=== PATIENT | male | born 1960 | race American Indian/Alaskan Native ===

== ENCOUNTER 2017-06-12 20:29 | Observation (INO) | payer OTHER ==
[~2017-06-12] VITALS: Ht 177.8 cm; Wt 103.9 kg
[~2017-06-12 20:29] MED LIST: ADVIL200 MG PO
--- NOTE | 2017-06-13 02:34 | NUR ---
ARRIVES TO ROOM 130, TRANSFERS OFF GURNORTH EASTON AND INTO BED PER SELF WITH STAND BY ASSIST. HR 115, RR 26, PT C/O BACK PAIN WHICH HE STATES IS CHRONIC. IVF INFUSING AND LEVAQUIN INFUSING ON ARRIVAL. DR BROWN IN TO SEE PT.
--- NOTE | 2017-06-13 04:22 | NUR ---
PT ARRIVED TO CCU ROOM 130 VIA STRETCHER. REPORT RECEIVED FROM REGULATORY AFFAIRS SPECIALIST, TIM. PT IS ALERT/ORIENTED. REPORTS CHRONIC BACK PAIN THAT IS CURRENTLY 8/10, SCHEDULED NAPROXEN GIVEN. LUNGS DIM, RA, TACHYPNIC. HR REGULAR, TACHY. BOWEL TONES ACTIVE, DENIES NAUSEA. PT HAS COUGH THAT IS DRY, ROBITUSSIN ADMINISTERED PER ORDER. SKIN APPEARS GROSSLY INTACT, NO EDEMA NOTED, PT REPORTS CHRONIC TINGLING IN FINGERTIPS. PT UP TO BATHROOM WITH SBA, VOIDED 600ML AND HAD BM WHICH PT REPORTS WAS SOFT. PT RETURNED TO BED, AT BEDSIDE. IVF INFUSING WNL. PT DENIES FURTHER REQUESTS AT THIS TIME, WILL CONTINUE TO MONITOR.
--- NOTE | 2017-06-13 04:31 | NUR ---
PT DESATURATING WHILE SLEEPING TO 86-88%, PLACED ON 1L VIA NC. NOW SPOS=2: 90-92%.
--- NOTE | 2017-06-13 05:40 | NUR ---
PT APPEARS TO BE SLEEPING, NO APPARENT DISTRESS. RR: 21, RESPIRATIONS EVEN AND UNLABORED, SPO2:92% ON 1L. HR:95. WILL ALLOW FOR REST AND CONTINUE TO MONITOR.
--- NOTE | 2017-06-13 08:56 | NUR ---
ASSESSMENT COMPLETE. PATIENT SAT UP IN BED FOR BREAKFAST. PATIENT VOIDED 1200MLS OF CLEAR YELLOW URINE. LUNGS DIMINISHED. PATIENT COUGHING WHEN ASKING TO TAKE A DEEP BREATH. REPORTS NASAL CONGESTION. BLOOD SUGAR WAS 223. COVRERED WITH 2 UNITS OF INSULIN. PATIENT ANXIOUS ABOUT TAKING BLOOD SUGARS AND GIVING INSULIN. STATING, "EVERYONE IN MY FAMILY IS DIABETIC DOES THIS MEAN THAT I AM TOO". EDUCATION GIVEN ABOUT ELEVATED BLOOD SUGAR WHILE SICK. IN ROOM VERY ENCOURAGING TO PATIENT.
--- NOTE | 2017-06-13 10:42 | NUR ---
PATIENT ASSISTED TO THE BED FROM THE BR. PATIENT TOLERATING AMBULATING IND WELL. NO DIZZINESS AT THIS TIME. VOIDED CLEAR URINE AND HAD BM. UPDATED PATIENT WITH NEWS OF TRANSFERING TO THE MEDICAL FLOOR.
--- NOTE | 2017-06-13 11:34 | NUR ---
ROOM DARKENED SO PATIENT CAN REST. MONITOR D/C'D PLAN TO MOVE TO ROOM 124 UPON TRANSFER.
--- NOTE | 2017-06-13 12:16 | NUR ---
PATIENT ASSISTED INTO GOWN. PATIENT STATING HE WAS GETTING SORE SLEEPING IN BED. IND AMBULATED TO CHAIR. VITALS TAKEN. BLOOD SUGAR 199. ORDERED LUNCH. EDUCATED ABOUT TAKING BLOOD SUGAR AT HOME. PATIENT STATING HE WOULD TRY TO TAKE BLOOD SUGAR AND GIVE INSULIN FOR DINNER, GAVE DEMONSTRATION FOR LUNCH. STATING SHE FAMILIAR WITH PROCESS BECAUSE SHE HAD TO DO IT.
--- NOTE | 2017-06-13 12:55 | NUR ---
PATIENT SITTING UP IN CHAIR EATING LUNCH. TOLERATING WELL. 2 UNITS OF INSULIN GIVEN. PLAN TO TRANSFER TO THE FLOOR WHEN DOING EATING.
--- NOTE | 2017-06-13 13:56 | NUR ---
PATIENT UPDATED THAT WE WILL BE STAYING IN ROOM FOR NOW. UPDATED WITH NEW PLAN. PATIENT AMBULATING IN ROOM IND. SCHEDULED MEDICATION GIVEN. PATIENT C/O CHRONIC BACK AND ANKLE PAIN. REFUSING TYLENOL AT THIS TIME.
--- NOTE | 2017-06-13 14:28 | NUR ---
patient voided 900mls of urine. tolerating resting in bed. vitals taken. in room. no other c/o at this time. cont to sat 94 on ra. current hr 93.
--- NOTE | 2017-06-13 16:27 | NUR ---
PATIENT ASSISTING SELF TO BR. VOIDING 900MLS IN URINAL. AT BEDSIDE. VISITORS GOING IN AND OUT. VITALS TAKEN. DINNER ORDER TAKEN. PATIENT CONTINUE TO DO WELL. NO OTHER NEEDS AT THIS TIME.
--- NOTE | 2017-06-13 17:10 | NUR ---
FALLON SITTING UP IN CHAIR. PATIENT GIVEN SCHEDULED COUGH MEDICATIONS. PATIENT ASKED IF HE WANTED TO TAKE OWN BLOOD SUGAR. PATIENT AGREED. PATIENT WAS EDUCATED ON HOW TO CLEAN FINGER, USED THE LANCETT, AND HOW TO PLACE BLOOD ON BLOOD SUGAR STRIP. PATIENT WAS ABLE TO DEMONSTRATE WELL. ASKED PATIENT IF HE WOULD LIKE TO GIVE HIS OWN INSULIN. PATIENT REFUSED AT THIS TIME AND STATING NO NOW. IN ROOM STATING SHE COULD ADMINISTER INSULIN AT HOME IF NEEDED.
--- NOTE | 2017-06-13 17:12 | NUR ---
PATIENT ADMITTED THROUGH THE ED LAST NIGHT. HAS HAD COUGH AND CONGESTION FOR 10DAYS. PATIENT TODAY HAS BEEN AFEBRILE. VITALS WNL. MAKE SL. TOLERAITNG DIET WELL. PATIENT IS A NEW DIABETIC. HAVING DONE EDUCATION AND DEMONSTRATIONS OF BLOOD SUGAR CHECKING AND DIABETIC EDUCATION. PATIENT IS VOIDING WELL. STEADY ON HIS FEET. IN ROOM. CONT TO BE ON RA TODAY. PLAN TO TRANSFER TO MS FLOOR AT SHIFT CHANGE.
--- NOTE | 2017-06-13 17:53 | NUR ---
PATIENT TOLERATED 100 PERCENT OF DINNER. TOLERATED WELL. NO C/O AT THIS TIME. EDUCATION ON INSULIN INJECTION. PATIENT TOLERATED INFORMATION WELL.
--- NOTE | 2017-06-13 21:10 | NUR ---
PT IS ALERT, ORIENTED, IN GOOD SPIRITS, ABLE TO DEMONSTRATE CORRECT BLOOD SUGAR CHECK, AND ADMINISTRATION OF OWN INSULIN WITH MINIMAL INSTRUCTION. AT BEDSIDE AND VERY SUPPORTIVE. PT STATES HE IS COMFORTABLE, DENIES FURTHER NEEDS, WATCHING MOVIE, CALL LIGHT IN EASY REACH. INDEP IN HS CARES. IS SPENDING THE NIGHT IN ROOM, BED IS MADE UP FOR HER.
--- NOTE | 2017-06-13 21:50 | NUR ---
RECIEVED REPORT FROM DO. PATIENT RESTING IN BED. NO REPORTS OF PAIN AT THIS TIME. LUNGS ARE CLEAR->DIM, HR REGULAR, ACTIVE BS. TRACE EDEMA BILAT ANKLES L>R. FLUSHED IV SITE. PATIENT STATES HE HAD A BM ABOUT 10 MINUTES AGO. PATIENT DENIES NEEDS. CALL LIGHT IN REACH.
--- NOTE | 2017-06-13 22:50 | NUR ---
VITALS AND I&OS DONE AND CHARTED. PT NEEDS NOTHING ELSE AT THIS TIME.
--- NOTE | 2017-06-13 23:38 | NUR ---
PATIENT UP TO BATHROOM INDEPENDENTLY. VOIDED. BACK TO BED. REFILLED WATER PITCHER. PATIENT DENIES NEEDS. CALL LIGHT IN REACH. AT BEDSIDE.
--- NOTE | 2017-06-14 01:45 | NUR ---
PATIENT SLEEPING. AT BEDSIDE. CALL LIGHT IN REACH.
--- NOTE | 2017-06-14 03:23 | NUR ---
PATIENT UP TO BATHROOM INDEPENDENTLY. VOIDED, BACK TO BED. EMPTIED URINAL. LUNGS ARE CLEAR-->DIMINISHED. OCCASIONAL DRY COUGH. HR REGULAR. ACTIVE BS. PALPABLE PEDAL PULSES, TRACE BLE EDEMA (ANKLES). PATIENT DENIES PAIN. ADMINISTERED SUDDAFED. PATIENT DENIES NEEDS. CALL LIGHT IN REACH.
--- NOTE | 2017-06-14 04:00 | NUR ---
CHECKED PATIENT'S O2 WHILE SLEEPING-96% ON RA. CALL LIGHT IN REACH.
--- NOTE | 2017-06-14 07:50 | NUR ---
PATIENT IN BED ASLEEP. WHITEBOARD UPDATED
--- NOTE | 2017-06-14 07:55 | NUR ---
took pateints breakfast order and got his a caregivers tray
--- NOTE | 2017-06-14 07:58 | NUR ---
PT ABLE TO GIVE SELF INSULIN
--- NOTE | 2017-06-14 09:54 | NUR ---
PT UP AMBULATING IN HALLWAY INDEPENDENTLY.
[2017-06-14] MEDS ORDERED: PSEUDOEPHEDRIN120 MG PO (11:50)
[2017-06-14] MEDS ORDERED: LEVOFLOXACIN500 MG PO (11:50)
[2017-06-14] MEDS ORDERED: GUAIFENESIN-CODE5 ML PO (11:53)
[2017-06-14] MEDS ORDERED: FLUTICASONE PRO16 GM NAS (11:54)
[2017-06-14] MEDS ORDERED: GLIPIZIDE XL10 MG PO (11:55)
[2017-06-14] MEDS ORDERED: METFORMIN HCL500 MG PO (11:55)
[2017-06-14] MEDS ORDERED: BLOOD GLUCOSE1 EAC1 MISC (11:56)
[2017-06-14] MEDS ORDERED: BLOOD LANCETS1 EACH MISC (11:57)
[2017-06-14] MEDS ORDERED: BLOOD GLUCOSE1 EACH MISC (11:58)
--- NOTE | 2017-06-14 11:59 | NUR ---
DR BROWN IN TO SEE PT. GIVEN VERBAL ORDER TO REMOVE IV. TIP INTACT. PT EATING LUNCH VISITING WITH
[2017-06-14] MEDS ORDERED: NAPROXEN500 MG PO (12:07)
--- NOTE | 2017-06-14 12:43 | NUR ---
PT GIVEN FLU SHOT PRIOR TO DISCHARGE. GIVNE DISCHARGE INSTRUCTIONS TO PT AND . BOTH VERBALIZE UNDERSTANDING. BOTH STATE NO FUTHRER QUESTIONS.
== END 2017-06-14 12:58 | disposition home or self-care (01) ==
LOC: ED 20:29 → CCU 20:30 → ED 06-13 02:08 → CCU 06-13 02:08 → MS 06-13 18:50 → CCU 06-13 18:50 → MS 06-13 18:50 → CCU 06-14 12:58 → MS 06-14 12:58 → CCU 06-14 12:58
PROVIDERS: ADMIT Internal Medicine
DX: A41.9 Sepsis, unspecified organism (principal); J01.10 Acute frontal sinusitis, unspecified; B96.89 Other specified bacterial agents as the cause of diseases classified elsewhere; M19.90 Unspecified osteoarthritis, unspecified site; E11.65 Type 2 diabetes mellitus with hyperglycemia; Z87.891 Personal history of nicotine dependence; Z88.0 Allergy status to penicillin; Z79.1 Long term (current) use of non-steroidal anti-inflammatories (NSAID); Z23 Encounter for immunization
CPT/HCPCS: 36415; 71046; 80053; 81001; 83036; 83605; 83880; 84484; 85025; 87040; 87502; 90674; 96361; 96365; 96366; 96374; 96375; 99285; G0008; G0378; J1956; J7030; J7120

== ENCOUNTER 2017-08-06 14:49 | Emergency (ER) | payer OTHER ==
[~2017-08-06] VITALS: Ht 177.8 cm; Wt 103.4 kg
[~2017-08-06 14:49] MED LIST changes: +BLOOD GLUCOSE1 EAC1 MISC; +BLOOD GLUCOSE1 EACH MISC; +BLOOD LANCETS1 EACH MISC; +FLUTICASONE PRO16 GM NAS; +GLIPIZIDE XL10 MG PO; +GUAIFENESIN-CODE5 ML PO; +LEVOFLOXACIN500 MG PO; +METFORMIN HCL500 MG PO; +NAPROXEN500 MG PO; +PSEUDOEPHEDRIN120 MG PO
[2017-08-06] MEDS ORDERED: VITAMIN D50000 UNI1 PO (15:06)
[2017-08-06] MEDS ORDERED: NORCO 7.5-3251 EACH PO (17:07)
== END 2017-08-06 17:13 | disposition home or self-care (01) ==
LOC: ED 14:49
DX: S92.322A Displaced fracture of second metatarsal bone, left foot, initial encounter for closed fracture (principal); S92.332A Displaced fracture of third metatarsal bone, left foot, initial encounter for closed fracture; E11.649 Type 2 diabetes mellitus with hypoglycemia without coma; Z87.891 Personal history of nicotine dependence; Z88.0 Allergy status to penicillin; Z79.899 Other long term (current) drug therapy; Z79.84 Long term (current) use of oral hypoglycemic drugs; X58.XXXA Exposure to other specified factors, initial encounter
CPT/HCPCS: 36415; 73630; 80053; 85025; 99283

== ENCOUNTER 2017-11-17 17:29 | Emergency (ER) | payer OTHER ==
[~2017-11-17] VITALS: Ht 177.8 cm; Wt 103.4 kg
[~2017-11-17 17:29] MED LIST changes: +NORCO 7.5-3251 EACH PO; +VITAMIN D50000 UNI1 PO
[2017-11-17] MEDS ORDERED: BUPRENORPHINE HC8 MG SL (17:45)
== END 2017-11-17 18:17 | disposition left against medical advice (07) ==
LOC: ED 17:29
DX: Z53.21 Procedure and treatment not carried out due to patient leaving prior to being seen by health care provider (principal)

== ENCOUNTER 2021-01-04 11:36 | Emergency (ER) | payer OTHER, MEDICARE ==
[~2021-01-04] VITALS: Ht 177.8 cm; Wt 97.5 kg
[~2021-01-04 11:36] MED LIST changes: +BUPRENORPHINE HC8 MG SL
--- OUTSIDE RECORDS SUMMARY | 2021-01-04 11:44 | XMS ---
PreManage Notification: SANCHEZ COBOS Security Public Relations Analyst Events No recent Security Events currently on file CRITERIA MET - Group Notification [facility] [facility] PHONE: [phone] Doris has no Care Guidelines for this patient. E.DRobert VISIT COUNT (12 MO.) 1 [facility] 1 [facility] TOTAL 2 NOTE: Visits indicate total known visits. ED/UCC VISIT TRACKING (12 MO.) 01/04/2021 11:37 [facility] Robles TYPE: Emergency COMPLAINT: - FALL, R HAND SWELLING [facility] DIAGNOSES: - feeling unwell, poss sepsis - COVID-19 - Cough - Hypoxemia INPATIENT VISIT TRACKING (12 MO.) [facility] DIAGNOSES: - COVID-19 - Type 2 diabetes mellitus with hyperglycemia - Non-pressure chronic ulcer of left heel and midfoot with unspecified severity - Acute respiratory failure, unspecified whether with hypoxia or hypercapnia - Type 2 diabetes mellitus with foot ulcer - Pneumonia due to coronavirus disease 2019 - Hypoxemia - Nasal congestion - Hypo-osmolality and hyponatremia - Non-pressure chronic ulcer of left heel and midfoot limited to breakdown of skin - Other psychoactive substance abuse, uncomplicated - Unspecified bacterial pneumonia - Alcohol abuse, uncomplicated [email or web address]
[2021-01-04] MEDS ORDERED: HYDROCODON-ACE1 EA11 PO (13:30)
== END 2021-01-04 15:00 | disposition home or self-care (01) ==
LOC: ED 11:36
DX: S62.320A Displaced fracture of shaft of second metacarpal bone, right hand, initial encounter for closed fracture (principal); S62.314A Displaced fracture of base of fourth metacarpal bone, right hand, initial encounter for closed fracture; S62.316A Displaced fracture of base of fifth metacarpal bone, right hand, initial encounter for closed fracture; Z87.891 Personal history of nicotine dependence; Z88.0 Allergy status to penicillin; W01.10XA Fall on same level from slipping, tripping and stumbling with subsequent striking against unspecified object, initial encounter; E11.9 Type 2 diabetes mellitus without complications
CPT/HCPCS: 29125; 73110; 73130; 99283-25

== ENCOUNTER 2021-02-28 10:54 | Inpatient (IN) | payer MEDICARE, OTHER ==
[~2021-02-28] VITALS: Ht 177.8 cm; Wt 87.2 kg
[~2021-02-28 10:54] MED LIST changes: +HYDROCODON-ACE1 EA11 PO
--- OUTSIDE RECORDS SUMMARY | 2021-02-28 10:56 | XMS ---
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 Care History Medical/Surgical 01/08/2021 [facility] - PATIENT IS [facility] ELIGIBLE, \T\middot;\T\nbsp; PLEASE REFER PATIENT TO [facility] FOR NON EMERGENT MEDICAL NEEDS. \T\middot;\T\nbsp; [facility] CAN SEE PATIENTS SAME DAY FOR APTS IF PATIENT CALLS FIRST THING IN THE MORNING. E.D. VISIT COUNT (12 MO.) 1 [facility] [address] [facility] TOTAL 3 NOTE: Visits indicate total known visits. ED/UCC VISIT TRACKING (12 MO.) 02/28/2021 10:[address] [facility] [place] TYPE: Emergency COMPLAINT: - L FOOT WOUND PAIN 01/04/2021 11:37 [facility] [place] TYPE: Emergency COMPLAINT: - FALL, R HAND SWELLING DIAGNOSES: - Fall on same level from slipping, tripping and stumbling with subsequent striking against unspecified object, initial encounter - Type 2 diabetes mellitus without complications - Displaced fracture of base of fourth metacarpal bone, right hand, initial encounter for closed fracture - Pain in right hand - Allergy status to penicillin - Displaced fracture of shaft of second metacarpal bone, right hand, initial encounter for closed fracture - Displaced fracture of base of fifth metacarpal bone, right hand, initial encounter for closed fracture - Personal history of nicotine dependence [facility] DIAGNOSES: - feeling unwell, poss sepsis - COVID-19 - Cough - Hypoxemia INPATIENT VISIT TRACKING (12 MO.) [facility]18[facility]2020 [facility] DIAGNOSES: - COVID-19 - Type 2 diabetes mellitus with hyperglycemia - Non-pressure chronic ulcer of left heel and midfoot with unspecified severity - Acute respiratory failure, unspecified whether with hypoxia or hypercapnia - Type 2 diabetes mellitus with foot ulcer - Pneumonia due to coronavirus disease 2018 - Hypoxemia - Nasal congestion - Hypo-osmolality and hyponatremia - Non-pressure chronic ulcer of left heel and midfoot limited to breakdown of skin - Other psychoactive substance abuse, uncomplicated - Unspecified bacterial pneumonia - Alcohol abuse, uncomplicated [email or web address]
--- NOTE | 2021-02-28 14:43 | NUR ---
REPORT RECEIVED FROM TISHA JACKSON. AWAITING PTS ARRIVAL TO MED/SURG.
--- NOTE | 2021-02-28 15:20 | NUR ---
Pt arrived to floor form ER ~1520 accompanied by staff via streacher. VS on admission: T 99.4 oral, pulse 115 via monitor, RR 24, BP 116/69 via monitor, O2 97 on RA. Heart with regular rate and rhythm. no murmurs noted. lungs CTA throughout. denies pain on assessment. cap refill WNL. arrived with IV in left AC and IV in Left Forearm. IVs intact, no s/s of phlebittis or infiltration. Pt alert and oreitned x 3. pt recieved iv abx x 3 and IV fluids per md orders. skin pink warm and dry. wound to bottom of left foot, with eschar intact. wound measured 3cm circumfrential. cellulitis present to LLE, outlined on assessment. Dr. Fine to consult on wound. MD removed eshcar to bottom left foot. pt tolerated well. Dr. Fine lacerated left lateral foot aspirated fluid, sent to lab for analysis. Dr. fine dressed wound , packing, 4x4, abd pad, kurlex and coban applied. Dr. Gomez dressed wound to bottom of left foot, iodosform, 4x4, kurlex, and coban. no other skin issues at this time. swelling to LLE with ephasis to foot and ankle. Left foot warm to touch, no pain. pt with pinpot areas to left abel with scant SS drainage. multi mission helicopter aircrewman are strong and equal. eyes PERRL. Pt in semi-fowlers position in bed with blankets on, bed rails up and call light in reach.
--- NOTE | 2021-02-28 15:30 | NUR ---
REPORT GIVEN TO BARRY AND TISHA FUENTES WHO WILL BE ADMITTING PT. PT ARRIVED FROM ER. SEE ASSESSMENT AND INTAKE BY TISHA REDDY.
--- NOTE | 2021-02-28 17:30 | NUR ---
THIS RN TO ROOM TO CHECK ON PT. DR. VAUGHN AT BEDSIDE WORKING WITH PT. PT EATING SNACKS. PT DENIES PAIN AND NAUSEA WITH FOOD/WOUND CARE. TISHA EASTMAN, REMAINS AT BEDSIDE. PT DENIES REQUESTS OR COMPLAINTS AT THIS TIME. CALL LIGHT WITHIN REACH.
--- NOTE | 2021-02-28 18:45 | NUR ---
DR. MCKEON CONSULTED REGARDING BLOOD LACTIC LEVEL. NO NEW ORDERS AT THIS TIME. STATES NO NEED FOR REPEAT LACTIC LEVELS.
--- NOTE | 2021-02-28 18:46 | NUR ---
Vitals, I&Os are complete. Patient is eating some snacks. Patient was encouraged to use call light if he ever needs help. Call light is in reach.
--- NOTE | 2021-02-28 19:10 | NUR ---
SHIFT REPORT RECEIVED FROM SAROJ GILES. PT RESTING IN BED. IV FLUIDS AND MEDS INFUSING PER ORDERS. NO OTHER NEEDS AT THIS TIME. CALL LIGHT IN REACH.
--- NOTE | 2021-02-28 19:59 | NUR ---
PT ADMITTED THIS SHIFT FOR LEFT LOWER LEG CELLUTITS AND HYPONATREMIA. PT REMAINS ON BED REST WITH BATHROOM PRIVLIDGES, REPORTS HE USES A FWW AT HOME. PT TOLERATING 60G CARB DIET WITH GOOD INTAKE THIS SHIFT. BLOOD SUGAR CHECKS WITH MEALS WITH SLINDING SCALE INSULIN. TELEMETRY MONITORING IN PLACE WITH SINUS TACHYCARDIA NOTED THIS SHIFT, HEART RATE 100-120'S. DR. VAUGHN CONSULTED, SAMPLE TAKEN FROM LLE, WOUND CLEANED AND DRESSING APPLIED TO LLE BY DR. VAUGHN. REDNESS OUTLINED BY THIS RN. IV ABX GIVEN. CIWA OF 0 THIS SHIFT. PT DENIES PAIN AND NAUSEA THIS SHIFT. PT VOIDIGN QUANTITY SUFFICIENT. PT USES CALL LIGHT AND MAKES NEEDS KNOWN.
--- NOTE | 2021-02-28 20:13 | NUR ---
ASSESSMENT, VBS AND I&O COMPLETED. PT REPORTS NUMBESS IN BOTH FEET. LLE EDEMA 2+, DRESSINGS CDI. GCS 15, A&O X4. LUNGS CLEAR, HEART TONES REGULAR, ST @ 108 ON TELE. ABD SOFT, NONTENDER, BOWEL TONES ACTIVE. CMS INTACT IN UPPER EXTREMITIES. IVs WNL, CDI, FLUSHED WELL. PT HAS ELEVATED TEMP, PRN TYLENOL PROVIDED. MD MCKEON AWARE OF TEMP, NO ADDITIONAL ORDERS. IV FLUIDS INFUSING PER ORDER. NO OTHER NEEDS. CALL LIGHT IN REACH.
--- NOTE | 2021-02-28 22:10 | NUR ---
IN TO ASSIST PT TO THE BSC, 1PA PIVOT, PT BACK TO BED, TEMP RECHECK FOR RN, ICE WATER FILLED NO FURTHER NEEDS AT THIS TIME
--- NOTE | 2021-02-28 23:31 | NUR ---
PT RESTING IN BED, WATCHING TV. HR ST @ 105. IV MED AND FLUIDS INFUSING PER ORDER. CALL LIGHT IN REACH.
--- NOTE | 2021-03-01 01:44 | NUR ---
PT HAS SPILLED HIS URINAL AND IS INCONTINENT OF BM. PT MOVED TO [facility], PERSONAL CARES PROVIDED. IV WNL, NEW BAG IV FLUIDS PROVIDED. PT DENIES PAIN. ICE WATER AND SNACK PROVIDED. VS AND I&O COMPLETED. HR ST @ 100. NO OTHER NEEDS AT THIS TIME. CALL LIGHT IN REACH.
--- NOTE | 2021-03-01 03:02 | NUR ---
ASSESSMENT COMPLETED. GCS 15, A&O X4. NUMBNESS IN BOTH FEET. 2+ EDEMA IN LLE, PULSE FAINT. IVs WNL. NO OTHER NEEDS AT THIS TIME. CALL LIGHT IN REACH.
--- NOTE | 2021-03-01 04:11 | NUR ---
PT RESTING IN BED. TELE HR ST @ 101. CALL LIGHT IN REACH.
--- NOTE | 2021-03-01 05:49 | NUR ---
VS AND I&O COMPLETED. SCHEDULED MEDS PROVIDED. IVs WNL. SNACKS, ICE WATER AND SODA PROVIDED BY AARON BREWSTER.
--- NOTE | 2021-03-01 07:15 | NUR ---
REPORT RECEIVED FROM TISHA WALLS. PT RESTING IN BED ON BACK WITH HEAD OF BED ELEVATED TO 22 DEGREES, WITH EYES CLOSED. RESPIRATIONS EVEN AND UNLABORED. TELEMETRY MONITORING SHOWS NORMAL SINUS RHYTHEM WIHT HEART RATE 90-100'S. PT ALLOWED TO REST AT THIS TIME. BED RAILS UP. CALL LIGHT WITHIN REACH.
--- NOTE | 2021-03-01 08:15 | NUR ---
ROUNDED WITH DR VAUGHN FOR DRESSING CHANGE. DRESSING WAS REMOVED. LARGE AMOUNTS OF SEROSANG DRAINAGE PRESENT ON DRESSING. PACKING REMOVED FROM WOUND. SLIGHT FOUL ODOR PRESENT WITH DRESSING CHANGE. PUNCTURE WOUND FLUSHED WITH 40MLS OF NORMAL SALINE. 5 INCHES OF 1/2 INCH PACKING PLACED IN WOUND. COVERED WITH GAUZE ABD AND WRAAPED WITH KERLEX AND COBAN. WOUND AND SWELLING SEEMS TO BE IMPROVING FROM YESTERDAYS ASSESSMENT. PT DENIES PAIN AT THIS TIME. REPOSITIONED IN BED NAD COFFEE PROVIDED. BLOOD SUGAR CHECKED BY DIRECTOR PROSPECT AND DOCUMENTED.
--- NOTE | 2021-03-01 08:17 | NUR ---
MED REC COMPLETE
--- NOTE | 2021-03-01 08:34 | NUR ---
MORNING ASSESSMENT AND MEDICATION DUE. PT DENIES PAIN AND NAUSEA. PT ASKED SPECIFICALLY ABOUT HIS FOOT AND CONTINUES TO DENY PAIN. IV'S ASSESSED, WNL, IV ABX STARTED. PT DENIES NAUSEA AND REPORTS FEELING "REALLY HUNGRY." PT ORIENTED TO ALL. PT DENIES NUMBNESS AND TINGLING IN HIS HANDS AND FEET BUT IS UNABLE TO IDENTIFY TOES WHEN TOUCHED STATING "WELL I CAN'T FEEL THAT AT ALL." PT ABLE TO IDENTIFY WHEN SHINS ARE TOUCHED. PLANTAR AND DORSI FLEXION STRONG. PT IS ABLE TO LIFT LEGS OFF THE BED. 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 PT DENIES NUMBNESS AND TINGLING IN HANDS. TELEMETRY MONTIROING REMAINS IN PLACE, HEART RATE 100-120'S, OCCATIONAL PVC'S NOTED. CAPILLARY REFILL IS LESS THAN 2 SECONDS IN ALL EXREMITIES. SOFT HAT BINDER RN NOTES THAT PT HAS HAD 2 LIQUID STOOLS. NONE NOTED AT THIS TIME, WILL CONTINUE TO MONITOR. PT STATES DR. VAUGHN CAME IN THIS MORNING AND "CHANGED IT REALLY FAST"REFERING TO THE DRESSING OVER LEFT FOOT. DRESSING C/D/I AT THIS TIME, GUAZE, ABD, IODOSORB AND COBAN IN PLACE. DRESSING LEFT INTACT AT THIS TIME, UNABLE TO ASSESS WOUND BED. REDNESS TO LEFT LOWER LEG REMAINS WITHIN MARKED AREA. LEFT LOWER EXTREMITY ELEVATED ON PILLOW. PT ASSISTED WITH REPOSITIONING TO SEMIFOWLER POSITION FOR BREAKFAST. PT DENIES ADDITIONAL REQUESTS OR COMPLAINTS. CALL LIGHT WITHIN REACH. BED RAILS UP.
--- NOTE | 2021-03-01 09:18 | NUR ---
ROUNDED WITH DR VAUGHN FOR DRESSING CHANGE TO LEFT LATERAL ANKLE ABCESS. DRESSING WAS REMOVED. LARGE AMOUNTS OF SEROSANG DRAINAGE PRESENT ON DRESSING. PACKING REMOVED WITH SLIGHT FOUL ODOR PRESENT. PUNCTURE WOUND FLUSHED WITH 40MLS OF NORMAL SALINE. 5 INCHES OF 1/2 INCH PACKING PLACED IN WOUND. COVERED WITH GAUZE ABD AND WRAAPED WITH KERLEX AND COBAN. WOUND AND SWELLING SEEMS TO BE IMPROVING FROM YESTERDAYS ASSESSMENT. PT DENIES PAIN AT THIS TIME. REPOSITIONED IN BED NAD COFFEE PROVIDED. BLOOD SUGAR CHECKED BY EMERGENCY MANAGEMENT PROGRAM SPECIALIST AND DOCUMENTED.
--- NOTE | 2021-03-01 10:32 | NUR ---
THIS RN TO ROOM TO CHECK ON PT. PT RESTING IN BED WITH EYES CLOSED, AWAKENS TO MOVEMENT IN THE ROOM. IV ABX COMPLETE. LEFT AC IV SALINE LOCKED, IV FLUIDS CONTINUE IN LEFT FORARM IV. BOTH IV SITES WNL WITH NO S/S OF PHELBITIS NOTED. PT CONTINUES TO DENY PAIN AND NAUSEA. DIET 7-UP PROVIDED PER PT REQUEST. PT DENIES ADDITIONAL REQUETST OR COMPLAINTS. LUNCH ORDER PLACED. CALL LIGHT WITHIN REACH. BED RAILS UP.
--- NOTE | 2021-03-01 11:49 | NUR ---
THIS RN TO ROOM TO CHECK ON PT. PT REPORTS HUNGER AND REQUESTS A SNACK. CBG = 111, NO INSULIN NEEDED. SUGAR FREE JELLO AND PUDDING PROVIDED. PT REQUESTS TO GET UP TO CHAIR. CONSULTED AND STATES OK FOR PT TO SIT IN CHAIR. PT NOTED TO HAVE BED SOILED WITH URINE, NIXON CARE PERFORMED, DEPENDS CHANGED, GOWN CHANGED. 1 PERSON PIVOT ASSIST UP TO CHAIR, NO WEIGHT PLACED ONTO LLE. PT DENIES PAIN AND NAUSEA EVEN WITH MOVEMENT STATING "IT FEELS SO GOOD TO BE IN THE CHAIR." LINENS CHANGED. PT AWAITING LUNCH. NO ADDITIONAL REQUESTS OR COMPLAINTS. CALL LIGHT ARACELIS ZHU.
--- NOTE | 2021-03-01 13:50 | NUR ---
AFTERNOON ASSESSMENT AND MEDICATION DUE. PT UP TO CHAIR, RESTING WITH EYES CLOSED, RESPIRATIONS EVEN AND UNLABORED. PT AWAKENS TO VOICE. PT DENIES PAIN AND NAUSEA BUT STATES "I'M JUST HAVING TOUBLE STAYING AWAKE." BLOOD PRESSURE NOTED TO BE LOW ACCORDING TO CAMPAIGN DIRECTOR ASSESSMENT. RETAKEN BY THIS RN, 82/58 (MAP OF 64) BY MONITOR, 82/52 MANNUALLY. PT DENIES DIZZINESS OR LIGHTHEADEDNESS REPORTS ONLY FEELINGS OF DROWSINESS. PT ORIENTED TO ALL. NUMBNESS CONTINUES IN BLE. PT DENIES NUMBNESS OR TINGLING IN HANDS. LUNG SOUNDS CLEAR. PT MILDY TACHYCARDIC. ABDOMEN REMAINS MILDLY DISTENDED (PT REPORTS NORMAL). LLE REMAINS UNCHANGED. +2 EDEMA WITH CAPILLARY REFILL LESS THAN 3 SECONDS. STRONG PULSES NOTED. LLE WEAKER THAN RIGHT REGARDING PLANTAR AND DORSI FLEXION. DRESSING REMAINS C/D/I, NO DRAINGE NOTED. LLE VERY WARM TO TOUCH COMPARED TO RIGHT. PT REMAINS UP TO CHAIR AT THIS TIME. CALL LIGHT WITHIN REACH. JELLO PROVIDED FOR SNACK.
--- NOTE | 2021-03-01 14:35 | NUR ---
MD NOTIFIED OF PTS BLOOD PRESSURE, AND OTHER VITAL SIGNS. MD REQUESTS THAT PT HAVE A SNACK CONTAINING SALT, PT REQUESTS CHIPS. CHIPS ORDERED. NO ADDITIONAL NEW ORDERS. CALL LIGHT WITHIN REACH.
--- NOTE | 2021-03-01 15:13 | NUR ---
PT ADMITTED FOR LEFT FOOT CELLUITIS RELTATED TO A DIABETIC FOOT ULCER. PT UP TO CHAIR WITH 1 PERSON PIVOT ASSIST. PT TOLERATED TIME UP TO CHAIR WELL, ACTIVITY ORDERS CHANGED TO AD REBECCA. PT TOELRATING 60G CARB DIET WITH EXCELLENT APPITITE, SUGAR FREE SNACKS PROVIDED. PTS BLOOD PRESSURE TRENDIND DOWN THIS SHIFT, AWARE, MONITORING INTAKE, FLUIDS ENCORUAGED, IV FLUIDS CONTINUE. DR. VAUGHN TO BEDSIDE THIS SHIFT FOR DRESSING CHANGE. DRESSING REMAINS C/D/I THIS SHIFT WITH NO ADDITIONAL INTERVENTIONS NEEDED. NUMBNESS TO BLE UNCHANGED. PT AFEBRIAL SO FAR THIS SHIFT. CIWA SCORE OF 0. ADDITIONAL INCONTINANT URINE EPISODE NOTED. BLOOD SUGARS TAKEN WITH MEALS AND SLIDING SCALE INSULINE GIVEN NEEDED. PT REMAINS ON TELEMETRY MONITORING WITH SINUS TACHYCARDIA. PT DENIES PAIN AND NAUSEA THIS SHIFT. PT VOIDING QUANTITY SUFFICIENT. PT USES CALL LIGHT AND MAKES NEEDS KNOWN.
--- NOTE | 2021-03-01 15:45 | NUR ---
Spoke with Bharat. He states he sees Dr. Mathias for his wounds. He lives in a 1 story home with his 2 brothers. There are 2 steps in and his brothers assist him into the home as he is unable to step up. He has a walker, cane, and crutches. He states he does not use cane or walker, he uses his crutches. He states he is unbalanced as the crutche s are two different sizes. I left a note for Dr. Mathias asking for RX crutches and a note to be entered into the chart. Pt denies other needs and wants to go home with his family. He uses [facility] and I asked if he would like me to fax the notes and he would. He is unsure which provider he sees. Plans on dc to home with his brothers.
--- NOTE | 2021-03-01 15:58 | NUR ---
PTS DAUGHTER ARRIVED TO VISIT WITH PT AND DELIVER SNACKS. DAUGHTER BROUGHT FRUIT FOR SNACK. EUDCAITON DONE WITH PT AND DAUGHTER REGRADING SUGAR CONTENT OF FRUIT. PT REPORTS HE WOULD STILL LIKE TO EAT ONE CONTAINER OF HIS FRUIT NOW. BLOOD SUGAR CHECKED AT THIS TIME RELATED TO PT EATING FRUIT BOWEL NOW. IDD=[id number], NO INSULIN NEEDED AT THIS TIME. PT VISITING WITH DAUGHTER. NO ADDITIONAL REQUESTS OR COMPLAINTS. CALL LIGHT WITHIN REACH. BED RAILS UP.
--- NOTE | 2021-03-01 16:47 | NUR ---
THIS RN TO ROOM TO REASSESS BLOOD PRESSURE. BLOOD PRESSURE IMPROVING. PT CONTINUES TO DENY DIZZINESS OR LIGHTHEADEDNESS. PT CONTINUES TO REPORT HUNGER AFTER EATING FRUIT BOWLE. CBG REASSESS BY GAS PUMP ATTENDANT SHE WAS UNAWARE CBG HAD ALREADY BEEN COMPLETED. INSULINE CONTINUES TO BE HELD BLOOD SUGAR IS ONLY 141 AFTER A LARGE BOWEL OF FRUIT. BLOOD SUGAR WILL BE REASSESSED BEFORE BED BY CAMPAIGN MARKETING MANAGER. PT DENIES PAIN BUT FOR "A LITTLE IN MY NECK." PT REPOSITIONED AND STATES NECK PAIN HAS RESOLVED. PT WATCHING TV AND WAITING FOR DINNER. NO ADDITIONAL REQUESTS OR COMPLAINTS. CALL LIGHT WITHIN REACH. BED RAILS UP.
--- NOTE | 2021-03-01 16:58 | NUR ---
I DIDN'T KNOW THAT THE NURSE ALREADY DID HIS BLOOD SUGAR CHECK ALREADY. SO I DID HIS BLOOD SUGAR CHECK AND IT WAS 141 NURSE NOTIFIED.
--- NOTE | 2021-03-01 17:52 | NUR ---
THIS RN TO ROOM TO CHECK ON PT. PT RESTING WITH EYES CLOSED. PT AWAKENS TO LIGHT TOUCH. PT DENIES PAIN AND NAUSEA. PT REPORTS THAT HE HAS NOT ORDERED DINNER. DINNER ORDER PLACED FOR PT. PT BOOSTED AND REPOSITIONED TO SEMIFOWLER POSITION WITH HEAD OF BED ELEVATED TO 50 DEGREES. FEET ELEVATED. LEFT LOWER EXTREMITY REMAINS ELEVATED ON PILLOW. DRESSING C/D/I WITH CAPILLARY REFILL LESS THAN 3 SECONDS. PT DENIES ADDITIONAL REQUESTS OR COMPLAINTS. CALL LIGHT WITHIN REACH. BED RAILS UP.
--- NOTE | 2021-03-01 19:30 | NUR ---
Shift report received from TISHA Gerard, pt sitting up in chair w/ call light in reach. Pt denies any needs at this time.
--- NOTE | 2021-03-01 20:00 | NUR ---
PT RESTING IN BED SAFELY W/ CALL LIGHT IN REACH. DRESSING CHANGE COMPLETED PER DR. VAUGHN'S ORDERS. PT TOLERATED WELL.
--- NOTE | 2021-03-01 20:45 | NUR ---
PT ASSISTED BACK TO BED FROM BSC, VITALS DONE, ICE WATER FILLED, NO FURTHER NEEDS AT THIS TIME
--- NOTE | 2021-03-01 22:00 | NUR ---
PT RESTING IN BED SAFELY W/ CALL LIGHT IN REACH, EVENING ASSESMENT COMPLETE AND SCHEDULED ABX HUNG AND INFUSING PER PROVIDER ORDER. PT W/ LOW GRADE FEVER, PROVIDER NOTIFIED, TYLENOL GIVEN PER PROVIDER ORDER. PT DENIES ANY OTHER NEEDS AT THIS TIME.
--- NOTE | 2021-03-01 22:54 | NUR ---
IN TO PROVIDE WARM BLANKET, NO FURTHER NEEDS
--- NOTE | 2021-03-01 23:45 | NUR ---
IN TO ASSIST PT WITH EPISODE OF BM INCONT, PT UP TO THE BSC, VOID AND MORE BM, CLEANED UP, BACK TO BED, TEMP RECHECKED, NORMAL, SODA PROVIDED, NO FURTHER NEEDS AT THIS TIME
--- NOTE | 2021-03-02 00:21 | NUR ---
PT CALLED IV PUMP ALARMING, ABX INFSION COMPLETE, IV FLUIDS CONTINUING TO INFUSE PER PROVIDER ORDER. PT RESTING SAFELY IN BED W/ CALL LIGHT IN REACH. FEVER HAS IMPORVED AFTER PRN DOSE OF ORAL TYLENOL, 98.8. PT DENIES ANY OTHER NEEDS AT THIS TIME
--- NOTE | 2021-03-02 02:11 | NUR ---
Pt resting safely in bed w/ call light in reach and eyes closed, RR even and unlabored.
--- NOTE | 2021-03-02 04:30 | NUR ---
Pt called for assistancfe, stating he had an accident. Pt incontinent of urine and stool. Pt's gown, bedding, and depends changed. Pt then assisted to BSC and had a large loose BM. NEY Mcdowell in room assisting this RN. Pt now back in bed resting safely w/ call light in reach, IV fluids infusing per provider order.
--- NOTE | 2021-03-02 06:40 | NUR ---
Pt resting safely in bed w/ call light in reach and eyes closed, RR even and unlabored.
--- NOTE | 2021-03-02 07:25 | NUR ---
REPORT RECEIVED FROM TISHA ORTEGA. PT RESTING IN BED WITH EYES CLOSED. HEAD OF BED ELEVATED TO 25 DEGREES. RESPIRATIONS EVEN AND UNALBORED. PT ALLOWED TO REST. BED RAILS UP. CALL LIGHT WITHIN REACH. LEFT LOWER EXTREMITY ELEVATED ON PILLOW.
--- NOTE | 2021-03-02 08:30 | NUR ---
MORNING ASSESSMENT AND MEDICATION DUE. DR. VAUGHN AT BEDSIDE TO CHANGE DRESSING TO LEFT LOWER EXTREMITY. LLE CONTINUES TO BE HOT TO TOUCH COMPARED TO RIGHT LEG. 1.8X1.2 DIABETIC SKIN ULCER NOTED ON BOTTOM OF FOOT. WELL 1.5CM INCISION ON LATERAL LEFT ANKLE WHERE MD EXTRACTED FLUID. SERIOUS ANGUINOUS FLUID CONTINES LEAKING FROM THIS SOURCE. WASHING AND PACKING OF WOUND PERFORMED BY DR. VAUGHN. ABD, GAUZE AND COBAN ALSO APPLIED BY DR. VAUGHN. VERBAL ORDERS GIVEN TO LEAVE DRESSING IN PLACE THIS SHIFT. DRESSING ORDERS TO BE PLACED BY MD. FAINT PEDIAL PULSES NOTED TO LEFT FOOT, STRONG PEDIAL PULSES TO RIGHT FOOT. STRONG DORSI FLEXION AND PLANTAR FLEXTION NOTED, MILDLY WEAKER TO LEFT SIDE. PT ABLE TO LIFT BOTH LEGS OFF THE BED. REDNESS WITHIN OUTLINED AREA. BOTH IV'S ASSESSED, WNL, NO S/S OF PHLEBITIS NOTED, IV ABX STARTED. PT UP TO CHAIR WITH FWW AND 1 PERSON PIVOT ASSIST, NO WEIGHT PLACED ON LLE. PT ABLE TO SIT SELF UP IN BED, AND STAND WITHOUT ASSISTANCE, UNSTEADY AT TIMES ON FEET. EDUCATION DONE REGARDING WALKER USE. MILD TACHYCARDIA CONTINUES WITH HEART RATE 90-120'S. LLE ELEVATED ON TWO PILLOWS WHILE UP TO BED. PT REPORTS ADDITIONAL EPISODES OF DIARRHEA LAST NIGHT, NONE YET THIS SHIFT. PT USING BEDSIDE URINAL BUT INCONTINANT AT TIMES RELATED TO URGENCY. DEPENDS IN PLACE. PT REPORTS "HEARING PEOPLE TALKING" IN THE ROOM THAT ARE NOT PRESENET. CIWA SCORE PERFORMED, NO OTHER CIWA INDICATORS PRESENT. CIWA SCORE OF 4, FOR AUDITORY HALLUCINATIONS, AT THIS TIME. PT REPRORTS FEELING "REALLY TIRED, I CAN'T STAY AWAKE." PT RESTING IN CHAIR, EATING BREAKFAST. CALL LIGHT WITHIN REACH.
--- NOTE | 2021-03-02 09:02 | NUR ---
PT IN CHAIR FOR BREAKFAST. BLINDS OPENED, ROOM TIDIED. PT ACCEPTED LINEN CHANGE. VITALS AND I&O'S CHARTED. CALL LIGHT WITHIN REACH. NO FURTHER NEEDS AT THIS TIME. ICE WATER AND COFFEE REFRESHED.
--- NOTE | 2021-03-02 10:05 | NUR ---
THIS RN TO ROOM TO CHECK ON PT. PT REMAINS UP TO CHAIR, PT REPORTS FEELING "SO HUNGRY" PT EATING CHILI, SNACK BROUGHT FROM HOME. SUGAR FREE JELLO ALSO PROVIDED X2 PER PT REQUEST. PT DENIES PAIN AND NAUSEA. PUMP ALARMING, ABX INFUSION AND FLUSH COMPELTED. IV ASSESSED, WNL, NO S/S OF PHLEBITIS NOTED. VANCOMYACIN STARTED THROUGH LEFT FORARM IV. LEFT AC IV FLUSHED AND SALINE LOCKED PER PROTOCOL. ALCOHOL CAP APPLIED. PT DENIES ADDITIONAL REQUESTS OR COMPLAINTS. CALL LIGHT WITHIN REACH. BED RAILS UP.
--- NOTE | 2021-03-02 12:30 | NUR ---
THIS RN TO ROOM TO CHECK ON PT. PT UP TO CHAIR, FINISHING LUNCH. LARGE APPITITE CONTINUES. PT DENIES PAIN AND NAUSEA. INSULIN GIVEN. IV ASSESSED, WNL. VANCOMYACIN INFUSION CONTINUES. PT ASSISTED WITH TRANSFERING BACK TO BED. 1 PERSON ASSIST, PIVOT TURN BACK TO BED. PT RESTING IN BED WITH HEAD OF BED ELEVATED TO 15 DEGREES. LLE ELEVATED ON PILLOW AND BILATERAL FEET ELEVATED WITH BED CONTROLS. NO ADDITIONAL REQUESTS OR COMPLAINTS. CALL LIGHT WITHIN REACH. BED RAILS UP.
--- NOTE | 2021-03-02 12:59 | NUR ---
THIS RN TO ROOM WITH DR. MCKEON FOR ROUNDS. PT RESTING WITH EYES CLOSED, AWAKENS TO VOICE AND MOVEMENT IN ROOM. PT DENIES PAIN AND NAUSEA. PT ASSISTED WITH CARES DURING EXAM. PT DENIES ADDITIONAL AUDITORY HALLUCINATIONS. PT REPOSITIONS SELF TO LEFT SIDE. PTS BOWEL MOVEMENTS, NEED FOR PHYSICAL THERAPY, AND PLANS FOR MRI (PT REPORTS PLATES IN LEFT LEG AND LEFT WRIST) REVIEWED WITH DR. MCKEON. PHYSICAL THERAPY ORDER TO BE PLACED. NO ADDITIONAL REQUESTS OR CONCERNS. BED RAILS UP. CALL LIGHT WITHIN REACH.
--- NOTE | 2021-03-02 13:41 | NUR ---
AFTERNOON ASSESSMENT DUE. PT RESTING IN BED, TALKING ON PHONE WITH FRIENDS. PT DENIES PAIN AND NAUSEA. IV'S ASSESSED, WNL. NO S/S OF PHLEBITIS NOTED. PT REPORTS "A LITTLE NUMB IN MY FINGER TIPS" THIS AFTERNOON. PT IS ABLE TO IDENTIFY FINGER THAT IS TOUCHED. NEUROPATHY TO BLE UNCHANGED. PT CONTINUES TO BE UNABLE TO IDENTIFY TOE OR FOOT WHEN TOUCHED. PT CAN IDETNTFY WHEN TOUCHED UP TO MID CALF. LLE CONTINUES TO BE HOT TO TOUCH AND REDDENED, REDENESS REMAINS WITHIN OUTLINED AREA. DRESSING TO LLE C/D/I, NO DRAINAGE NOTED. PLANTAR AND DORSI FLEXION STRONG ALTHOUGH WEAKER ON LLE. LLE ELEVATED IN BED ADN ON TWO PILLOWS. PULSES UNCHANGED. STRONG CLINICAL EVALUATOR STRENGTH NOTED. PT REPORTS ANOTHER EPISODE OF DIARRHEA AFTER LUNCH, MD AWARE. DEPENDS IN PLACE. PT CONTINEUS TO REPORT FEELING "REALLY HUGRY." MEAT AND CHEESE BOX PROVIDED ALONG WITH LOW SUGAR ICE CREAM. PT DENIES ADDITIONAL REQUESTS OR COMPLAINTS. CALL LIGHT WIHTIN REACH. BED RAILS UP.
--- NOTE | 2021-03-02 14:27 | NUR ---
PATIENT IN BED WATCHING TV. VITALS AND I&O'S CHARTED. FRESH WATER GIVEN. CALL LIGHT IN REACH. NO FURTHER NEEDS AT THIS TIME.
--- NOTE | 2021-03-02 15:23 | NUR ---
THIS RN TO ROOM TO CHECK ON PT. PT RESTING ON RIGHT SIDE WITH EYES CLOSED, RESPIRATIONS EVEN AND UNALBORED. HEAD OV BED ELEVATED TO 30 DEGREES. PT ALLOWED TO REST. CALL LIGHT WITHIN REACH. BED RAILS UP.
--- NOTE | 2021-03-02 16:29 | NUR ---
THIS RN TO ROOM TO CHECK ON PT. PT WATCHING TV. 7-UP PROVIDED PER PT REQUEST. PT DENIES PAIN AND NAUSEA. BLOOD SUGAR CHECKED. WARM BLANKETS PROVIDED. PT DENIES ADDITIONAL REQUESTS OR COMPLAINTS. CALL LIGHT WITHIN REACH. BED RAILS UP.
--- NOTE | 2021-03-02 18:25 | NUR ---
THIS RN TO ROOM TO CHECK ON PT. PT PLAYING ON TABLET AND VISITING WITH FAMILY MEMBER. PT DENIES PAIN AND NAUSEA. PT DENIES REQEUSTS OR COMPLAINTS. URINAL EMPITED. DEPENDS DRY. CALL LIGHT WITHIN REACH. BED RAILS UP.
--- NOTE | 2021-03-02 18:45 | NUR ---
PT HERE FOR LEFT FOOT CELLULITIS AND SEPSIS. PT UP TO CHAIR WITH 1 PERSON ASSIST AND FWW THIS SHIFT, PT MAKES PIVOT TURNS. PT TOERLATING 60G CARB DIET WITH LARGE APPITITE, FREQUENT SNACKS PROVIDED. BLOOD SUGAR CHECKS AND SLINDING SCALE INSULIN GIVEN. PT ON TELEMETRY MONITORING, SINUS TACHYCARDIA THIS SHIFT WITH OCCATIONAL PVC'S. PT AFEBRIAL THSI SHIFT. PT INCONTINANT OF BOWEL AND BLADDER AT TIMES ALTHOUGH PT DOES TRY TO USE URINAL, URINARY FREQUENCY CONTINUES. PT VOIDING QUANTITY SUFFICIENT. AWARE OF LIQUID BOWEL MOVEMENTS. PHYSICAL THERAPY ORDERED THIS SHIFT. DRESSING CHANGE THIS MORNING BY DR. VAUGHN. NEW DRESSING CHANGE ORDERS PLACED. CIWA SCORE OF 0 ADN 4 THIS SHIFT, NO MEDICAITON NEEDED. PT DNIES PAIN AND NASUEA THIS SHIFT. PT USES CALL LIGHT APPROPRIATLY.
--- NOTE | 2021-03-02 19:31 | NUR ---
Shift report received from TISHA Gerard, pt sitting up in chair safely w/ call light in reach and left foot elevated on pillows, pt denies any needs at this time.
--- NOTE | 2021-03-02 20:45 | NUR ---
IN TO ASSIST PT UP TO THE BSC, PT INCONT OF URINE AT THIS TIME, PT UNABLE LOCATE URINAL WHICH WAS THE CAUSE, SMALL BM WITH BSC, PT BACK TO BED, VITALS DONE, ICE WATER AND SODA, WARM BLANKET PROVIDED, NO FURTHER NEEDS ATTHIS TIME
--- NOTE | 2021-03-02 21:30 | NUR ---
PT RESTING IN BED SAFELY W/ CALL LIGHT IN REACH. EVENING ASSESMENT COMPLETE, SCHEDULED IV ABX HUNG AND INFUSING, DRESSING CHANGE OF LEFT FOOT/ANKLE COMPLETED PER PROVIDERS ORDERS. PT GIVEN PRN TYLENOL BEFORE DRESSING CHANGE PER REQUEST. PT DENIES ANY OTHER NEEDS AT THIS TIME.
--- NOTE | 2021-03-02 21:49 | NUR ---
CALL FROM [facility] TISHA RICKETTS. TELE DC'D PER MD MCKEON. PRIMARY RN CINTHIA MADE AWARE.
--- NOTE | 2021-03-02 22:15 | NUR ---
PT CALLED FOR ASSISTANCE TO THE BSC, PT 1PA, PT HAD LARGE LOOSE BM, NOW BACK IN BED RESTING SAFELY W/ CALL LIGHT IN REACH, NO FURTHER NEEDS AT THIS TIME.
--- NOTE | 2021-03-02 22:25 | NUR ---
IN TO PROVIDE PT WITH HIS FRUIT PLATE, NO FURTHER NEEDS AT THIS TIME
--- NOTE | 2021-03-02 23:23 | NUR ---
PT REQUESTING RM TEMP TURNED LOWER, URINAL EMPTIED
--- NOTE | 2021-03-03 00:34 | NUR ---
Pt resting safely in bed w/ call light in reach and eyes closed, RR even and unlabored.
--- NOTE | 2021-03-03 02:15 | NUR ---
Pt resting in bed safely w/ call light in reach, warm blankets given upon request, pt denies any further needs at this time.
--- NOTE | 2021-03-03 02:50 | NUR ---
PT CALLING, HAD EPISODE OF INCONT BM/URINE, CLEAND UP, WARM BLANKET PROVIDED, JELLO PROVIDED, NO FURTHER NEEDS AT THIS TIME
--- NOTE | 2021-03-03 04:58 | NUR ---
Pt resting in bed safely w/ call light in reach and eyes closed, RR even and unlabored.
--- NOTE | 2021-03-03 06:29 | NUR ---
Pt resting safely in bed w/ call light in reach and eyes closed, RR even and unlabored
--- NOTE | 2021-03-03 07:25 | NUR ---
REPORT RECEIVED FROM TISHA VICENTE. PT RESTING IN BED ON BACK WITH EYES CLOSED. HEAD OF BED ELEVATED TO 20 DEGREES. LLE ELEVATED ON 2 PILLOWS. RESPIRATIONS EVEN AND UNLABORED. PT ALLOWED TO REST. CALL LIGHT WITHIN REACH. BED RAILS UP.
--- NOTE | 2021-03-03 08:00 | NUR ---
PT IS SBA UP TO CHAIR FOR BREAKFAST. PT HAS LEFT LEG ELEVATED WITH A PILLOW IN THE CHAIR. WHITE BOARD UPDATED, CALL LIGHT IN REACH. FRESH ICE WATER GIVEN, FRESH 7UP GIVEN. WARM BLANKETS GIVEN. PT PLANS FOR A SHOWER LATER. NO FURTHER NEEDS AT THIS TIME.
--- NOTE | 2021-03-03 09:20 | NUR ---
MORNING ASSESSMENT AND MEDICATION DUE. PT UP TO CHAIR, RESTING WITH EYES CLOSED. PT REPORTS BREAKFAST "WAS REALLY GOOD." PT DENIES PAIN AND NAUSEA. IV'S ASSESSED, BOTH LEAKING. BOTH IV'S DC'D PER PROTOCOL, GAUZE AND COBAN APPLIED. NEW IV'S X2 STARTED IN RIGHT AND LEFT FORARMS, LEFT FORARM IV STARTED BY TISAH PATEL. BRISK BLOOD RETURN NOTED WITH BOTH IV STARTS. IV ABX STARTED. NEUROPATHY CONTINUES PER BASELINE. LLE REMAINS WEAK IN GENERAL WITH MORE PROMINATE NEUROPATHY. LLE HOT TO TOUCH, SWELLING AND REDNESS REMAINS WITH IN MARKED OUTLINE. PT CONTINUES TO REPORT MILD TINLING IN TIPS OF FINGERS. LLE ELEVATED ON TWO PILLOWS. PT UP WITH STAND BY ASSIST TO BEDSIDE COMODE. VOIDS AND HAS LARGE LOOSE BOWEL MOVEMENT. NIXON CARE DONE. SBA PIVOT BACK TO CHAIR. DEPENDS NOTED TO BE SOILED WITH URINE NOTING ONGOING INCONTINANCE. DRESSING TO LLE REMAINS C/D/I, DRESSING CHANGE PLANNED FOR LATER THIS MORNING. PT DENIES NEED FOR PAIN MEDICATION. NO ADDITIONAL REQUESTS OR COMPLAINTS. CALL LIGHT ARACELIS REACH. BED RAILS UP.
--- NOTE | 2021-03-03 10:05 | NUR ---
THIS RN TO ROOM TO CHECK ON PT. PT REMAINS UP TO CHAIR. PT REQUESTS A SNACK. SUGAR FREE JELLOW AND SORBET PROVIDED. IV'S ASSESSED, WNL. NO S/S OF PHLEBITIS NOTED. PT DENIES ADDIITONAL REQUESTS OR COMPLAINTS. CALL LIGHT WITHIN REACH.
--- NOTE | 2021-03-03 11:13 | NUR ---
DRESSING CHANGE DUE. THIS RN TO ROOM. PT REMAINS UP TO CHAIR. PT DENIES PAIN AND NAUSEA BUT REQUESTS TYELNOL PRIOR TO DRESSING CHANGE. SEE MAR FOR MEDICAITON GIVEN. 1PA WITH FWW UP TO RESTROOM. DEPENDS SOILED WITH URINE. PT AMBULATES TO RESTROOM USING FWW WITH MINIMAL WEIGHT BEARING, TOE TOUCH ONLY TO LLE. PT HAS LOOSE BOWEL MOVEMENT, INCONTINANT OF STOOL PRIOR TO MAKING IT TO RESTROOM. NIXON CARE DONE. DEPENDS CHANGED. BARRIER CREAM APPLIED. 1 PERSON ASSIST BACK TO CHAIR. DRESSING CHANGE DONE PER MD ORDER. OLD DRESSING REMOVED. INCISION TO LATERAL LEFT ANKLE 1.5CM IN LENGHT FLUSHED WITH 20ML NS AND FLUID EXPRESSED. 55ML SERIOUS ANGUINOUS FLUID WITH OCCATIONAL WHITE/YELLOW BITS EXPRESSED FROM ANKLE, INDICATING 35ML FLUID REMOVED OUTSIDE OF 20ML FLUSH, BY WEIGHT. 2.5CM DEEP PACKING APPLIED THROUGH OPENING WITH GAUZE LEFT OUT AND ARROUND WOUND TO WICK FLUID FROM SITE. SITE COVERED WITH ABD PAD, KERLIX AND COBAN. PT TOELERATED PROCEEDURE WELL. NO ADDITIONAL REQUESTS OR COMPLAINTS. CALL LIGHT WITHIN REACH.
--- NOTE | 2021-03-03 11:54 | NUR ---
IV PUMPS ALARMING, ALL ABX COMPELTE. BILATERAL IV'S FLUSHED AND SALINE LOCKED PER PROTOCOL, ALCOHOL CAPS APPLIED. BRISK BLOOD RETURN NOTED FROM BOTH SITES. LUNCH ARRIVED. PT EATING LUNCH. INSULIN GIVEN. PT DENIES ADDIITONAL REQUESTS OR COMPLAINTS. CALL LIGHT WIHTIN REACH. PT DEIES ANY PAIN AFTER DRESSING CHANGE, REPORTS 0/10.
--- NOTE | 2021-03-03 13:00 | NUR ---
DR. MCKEON UPDATED ON PT STATUS, VITAL SIGNS, AND WOUND CARE. NO NEW ORDERS AT THIS TIME.
--- NOTE | 2021-03-03 14:30 | NUR ---
BLUEPRINT ENGINEER REPORTS PT IS SWEATY, ANXIOUS AN SAYS HE IS "SO HOT I CAN'T COOL DOWN." THIS RN TO ROOM. PT DIAPHORECTIC AND ANXIOUS. HEART RATE REMAINS IN THE LOW 100-110'S. CIWA SCORE OF 8. BLOOD SUGAR TAKEN = 111. PT EATING SNACKS FROM HOME INCLUDING [place] SAL[employer] AND RASPBERRIES. PT ALLOWED TO EAT SNACKS TO ASSIST WITH BLOOD SUGAR. ATAVAN GIVEN. PTS FAMILY TO BEDSIDE AND REASSURES PT. PT CONTINUALLY STATES "SOMETHING IS WRONG AT HOME, SOMETHING IS WRONG AT HOME." PT CALMS WITH REASSURANCE. 1 PERSON ASSIST BACK TO BED SO PT CAN REST. VITAL SIGNS OTHERWISE STABLE, PT AFBRIAL. LLE ELEVATED ON TWO PILLOWS, DRESSING REMAINS C/D/I. LLE REMAINS HOT TO TOUCH WITH EDEMA AND REDNESS INSIDE OF MARKED LINES. MILD ABDOMINAL DISTENTION CONTINUES WITH 3 EPOISODES OF SOFT LOOSE DIARRHEA SO FAR THIS SHIFT, MD AWARE. DEPEDNS DRY AT THIS TIME. DRESSING TO LLE REMAINS C/D/I. UPDATED ON PTS STATUS AND NEW EVENTS. PT RESTING IN BED EATING FRUIT FROM HOME. NO ADDITIONAL REQUESTS OR COMPLAINTS. THIS RN REMAINS AT BEDSIDE FOR OBSERVATION AND REASSESSMENT IN 30 MINTUES. BED RAILS UP. CALL LIGHT WITHIN REACH.
--- NOTE | 2021-03-03 14:30 | NUR ---
IN ROOM TO TAKE PATIENT SOME FRESH WATER AND A DIET SODA. PATIENT SAID HE WAS VERY HOT AND FEELS MISTY ANXIOUS. PATIENT SEEMS JITTERY, RN NOTIFIED. CALL LIGHT IN REACH. NO FURTHER NEEDS AT THIS TIME.
--- NOTE | 2021-03-03 15:05 | NUR ---
PT REPORTS HE IS "FEELING BETTER." CIWA SCORE REASSESED NOW 5 . PT REPORTS FEELING CALMER AND NOW DENEIS ANXIETY. MILD RESTLESS NOTED. PT COTINUES SNACKING ON STANCKS FROM HOME. PT WATCHING TV AND RESTING IN BED. NO ADDITIONAL REQUESTS OR COMPLAINTS. CALL LIGHT WITHIN REACH. BED RAILS UP. UPDATED, NO ADDITONAL NEW ORDERS AT THIS TIME.
--- NOTE | 2021-03-03 16:30 | NUR ---
PT UP TO SHOWER AND INDEPENDENT WITH SHOWER. PT NOW BACK IN CHAIR WITH FWW AND 1P SBA. CALL LIGHT WITHIN REACH. NO FURTHER NEEDS AT THIS TIME.
--- NOTE | 2021-03-03 17:15 | NUR ---
THIS RN TO ROOM TO CHECK ON PT. PT FINISHED WITH SHOWER AND UP TO CHAIR. PT STATES "THAT HOT SHOWER FELT REALLY GOOD." PT DENEIS ANXIETY, HEADACHE, NAUSEA, VISUAL OR AUDITORY TREMOROS. MILD TREMORS CAN STILL BE SEEN. CIWA SCORE OF 2. BLOOD SUGAR WITHIN RANGE, NO INSULIN NEEDED. DINNER ORDER PLACED, PROTEIN ENCORUAGED. NO ADDITIONAL REQUESTS OR COMPLAINTS. CALL LIGHT WITHIN REACH. PT PLAYING ON TABLET. CALM AND COLLECTED.
--- NOTE | 2021-03-03 18:11 | NUR ---
PT HERE FOR LEFT FOOT CELLULITIS, HYPONATREMIA, AND SEPSIS. PT UP WITH 1 PERSON ASSIST AND FRONT WHEEL WALKER TO CHAIR, RESTROOM, AND FOR SHOWER THIS SHIFT. PT TOELRATING 60G CARB DIET WITH EXCELLENT APPTITE. BLOOD SUGARS REMAIN WITHIN RANGE DESPITE FREQUENT SNACKS. TELEMETRY MONITORING DC'D. PT REMAINS ON ROOM AIR WITH CLEAR LUNG SOUNDS. BLOOD PRESSURE REMAINS SLIGHTLY LOW, MD AWARE. PT AFBRIAL SO FAR THIS SHIFT. EPISODE OF ANXIETY, DIAPHORESIS, AND TREMORS STARTING THIS AFTERNOON, CIWA OF 8. CIWA IMPROVED WITH ORAL LORAZAPAM. DRESSING TO LLE CHANGED THIS MORNING BY THIS RN AND THIS EVENING BY DR. VAUGHN. 35ML SERIOUS ANGUINOUS FLUID REMOVED FROM SITE. DRESSING REMAINS IN PLACE, C/D/I THIS EVENING. LLE REMAINS HOT TO TOUCH. PT VOIDING QUANTITY SUFFICIENT. PT USES CALL LIGTH AND MAKES NEEDS KNOWN.
--- NOTE | 2021-03-03 18:15 | NUR ---
THIS RN TO ROOM TO CHECK ON PT. PT UP TO RESTROOM WITH 1 PERSON ASSIST AND FRONT WHEEL WALKER. PT VOIDS CLEAR YELLOW URINE AND HAS LOOSE BOWEL MOVEMENT. NIXON CARE DONE. DEPENDS CHANGED. 1 PERSON ASSIST, FWW, BACK TO BED. CIWA SCORE OF 2 FOR MILD TREMORS. PT DENIES ANXIETY, NAUSEA, HEADACHE. NO DIAPHORESIS NOTED. PT REPORTS FEELING "TIRED AFTER ALL THAT." VITAL SIGNS STABLE. PT RESTING IN BED WITH HEAD OF BED ELEVATED 20 DEGREES WATCHING TV. NO ADDITIONAL REQUESTS OR COMPLAINTS. CALL LIGHT WITHIN REACH. BED RAILS UP.
--- NOTE | 2021-03-03 19:30 | NUR ---
Shift report received from TISHA Gerard, pt resting safely in bed w/ call light in reach and eyes closed, RR even and unlabored.
--- NOTE | 2021-03-03 20:15 | NUR ---
PT RESTING IN BED SAFELY W/ CALL LIGHT IN REACH. EVENING ASSESMENT COMPLETE AND SCHEDULED MEDS GIVEN PER PROVIDER ORDER. PT DENIES ANY FURTHER NEEDS AT THIS TIME.
--- NOTE | 2021-03-03 21:27 | NUR ---
PATIENT IN BED WATCHING TV. VITALS AND I&O'S CHARTED. FRESH ICE CHIPS GIVEN. CALL LIGHT IN REACH. NO FURTHER NEEDS AT THIS TIME.
--- NOTE | 2021-03-03 22:01 | NUR ---
CALL LIGHT ANSWERED. SBA TO RESTROOM FOR BM. INSTRUCTED TO USE CALL LIGHT WHEN FINISHED. VERBALIZES UNDERSTANDING.
--- NOTE | 2021-03-03 22:15 | NUR ---
PT CALLED TO STATE HE IS DONE GOING TO THE BR. SBA W/ FWW BACK TO BED PT RESTING SAFELY W/ CALL LIGHT IN REACH, WARM BLANKET GIVEN PER REQUEST, NO OTHER NEEDS AT THIS TIME
--- NOTE | 2021-03-03 23:46 | NUR ---
PHONE CALL FROM pt'S GIRLFRIEND RENALDO. TRANSFERRED TO ROOM PER pt REQUEST.
--- NOTE | 2021-03-04 00:20 | NUR ---
PT RESTING SAFELY W/ CALL LIGHT IN REACH AND EYES CLOSED, RR EVEN AND UNLABORED.
--- NOTE | 2021-03-04 00:45 | NUR ---
CALL LIGHT ANSWERED, PT GIVEN SALTINES UPON REQUEST, RESTING IN BED SAFELY W/ CALL LIGHT IN REACH NO OTHER NEEDS AT THIS TIME.
--- NOTE | 2021-03-04 02:00 | NUR ---
PT RESTING SAFELY W/ CALL LIGHT IN REACH AND EYES CLOSED, RR EVEN AND UNLABORED.
--- NOTE | 2021-03-04 04:00 | NUR ---
PT RESTING SAFELY W/ CALL LIGHT IN REACH AND EYES CLOSED, RR EVEN AND UNLABORED.
--- NOTE | 2021-03-04 06:08 | NUR ---
PT RESTING IN BED SAFELY W/ CALL LIGHT IN REACH, VSS ON RA EXCEPT FOR A LOW GRADE FEVER, PT GIVEN PRN TYLENOL PER PROVIDERS ORDERS. PT GIVEN CUP OF FRUIT AND FRESH ICE WATER UPON REQUEST
--- NOTE | 2021-03-04 07:34 | NUR ---
PT AT MRI AT TIME OF SHIFT EXCHANGE. ROOM TIDIED UP AND FRESH H20 TO BEDSIDE.
--- NOTE | 2021-03-04 08:21 | NUR ---
PT BACK TO HIS ROOM FROM MRI. TO THE CHAIR FOR MORNING MEAL
--- NOTE | 2021-03-04 08:49 | NUR ---
PT IN CHAIR. ROOM TIDIED, WHITE BOARD UPDATED. PT DECLINED TO HAVE ICE WATER REFRESHED. CALL LIGHT WITHIN REACH. NO FURTHER NEEDS AT THIS TIME.
--- NOTE | 2021-03-04 09:58 | NUR ---
ASSISTED RN STUDENT MONIK WITH PLACING NEW IV IN RIGHT FOREARM. PT TOLERATED WELL.
--- NOTE | 2021-03-04 10:16 | NUR ---
PT SNOOZING IN CHAIR. VS AND I&O'S DONE. CALL LIGHT WITHIN REACH, NO FURTHER NEEDS AT THIS TIME.
--- NOTE | 2021-03-04 11:09 | NUR ---
PT ASSISTED BACK TO BED. PT CRYING AND UPSET. STATES THAT THE DR JUST TOLD HIM THEY MIGHT HAVE TO TAKE HIS FOOT. GIVEN FRUIT AND URINAL. DAUGHTER ON HIS WAY
--- NOTE | 2021-03-04 12:01 | NUR ---
DRESSING TO LEFT FOOT CHANGED PER ORDERS, WELL TOLERATED. PT IS TEARFUL R/T NEWS OF NEEDED AMPUTATION, COMFORT PROVIDED. PT UP TO THE TOILET HAS LOOSE STOOL THEN TO CHAIR FOR NOON MEAL. DENIES NEEDS. CALL LIGHT IN LAP.
--- NOTE | 2021-03-04 13:17 | NUR ---
PT UP TO SHOWER. SBA WITH FWW. PT NOW BACK IN CHAIR. LINEN CHANGED. CALL LIGHT IN REACH. NO FURTHER NEEDS AT THIS TIME
--- NOTE | 2021-03-04 14:21 | NUR ---
PT DAUGHTER OR FRIEND IS IN WITH HIM, HE VISITS ACTIVELY. APPEARS IN BETTER SPIRITS. FRESH H20 TO CHAIRSIDE DENIES FURTHER NEED
--- NOTE | 2021-03-04 15:00 | NUR ---
Spoke with pt. He is watching a movie on his tablet. States he is very concerned about losing his foot and thinks they will amputate. He is tearful and denies wanting anyone to visit. I asked if he has someone who I can call for Spiritual Guidance and he states he doesn't want anyone to visit. He would like to do a sing, but cannot remember the words. I asked if there is anyone I can call to come and complete a sing and he states, "no". He does ask I call his oldest daughter, Dalia. [phone]. He would like her to return to visit with him. Called Dalia from the room and she states she has just gone down town to get him to toiletries and will return shortly.
--- NOTE | 2021-03-04 16:15 | NUR ---
pt resting in bed visiting with guest
--- NOTE | 2021-03-04 16:55 | NUR ---
REPORT RECEIVED FROM TISHA HEARD. PT DAUGHTER IN ROOM.
--- NOTE | 2021-03-04 17:22 | NUR ---
CHANGED BED LINENS. PT SITTING IN CHAIR EATING DINNER. THIS CORONER/MEDICAL EXAMINER WILL RETURN SHORTLY TO DOCUMENT I&O'S. CALL LIGHT WITHIN REACH, NO FURTHER NEEDS AT THIS MOMENT.
--- NOTE | 2021-03-04 19:30 | NUR ---
REPORT RECEIVED FROM KIRSTEN PATEL RN. PT IN ROOM, WATCHING FOOTBALL, SITTING IN HIS RECLINER. NO NEEDS.
--- NOTE | 2021-03-04 19:45 | NUR ---
XRAY HERE TO XRAY PT LEFT FOOT. ASSISTED PT TO BED, FROM RECLINER CHAIR. PT AWARE OF REASON FOR XRAY, DID EXPLAIN TO PT THAT DR HERRERA HAD REQUESTED IT.
--- NOTE | 2021-03-04 20:00 | NUR ---
WARM BLANKET PROVIDED, DIET RB INTO HIS INSULATED CUP AT BEDSIDE, PER PT REQUEST. CALL LIGHT WITHIN REACH.
--- NOTE | 2021-03-04 21:15 | NUR ---
ASSISTED PT BACK FROM BATHROOM, MOANS AND GROANS, BUT DENIES PAIN IN FOOT. STATES HEADACHE IS MUCH BETTER. DID REQUEST FOOD. JAYA CRACKERS, AND SF PUDDING GIVEN. TEMP 98.9 AT THIS TIME.
--- NOTE | 2021-03-05 00:08 | NUR ---
CHECK PT. LAYING ON BACK, SL SNORING, IV ABX INFUSING.
--- NOTE | 2021-03-05 01:01 | NUR ---
CALL LIGHT ANSWERED. IV PUMP ALRMING, IV ANTIBIOTIC COMPLETE. SL WNL. URINAL EMPTIED. SF PUDDING PROVIDED REQUESTED. CALL LIGHT IN REACH.
--- NOTE | 2021-03-05 03:32 | NUR ---
pt RESTING IN BED. LIGHTS OFF IN ROOM. NO DISTRESS NOTED. EYES CLOSED. CALL LIGHT IN REACH.
--- NOTE | 2021-03-05 04:15 | NUR ---
PT CALLED, INCONT BLADDER, HE WAS UNAWARE HE HAD A BM WELL. CLEAN, AND DRY ATTENDS PLACED. FRESH FRUIT GIVEN PER PT REQUEST. NOTED PT WAS CRYING, HE IS SAD ABOUT "LOSING" HIS LEG, SAYING HE "DID IT TO HIMSELF". ENCOURAGING WORDS GIVEN, CONVERSATION. NO OTHER NEEDS AT THIS TIME.
--- NOTE | 2021-03-05 06:15 | NUR ---
MORNING I/O COMPLETE. PT REQUESTED HIS CRAB SALAD, GIVEN. FRESH ICE WATER WELL. DIET SPRITE WELL. VOIDED 4000. NO OTHER NEEDS AT THIS TIME.
--- NOTE | 2021-03-05 06:54 | NUR ---
pt RESTING IN BED SLEEPING, AWAKENS TO VOICE. ASSESSMENT COMPLETE. LEFT LEG ELEVATED ON PILLOW, EDEMA LLE 2+. DRESSING CDI. pt CLOSING EYES. ICE WATER REFILLED. CALL LIGHT IN REACH.
--- NOTE | 2021-03-05 07:44 | NUR ---
PT AWAKE IN BED AND CALLED FOR RESTROOM. PT WAS INCONTINENT OF BLADDER AND BOWELS, PT UP TO RESTROOM WITH SBA FWW AND VOIDED MORE. PT CLEANED UP AND NOW AWAKE IN CHAIR READY FOR BREAKFAST. PT MAKES COMMENTS OF "COVER MY FOOT UP WITH THAT BLANKET, I DONT EVEN WANT TO SEE THE THING ANYMORE." CALL LIGHT WITHIN REACH. WHITE BOARD UPDATED. PT HAS FRESH ICE WATER AND FRESH SODA. NO FURTHER NEEDS AT THIS TIME.
--- NOTE | 2021-03-05 10:28 | NUR ---
Patient back from imaging. Fresh water provided to pt. Patient upset at this time as he reports he does not want to lose his leg. Pastor Mcneal to see patient.
--- NOTE | 2021-03-05 14:04 | NUR ---
PT ALERT, SITTING IN CHAIR WITH LEGS UP WATCHING A MOVIE ON COMPUTER. PT BEGANS TO SHARE WITH ME HIS FEAR OF LOSING HIS FOOT, GAVE PT OPPORTUNITY TO VENT. PT GETS TEARFUL, OFFERED TO CONTACT [facility] [employer] [employer]-HE DENIES AT THIS TIME. PT SAID HE WISHES HE HAD A RM WITH A VIEW AND MISSES NOT BRING OUTSIDE. [place] AND FINDS COMFORT IN IT'S SOUND.CONTACTED FORMULATOR COMPOUNDERLEA NELSON, ABLE TO MOVE PT TO WITH A VIEW OUTSIDE. PT ALLOWED ME TO PRAY, WILL CONTINUE TO FOLLOW
--- NOTE | 2021-03-05 14:45 | NUR ---
Spoke with Bharat. He is in a much better mood today. States his brother came in and did a service/sing with him and he has it right in his mind about bka. It wants it passed on he wants his leg saved after surgery and his brother will complete a service for his leg. Passed this on to the charge nurse and she notified Sanchez in surgery. Pt denies other needs.
--- NOTE | 2021-03-05 15:02 | NUR ---
Patient in chair at this time, alert and oriented. Patient appears to be in better spirits this afternoon. Pt denies pain at this time. LLE elevated on pillow, dressing is CDI. Patient reports he is fearful of losing his foot, sat and spoke with patient for a while for comfort. Patient has no needs at this time.
--- NOTE | 2021-03-05 15:30 | NUR ---
AMBULATED PT WITH FRONT WHEEL WALKER TO SHOWER. WRAPPED PT'S IV'S AND LEFT FOOT IN PLASTIC. PT FEELING BETTER AND LAUGHING AND SMILING AGAIN. PT SAYS HE IS AT [facility] WITH UPCOMING SURGERY AND HAS HAD A HUGE WEIGHT LIFTED OFF OF HIS SHOULDERS. ONCE AMBULATED TO SHOWER CHAIR, PT INDEPENDENT WITH SHOWERING. LINENS CHANGED, ROOM TIDIED. DAUGHTER BROUGHT PT NEW WALKER AND SOME PERSONAL ITEMS. PT NOW IN CHAIR WITH BLANKET, EATING FRUIT, AND VISITING WITH DAUGHTER. BATHROOM TIDIED. CALL LIGHT WITHIN REACH. NO FURTHER NEEDS AT THIS TIME.
--- NOTE | 2021-03-05 16:56 | NUR ---
Left foot dressing change done at this time. Old dressing removed, purulent drainage noted. New xeroform, gauze, abd pad, kerlix and coban placed per provider order. Patient tolerated very well.
--- NOTE | 2021-03-05 17:38 | NUR ---
PT SNOOZING IN CHAIR. ROOM TIDIED. CALL LIGHT WITHIN REACH. NO FURTHER NEEDS AT THIS TIME.
--- NOTE | 2021-03-05 19:57 | NUR ---
CALL LIGHT ANSWERED. PHONE RINGING, HANDED TO pt. TALKING ON PHONE AT THIS TIME.
--- NOTE | 2021-03-05 20:37 | NUR ---
pt RESTING IN BED AWAKE LISTENING TO MUSIC, POSITIVE REGARDING SURGERY TOMORROW, STATES HAS FAMILY SUPPORT. ASSESSMENT COMPLETE. DRESSING CDI LEFT LEG. 2+ EDEMA LLE. NUMBNESS AT FINGERTIPS AND IN LEFT LEG. DENIES PAIN. CALL LIGHT IN REACH. VSS. URINAL EMPTIED.
--- NOTE | 2021-03-05 20:51 | NUR ---
CALL LIGHT ANSWERED. ASSISTED TO REMOVE SWEAT PANTS. URINAL EMPTIED. CALL LIGHT IN REACH.
--- NOTE | 2021-03-05 22:06 | NUR ---
ASSISTED PT TO BATHROOM, FWW. LIQ MED STOOL. RN CLEANED PT UP. CHANGED BRIEF. BACK TO BED. PREVIOUS TO THIS PT HAD A SON IN LAW, WELL PT WAS GIVEN SOME CRAB SALAD. BACK TO BED.
--- NOTE | 2021-03-06 00:05 | NUR ---
pt SLEEPING, AWAKENS TO VOICE. IV SITE FLUSHED WNL, IV VANCOMYCIN INFUSING ORDERED. URINAL EMPTIED. PO FLUIDS CLEARED FROM TRAY TABLE. CALL LIGHT IN REACH. LIGHTS OFF IN ROOM.
--- NOTE | 2021-03-06 01:30 | NUR ---
CALL LIGHT ANSWERED. IV ANTIBIOTIC COMPLETE. IV SL WNL. pt STATES "TURN A LIGHT ON I SHIT THE BED. URINE AND STOOL INCONTINENCE. LINENS, GOWN, CHUX CHANGED. pt REPOSITIONED. LEFT LEG ELEVATED. DRESSING CDI. ASSESSMENT COMPLETE. pt REQUESTING WATER, EDUCATION PROVIDED. LEMON SWAB SUPPLIED. pt CONTINUES TO CRY "YOU DIDN'T DO ANYTHING FOR ME". pt AGAIN EDUCATED ON ASPIRATION RISK. CALL LIGHT IN REACH. BED ALARM ON FOR SAFETY.
--- NOTE | 2021-03-06 03:42 | NUR ---
CHECKED ON pt. RESTING IN BED WITH EYES CLOSED, BREATHING UNLABORED, RR 20. LIGHTS OFF IN ROOM. ALARM ON.
--- NOTE | 2021-03-06 04:42 | NUR ---
pt URINAL EMPTIED. ADDITIONAL VOID IN URINAL. pt COMPLAINS OF THRIST, HUNGER, AWARE OF NPO STATUS, pt REMAINS UPSET. VSS. CALL LIGHT IN REACH. LIGHTS OFF IN ROOM.
--- NOTE | 2021-03-06 05:31 | NUR ---
PT CALLED SBA TO BATHROOM WITH FWW. NOTED INCONT BM IN ATTENDS, HAD MED LOOSE IN TOLIET. VOIDED LARGE AMOUNT UNMEASURED. BACK TO BED, NOTABLE IRRITATION R/T BEING NPO. PLACED BED ALARM ONCE IN BED. CALL LIGHT WITHIN REACH.
--- NOTE | 2021-03-06 07:05 | NUR ---
REPORT RECEIVED FROM TISHA GÓMEZ. PT RESTING ON BACK WITH EYES CLOSED, HEAD OF BED ELEVATD TO 15 DEGREES. RESPIRATIONS EVEN AND UNLABORED. BED RAILS UP. CALL LIGHT WITHIN REACH. PT ALLOWED TO REST.
--- NOTE | 2021-03-06 08:00 | NUR ---
DR. HERRERA CALLED REGADING MORNING MEDICATIONS. DR. HERRERA STATES TO HOLD LOVENOX AND METOPROLOL AND TO CONVERT THIAMINE AND PEPCID TO IV DOSES TO BE GIVEN THIS MORNING. PHARMCIST, KRYSTA, CALLED AND STATES SHE WILL ADJUST MORNING MEDICATION DOSES INSTRUCTED BY DR. HERRERA.
--- NOTE | 2021-03-06 08:44 | NUR ---
MORNING ASSESSMENT AND MEDICATION DUE. PT VERY IRRITABLE, REPEATLY STATES "I'M REALLY THIRSTY! SHIT!" PT CRYING AT TIMES AND GENERALLY AGITATED. BLOOD SUGAR TAKEN = 128. NOTED THAT PT DOES NOT HAVE IV FLUIDS ORDERED. CALL PLACED TO DR. HERRERA, NO ANSWER. DR. BROWN CONSULTED. NOTED THAT PT ONLY HAS 2 22 GAUGE IV SITES. NEW 20G IV STARETD PER PROTOCOL TO LEFT FORARM, BRISK BLOOD REUTRN NOTED. REMAINING 22 GAUGES WNL, FLUSH EASILY WITH BLOOD REUTRN NOTED. NO S/S OF PHLEBITIS NOTED. LLE REMAINS HOT TO TOUCH. SWELLING REMAINS AT +2. DORSI AND PLANTAR FLEXTION TO LLE WEAKER ON LEFT SIDE. PULSES ON LLE FAINT BUT DETECTABLE. PT CONTINUES TO REPORT NUMBNESS IN FINGER TIPS AND IS UNABLE TO IDENTIFY TOE THAT IS TOUCHED IN BLE. ONGOING INCONTANANCE WITH STOOL CONTINUES. LAST LIQUID BOWEL MOVEMENT THIS MORNING, MD AWARE. DRESSING TO LLE REMAINS C/D/I, NO DRAINGE NOTED ON DRESSING. PT CALLS HIS FAMILY TO UPDATE THEM ON PLAN OF CARE AND TIME FOR TALON. PT WATCHING TV WHILE UP TO CHAIR. CALL LIGHT WITHIN REACH.
--- NOTE | 2021-03-06 08:46 | NUR ---
Patient via bathroom, SBA. Patient needed some assistance with putting a new brief on with the attachments on both sides. Patient can reach down to about his knees and may benefit from a pull up breif instead. Patient via back to chair SBA.
--- NOTE | 2021-03-06 08:50 | NUR ---
PATIENT IS RESTING IN CHAIR. HE IS STRUGGLING TO TAKE EVERYTHING IN AND IS A LITTLE UPSET ABOUT IT ALL. NURSE SAROJ IS IN WITH PATIENT. HE DOES NOT NEED ANYTHING AT THIS TIME. CALL LIGHT IN REACH.
--- NOTE | 2021-03-06 09:51 | NUR ---
THIS RN TO ROOM TO CHECK ON PT. PT UP TO CHAIR PLAYING GAMES ON TABLET. PT CONTINUES TO BE IRRITABLE REGARDING NPO STATUS BUT STATES "JUST A GRAPE OR A SIP OF WATER IS ALL I WANT!." EDUCATION DONE WITH PT. PT STATES "i'M SORRY i'M TAKING IT OUT ON YOU." GEE BREWSTER, TO BEDSIDE TO ASSIST PT WITH CHG WIPE DOWN. PT DENIES PAIN AND NAUSEA. NO ADDITIONAL REQUESTS OR COMPLAINTS. CALL LIGHT WITHIN REACH.
--- NOTE | 2021-03-06 10:07 | NUR ---
HAL, OR CHARGE, TO ROOM TO TALK WITH PT ABOUT TAKING HIS LEG HOME AFTER AMPUTATION AND AFTER PATHOLOGIST REVIEW. PT VERBALIZES UNDERSTANDING OF RISKS AND SIGNS CONSENT. PT CONTINUES WORKING WITH CAGE MANAGER. REPORT GIVEN TO HAL, WHO VERBALIZES UNDERSTANDING AND STATES HIS QUESTIONS HAVE BEEN ANSWERED. HAL WILL RETURN TO TAKE PT TO SURGERY SOON. PT COMPLETING CHG WIPE DOWN. NO ADDITIONAL REQUESTS OR COMPLAINTS. NEY FLYNN AT BEDSIDE.
--- NOTE | 2021-03-06 10:10 | NUR ---
Spoke with Bharat and he states he is hungry and thirsty and not happy. Discussed npo for surgery and he states he understands. I again asked today if he will consider a SNF on [place] for rehab. This was brought up in the am meeting by Dr. Conway. Pt states he is still considering, but would probably go here in town to [facility]. If they are not available his second choice would be [facility] in [place].
--- NOTE | 2021-03-06 10:49 | NUR ---
ASSISTED PATIENT WITH SURGERY WIPE DOWN. HE IS BACK RESTING IN CHAIR. HE RECIEVED A WARM BLANKET. HE DOES NOT NEED ANYTHING ELSE AT THIS TIME. CALL LIGHT IN REACH.
--- NOTE | 2021-03-06 10:55 | NUR ---
HOTEL BREAKFAST ATTENDANT TO BEDSIDE TO TALK WITH PT. PT FINISHED WITH CHG WIPE DOWN AND READY FOR SUGERY. GLASSES REMAIN ON PER PT REQUEST UNTIL SURGERY BEGINS. PT DENIES ADDISITONAL REQUESTS OR COMPALINTS. CALL LIGHT WITHIN REACH.
--- NOTE | 2021-03-06 11:35 | NUR ---
HAL, OR CHARGE, ARRIVED TO TAKE PT TO OR FOR SURGERY. REPORT GIVEN TO HAL. NOTED THAT PT HAS VANCO DUE AT 1200. PHARMACY CALLED AND STATES THEY WILL DELIVER DOES TO DAY SURGERY/OR FOR ADMINISTRATION. PT TRANSFERES SELF TO STRETCHER WITH 1 PERSON ASSIST AND FWW. PT TEARFUL AND STATES "I'M SCARED." QUESTIONS ANSWERED. THERAPUTIC COMMUNICATION. PTS DAUGHTER LYNN AT BEDSIDE, ALSO TEARFUL AT TIMES. LYNN STATES "I'VE BEEN TRYING TO GET HIM TO SEE THE DOCTOR FOR AT LEAST 4 MONTHS." PT AND FAMILY STATE ALL THEIR QUESTIONS HAVE BEEN ANSWERED. PT TO OR, NO ADDITIONAL NEEDS AT THIS TIME.
--- NOTE | 2021-03-06 11:54 | NUR ---
PT USES CALL LIGHT AND REQUESTS URINAL. PT VOIDS APPROX 250 MLS YELLOW URINE. PROVIDED WARM BLANKETS AT THIS TIME. PT STATES BEING "THIRSTY AD HUNGRY." CALL LIGHT WITHIN REACH.
--- NOTE | 2021-03-06 13:14 | NUR ---
TISHA KYLE REQUESTED I VISIT WITH PT. HE IS SCHEDULED TO HAVE HIS LLE AMPUTATED THIS AM AT 1100. PT'S DAUGHTER LYNN IN RM WITH PT, SHE SEEMS VERY COMFORTING AND REASSURING TO PT. PT TEARFUL, THIRSTY AND HUNGRY. PT HAS REQUESTED TO RECEIVED HIS AMPUTATED APPENDAGE SO HE CAN BURY IT IN THE GRAVE HE WILL BE BURIED IN-[place] TRADITION. OFFERED TO HAVE PURPLE BURIAL CLOTH PLACED ON APPENDAGE FOR PT-HE WOULD LIKE THAT. MADE ARRANGEMENTW WITH TISHA HONG IN OR AND JHON FROM [facility]. THEY WILL BOTH FOLLOW UP. GAVE ENCOURAGEMENT, LYNN WILL REMAIN DURING SURGERY. WILL FOLLOW
--- NOTE | 2021-03-06 15:01 | NUR ---
PT ARRIVED FROM PACU. REPORT RECEIVED FROM TISHA CASTRO. PT TRANSFERED TO BED WITH 3 PERSON ASSIST. LARGE LIQUID BOWEL MOVEMENT NOTED IN DEPENDS. DEPENDS CHANGED, NIXON CARE DONE. PT POSITIONED IN BED WITH HEAD OF BED ELEVATED TO 2O DEGREES. LLE ELEVATED ON PILLOWS X2. PT DENIES PAIN AND NAUSEA. REPORTS HUNGER AND THIRST. DISTAL RIGHT FORARM IV PAINFUL WITH FLUSH, DC'D PER PROTOCOL, GAUZE AND COBAN APPLIED. OTHER THREE IV'S WNL, FLUSHED AND SALINE LOCKED PER PROTOCOL, ALCOHOL CAPS APPLIED. EXTENTION TUBING ADDED TO LEFT HAND IV SITE. PT ALERT AND ORIENTED TO ALL. SPINAL LEVEL L2. CPOX PLACED. OXGYEN SATURATION 98% ON ROOM AIR, HEART RATE 90'S. PT TOLERATING APPLE SAUCE AND WATER, ADVANCING DIET TOELRATED. 1ST UNIT OF [facility]'S ARRIVED FROM LAB, CHECK WITH TISHA HA. AND STARTED PER PROTOCOL. THIS RN AT BEDSIDE FOR THE FIRST 15 MINUTES OF BLOOD INFUSION. NO S/S OF INFUSION REACTION NOTED DURING THAT TIME. INFUSION RATE INCREASED TO 150ML/HR AFTER FIRST 15 MINUTES FOR REMAINDER OF INFUSION. PTS SON ARRVIED TO BEDSIDE AND IS UPDATED ON PLAN OF CARE. PT DENIES ADDITIONAL REQUESTS OR COMPLAINTS. LUNCH ORDER PLACED FOR PT. BED RAILS UP, CALL LIGHT WITHIN REACH. BED ALARM ON.
--- NOTE | 2021-03-06 15:20 | NUR ---
03/06/21 1520 Nahomi [address]ap[address] 1408 PT ARRIVED IN PACU SLEEPY WITH NO C/O'S. 1415 C/O DRY MOUTH. EATING ICE CHIPS. 1430 DR AT BEDSIDE. PT TEARFUL. BLOOD SUGAR 104. 1455 TO ROOM 112. REPORT GIVEN TO TISHA.
--- NOTE | 2021-03-06 15:30 | NUR ---
Notified by Dr. Conway he has discussed with Dr. Moar and pt will be ready for SNF Thursday. Will fax chart to [facility] as this is pts first choice. I called and they are taking limited pts, but requested chart. Face sheet, H&P, progress notes, PT notes, Consult notes faxed to Kait at [facility].
--- NOTE | 2021-03-06 15:50 | NUR ---
VITALS AND ASSESSMENT DUE. BLOOD TRANSFUSION CONTINUES. PT CONTINUES TO DENY PAIN AND NAUSEA. PT HAS FINISHED LUNCH TRAY WITH NO NAUSEA NOTED. LUNG SOUNDS CLEAR. HEART TONES REGULAR. PT REMAINS AT 96-100% OXYGEN SATURATIONS ON ROOM AIR. BLOOD TRANSUFING THROUGH LEFT UPPER FORARM IV SITE. ALL IV SITES WNL. PT ORIENTED TO ALL, AWAKE AND ALERT. SPINAL LEVEL L3. MOTER NERVES RETURNING AND PT IS ABLE TO WIGGLE TOES, PLANTAR FELXION REMAINS ABSENT, DORSI FLEXTION PRESENT BUT WEAK IN RLE. DRESSING TO LLE C/D/I, NO DRAINAGE NOTED. PT ABLE TO MOVE THIS LEG, NO PAIN, SENSATION RETURNING. ADDTIONAL SNACKS PROVIDED FOR PT. DINNER ORDER PLACED. PT DENIES ADDITIONAL REQUESTS OR COMPLAINTS. BED RAILS UP. CALL LIGHT WITHIN REACH. BED ALARM ON.
--- NOTE | 2021-03-06 17:00 | NUR ---
ASSESSMENT AND VITAL SIGNS DUE. PT CRYING OUT, REPORTS 8/10 "A REALLY HARD ACHING" PAIN IN STUMP OF LLE. DR. HERRERA CALLED FOR ADDITIONAL PAIN MEDICATION ORDERS. ORDERS FOR OXYCODONE GIVEN WITH REPEAT BACK TO CONFIRM ORDER ACCURACY. ORDERED ENTERED. MEDICATION GIVEN (SEE MAR). PT EATING DINNER WITH HEAD OF BED ELEVATED TO 52 DEGREES. PT DENIES NAUSEA AND CONTINUES TO REPORT HUNGER. PT ORIENTED TO ALL, AWAKE AND ALERT. SPINAL LEVEL AT S2. PT HAS YET TO VOID AND DENIES NEED TO VOID. COPX SHOWS OXGYEN SATURATIONS ABOVE 95% ON ROOM AIR. DRESSIN TO LLE C/D/I WITH NO DRAINAGE NOTED. PT EATING DINNER. NO ADDITIONAL REQUESTS OR COMPLAINTS. CALMS WITH PAIN MEDICATION ADMINISTRATION AND DINNER ARRIVAL. CALL LIGHT WITHIN REACH. BED RAILS UP. BED ALARM ON.
--- NOTE | 2021-03-06 17:32 | NUR ---
FIRST UNIT [facility]S COMPLETE. LINE FLUSHED WITH NORMAL SALINE. 2ND BAG RETRIEVED FROM LAB PER PROTOCOL. IV ASSESSED, WNL. NO S/S OF PHLEBITIS NOTED. 2ND UNIT STARTED PER PROTOCOL. THIS RN AT BEDSIDE FOR FIRST 15 MINUTES OF INFUSION. NO S/S OF INFUSION REACTION NOTED. RATE INCREASED AFTER FIRST 15 MINUTES OF INFUSION TO 150ML/HR PER PROTOCOL. PT REPORTING 9/10 PAIN IN LLE. PAIN MEDICATION RECENTLY GIVEN. MD CALLED TO REQUEST ADDITONAL PAIN MEDICATION ORDERS. NEW ORDERS GIVEN, REPEAT BACK OVER THE PHONE PERFORMED TO ENSURE ACCURACY OF ORDERS. PHARAMCY CALLED FOR RAPID VAFICIATION. ADDITIONAL PAIN MEDICAITON GIVEN (SEE MAR). NO ADDITIONAL REQUESTS OR COMPLAINTS AT THIS TIME. CALL LIGHT WITHIN REACH. BED RAILS UP. BED ALARM ON.
--- NOTE | 2021-03-06 18:01 | NUR ---
IN TO SEE PT . ASSESSMENT DUE. HEART RATE REGUAL RATE AND RHYTHM. LUNGS CTA THROUGHOUT. ABD ROUND AND DISTENDED. PT REPORTS "IS NORMAL." NO ABD PAIN, NO MASSES NOTED. BT X 4. vs REASSESSED: BP 94/67 ( MAP 73), T 98.0 AXILLARY. PULSE 99, O2 94RA, RR 20. PUPILS ROUND AND REACTIVE. PT REPORTS PAIN AFTER MULTIPLE PHARMACOLOGICAL INTERVENTIONS GIVEN 10/25. PT STATES PAIN IS " SHOOTING AND INTERMITTENT TO LLE." PT SILL IS UNABLE TO URINATE POST SURGICAL PROCEDURE. PT SENSATION TO UPPER AND LOWER EXTREMITES RETURNING. PT CONTINUES TO HAVE SOEM NUMBNESS R/T HIS DM AND NEUROPATHY. PT WITH STRONG DORSAL FLEXION AND EXTENTION NOTED. IV TO LEFT HAND AND RFA DRESSINGS C/D/I, NO S/S OF PHELIBITIS OR INFILTRATION NOTED. BLOOD TRANSFUSION CUURENTLY RUNNING AT THIS TIME. SKIN PINK WARM AND DRY. RESIDENT REQUESTING FRUIT AT THIS TIME. NO OTHER REQUESTS OR COMPLAINTS AT THIS ITME, BED RAILS UP.
--- NOTE | 2021-03-06 18:45 | NUR ---
PT DUE TO VOID. PT ATTEMPTS TO VOID IN URINAL BUT IS UNABLE TO DO SO. BLADDER SCANNED, 680ML NOTED IN BLADDER. NOTED THAT SPINAL ANESTHETIC HAS NOT YET RESOLVED AND REMAINS AT S2. PT REPORTS HE IS UNABLE TO FEET HIS ANAL AREA. DR. HERRERA CALLED, NO NEW ORDERS GIVEN. DR. BROWN CALLED AND STATES TO STRAIGHT CATH PT X1 AND CONTINUE TO MONITOR FOR ABILITY TO VOID SPINAL WEARS OFF AND TO RETURN CALL IF PT REMAINS UNABLE TO VOID. ORDERS ENTERED. REPORT GIVEN TO TISHA ROJO, WHO IS ASSUMING CARE OF PT.
--- NOTE | 2021-03-06 18:50 | NUR ---
IN TO SEE PT. FRUIT GIVEN TO PT PER REQUEST. PT CONTIUES TO BE UNABLE TO URINATE AT THIS ITME. BLADDER SCAN PERFORMED AT THIS ITME, 680MLS ON SCAN. TISHA ROBLES NOTIFED. DR. HERRERA NOTIFED. DR. BROWN NOTIFED OF BLADDER SCAN RESULTS PER DR HERRERA. NEW ORDER RECIEVED TO STRAIGHT CATH PT AND MONITOR, NOTIFY DR BROWN IF PT CONTINUES TO BE UNABLE TO VOID. NO OTHER COMPLAINTS OR REQUESTS AT THIS TIME. CALL LIGHT IN REACH. BED RAILS UP.
--- NOTE | 2021-03-06 18:52 | NUR ---
PT HERE FOR LEFT FOOT CELLULITIS. LEFT BKA SURGERY THIS SHIFT. DRESSING REMAINS C/D/I THIS AFTERNOON WITH NO DRAINGE NOTED. PT HAVING 6-9/10 PAIN, NEW MEDICATION ORDERS ENTERED AND GIVEN. SPINAL HAS YET TO RESOLVE NOW AT S2. PT REMAINS DUE TO VOID, CALL PLACED TO DR. HERRERA, AWAITING CALL BACK. PT RECEIVED 2 UNITS [facility]'S THIS SHIFT AFTER 500ML EBL DURING SURGERY. PT ADVANCED TO REGULAR DIET WITH EXCELLENT INTAKE. PT USES CALL LIGHT AND MAKES NEEDS KNOWN.
--- NOTE | 2021-03-06 19:30 | NUR ---
STRAIGHT CATH PERFORMED PER PROTOCOL. 825ML OF CLEAR YELLOW URINE REMOVED FROM BLADDER. PT CLAMS BLADDER EMPTIES. ADDITONAL LOOSE INCONTINANT STOOL NOTED. NIXON CARE DONE. DEPENDS AND LINENS CHANGED. BLOOD TRANSFUSION COMPLETE. VITAL SIGNS STABLE. NO S/S OF INFUSION REACTION NOTED. IV SALINE LOCKED AT THIS TIME. CALL LIGHT WITHIN REACH. BED RAILS UP. BED ALARM ON. PT EATING FRUIT, WARM BLANKETS PROVIDED AND PT REPORTS HE IS FEELING COMFORTABLE. TISHA ROJO AT BEDSIDE.
--- NOTE | 2021-03-06 19:55 | NUR ---
IN TO PROVIDE PT WITH TABLET,
--- NOTE | 2021-03-06 20:13 | NUR ---
RECEIVED REPORT FROM DAY SHIFT RN. ASSISTED DAY SHIFT RN WITH ATTEDN CHANGE. PATIENT WASINCONTINENT OF URINE. PATIENT REPOSITIONED IN BED. PATIENT GIVEN FOOD PER REQUEST. PATIENTS BLOOD FINISHED INFUSING. PATIENT IS NOW SL. PATIENT IS ON RA. CPOX IN USE. PATIENT DENIES ANY NEEDS. CALL LIGHT IN REACH. LEFT KNEE ELEVATED ON PILLOWS. DRESSING IS C/D/I.
--- NOTE | 2021-03-06 21:08 | NUR ---
PATIENT ASSESMENT COMPLETED. PATIENT IS ON 2L VIA NC. CPOX IN USE. PATIENT IS AAOX4. X5 LAP SITES NOTED. PATIENT HAS TOLERATED X2 JELLO. PRN PO PAIN MEDICATION GIVEN PER ORDER. IV INFUSING PER ORDER. PATIENTS VITALS TAKEN AND RECORDED. PATIENT DENIES ANY NAUSEA. SHADOWING ON LAP SITES NOTED. PATIENT DENIES ANY FURTHER NEEDS. CALL LIGHT IN REACH.
--- NOTE | 2021-03-06 21:19 | NUR ---
PATIENT GIVEN SCHEDUKED MEDICATION PER ORDER. PATIENT RATES PAIN AT AN 8/10 IN LEFT KNEE. PATIENT GIVEN PRN PAIN MEDICATION PER ORDER. PATIENT IS RESTING IN BED WATCHING A MOVIE ON HIS TABLET. PATIENT DENIES ANY FURTHER NEEDS. CALL LIGHT IN REACH.
--- NOTE | 2021-03-06 23:08 | NUR ---
PATIENT IS RESTING IN BED WITH EYES CLSOED, CPOX READINGS ARE WNL. CALL LIGHT IN REACH.
--- NOTE | 2021-03-06 23:33 | NUR ---
PATIENT GIVEN SCHEDULED MEDICATION PER ORDER. PATIENT RATES PAIN AT A 8/10. PATIENT GIVEN PRN MEDICATION PER ORDER. PATIENT DENIES ANY NEEDS. ATTEND IS DRY AT THIS TIME. CALL LIGHT IN REACH.
--- NOTE | 2021-03-07 01:40 | NUR ---
IN TO GET VITALS, EMPTIED URINAL, 500MLS, PERSONAL TABLET PLUGGED IN FOR PT, SNACK AND SODA PROVIDED FOR PT, NO FURTHER NEED AT TIME
--- NOTE | 2021-03-07 01:55 | NUR ---
PATIENTS VITALS TAKEN AND RECORDED. INTAKE AND OUTPUT RECORDED. PATIENT WAS ABLE TO VOID. PATIENTS ABX COMPLETED INFUSING. PATIENT IS NOW SL PER ORDER. PATIENT RATES PAIN AT A 6/10 IN LLE. PRN PAIN MEDICATION GIVEN PER ORDER. PATIENT PROVIDED WITH SNACK PER REQUEST. PATIENT DENIES ANY FURTHER NEED. ATTEND IS DRY AT THIS TIME. CALL LIGHT AND BELONGINGS ARE WITHIN REACH.
--- NOTE | 2021-03-07 04:23 | NUR ---
PATIENT IS RESTING IN BED WITH EYES CLOSED, RR 16. CPOX READINGS ARE WNL. CALL LIGHT IN REACH.
--- NOTE | 2021-03-07 04:32 | NUR ---
PT CALLS, CPOX ALARMING, DUE TO LOWER SPO2 READING, SPO2 NOW BACK TO 90%+, NO FURTHER NEEDS AT THIS TIME
--- NOTE | 2021-03-07 06:33 | NUR ---
PATIENT ASSISTED A 2PA PIVOT TRANSFER TO WHEELCHAIR THEN TO TOILET. PATIENT WAS ABLE TO VOID AND HAVE BM. PATIENT IS BACK IN BED RESTING. LLE ELEVATED ON PILLOW. PATIENT RATES PAIN AT A 9/10. PRN PAIN MEDICATION GIVEN PER ORDER. PATIENTS ICE WATER REFILLED. PATIENT DENIES ANY FURTHER NEEDS. CALL LIGHT IN REACH.
--- NOTE | 2021-03-07 07:00 | NUR ---
IN TO PROVIDE PT WITH SNACK, NO FURTHER NEEDS
--- NOTE | 2021-03-07 07:27 | OR ---
[facility] [address] [facility] [address] [place] [address] Signed DATE OF OPERATION: 03/06/2021 SURGEON: Vivienne Mora MD PREOPERATIVE DIAGNOSIS: Severe osteomyelitis with Charcot foot left as well as osteomyelitis, left ankle. POSTOPERATIVE DIAGNOSIS: Severe osteomyelitis with Charcot foot left as well as osteomyelitis, left ankle. PROCEDURE PERFORMED: Left below-knee amputation. RELATIONSHIP SPECIALIST: Alcira Brandt PA-C. Alcira was present and critical for all portions of procedure. ANESTHESIA: Spinal. BLOOD LOSS: 450 mL. BRIEF HISTORY: Sanchez is a 60-year-old gentleman with a history of severe diabetes and alcoholism. He has not been taking his medications. He was admitted with a draining foot ulcer on the dorsum of his foot. It was cultured for Streptococcus G. He was not septic, but showed x-ray evidence of significant osteomyelitis and Charcot foot. Risks and benefits of amputation were discussed with him by myself as well as Dr. Gill. We both concurred that this was the best treatment for the patient to be able to get back up to walk. After long discussion, the patient agreed and surgery was scheduled. He was continued on his preop antibiotics of vancomycin per the Medicine Service. DESCRIPTION OF PROCEDURE: Once consent was obtained, he was brought to the operating room. After adequate anesthesia, the left leg was prepped and draped. The dressing was left on the foot and a was placed over it. This was then covered with a sterile stockinette and the leg was fully prepped. The amputation was marked out at 8 cm below the tibial tuberosity and extending posteriorly with an extended posterior flap. Once this was marked out, we incised the skin circumferentially, carried through the subcutaneous Electronically Signed By: VIVIENNE MORA MD 03/07/21 0727 PATIENT NAME: SANCHEZ COBOS SR OPERATIVE REPORT DATE OF : 58 REPORT #: [id number] PHYSICIAN: VIVIENNE MORA MD PCP: [facility] REPORT IS CONFIDENTIAL AND NOT TO BE RELEASED WITHOUT AUTHORIZATION [facility] [address] [place], [place] [address] Signed tissue. All bleeders were cauterized as we went. We went through the muscle both on the medial and anterior lateral aspects of the leg. It was taken down to the tibia. Large bleeders were controlled with clamps as we went. The muscle posteriorly was transected all the way through. The tibia was cut 2 cm proximal to the skin incision as was the fibula. The anterior aspects were then beveled and smoothed. Once this was accomplished, the remaining muscle posteriorly was transected and the foot was passed off the table. The patient did request the foot be returned to him for mandaeism purposes. Careful attention was then turned to all bleeders and these were either tied with cauterized. Once this was accomplished, we debulked the posterior muscle a little bit and folded the flap anteriorly. It fit quite well. The flap was sutured using #1 Vicryl through the fascia to close it anteriorly. The subcutaneous tissue was closed with 2-0 Monocryl and the skin with 2-0 nylon in interrupted fashion. The wound was then dressed with Allevyn dressings, Kerlix fluffs and Kerlix wrap followed by Coban. He tolerated the procedure well. All sponge, needle, and instrument counts were correct. Vivienne Mora MD BA/ANDERSL /[id number] Copies: ~ Electronically Signed By: VIVIENNE MORA MD 03/07/21 0727 PATIENT NAME: SANCHEZ COBOS OPERATIVE REPORT DATE OF : 58 REPORT #: [id number] PHYSICIAN: VIVIENNE MORA MD PCP: [facility] REPORT IS CONFIDENTIAL AND NOT TO BE RELEASED WITHOUT AUTHORIZATION
--- NOTE | 2021-03-07 07:28 | NUR ---
IN TO SEE PT THIS. AM. PT SLEEPIN IN BED WITH HOB ELEVATED. SLEEPING WITH EYES CLOSED. NIGHT NURSE VALENTINA REPORTED PT URINE OUTPUT 1000 DURING THE NIGHT. NIGHT NURSE REPORTED PT UP AD REBECCA WITH 2 PERSON PIVOT TO BATHROOM, STATES "PT DID VERY WELL. SHE ALSO STATES PT CONTINUES TO STRUGGLE WITH THE LOSS OF HIS LEG AND OREDERS HAVE BEE RECIEVED FOR PT FOR TODAY. NO CONCERNS OR REQUESTS AT THIS TIME. BED RAILS UP, CALL LIGHT IN REACH.
--- NOTE | 2021-03-07 07:29 | NUR ---
REPORT RECEIVED FROM TISHA ROJO. PT RESTING IN BED WITH EYES CLOSED. RESPIRATIONS EVEN AND UNLABORED. HEAD OF BED ELEVATED TO 30 DEGREES. PT ALLOWED TO REST. LEFT LEG ELEVATED ON PILLOWS X2. BED RAILS UP. CALL LIGHT WITHIN REACH.
--- NOTE | 2021-03-07 07:34 | NUR ---
DR. HERRERA TO BEDSIDE FOR ROUNDS. PT AWAKENS TO VOICE AND LIGHT TOUCH. PT VERBALIZES UNDERSTANDING OF PLAN OF CARE. NO ADDITIONAL REQUESTS OR COMPLAINTS AT THIS TIME. CALL LIGHT WITHIN REACH. BED RAILS UP.
--- NOTE | 2021-03-07 07:38 | NUR ---
dR. HERRERA REQUEST MICONAZOLE POWDER FOR PT R/T REDNESS TO GROIN AND UNDER PANNUS. ORDER ENTERED. VERIFIED BY REPEAT BACK. DR HERRERA ALSO NOTES REDNESS ON COCCYX YESTERDAY, REQUEST ALLEVYN BE PLACED. WILL BE PLACED DURING MORNING ASSESSMENT.
--- NOTE | 2021-03-07 07:47 | NUR ---
Spoke with Dr. Mora this am and Alcira last night. Plan at this time is for pt to go to SNF tomorrow. Faxed surgery note and progress not to [facility]. Awaiting confirmation of acceptance to [facility].
--- NOTE | 2021-03-07 08:44 | NUR ---
PT MEDICATIONS AND ASSESSMENT DUE. PT IN BED WITH HOB ELEVATED ON ENTERING PT ROOM. PT AWAKENED TO VOICE WITHOUT DIFFICULTY. BLOOD SUGAR OBTAINED 118. PAIN ASSESSED 8/10 TO LLE. STABBING SHOOTING PAIN INTERMITTENTLY. HEART RATE REG RATE AND RHYTTHYM, LUNGS CTA. NO SOB NOTED. ABD ROUND WITH MILD DISTENTION AND SOFT, NO MASSES NOTED. PT REPORTS BM THIS AM. SKIN PINK WARAM AND DRY. MUSOUS MEMBRANES MOIST. IVS ASSESSED, FLUSHED. NO S/SX OF PHELEBITIS OR INFILTRATION. DRESSING C/D/I. STEAM PIPE FITTER ARE STRONG AND EQUAL BILATERALLY. FACIAL NERVES IN TACT. DORSAL FLEXIONA AND EXTENTION OF RLE STRONG. PT ASSITED INTO CHAIR WITH TWO PERSON ASSIT PIVOT TRANSFER. PT PARTICIPATING IN TRANSFER VERY WELL. PT NOT TEARFUL AT ATHIS TIME. PT DISTRACTED WITH CONVERSATION WITH APPLIANCE FIXER IN ROOM AT HIS TIME, REMINISING OF HIS PAST. COCCYX ASSESSED, MILD BLANCHABLE REDNESS NOTED. FOAM DRESSING APPLIED PER dR. HERRERA REQUEST. SITTING UP IN CHAIR LOOKING OUT THE WINDOW. PAIN DECREASING 3/10 TO LLE THIS AM AT 0854. PT DENIES ANY DROWSINESS. PT COOPERATIVE WITH CARES AND STAFF. NO OTHER CONCERNS OR REQUESTS AT HIS. CALL LIGHT ION REACH. TIME. FOR BREAKFAST. APPETITE GOOD PER PT BASELINE. ACCEPTED 100% BREAKFAST. DENIES NAUSEA, VOMITING OR DIARRHEA.
--- NOTE | 2021-03-07 09:19 | NUR ---
IN TO SEE PT. TEMP REASSESSED. ORAL TEMP 99.0. PT HAD A SNACK OF SOUP BROUGHT IN FROM FAMILY. ACCEPTED 100%. BP REASSESSED TAKEN MANUALLY 90/62 LEFT ARM. MANULA PULSE TAKEN 90. PT DENIES LIGHHTHEADNESS OR DIZZINESS AT THIS TIME. SPEECH IS CLEAR AND EASY TO UNDERSTAND. RESIDENT ALERT AND OREITNED X 3. VS OBTAINED. PT LAUGHING AND JOKING WITH GRANT OFFICER AND THIS NURSE. DENIES ANY NAUSEA AT THIS TIME. NO CONCERNS OF NEEDS ATT HIS TIME. CALL RONNIE IN REACH. PT SITTING UP IN CHAIR LOOKING OUT THE WINDOW.
--- NOTE | 2021-03-07 09:32 | NUR ---
BP REASSESSED 91/65 VIA MONIOTR, PT DIAPHORETIC. MESSAGE SENT TO KEVIN PT CONTINUES TO DENY NAUSEA, DIZZINESS OR LIGHHEADEDNESS.
--- NOTE | 2021-03-07 09:40 | NUR ---
PT BRENDALA BP 90/62, DIAPHORETIC, TEMP 99.0 ORAL. URINE OUTPUT 600MLS THIS AM. PT DENIES NAUSEA, LIGHT HEADEDNESS AND DIZZINESS. DR. BROWN NOTIFIED VIA PHONE. DR. BROWN INSTRUCTED TO CONTINUE TO MONITOR AT THIS TIME.
--- NOTE | 2021-03-07 09:57 | NUR ---
IN TO SEE PT, MEDICATION DUE. PT SITTING RECLINED IN CHAIR WITH EYES CLOSED. EYES OPEN TO VOICE ON ENTERING ROOM. PT WATCHING MOVIE ON HIS TABLET. PT CONTINUE TO LAUGH AND JOKE WITH THIS NURSE. GROIN AND PANNAS CLEANED AND MICIONALOZE POWDER APPLIED PER ORDER. TOELRATED WELL. PLEASANT AND COOPERATIVE WITH CARE. PT INQUIRED ABOUT GOING TO [facility], THIS NURSE INFORMED HIM THAT IS THE PLAN FOR HIMT O GO THERE WHEN HE LEAVES HERE FOR REHAB BEFORE GOING HOME. PT EDUCATED REAGRDING POWDER, VERBALIZED UNDERSTANDING. NO OPTHER COMPLAINTS OR CONCERNS AT THIS ITME. CALL LIGHT IN REACH.
--- NOTE | 2021-03-07 10:00 | NUR ---
THIS RN TO ROOM TO CHECK ON PT. PT UP TO CHAIR PLAYING GAMES ON TABLET. PT DENIES REQUESTS OR COMPLAINTS. PT REPORTS 3/10 PAIN IN LLE/STUMP, DENIES NEED FOR ADDITONAL PAIN MEDICAITON AT THIS TIME. PT REPORTS HE HAS NO ADDITONAL REQUESTS OR COMPLAINTS. CALL LIGHT WITHIN REACH.
--- NOTE | 2021-03-07 10:12 | NUR ---
PASTORAL CARE, YARELI IN WITH PT AT THIS TIME. THIS NURSE ASSISTED PT WITH ORDERING LUNCH. DIAPHORESIS HAS RESOLVED AT THIS TIME. NO OTHER CONERNES OR NEEDS AT THIS TIME. PT CONTINUES TO BE UP IN CHAIR AT THIS TIME. CALL LIGHT IN REACH.
--- NOTE | 2021-03-07 10:13 | NUR ---
SN Remington Gordon found pt. awake and responsive to questions, still expressing discomfort at new RL amputation and condition. Pt. said pain was 8/10 and SN observed staff development manager give medications. Pt assisted to chair and helped with breakfast.
--- NOTE | 2021-03-07 10:29 | NUR ---
First set of
--- NOTE | 2021-03-07 11:01 | NUR ---
At beginning of the morning, pt had 8/10 pain, after medications given (Toradol IV), pt pain was 3/10 after administration.
--- NOTE | 2021-03-07 11:14 | NUR ---
THIS RN TO ROOM TO CHECK ON PT. PT RESTING WITH EYES CLOSED, UP TO CHAIR. RESPIRATIONS EVEN AND UNALBORED. PT ALLOWED TO REST. CALL LIGHT WITHIN REACH.
--- NOTE | 2021-03-07 12:03 | NUR ---
BP 72/54 MANUALLY LEFT ARM. PT DENIES DIZZINESS, LIGHT HEADEDNESS, AND CHEST PAIN. PT IS NON-DIAPHORETIC AT THIS TIME. dR. BROWN NOTIFIED. NEW ORDERS RECIEVED FOR 1L LR OVER 1 HOUR, TAKE BP IN [address] BROWN WITH NEW BP. PT ALERT AND ORIENTED X 3.
--- NOTE | 2021-03-07 12:11 | NUR ---
IN TO SEE PT. ASSESSMENT DUE. ASSISTED PT UP [place] [facility] [place] TISHA ROBLESSSVIKTORIA. PT TOLERATING 2 PERSON TRANSFER PIVOT WELL. NO C/O DISCOMFORT OR PAIN DURING TRANSFER. PT CONTINUES TO TALK WITH STAFF AND REMINECE. HEART AND LUNGS WNL, NO SOB NOTED. ABD SOFT ROUND MILD DISTENTION NOTED, NORMAL PER PT BT X 4. HAND SPEAKING UNIT ASSEMBLER STRONG AND EQUAL. RIGHT DORSAL FLEXION AND EXTENTION STRONG. DRESSING TO LLE DRY AND INTACT. SHADOWING REMIANS UNCHANGED FROM THIS MORNINGS ASSESSMENT. PT HAD LARGEG SOFT BM AND 1 UNMEASURABLE CONTINENT VOID.PT ASSISTED BY THIS NURSE AND TISHA ROBLES BACK TO CHAIR FOR LUNCH. BENIGNO FROM RT, IN AT THIS TIME FOR COVID SWAB IN PREPATION FOR UPCIOMING DISCHARGE TO [place]. LAB IN AT THIS TIME DRAW CBC AND CMP. LUNCH ARRIVED AT THIS TIME. PT GIVEN SOUP PER REQUEST. COCCYX DRESSING C/D/I. NO NEW SKIN CONCERNS AT THIS TIME, ALL OTHER SKIN INTACT. PT EATING LUNCH AT THIS TIME. CONTINUES TO HAVE SOME NUMNESS AND TINGLING IN FINGERTIPS R/T DM AND NEUROPATHY. BP RECHECKED IN THE RIGHT ARM MANUALLY BY THIS NURSE 84/54. DR BROWN NOTIFIED VIA PHONE. ORDERS TO FINISH BOLUS OF LR RECHECK BP AND NOTIFY DR BROWN WHEN FINISHED. PUPILS ROUND AND REACTIVE. PT REPORTS HE IS ABLE TO FEEL SENSATION TO EXTREMEITES X 4. DENIES NAUSEA AT THIS TIME. NO REPORTED DIARHHEA. IS PERORMED X 5 1500-1850ML, TOLERATING WELL. ATE 100% LUNCH. CONCERNS AT THIS TIME, ALL OTHER SKIN
--- NOTE | 2021-03-07 12:32 | NUR ---
COVID SWAB COLLECTED AND SENT TO IN-HOUSE LAB
--- NOTE | 2021-03-07 12:38 | NUR ---
TODAY SEEMS TO BE A BETTER DAY THAN YESTERDAY. PT STATED HE HAS ACCEPTED HIS LOSS, AND IS READY TO MOVE ON. SITTING IN CHAIR LOOKING OUT THE WINDOW FOR ANY DEER THAT MIGHT PASS HIS WAY. GAVE BLESSING, WILL CONTINUE TO FOLLOW
--- NOTE | 2021-03-07 12:46 | NUR ---
SEE NURSE NOTE
--- NOTE | 2021-03-07 13:22 | NUR ---
CALL MADE TO DR BROWN, BP 88/58 MANUALLY PULSE 106. NEW ORDERS RECIEVED FOR LR 500ML BOLUS GIVEN OVER 1 HOUR. INFUSIOPN RINNING AT THIS TIME. PT INFORMED OF NEW ORDER R/T CONTINUED LOW BP. NOTIFY DR. BROWN AFTER ONE HOUR AND INFUSION COMPLETE WITH NEW BP. PT REPORTS PAIN 5/10 TO LLE, 10MG OXYCODONE GIVEN PER ORDER. PT UP IN CHAIR WATHCING TV AND PLAYING ON TABLET. NO NEW CONCERNS OR REQUEST MADE AT THIS TIME. CALL LIGHT IN REACH.
--- NOTE | 2021-03-07 14:20 | NUR ---
BP 88/58 MANUALLY RA, PULSE 110. DENIES LIGHT HEADEDNESS OR DIZZINESS AT THIS TIME. DENIES ANY CP.
--- NOTE | 2021-03-07 14:39 | NUR ---
DR BROWN NOTIFIED IN PERSON OF PT BP 88/58, PULSE 110 AT REST AND MINIMAL ACTIVITY. DR BROWN STATES CONTINUE TO MONITOR BP, PT MAY HAVE A BAG OF CHIPS. NO OTHER NEW ORDERS AT THIS ITME. CALLED MADE TO KITCHEN TO REQUEST CHIPS FOR PT. 1 BAG CHIPS GIVEN ON ARRIVAL. PT SITTING IN CHAIR PLAYING ON TABLET ATTHIS TIME. DENIES PAIN AND DISCOMFORT ATT HIS TIME. CONTINUES TO DENY DIZZINESS, LIGHT HEADNESS, CP. REMIANS NON-DIAPHORRETIC AND AFEBRILE AT THIS TIME. PT ALERT AND ORIENTED X 3 PER BASELINE. NO OTHER CONCERNS OR REQUESTS AT THIS TIME. CALL LIGHT WITHIN REACH.
--- NOTE | 2021-03-07 14:53 | NUR ---
PT INFUSION BOLUS COMPLETE, IV TO LFA SALINE LOCKED ATT HTISTIME. PT IN CHAIR EATING A BAG OR CHIP WATCHING TV AND LAUGHING. GIVEN CAN OF SODA FROM PERSONAL SUPPLY PER PT REQUEST. NO ADDITIOANL REQUESTS ATT HIS TIME. CALL LIGHT IN REACH.
--- NOTE | 2021-03-07 16:00 | NUR ---
Received message from [facility] and they would medicaid process started from [facility] as pt only has one payer. Informed I will call Bobbi at [facility], Dejon not sure if she is there, if not, they will have to start process after he arrives. Called Bobbi and she has time to speak with Bharat today. Went to his rooma todd called her on her cell phone and she will complete his financial assessment now.
--- NOTE | 2021-03-07 16:23 | NUR ---
IN TO SEE PT, ASSESSMENT DUE. PT SLEEPING WITH EYES CLOSED IN CHAIR. AWAKENS EASILY WITH VOICE. PT DENIES PAIN TO LLE AT THIS TIME. VS OBTAINED. BP IMPROVED 107/74. ALERT AND ORIETNED. LLE DRESSING INTACT, NO CHANGE IN SHADOWING AT THIS TIME. NO ACTIVE DRAINAGE AT THIS TIME. ABD ROUND, SOFT, MILD DISTENTION NORMAL FOR PT. BT X 4. PT EATING CHIPS AND CURRENTLY ON THE PHONE REGARDING TRASFER OF CARE TO [place] TOMORROW. IV DRESSINGS X 3 C/D/I AND SALINE LOCKED AT THIS TIME. SENSATION INTACT TO UPPER EXTREMITES, NUMBNESS AND TINGLING TO BLE R/T NEUROPATHY. DENIES NAUSEA AT THIS TIME. PT VERBALIZES ACCEPTANCE REGADING BKA. NO TEARFULNESS NOTED. HAND ASSISTED LIVING COORDINATOR STRENGTH BIULATERALLY EQUAL AND STRONG. PT REPORTS SENSATION FELT X 4 EXTRMETIES. DORSAL FLEXION AND EXTENTION STRONG TO THE RLE. PUPILS ROUND AND REACTIVE. NO OTHER COMPLAINTS OR CONCERNS AT THIS TIME. PT UP IN CHAIR EATING CHIPS. PT SPOKE BRIEFLY WITH FAMILY ON THE PHONE. CALL LIGHT IN REACH. CONCERNS AT THIS TIME.
--- NOTE | 2021-03-07 16:53 | NUR ---
Spoke with Bobbi and she states he looks good financially and feels he will qualify per his medical issues. He does not have a cell phone but told her he will ask family to bring a phone in [facility]. If they don't she will asks Isael from call her tomorrow and she will schedule to speak with him at [facility]. Messaged [facility] with the above info.
--- NOTE | 2021-03-07 16:59 | NUR ---
Received confirmation from [facility] from [facility]. They will accept this pt tomorrow. They had concerneds about his bp and is aware and is not concerned. FAxed VS from admit showing pt has had low bp since admission.
--- NOTE | 2021-03-07 17:46 | NUR ---
PT IS A 60 YO MALE. CAME TO ER 7 DAYS AGO WITH CELLULISTIS OF LLE. PT IS DIABETIC AND HX OF ETOH USE WITH WITHDRAL SX. CIWA NEGATIVE. PT ALERT AND OREITNED X 3. PLEASANT AND COOPERATIVE WITH STAFF [facility]. PAIN HAS BEEN WELL MANAGED WITH PRN OXYCODNE 5-10MG Q 4, ONE TIME ORDER TORADOL GIVEN THIS AM AND ONE DOSE PRN OXYCODNE 5MG WITH 350MG APAP THIS EVENING FOR REPORTED PAIN 3/10 INTERMITTEN SHOOTING PAIN TO LLE. STARTED GABAPENTIN THIS AM. PHARMACOLOGCIAL PAIN INTERVENTIONS WORKING WELL. PT SLEEPING THIS AFTERNOON INTERMITTENTLY. DRESSING TO BKA DRY AND INTACT WITH SHADOWING ORESENT, NO ACTIVE DRAINAGE NOTED. CONTINUES TO HAVE NUMBNESS AND TINGLING TO FINGER TIPS AND RIGHT FOOT R/T NEUROPATHY. HAND MOTOR VEHICLE ASSEMBLY SUPERVISOR BILATERALLY STRONG AND EQUAL. DORSAL FLEXION AND EXTENTION RLE STRONG. STARTED MICONAZOLE POWDER BID TO PANNUS AND GROIN, TOLERATING WELL. BLANCHABLE REDNESS TO COCCYS, FOAM DRESSING APPLIED PER DR HERRERA, TOLERATING WELL. DRESSING TO COCCYX C/D/I. MOOD HAS IMPROVED OVER THE DAY, PT LAUGHING, CRACKING JOKES, AND INTERACTING APPROPIATELY WITH STAFF. YARELI, FROM [facility] IN TO VISIT PT THIS MORNING. CBC AND CMP DRAWN TODAY. WBC 12.4, HGB 11.0. LARGE BM SOFT. CIWA COMPLETED, NEGATIVE. PT BPS LOW MUCH OF THE DAY 70-80'S/50-60'S, RECIEVED TOTAL 1500ML LR. CONTINUED TO MONITOR BP THROUGHT THE DAY. PT SNACKING THROUGHT THE DAY, INCLUDING A BAG OF CHIPS THIS AFTERNOON. BP INCREASED TO 107/47. BLOOD SUGAR THIS AM 118. PT WITH ONE EPISODE MID MORNING OF DIAPHORESIS WITH LOW BP, DIAPHORESIS SINCE RESOLVED WITHOUT ANY REOCCURANCE. LUNGS ARE CTA THROUGHOUT. PT USING IS THROUGHOUT THE DAY MAINTAINING 1500-2000MLS. NO SOB OR OTHER S/S OF RESPIRATORY DISTRESS NOTED DURING SHIFT.
--- NOTE | 2021-03-07 18:13 | EKG ---
[facility] [address] [facility] [place] [address] Signed Sinus tachycardia with occasional premature ventricular complexes Low voltage QRS Borderline ECG No previous ECGs available Confirmed by RUTHIE BROWN MD ([id number]) on 03/07/2021 6:12:47 PM Electronically Signed By: RUTHIE BROWN MD 03/07/211812 PATIENT NAME: SANCHEZ COBOS SR Electrocardiogram DATE OF : 58 PHYSICIAN: RUTHIE BROWN MD REPORT #: [id number] REPORT IS CONFIDENTIAL AND NOT TO BE RELEASED WITHOUT AUTHORIZATION
--- NOTE | 2021-03-07 18:47 | NUR ---
PT REPORTS 1/10 PAIN AFTER PAIN MEDICATION ADMINISTRATION. PAIN SITTING UPRIGHT IN CHAIR, FINISHING DINNER. PT HAS PLEASANT DEMEANOR AND VOIDED 400ML. PT IS SEMI-DROWSY AND AWAITING FAMILY MEMBER PHONE CALL. PT HAD NO FURTHER REQUESTS AT THIS TIME.
--- NOTE | 2021-03-07 19:20 | NUR ---
SHIFT REPORT RECEIVED FROM BARRY GILES AND SAROJ GILES. PT RESTING IN BED, TALKING WITH FAMILY. NO NEEDS AT THIS TIME. CALL LIGHT IN REACH.
--- NOTE | 2021-03-07 20:55 | NUR ---
PT CALLED FOR HELP TO RESTROOM, 1PA PIVOT TO WALKER W/SEAT. PT ABLE TO WHEEL INTO RESTROOM AND STAND PIVOT TO TOILET. HE WILL CALL WHEN HE IS DONE.
--- NOTE | 2021-03-07 21:00 | NUR ---
PT ASSISTED BACK TO BED FROM TOILET, VITALS DONE, SBP AND DBP WERE HIGH (LEFT ARM),140s/100s, RETOOK BP, LOW ON LEFT ARM, RECHECK ON RIGHT ARM, SAME RESULT, 98/60 (68) RN NOTFIED, PT IS NOT IN DISTRESS, NO FURTHER NEEDS
--- NOTE | 2021-03-07 22:41 | NUR ---
ASSESSMENT COMPLETED. GCS 15, A&O X4. LUNGS CLEAR, HEART TONES REGULAR. ABD SOFT, NONTENDER, BOWEL TONES ACTIVE. CMS INTACT IN UPPER EXTREMITIES AND RLE. LLE DRESSING INTACT WITH A 1 INCH DIAMETER AREA OF SHADOWING. PT REPORTS SHOOTING, SHARP PAIN, PRN PAIN MED PROVIDED. PRN SLEEP MED PROVIDED. IVs WNL, CDI, FLUSHED WELL. ICE WATER AND SNACK PROVIDED. NO OTHER NEEDS AT THIS TIME. CALL LIGHT IN REACH.
--- NOTE | 2021-03-08 | NUR ---
PT RESTING IN BED, RR EVEN, UNLABORED. CALL LIGHT IN REACH.
--- NOTE | 2021-03-08 02:15 | NUR ---
PT RESTING IN BED, RR EVEN, UNLABORED. CALL LIGHT IN REACH.
--- NOTE | 2021-03-08 04:30 | NUR ---
ASSESSMENT COMPLETED. LLE DRESSING UNCHANGED. PT DENIES PAIN AT THIS TIME. IVs WNL. URINAL EMPTIED. NO OTHER NEEDS. CALL LIGHT IN REACH.
--- NOTE | 2021-03-08 05:44 | NUR ---
PT RESTING IN BED, RR EVEN, UNLABORED. CALL LIGHT IN REACH.
--- NOTE | 2021-03-08 06:51 | NUR ---
PT REPORTS 6/10LLE PAIN, PRN PAIN MED PROVIDED. ICE WATER PROVIDED. NO OTHER NEEDS. CALL LIGHT IN REACH.
--- NOTE | 2021-03-08 07:54 | NUR ---
REPORT RECEIVED. PT ASSISTED TO BSC THEN CAHIR FOR BREAKFAST. PT REPORTING SOME CRAMPING IN LEFT KNEE. PERSONAL ITEMS AND CALL LIGHT IN REACH. DENIES FURTHER NEEDS.
--- NOTE | 2021-03-08 08:37 | NUR ---
PAIN GIVEN MORNING MEDICATION REGIMEN. PT WAS ALERT, ORIENTED, AND COMMUNICATED PAIN WAS STILL LOWER LEFT LEG, RATED 5/10, AND WAS COMPLIANT WITH ALL MEDICATIONS GIVEN. PT. EXPRESSES INTEREST IN LEAVING TODAY AROUND NOON TO REHAB FACILITY. PT CURRENTLY EATING BREAKFAST AT THIS TIME. WILL CONTINUE TO MONITOR.
--- NOTE | 2021-03-08 09:47 | NUR ---
PT DRANK A MIXTURE OF ICE WATER, SOME DIET SPRITE, AND WHITE MILK. PT URINE IS YELLOW COLORATION. PT REPORTS NO PROBLEM USING URINAL AND STOOL WAS NOT PAINFUL.
--- NOTE | 2021-03-08 09:49 | NUR ---
PUPILS EQUAL, ROUND, REACTIVE TO LIGHT AND DO PROPER ACCOMODATION. PT REPORTS NO NEUROLOGICAL CHANGES, IS ALERT, RESPONDS TO CONVERSATION, AND SITTING UPRIGHT IN CHAIR POST-BREAKFAST.
--- NOTE | 2021-03-08 09:53 | NUR ---
ALL IVS ASSESSED ON PT. PAIN EXPERIENCED NO PAIN DURING IV FLUSHES, NO APPARENT PROBLEMS WITH IV (NO EXTRAVASATION, INFILTRATION, ERYTHEMA). PT WAS INFORMED OF PRN MEDICATION AVAILABLE FOR 5/10 PAIN BUT STATED THEY DID NOT WANT ANY AT THIS TIME. WILL CONTINUE TO MONITOR.
--- NOTE | 2021-03-08 10:10 | NUR ---
RECEIVED TEXT FROM POLI AT [facility] ASKING IF PATIENT IS COMING TODAY. TEXTED BACK THAT ORDERS ARE BEING WRITTEN NOW AND WILL SEND WHEN ABLE. SHE STATES THEY WILL LEAVE W/C BY DOOR FOR TRANSPORT TO [place] SET UP OPERATOR TOOL. UPDATED STAFF AND DR BROWN.
--- NOTE | 2021-03-08 10:22 | NUR ---
ASSESSMENT COMPLETED. PT SITTING UP IN CHAIR. ATE 100% OF BREAKFAST. REPORTS LEFT STUMP PAIN RADIATING/STABBING AND IS 5/10. PT REPORTS THIS IS A TOLERABLE NUMBER AND DOES NOT NEED INTERVENTION. LUNGS CLEAR. HEART SOUNDS REGULAR. GENERAL SWELLNG PRESENT IN LEFT STUMP. DRESSING IS INTACT WITH SCANT AMOUNT OF SHADOWING PRESENT. ALLEVYN TO COCCYX INTACT. PT HAD SMALL BM THIS MORNING. IS VOIDING WELL AND QS. TINGLING PRESENT IN FINGERTIPS. PT REPROTS HE HAS FEELING IN RLE AND LEFT STUMP. CALL LIGHT AND PERSONAL ITEMS WITHIN REACH.
[2021-03-08] MEDS ORDERED: METFORMIN HCL500 MG PO (10:25)
[2021-03-08] MEDS ORDERED: OXYCODONE HCL5 MG PO (10:25)
[2021-03-08] MEDS ORDERED: MICONAZOLE5 GM MISC (10:25)
[2021-03-08] MEDS ORDERED: FAMOTIDINE20 MG PO (10:25)
[2021-03-08] MEDS ORDERED: MELATONIN3 MG PO (10:25)
[2021-03-08] MEDS ORDERED: VITAMIN B-1100 MG PO (10:25)
[2021-03-08] MEDS ORDERED: NICOTINE LOZENGE4 MG BUCCAL (10:25)
[2021-03-08] MEDS ORDERED: TYLENOL325 MG PO (10:25)
--- NOTE | 2021-03-08 10:30 | NUR ---
ORDERS/PASSR/RX/COVID SCREEN RESULTS FAXED TO [facility] WITH CONFIRMATION RECEIVED.
--- NOTE | 2021-03-08 10:55 | NUR ---
POLI FROM [facility] CALLED. STATES ORDERS ARE OKAY BY NURSING AND WE CAN ARRANGE TRANSPORT. STAFF UPDATED.
--- NOTE | 2021-03-08 11:19 | NUR ---
SN HAD JUST BEEN WITH PT-HELPING HIM PREPARE TO SHAVE. PT TO DC TO [facility] THIS AM AND SAID HE IS DOING BETTER TODAY. THANKED ME FOR THE VISITS, GAVE PT MORE ENCOURAGEMENT. WILL FOLLOW
--- NOTE | 2021-03-08 11:20 | NUR ---
CHART PACK WITH CLINICALS, ORDERS, RX LEFT AT NURSES STATION. COPY TO CHART. CHARGE NURSE HAS ARRANGED TRANSPORT FOR 1145PM. PATIENT IS AWARE AND READY TO GO.
--- NOTE | 2021-03-08 11:37 | NUR ---
PT FINISHED LUNCH, GIVEN PRN PAIN MEDICATION, FAMILY MEMBER ARRIVED, PT PREPARED FOR D/C. PT BELONGINGS PACKED UP.
--- NOTE | 2021-03-08 11:38 | NUR ---
REPORT CALLED TO VIC GILES AT [facility]. ALL QUESTIONS ANSWERED.
--- NOTE | 2021-03-08 12:47 | PATH ---
[facility] [address], [place] [address] Signed SPECIMEN(S): A LEFT LOWER LEG SPECIMEN SOURCE: A. LEFT LOWER LEG CLINICAL HISTORY: Diabetic wound, cellulitis of left foot. FINAL PATHOLOGIC DIAGNOSIS: Leg, left lower, below-knee amputation: - Ulcerated skin and soft tissue with acute and chronic inflammation and necrosis. - Bone with acute osteomyelitis. - Skin, bone, and soft tissue margins appear viable. BRP:roxana:[id number] MICROSCOPIC EXAMINATION: Histologic sections of all submitted blocks are examined by light microscopy. These findings, together with the gross examination, support the pathologic diagnosis. GROSS DESCRIPTION: The specimen, labeled "DT, A," and designated on the requisition "left lower leg," is received fresh and consists of a left [id number] amputation (foot: 26.1 cm in length x 9.0 cm in width; le.2 cm in length and ranging in diameter from 9.3-10.4 cm) with five toes each with brown-velásquez, thickened toenail. There is a thickened, calloused lesion that is on the plantar aspect of the foot (2.3 x 1.8 cm) and linear incision/lesion on the lateral aspect of the foot (1.0 x 0.2 cm). The lesions are located 7.4 cm from the nearest skin and soft tissue margin. The remaining skin surface is brown-velásquez, focally pink-velásquez and intact. The soft tissue underlying the lesion is yellow-velásquez, hemorrhagic and edematous. The bone underlying the plantar lesion is softened. Spindle Sander sections are submitted as follows: (A1) Lateral incision/lesion and plantar lesion with underlying bone (decalcified in Decal Stat) (A2) Skin soft tissue margin, and fibular margin, shaved (decalcified in Decal Stat) (A3) Tibial margin, shaved (decalcified in Decal Stat) PATIENT NAME: SANCHEZ COBOS SR PATHOLOGY DATE OF : 58 REPORT #: [id number] PHYSICIAN: MARIANA RIGGINS PCP: [facility] REPORT IS CONFIDENTIAL AND NOT TO BE RELEASED WITHOUT AUTHORIZATION [facility] [address], [place] [address] Signed AC (under the direct supervision of a pathologist) The Gross Description was prepared using a voice recognition system. The report was reviewed for accuracy; however, sound-alike word errors, addition and/or deletions may occur. If there is any question about this report, please contact Client Services. PERFORMING LABORATORY: The technical component was performed by [facility] [address] (Precision Filer Hand: Patti bAernathy MD; CLIA# [id number]). Professional interpretation was performed by [facility], [address] [address] (CLIA# [id number]). Diagnostician: Manjinder Kendrick MD Pathologist Electronically Signed 03/08/2021 Copies: ~ PATIENT NAME: SANCHEZ COBOS SR PATHOLOGY DATE OF : 58 REPORT #: [id number] PHYSICIAN: MARIANA PATHOLOGY PCP: DIANE SANDS REPORT IS CONFIDENTIAL AND NOT TO BE RELEASED WITHOUT AUTHORIZATION
== END 2021-03-08 12:00 | DRG 617 ==
LOC: ED 10:54 → MS 13:54
PROVIDERS: Specialist; ADMIT Internal Medicine; ATTEND Internal Medicine
PROC: 0JBR0ZZ Excision of Left Foot Subcutaneous Tissue and Fascia, Open Approach (ICD-10-PCS; 2021-02-28)
PROC: 0J9R3ZZ Drainage of Left Foot Subcutaneous Tissue and Fascia, Percutaneous Approach (ICD-10-PCS; 2021-02-28)
PROC: 30233N1 Transfusion of Nonautologous Red Blood Cells into Peripheral Vein, Percutaneous Approach (ICD-10-PCS; 2021-03-06)
PROC: 0Y6J0Z1 Detachment at Left Lower Leg, High, Open Approach (ICD-10-PCS; principal; 2021-03-06 12:15)
DX: E11.621 Type 2 diabetes mellitus with foot ulcer (principal); E87.1 Hypo-osmolality and hyponatremia; L97.422 Non-pressure chronic ulcer of left heel and midfoot with fat layer exposed; M86.8X7 Other osteomyelitis, ankle and foot; L03.116 Cellulitis of left lower limb; M14.672 Charcot's joint, left ankle and foot; E11.65 Type 2 diabetes mellitus with hyperglycemia; Z20.822 Contact with and (suspected) exposure to COVID-19; E11.628 Type 2 diabetes mellitus with other skin complications; F10.20 Alcohol dependence, uncomplicated; E11.69 Type 2 diabetes mellitus with other specified complication; Z98.890 Other specified postprocedural states; Z87.891 Personal history of nicotine dependence; Z98.818 Other dental procedure status; Z88.0 Allergy status to penicillin; Z91.14 Patient's other noncompliance with medication regimen
CPT/HCPCS: 01482; 36430; 73560; 73590; 73630; 73723; 78315; 80048; 80053; 80202; 81001; 83036; 83605; 83735; 84550; 85025; 85651; 86850; 86900; 86901; 86922; 87040; 87070; 87077; 87088; 87205; 88307; 88311; 89060; 90715; 93005; 93010; 97110; 97162; 99284-25; A9270-GY; A9503; A9579; J1170; J1650; J1815; J1885; J1956; J2001; J2250; J2704; J3370; J3411; J7030; J7040; J7060; J7121; P9016; U0003

== ENCOUNTER 2021-12-12 07:13 | Inpatient (IN) | payer MEDICARE, OTHER ==
[~2021-12-12] VITALS: Ht 177.8 cm; Wt 97.6 kg
[~2021-12-12 07:13] MED LIST changes: +FAMOTIDINE20 MG PO; +MELATONIN3 MG PO; +MICONAZOLE5 GM MISC; +NICOTINE LOZENGE4 MG BUCCAL; +OXYCODONE HCL5 MG PO; +TYLENOL325 MG PO; +VITAMIN B-1100 MG PO
--- OUTSIDE RECORDS SUMMARY | 2021-12-12 07:16 | XMS ---
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 Physician Wax Coating Machine Tender Current PHONE: Unknown JULIUS ARDON Family [facility] Current PHONE: [phone] DIANE Nicholson/[place] 11/21/[address]-[facility] PHONE: [phone] Doris has no Care Guidelines for this patient. Care History Medical/Surgical 01/08/2021 [facility] - PATIENT IS DIANE FERRELL, \T\middot;\T\nbsp; PLEASE REFER PATIENT TO [facility] FOR NON EMERGENT MEDICAL NEEDS. \T\middot;\T\nbsp; [facility] CAN SEE PATIENTS SAME DAY FOR APTS IF PATIENT CALLS FIRST THING IN THE MORNING. E.D. VISIT COUNT (12 MO.) 3 [facility] H. TOTAL 3 NOTE: Visits indicate total known visits. ED/UCC VISIT TRACKING (12 MO.) 12/12/2021 07:14 [facility] TYPE: Emergency COMPLAINT: - DIFFICULTY BREATHING 02/28/2021 10:55 [facility] TYPE: Emergency COMPLAINT: - L FOOT [...] fracture - Personal history of nicotine dependence INPATIENT VISIT TRACKING (12 MO.) 02/28/2021 13:54 [facility] [place] TYPE: Medical Surgical COMPLAINT: - DIABETIC WOUND CELLULITIS DIAGNOSES: - Allergy status to penicillin - Non-pressure chronic ulcer of left heel and midfoot with fat layer exposed - Type 2 diabetes mellitus with other specified complication - Other specified postprocedural states - Charcot's joint, left ankle and foot - Other specified postprocedural states - Type 2 diabetes mellitus with other skin complications - Hypo-osmolality and hyponatremia - Type 2 diabetes mellitus with hyperglycemia - Cellulitis of left lower limb - Patient's other noncompliance with medication regimen - Other osteomyelitis, ankle and foot - Hypo-osmolality and hyponatremia - Other dental procedure status - Other osteomyelitis, ankle and foot - Non-pressure chronic ulcer of other part of left foot with unspecified severity - Alcohol dependence, uncomplicated - Charcot's joint, left ankle and foot - Other dental procedure status - Cellulitis of left lower limb - Alcohol dependence, uncomplicated - Personal history of nicotine dependence - Type 2 diabetes mellitus with hyperglycemia - Personal history of nicotine dependence - Type 2 diabetes mellitus with other specified complication - Non-pressure chronic ulcer of left heel and midfoot with fat layer exposed - Type 2 diabetes mellitus with foot ulcer - Allergy status to penicillin - Patient's other noncompliance with medication regimen - Type 2 diabetes mellitus with foot ulcer [email or web address]
--- NOTE | 2021-12-12 09:02 | EKG ---
[facility] [address] [facility] [address] [place] [address] Signed Sinus tachycardia with occasional premature ventricular complexes Nonspecific T wave abnormality Abnormal ECG Confirmed by LENNY MCKEON MD ([id number]) on 12/12/2021 9:02:13 AM Electronically Signed By: LENNY MCKEON MD 12/12/21 0902 PATIENT NAME: SANCHEZ COBOS Electrocardiogram DATE OF : 58 PHYSICIAN: LENNY MCKEON MD REPORT #: [id number] REPORT IS CONFIDENTIAL AND NOT TO BE RELEASED WITHOUT AUTHORIZATION
--- NOTE | 2021-12-12 16:04 | NUR ---
Patient arrived to CCU at 1500 alert and oriented, vitally stable on 4 L, able to follow commands, carry a converstaion and answering questions appropriately. Patient was able to be lowered to 3L within a few minutes of arrival keeping O2 sats > 92%. Admission completed, medications given, and fluids started. Personal items placed in bag and sitting within reach of patient. Snack tray was ordered and patient was able to eat without complication during assessment. All personal items and call light within reach. No further needs at this time.
--- NOTE | 2021-12-12 18:08 | NUR ---
Patient changed after incontinence of BM. Linens changed and patient educated to tell staff when he feels the need to have a BM. Friend at bedside. All personal items and call light within reach.
--- NOTE | 2021-12-12 18:09 | NUR ---
Patient admitted today for SOB and sepsis. Oxygen has been titrated down to 3L and patient able to maintain above 92%. Patient remains incontinent of loose stool. Per the friend, patient experiences loose stool at home as well. Patient is able to follow commands, help with moving and changing positions, and converse appropriately.
--- NOTE | 2021-12-12 20:30 | NUR ---
PT LAYING IN BED ON ROOM AIR SLEEPING. IVF AND IV ABX INFUSING AT ORDERED RATE. PT AWOKE EASILY AND WAS ORIENTED X4. PT VOIDED INTO CLEAN URINAL, SAMPLE SENT TO LAB. PT INCONTINENT OF STOOL AT THIS TIME, PERICARE DONE, NEW ATTENDS IN PLACE, PT ABLE TO ASSIST BY ROLLING TO HIS SIDES. VITALS THEN TAKE (SEE CHART). IV ABX COMPLETED, SCHEDULED IV MAGNESIUM ADMINISTERED AND NOW INFUSING (SEE MAR). 1 UNIT OF INSULIN ADMINISTERED PER SLIDING SCALE FOR A CBG OF 151 (SEE MAR). PT ASSESSMENT THEN COMPLETED. PT ALERT AND ORIENTED, ANSWERING QUESTIONS APPROPRIATELY, HEART RYTHM REGULAR, LUNGS CLEAR IN UPPER LOBES AND CLEAR/DIMINISHED IN THE BASES BILATERALLY. PT REPORTS BREATHING FEELS IMPROVED AND DENIES SHORTNESS OF BREATH ON ROOM AIR. ABDOMEN DISTENDED/OBESE, ACTIVE BOWEL TONES PRESENT, PT DENIES PAIN WHEN PALPATED. PULSES STRONG, CAPILLARY REFILL BRISK, PT DENIES NUMBNESS OR TINGLING TO EXTREMITIES. PT PROVIDED WITH WATER AND REPORTS NO FURTHER NEEDS. TISHA CLEANING ASSISTED IN REPOSITIONING PT UP ON THE BED. PT REPORTS NO FURTHER NEEDS AT THIS TIME WHEN ASKED, WILL CONTINUE PLAN OF CARE. CALL LIGHT IN REACH, BED IN LOWEST POSITION.
--- NOTE | 2021-12-12 21:38 | NUR ---
PT USED CALL LIGHT AT THIS TIME. PT AWAKE LAYING IN BED ON ROOM AIR. IVF AND IV MEDICATION INFUSING AT ORDERED RATE. PT REQUESTED A WARM BLANKET AND DIET SODA. BOTH PROVIDED TO PT. URINAL AT BEDSIDE EMPTIED. PT REPORTS NO FURTHER NEEDS AT THIS TIME AND STATED HE WOULD BE GOING TO SLEEP. CALL LIGHT IN REACH, BED IN LOWEST POSITION. WILL CONTINUE PLAN OF CARE.
--- NOTE | 2021-12-12 22:35 | NUR ---
PT LAYING IN BED RESTING WITH EYES CLOSED IN NO APPARENT DISTRESS. RESPIRATIONS EVEN AND UNLABORED. SCHEDULED IV ABX STARTED AND NOW INFUSING AT ORDERED RATE (SEE MAR). PT IN NO APPARENT DISTRESS AND WAS LEFT UNDISTURBED, CALL LIGHT IN REACH, URINAL EMPTIED, WILL CONTINUE PLAN OF CARE.
--- NOTE | 2021-12-12 22:48 | NUR ---
SPO2 NOTED TO DECREASED TO 83%, PT AWOKE EASILY AND DENIED SHORTNESS OF BREATH. PT PLACED ON 2L O2 AT THIS TIME TO MAINTAIN SPO2 ABOVE 90%. PT DENIES SHORTNESS OF BREATH AND REPORTS NO FURTHER NEEDS AT THIS TIME WHEN ASKED. WILL CONTINUE PLAN OF CARE. CALL LIGHT IN REACH, BED IN LOWEST POSITION.
--- NOTE | 2021-12-12 23:36 | NUR ---
PT REMAINS RESTING IN BED ON 2L IN NO APPARENT DISTRESS. IV ABX INFUSING ORDERED. RESPIRATIONS NOTED AND ARE UNLABORED, SPO2 97%, PT LEFT UNDISTURBED. WILL CONTINUE PLAN OF CARE. CALL LIGHT IN REACH.
--- NOTE | 2021-12-13 01:00 | NUR ---
PT LAYING IN BED SLEEPING ON 2L O2 NC. IV ABX AND IVF INFUSING. PT AWOKE EASILY AND WAS ORIENTED. PT VOIDED INTO URINAL AND WAS NOTED TO BE INCONTINENT OF STOOL. PERICARE DONE, NEW ATTENDS AND PADS IN PLACE. PT REPOSITIONED UP IN BED AT THIS TIME. VITALS AND ASSESSMENT THEN COMPLETED (SEE CHART). PT DENIES SHORTNESS OF BREATH, LUNGS CLEAR. ABDOMEN OBESE/DISTENDED, BOWEL TONES ACTIVE, PT DENIES PAIN WHEN PALPATED. PT PROVIDED WITH SNACKS AND WATER AND REPORTS NO FURTHER NEEDS. CALL LIGHT IN REACH, WILL CONTINUE PLAN OF CARE.
--- NOTE | 2021-12-13 03:01 | NUR ---
PT LAYING IN BED RESTING WITH EYES CLOSED. IV ABX INFUSING ORDERED. PT REMAINS ON 2L O2 NC, SPO2 90-92%. RESPIRATIONS NOTED AND ARE UNLABORED. PT IN NO APPARENT DISTRESS AND WAS LEFT UNDISTURBED. CALL LIGHT IN REACH, WILL CONTINUE PLAN OF CARE.
--- NOTE | 2021-12-13 03:33 | NUR ---
CALL LIGHT USED BY PT. PT REQUESTED A DIET SODA AND STATED HE NEEDED TO VOID. URINAL EMPTIED FOR PT, PT VOIDED INTO EMTPY URINAL. 1175 TOTAL MEASURED FOR OUTPUT. PT REPORTS NO FURTHER NEEDS, AT THIS TIME AND IS ON 2L O2 NC, SPO2 96%. IV ABX INFUSING. CALL LIGHT IN REACH, BED IN LOWEST POSITION, WILL CONTINUE PLAN OF CARE.
--- NOTE | 2021-12-13 05:26 | NUR ---
PT FINISHED HAVING HIS LABS DRAWN AND IS RESTING IN BED AWAKE ON ROOM AIR. PT URINAL EMPTIED AT THIS TIME. PT VITALS AND ASSESSMENT THEN COMPLETED (SEE CHART). RN JOSE BRINGING PT REQUESTED WATER AND DIET SODA. PT REPORTS NO FURTHER NEEDS AT THIS TIME AND REMAINS RESTING IN BED AWAKE AND ALERT. CALL LIGHT IN REACH, IVF INFUSING. WILL CONTINUE PLAN OF CARE.
--- NOTE | 2021-12-13 06:06 | NUR ---
DR. MCKEON NOTIFIED OF PT'S LABS REGARDING POTASSIUM OF 2.7, MAGNESIUM OF 2.4. DR. MCKEON ALSO INFORMED OF PT'S URINARY OUTPUT. NEW ORDERS GIVEN TO ADMINISTER 20 MEQ IVPB POTASSIUM (SEE EMAR) AND DISCONTINUE MAINTENANCE IVF (SEE MAR). WILL CONTINUE PLAN OF CARE.
--- NOTE | 2021-12-13 07:01 | NUR ---
CALL LIGHT USED, PT LAYING IN BED AWAKE. PT HAD DROPPED URINAL WHILE REACHING FOR IT. URINAL PROVIDED TO PT, PT ABLE TO VOID INTO URINAL. PT REPORTED NO NEEDS AFTERWARDS, URINAL EMPTIED. SCHEDULED IV POTASSIUM THEN ADMINISTERED AND NOW INFUSING AT ORDERED RATE. CALL LIGHT WITHIN REACH, WILL CONTINUE PLAN OF CARE.
--- NOTE | 2021-12-13 08:00 | NUR ---
consulting services manager, medication given. Patient able to follow commands, interact appropropriately, and converse. Patient on RA at this time with oxygenation above 92%. Patient eating breakfast without difficulty and requesting different foods in addition. No further needs at this time. All personal items and call light wihtin reach.
--- NOTE | 2021-12-13 08:02 | NUR ---
PATIENT WAS INCONTINENT OF STOOL. LINEN CHANGED, FACE AND HANDS WASHED. BREAKFAST PROVIDED. VITALS CHARTED, CALL LIGHTI N EASY REACH
--- NOTE | 2021-12-13 10:18 | NUR ---
Patient is resting comfortably in bed. Will doze off at times but easily arousable. Denies needs at this time. Oxygenation remains above 92% on RA. Personal items and call light within reach.
--- NOTE | 2021-12-13 12:00 | NUR ---
PATIENT GIVEN PARTIAL BEDBATH AND NAILS CLEANED. VITALS CHARTED. NO OTHER NEEDS AT THIS TIME
--- NOTE | 2021-12-13 12:05 | NUR ---
Patient currently eating lunch without difficulty. Patient used urinal without assistance, but does have incontinent BMs. Patient continuously asks for snacks and additional foods. Patient educated he is on a diabetic diet and cannot have certain foods. Patient states he understands education, but continues to need to be reinforced. Patient denies any further needs. All personal items and call light within reach.
--- NOTE | 2021-12-13 14:03 | NUR ---
Patient on phone with family at this time. Patient continues to ask for snacks in between meals and is educated again on nutrition and sugar control. Patient denies any needs at this time. Oxygen remains > 92% on RA. Personal items and call light within reach. Currently waiting on MS to call back for report. Accpeting RN currently at lunch.
--- NOTE | 2021-12-13 14:32 | NUR ---
SPOKE WITH PATIENT IN ROOM. PATIENT AWAKE PLAYING VIDEO GAME ON PHONE. PATIENT STATES HE LIVES WITH A BROTHER. STATES HE HAS A RAMP AND USES A MANUAL WHEELCHAIR. HAS A SHOWER AND SHOWER CHAIR. DENIES STAIRS AT FIRST THEN STATES LATER HE HAS SOME AT OTHER HOUSES HE GOES TO BUT HE HAS LEARNED HOW TO SIT AND GET UP AND THEN HAVE WHEELCHAIR MOVED. STATES "I HAVE THAT ALL FIGURED OUT". STATES HE THOUGHT ABOUT WANTING AN ELECTRIC WHEELCHAIR BUT BECAUSE OF ROUGH TERRAIN HE DOESN'T THINK ONE WOULD WORK. DISCUSSED IF HE TALKS TO HIS PCP THEY CAN ASSESS HIS PLACE AND SEE IF HE WOULD BE ABLE TO GET ONE. PATIENT STATES HE CAN DRIVE, BUT HIS CAR IS BROKE DOWN. WHEN ASKED HOW HE CAN GET TO APPOINTMENTS AFTER DISCHARGE HE STATES HIS NEICE IS GOING TO PICK HIM UP OR HIS DAUGHTER CAN DRIVE HIM. HE STATES HE MIGHT STAY AT HIS OTHER BROTHERS HOUSE FOR AWHILE BECAUSE HE LIVES VERY CLOSE TO [facility]. DISCUSSED IMPORTANCE OF MAKING FOLLOW UP APPOINTMENTS. HE STATES "YA I WILL GET THERE". ALSO REMINDED HIM THAT [facility] WILL HELP WITH TRANSPORTATION IF HE CALLS AND TALKS WITH THEM PRIOR TO APPOINTMENT. HE STATES HE IS AWARE. HE DENIES WORRY WITH UTILITIES. ALSO STATES THEY ALL HAVE AIR CONDITIONING. REMINDED HIM OF HIGHER TEMPS AND INCREASED FLUIDS AND STAYING COOL. PATIENT STATES HE USES [facility] FOR MEDICATIONS AND [facility] IF THEY ARE CLOSED. ASKED IF HE HAS FOOD AND OTHER NEEDS FOR HIS CARE AND HEALTH. HE STATES "THAT ISN'T A PROBLEM". ASKED IF HE HAD ANY OTHER CONCERNS OR WORRIES IN THIS REGARD. HE DENIES. PATIENT INTENDS TO GO HOME AT DISCHARGE. DISCUSSED THAT HE GETS BETTER AND DISCHARGE IS IN SIGHT TO PLEASE LET US KNOW HIS CONCERNS AND NEEDS. HE STATES HE WILL. HE CONTINUED PLAYING HIS GAME THROUGHOUT. PATIENT STATES HIS PHONE NUMBER ON OUR RECORD IS WRONG. GAVE ME HIS NUMBER. HAD ADMITTING UPDATE. CASE MANAGEMENT WILL CONTINUE TO FOLLOW.
--- NOTE | 2021-12-13 14:33 | NUR ---
Report given to TISHA Armstrong for transfer to MS unit. Patient to transfer in bed.
--- NOTE | 2021-12-13 15:10 | NUR ---
REPORT RECEIVED FROM CCU RN AND PT. ARRIVED VIA BED. HE IS ALERT AND ORIENTED TO ALL BUT DATE. VITALS STABLE. IV ABX INFUSING. DISCUSSED SAFETY AND POC. LEFT RESTING WITH CALL LIGHT IN REACH.
--- NOTE | 2021-12-13 15:19 | NUR ---
PATIENT IS IN BED SITTING UP, TELE IN PLACE. VITALS COMPLETED, AND CALL LIGHT IN REACH. NO OTHER NEEDS AT THIS TIME.
--- NOTE | 2021-12-13 17:57 | NUR ---
PT. C/O RIGHT BACK/SIDE PAIN. ABDOMEN SOFT AND BOWEL TONES ACTIVE. NONTENDER WITH PALP. ADMIN PAIN MED. ASSISTED WITH REPOSITIONING. ASSISTED WITH DINNER SET UP. DENIES FURTHER NEEDS.
--- NOTE | 2021-12-13 18:00 | NUR ---
FAMILY MEMBER AT BEDSIDE. HE DENIES PAIN. C/O FEELING DISTENDED AND BLOATED. BOWEL TONES ACTIVE AND ABDOMEN TENDER. ASSESSMENT COMPLETED. PT. ADMIN INSULIN AND DISCUSSED HOME CARE FOR DIABETES. URINE IS COLA BROWN COLOR AND CLEAR. PT. LEFT RESTING WITH CALL LIGHT IN REACH.
--- NOTE | 2021-12-13 20:35 | NUR ---
IN TO ASSIST PT TO BSC, 2PA PIVOT, CALL LIGHT IN REACH FOR PT TO CALL WHEN FINISHED
--- NOTE | 2021-12-13 21:15 | NUR ---
PT ASSISTED BACK TO BED FROM BSC, PT WAS DONE BUT FORGOT HIS CALL LIGHT WAS IN FRONT OF HIM, PT WAS PLAYING ON CELL PHONE WHILE WAITING, SF SODA PROVIDED, BLANKET PROVIDED, NO FURTHER NEEDS AT THIS TIME
--- NOTE | 2021-12-13 22:27 | NUR ---
LATE ENTRY:193 BEDSIDE REPORT RECIEVED,PT AWAKE AND ALERT IN BED. TV ON AND PT ON CELL PHONE. STATED PAIN IN ABDOMEN, "I FEEL BLOATED". ASSESSMENT COMPLETED
--- NOTE | 2021-12-14 00:37 | NUR ---
PT AWAKE IN ROOM WITH TV ON, NO NEEDS OR C/O OF PAIN AT THIS TIME. IV FLUIDS INFUSING W/O INFILTRATES.
--- NOTE | 2021-12-14 05:33 | NUR ---
PT DOING BETTER WITH PAIN AFTER LARGE LOOSE BM. HE WAS ABLE TO DO A PIVOT TURN TO BSC. PT SLEEPING AFTER MIDNIGHT, SNORING LOUDLY. DRANK DIET SODA FREQUANTLY.
--- NOTE | 2021-12-14 06:41 | NUR ---
IN TO PROVIDE PT WITH COFFEE, DIET SODA, NO FURTHER NEEDS AT THIS TIME
--- NOTE | 2021-12-14 10:01 | NUR ---
Patient awake in bed watching tv, no distress. Patient reports he did not sleep well last night. Patient denies sob and pain at this time. Encouraged patient to call if he has needs. Personal supplies and call light within reach.
--- NOTE | 2021-12-14 14:28 | NUR ---
PATIENT UP IN CHAIR, NO COMPLAINTS OF PAIN. VITALS AND I/O'S COMPLETED. CALL LIGHT WITHIN REACH.
--- NOTE | 2021-12-14 15:30 | NUR ---
RN IN ROOM TO ADMINISTER ABX. PT UP IN CHAIR WATCHING TV. BM AND URINE PRODUCED. PT REQUESTS CUP OF COFFEE - PROVIDED. CALL LIGHT IN REACH, DENIES FURTHER NEEDS.
--- NOTE | 2021-12-14 16:14 | NUR ---
SHIFT REPORT RECEIVED FROM TABATHA GILES. PT UP IN CHAIR, WATCHING TV. NO NEEDS AT THIS TIME. CALL LIGHT IN REACH.
--- NOTE | 2021-12-14 16:30 | NUR ---
scheduled meds provided. ivS wnl. call light in reach.
--- NOTE | 2021-12-14 17:10 | NUR ---
PT UP IN CHAIR EATING DINNER. SCHEDULED MED PROVIDED. NO OTHER NEEDS. CALL LIGHT IN REACH.
--- NOTE | 2021-12-14 18:55 | NUR ---
IV MEDICATION COMPLETED, LINE FLUSHED WELL. IV WNL. NO OTHER NEEDS AT THIS TIME. CALL LIGHT IN REACH.
--- NOTE | 2021-12-14 19:34 | NUR ---
Patient up to chair in room. Denies pain. Denies nausea. Denies needs at this time. Call light within reach.
--- NOTE | 2021-12-14 23:45 | NUR ---
Patient assisted back to bed from chair. Ambulated w/x1 assist and walker. Patient resting comfortably in bed. Call light within reach.
--- NOTE | 2021-12-15 01:28 | NUR ---
Patient sleeping in bed. Call light within reach. Respirs even, unlabored.
--- NOTE | 2021-12-15 04:44 | NUR ---
Patient has had uneventful shift. A&Ox4. Calls appropriately. Has had adequate intake and output. Denies nausea. Afebrile over shift. Vitals stable. Denies pain. Ambulates w/SBA and walker. Lung sounds clear. Remains on RA. Blood sugar 153 at HS check. Given 1 unit fast acting. Bowel sounds active. Both IV's patent. Currently asleep in bed. Call light within reach.
--- NOTE | 2021-12-15 07:34 | NUR ---
Patient resting in bed, eyes closed, respirations even and non labored. Patient has no notable distress. Personal supplies and call light within reach.
--- NOTE | 2021-12-15 08:39 | NUR ---
PATIENT UP IIN CHAIR FOR BREAKFAST, ADLS COMPLETE. CALL LIGHT WITHIN REACH.
[2021-12-15] MEDS ORDERED: CIPROFLOXACIN250 MG PO (12:15)
== END 2021-12-15 13:14 | disposition home or self-care (01) | DRG 872 ==
LOC: ED 07:13 → CCU 14:00 → MS 12-13 15:10
PROVIDERS: ADMIT Internal Medicine; ATTEND Internal Medicine
DX: A41.9 Sepsis, unspecified organism (principal); N12 Tubulo-interstitial nephritis, not specified as acute or chronic; N17.9 Acute kidney failure, unspecified; E87.2 Acidosis; J43.9 Emphysema, unspecified; Z20.822 Contact with and (suspected) exposure to COVID-19; N18.9 Chronic kidney disease, unspecified; R65.20 Severe sepsis without septic shock; E11.22 Type 2 diabetes mellitus with diabetic chronic kidney disease; E87.6 Hypokalemia; Z88.0 Allergy status to penicillin; Z89.512 Acquired absence of left leg below knee; Z87.891 Personal history of nicotine dependence; Z98.818 Other dental procedure status; Z98.890 Other specified postprocedural states; Z79.84 Long term (current) use of oral hypoglycemic drugs; Z79.899 Other long term (current) drug therapy
CPT/HCPCS: 36415; 71045; 71260; 74176; 80048; 80053; 81001; 83036; 83605; 83735; 85025; 85379; 87088; 87502; 93005; 93010; 94640; 94760; 96361; 96368; 97110; 97162; 99285-25; A9270; C9803; J0692; J1650; J1815; J3475; J3480; J7030; J7060; Q9967; U0003

== ENCOUNTER 2022-02-24 12:45 | Inpatient (IN) | payer MEDICARE, OTHER ==
[~2022-02-24] VITALS: Ht 177.8 cm; Wt 97.5 kg
[~2022-02-24 12:45] MED LIST changes: +CIPROFLOXACIN250 MG PO
--- OUTSIDE RECORDS SUMMARY | 2022-02-24 12:48 | XMS ---
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 Physician Paper Coater Current PHONE: Unknown JULIUS ARDON Family [facility] Current PHONE: [phone] DIANE Nicholson/[place] 11/21/2020-[facility] PHONE: [phone] Doris has no Care Guidelines for this patient. Care History Medical/Surgical 01/08/2021 [facility] - PATIENT IS DIANE ELIGIBLE, \T\middot;\T\nbsp; PLEASE REFER PATIENT TO [facility] FOR NON EMERGENT MEDICAL NEEDS. \T\middot;\T\nbsp; [facility] CAN SEE PATIENTS SAME DAY FOR APTS IF PATIENT CALLS FIRST THING IN THE MORNING. E.D. VISIT COUNT (12 MO.) 3 [facility]. TOTAL 3 NOTE: Visits indicate total known visits. ED/UCC VISIT TRACKING (12 MO.) 02/24/2022 12:46 [facility] TYPE: Emergency COMPLAINT: - FLANK PAIN,ABD PAIN 12/12/2021 07:14 [facility] TYPE: Emergency COMPLAINT: - DIFFICULTY BREATHING 02/28/2021 10:55 [facility] TYPE: Emergency COMPLAINT: - L FOOT WOUND PAIN INPATIENT VISIT TRACKING (12 MO.) 12/12/2021 14:00 [facility] TYPE: Medical Surgical COMPLAINT: - SEPSIS DIAGNOSES: - Tubulo-interstitial nephritis, not specified as acute or chronic - Other specified postprocedural states - Severe sepsis without septic shock - Other dental procedure status - Personal history of nicotine dependence - Chronic kidney disease, unspecified - Hypokalemia - Acidosis - Acidosis - Emphysema, unspecified - Contact with and (suspected) exposure to COVID-19 - Chronic kidney disease, unspecified - Personal history of nicotine dependence - roasterman (current) use of oral hypoglycemic drugs - Contact with and (suspected) exposure to COVID-19 - Severe sepsis without septic shock - Other dental procedure status - Acute kidney failure, unspecified - Other prison (current) drug therapy - Type 2 diabetes mellitus with diabetic chronic kidney disease - Allergy status to penicillin - residential (current) use of oral hypoglycemic drugs - Other specified postprocedural states - Acquired absence of left leg below knee - Tubulo-interstitial nephritis, not specified as acute or chronic - 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 TYPE: Medical Surgical COMPLAINT: - DIABETIC WOUND CELLULITIS DIAGNOSES: - Type 2 diabetes mellitus with foot ulcer - Contact with and (suspected) exposure to COVID-19 - Type 2 diabetes mellitus with hyperglycemia - Hypo-osmolality and hyponatremia - Allergy status to penicillin - Type 2 diabetes mellitus with other specified complication - Cellulitis of left lower limb - Charcot's joint, left ankle and foot - Type 2 diabetes mellitus with other specified complication - Type 2 diabetes mellitus with foot ulcer - Other osteomyelitis, ankle and foot - Cellulitis of left lower limb - Charcot's joint, left ankle and foot - Patient's other noncompliance with medication regimen - Other dental procedure status - Personal history of nicotine dependence - Type 2 diabetes mellitus with other skin complications - Non-pressure chronic ulcer of other part of left foot with unspecified severity - Other osteomyelitis, ankle and foot - Personal history of nicotine dependence - Type 2 diabetes mellitus with hyperglycemia - Alcohol dependence, uncomplicated - Non-pressure chronic ulcer of left heel and midfoot with fat layer exposed - Non-pressure chronic ulcer of left heel and midfoot with fat layer exposed - Patient's other noncompliance with medication regimen - Other dental procedure status - Other specified postprocedural states - Allergy status to penicillin - Hypo-osmolality and hyponatremia - Alcohol dependence, uncomplicated - Other specified postprocedural states [email or web address]
--- NOTE | 2022-02-24 19:27 | NUR ---
02/24/221926 Belkis Zuniga 191- PT ARRIVES TO PACU NONAROUSABLE TO STIMULI. RESP EVEN AND UNLABORED. OXYGEN SAT HIGH 90'S TO 100% ON 3L VIA CO2 NC. FILM SPOOLER NOTIFIED THIS RN OF PT'S RHYTHM WITH SINUS TACHYCARDIA WITH FREQUENT PVC'S. 1925- PT'S NG TUBE CONNECTED TO LOW INTERMITTTENT SUCTION PER DR. SHARIF ORDER.
--- NOTE | 2022-02-24 20:12 | NUR ---
PATIENT ARRIVED TO THE FLOOR. PATIENT IS DROWSY BUT AWAKENS TO NAME. PATIENT TRANSFFERRED BY STAFF TO HOSPITAL BED FROM [facility]. NG TO LWIS. PATIENT PLACED ON CPOX. PATIENT PLACED ON 3.5L VIA NC BY RT. PATIENT DENIES ANY PAIN OR NAUSEA. PATIENT REQUESTING FOOD. PATIENT EDUCATED THAT HE CANT HAVE ANYTHING TO EAT OR DRINK AT THIS TIME. PATIENT DENIES ANY FURTHER NEEDS. CALL LIGHT IN REACH.
--- NOTE | 2022-02-24 21:58 | NUR ---
Patient resting in bed, eyes closed, no distress. NG intact, patent with light brown colored drainage. HOB elevated, airway patent. FLACC 0/10. Vitals stable, sp02 98% on 1L oxygen per nc, respiration non labored. Bed alarm intact, close to RN station.
--- NOTE | 2022-02-24 23:14 | NUR ---
Patient resting in bed, eyes closed, no distress. NG intact, patent with light brown colored drainage. HOB elevated, airway patent. FLACC 0/10. Vitals remain stable, sp02 98% on 1L oxygen per nc, respirations non labored. Bed alarm intact, close to RN station.
--- NOTE | 2022-02-24 23:49 | NUR ---
Dilaudid 1mg iv admin for reports of 6/10 abd pain.
--- NOTE | 2022-02-25 00:45 | NUR ---
REPORT RECEIVED, THIS RN TO ASSUME CARES OF PT. PT RESTING IN BED WITH EYES CLOSED. RESPIRATIONS EVEN. NGT TO LIWS WITH SCANT AMOUNT DRAINAGE. IVF INFUSING WNL. SCD TO RLE. BED ALARM FOR SAFETY. CALL LIGHT IN REACH.
--- NOTE | 2022-02-25 02:23 | NUR ---
PT RESTING WITH EYES CLOSED. AWAKENS EASILY TO VOICE. BLOOD SUGAR WNL. SLIDING SCALE INSULIN HELD. VS WNL. SpO2 97% ON 1L/NC. OXYGEN TITRATED OFF AT THIS TIME. CPOX IN PLACE. PT DENIES PAIN OR NAUSEA. C/O BEING THIRSTY AND HUNGRY. MOUTH SWABS PROVIDED FOR COMFORT. NGT TO LIWS. PT REPORTS HE IS RESTING COMFORTABLY. DENIES NEEDS. CALL LIGHT IN REACH.
--- NOTE | 2022-02-25 03:24 | NUR ---
CPOX ALARMING. SpO2 MID 80'S. 1L/NC PLACED.
--- NOTE | 2022-02-25 05:50 | NUR ---
VS AND I&O COMPLETE. PT DENIES PAIN OR NAUSEA. REPORTS HUNGER/THIRST. EDUCATION PROVIDED. ORAL SWABS AT BEDSIDE. 1L/NC OFF AT THIS TIME. CPOX IN PLACE. PT SITTING UP IN BED WATCHING TV. NO FURTHER NEEDS.
--- NOTE | 2022-02-25 06:24 | OR ---
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 PROCEDURE: Colonoscopy with decompression of sigmoid volvulus. ESTIMATED BLOOD LOSS: None. INDICATIONS: Sanchez is a 61-year-old gentleman, who has uncontrolled diabetes. For at least 2 days, maybe longer, he has had increasing abdominal distention and generalized abdominal pain. He finally came to emergency room for evaluation. White count was borderline. He had significant abdominal distention with diffuse tympany and tenderness. CT scan confirmed his sigmoid volvulus. I have been asked to see him urgently in the ER. I had met with Sanchez and reviewed the above findings with him. We reviewed sigmoid volvulus. He understands the need to decompress this emergently with plans to resect it in the days ahead. He does have uncontrolled diabetes and he does have urinary tract infection. We have asked our Internal Medicine Service to help us in that regard. I reviewed with Sanchez the idea of a colonoscopy. He understands there is risk including, but not limited to gas, bloating, crampy abdominal pain, bleeding, perforation requiring surgery, and missed diagnosis. We also reviewed the need for monitored anesthesia care given his acute situation along with his uncontrolled diabetes. He expressed understanding and wished to proceed. PROCEDURE NOTE: Sanchez was taken into our endoscopy suite and placed in the left lateral decubitus position. He was given monitored anesthesia care per our nurse bander. A digital rectal exam was performed and this was unremarkable. The adult colonoscope was introduced and advanced under direct visualization of the camera. As is common, we encountered his sigmoid volvulus right around 25 cm. The scope was slowly passed through this area and into a massively dilated colon. On the CT scan, it was 14 cm in diameter. There was no visible evidence of any ischemia. We were able to pass the Electronically Signed By: TRAV GIPSON MD 02/25/22 0624 PATIENT NAME: SANCHEZ COBOS SR OPERATIVE REPORT DATE OF : 58 REPORT #: [id number] PHYSICIAN: TRAV GIPSON MD PCP: [facility] REPORT IS CONFIDENTIAL AND NOT TO BE RELEASED WITHOUT AUTHORIZATION [facility] [address], [place] [address] [address] scope all the way up to about 120 cm. At that point we ran into some stool, we could not pass the scope any further. Amazingly, we could palpate the scope in the right lower quadrant. However, we were not convinced we could see the appendiceal orifice or the ileocecal valve. After this, the scope was then slowly withdrawn and we withdrew the air at the same time. As we came through the volvulus, we suctioned out as much air as we could right up to the area of the volvulus. Then we passed down into the rectum and retroflexed the scope. There was no additional pathology above the anal canal, except he does have some congestion of his rectal veins headed down to his hemorrhoid columns. I think part of that is from the volvulus. I do not think that is from any cirrhosis of the liver. After this, the gas was suctioned out and the colonoscope removed. Sanchez tolerated the procedure quite well. RECOMMENDATIONS: Sanchez will be transferred to his hospital bed [facility] and kept n.p.o. with an NG tube and IV fluids. We will reassess him in the morning along with his lab work. Trav Gipson MD ALB/MODL /[id number] cc: [facility] Trav Gipson MD Copies: [facility] TRAV GIPSON MD ~ Electronically Signed By: TRAV GIPSON MD 02/25/22 0624 PATIENT NAME: SANCHEZ COBOS LUCINDA OPERATIVE REPORT DATE OF : 58 REPORT #: [id number] PHYSICIAN: TRAV GIPSON MD PCP: [facility] REPORT IS CONFIDENTIAL AND NOT TO BE RELEASED WITHOUT AUTHORIZATION
--- NOTE | 2022-02-25 06:24 | CONS ---
[facility] [address], [place] [address] Signed DATE OF CONSULTATION: 02/24/2022 CHIEF COMPLAINT: Generalized abdominal pain. HISTORY OF PRESENT ILLNESS: Sanchez is a 61-year-old gentleman with at least 2 days of bilateral flank and generalized abdominal pain and distention. He also talked about recent kidney infection. He is a diabetic and takes no medications. He came to emergency room for evaluation. He is severely distended and tympanitic throughout with tenderness. White count is borderline 11.1. He is a little dry with lots of bacteria and white blood cells in his urine. COVID is still pending. CT scan shows sigmoid volvulus. The colon is about 14 cm in diameter. Fortunately not much stool burden. Appears to twist there in the sigmoid colon in the left lower quadrant. I have been asked to see him as a general surgeon on-call. In the meantime, he has received Rocephin, Flagyl, and IV fluids. PAST MEDICAL HISTORY: Mild pulmonary fibrosis, kidney infections, and diabetes. PAST SURGICAL HISTORY: Include left knee scope, left upper extremity surgery, left lower extremity surgery in 1982, left [id number] amputation, teeth extractions, and an umbilical hernia repair. SOCIAL HISTORY: He does meth and marijuana, but he says he does not withdrawal from meth. He is part of the [facility]. He prefers the [facility]. Dalia Morales is his daughter at [phone]. FAMILY HISTORY: None. REVIEW OF SYSTEMS: He had 10 systems reviewed. He seemed to be in his usual state until 2 or so days ago. ALLERGIES: Penicillin. MEDICATIONS: Glipizide, metformin. PHYSICAL EXAMINATION: VITAL SIGNS: Blood pressure 130/94, heart rate 105, respiratory rate 20, temperature is 97.3, and he is 98% on room air. He is 5 feet 10 inches at 97 kg with a body mass index Electronically Signed By: TRAV GIPSON MD 02/25/22 0624 PATIENT NAME: SANCHEZ COBOS SR CONSULTATION DATE OF : 58 REPORT #: [id number] PHYSICIAN: TRAV GIPSON MD PCP: [facility] REPORT IS CONFIDENTIAL AND NOT TO BE RELEASED WITHOUT AUTHORIZATION [facility] [address] [place], [place] [address] Signed of 30. GENERAL: Sanchez is a 61-year-old gentleman, lying supine in his ER bed. NG tube is in place and he has some light bilious fluid in the canister. He is uncomfortable from his abdominal distention. LUNGS: Clear to auscultation bilaterally. HEART: Tachycardic without murmur. ABDOMEN: Significantly protuberant with diffuse tympany throughout. Mild tenderness throughout. He has a left BKA. LABORATORY DATA: His white blood cell count 11.1, hemoglobin 17, neutrophils 81. His BUN 27, creatinine 1.67, and glucose 312. Urine specific gravity greater than 1.03 with protein, blood, white blood cells, bacteria, and glucose in the urine. Urine culture is pending. Alkaline phosphatase is up a little at 128. Albumin is 3.9. His COVID is pending. RADIOGRAPHIC STUDIES: CT scan of abdomen and pelvis shows the sigmoid volvulus with the 14 cm dilated sigmoid colon. ASSESSMENT/PLAN: Sanchez is a 61-year-old uncontrolled diabetic with a urinary tract infection and sigmoid volvulus. We are planning to take him straight over the colonoscopy suite here shortly for decompression. He will be admitted on IV fluids and antibiotics. We will have medical service see him as well for the uncontrolled diabetes as well as the urinary tract infection. I have reviewed the above findings with Sanchez in detail. We have discussed colonoscopy as well. He understands there is risk including, but not limited to gas, bloating, crampy abdominal pain, bleeding, perforation requiring surgery, and missed diagnosis. He is also aware that 40% it is recur either acutely or in the weeks ahead. Consequently, these patients generally have a sigmoid resection while they are here in the hospital. If we are not able to decompress his colon, he might need emergent laparotomy tonight with colon resection, possible colostomy. He has expressed understanding and would like to proceed. Trav Gipson MD ALB/MODL /[id number] Electronically Signed By: TRAV GIPSON MD 02/25/22 0624 PATIENT NAME: SANCHEZ COBOS CONSULTATION DATE OF : 58 REPORT #: [id number] PHYSICIAN: TRAV GIPSON MD PCP: [facility] REPORT IS CONFIDENTIAL AND NOT TO BE RELEASED WITHOUT AUTHORIZATION [address] [address] Signed cc: Trav Gipson MD [facility] Copies: TRAV GIPSON MD [facility] ~ Electronically Signed By: TRAV GIPSON MD 02/25/22 0624 PATIENT NAME: CHANDRIKASANCHEZ SR CONSULTATION DATE OF : 58 REPORT #: [id number] PHYSICIAN: TRAV GIPSON MD PCP: [facility] REPORT IS CONFIDENTIAL AND NOT TO BE RELEASED WITHOUT AUTHORIZATION
--- NOTE | 2022-02-25 07:00 | NUR ---
REPORT RECEIVED FROM TISHA BARCLAY. PT LAYING IN BED WITH EYES CLSOED. RR EVEN AND UNLABORED. NO NEEDS IDENTIFIED AT THIS TIME.
--- NOTE | 2022-02-25 08:10 | NUR ---
IN TO ADMINISTER MEDICATION. PT LAYING IN BED WITH EYES CLOSED. PT AROUSABLE WHEN ADDRESSED AND WITH LIGHT TOUCH TO SHOULDER. IV STARTED IN RIGHT AC FOR IV ABX. PT KEEPS EYES CLOSED, BUT RESPONDS WHEN ASKED QUESTIONS. ASSESSMENT COMPLETE. BOWEL TONES HYPOACTIVE. PT REQUESTING TELEVISION REMOTE, REMOTE GIVEN. NO OTHER NEEDS OR QUESTIONS AT THIS TIME. CALL LIGHT IN REACH. PT LAYING IN BED.
--- NOTE | 2022-02-25 08:57 | NUR ---
MED REC COMPLETE
--- NOTE | 2022-02-25 09:08 | NUR ---
PT IN BED RESTING. VITALS AND IS AND OS COMPLETE. NO NEEDS. CALL LIGHT WITHIN REACH.
--- NOTE | 2022-02-25 10:25 | NUR ---
IN TO ANSWER CALL LIGHT. PT REQUESTING URINAL, URINAL PROVIDED. IV ALARMING, IV ABX COMPLETE, NEW BAG STARTED. NO OTHER NEEDS OR QUESTIONS AT THIS TIME. PT LAYING WITH BED WITH TELEVISION ON. CALL LIGHT WITHIN REACH.
--- NOTE | 2022-02-25 12:55 | NUR ---
IV PUMP ALARMING. PT SITTING UP IN CHAIR WITH LEGS ELEVATED ON BED. PTs EYES CLOSED. IV PUMP ADDRESSED. NO NEEDS IDENTIFIED AT THIS TIME. CALL LIGHT IN REACH.
--- NOTE | 2022-02-25 13:00 | NUR ---
Spoke with Bharat. He states he lives with his younger brother. Pt and brother both drive, but do not currently have a running vehicle. Pt had a LBKA last March. He uses a wc and does not have a prothesis. He was seeing Dr. Mora, but he had to many no shows and no longer sees him. He states this is why he has not moved ahead with his prothesis. He denies other needs other than he would like a handicap sticker. He stays at his girlfriends home frequently, but wants his address to remain as his current residence. He would like a walker, but medicare has provided his wc and will not provide a walker. I encouraged him to speak with his pcp at [facility] for his handicap sticker and a walker. Plans on dc to home following his resection.
--- NOTE | 2022-02-25 14:18 | NUR ---
IN TO ADMINISTER SUB-Q INSULIN. PT SITTING IN CHAIR. PT TOLERATES SUB-Q INJECTION WELL. ASSESSMENT COMPLETE. NO CHANGES FROM PREVIOUS ASSESSMENT. PT REQUESTING TO USE COMMODE. PT ABLE TO STAND AND HOP FROM CHAIR TO COMMODE WITH 1 PERSON ASSIST. PT REQUESTING SOME TIME AND VERBALIZES UNDERSTANDING TO USE CALL LIGHT WHEN READY TO GO FROM COMMODE TO CHIAR. CALL LIGHT HANDED TO PT.
--- NOTE | 2022-02-25 17:10 | NUR ---
IN TO ROUND ON PT. PT SITTING UP IN CHAIR WITH FAMILY IN THE ROOM. PT REPORTS NO NEEDS AT THIS TIME. CALL LIGHT IN REACH.
--- NOTE | 2022-02-25 18:50 | NUR ---
IN TO ROUND ON PT. PT SITTING UP IN BED. FAMILY IN ROOM. NO NEEDS AT THIS TIME. CALL LIGHT IN REACH.
--- NOTE | 2022-02-25 19:28 | NUR ---
REPORT RECEIVED FROM DAY SHIFT RN. PT SITTING IN RECLINER ALERT AND ORIENTED. FAMILY IN ROOM. DENIES NEEDS. WHITE BOARD UPDATED. CALL LIGHT IN REACH.
--- NOTE | 2022-02-25 19:35 | NUR ---
ASSISTED PATIENT FROM CHAIR TO BED. FAMILY WAS IN THE ROOM. NO OTHER NEEDS AT THIS TIME.
--- NOTE | 2022-02-25 20:19 | NUR ---
EVENING ASSESSMENT COMPLETE. BLOOD SUGAR WNL. SLIDING SCALE INSULIN HELD. PT DENIES PAIN OR NAUSEA. REPORTS A "SORE BACK FROM SITTING." DENIES PRN FOR PAIN. WARM COMPRESS PROVIDED. NGT TO LIWS PATENT WITH CLEAR DRAINAGE. IVF INFUSING WNL. SCD IN PLACE ON RLE. ORAL CARE SUPPLIES PROVIDED. NO FURTHER NEEDS AT THIS TIME. CALL LIGHT IN REACH.
--- NOTE | 2022-02-25 21:53 | EKG ---
[facility] [address] [facility] [place], [place] [address] Signed Sinus tachycardia with occasional premature ventricular complexes Left axis deviation Cannot rule out Anterior infarct , age undetermined Abnormal ECG When compared with ECG of 12-DEC-2021 07:14, No significant change was found Confirmed by LENNY MCKEON MD ([id number]) on 02/25/2022 9:53:18 PM Electronically Signed By: LENNY MCKEON MD 02/25/222152 PATIENT NAME: SANCHEZ COBOS Electrocardiogram DATE OF : 58 PHYSICIAN: LENNY MCKEON MD REPORT #: [id number] REPORT IS CONFIDENTIAL AND NOT TO BE RELEASED WITHOUT AUTHORIZATION
--- NOTE | 2022-02-25 22:16 | NUR ---
CALL LIGHT ANSWERED. PT REPORTS CHRONIC BACK PAIN 12/25. PRN FOR PAIN ADMIN PER EMAR. ASSISTED PT TO REPOSITION FOR COMFORT. NO FURTHER NEEDS.
--- NOTE | 2022-02-25 22:55 | NUR ---
PT RESTING IN BED WITH EYES CLOSED. RESPIRATIONS EVEN. CALL LIGHT IN REACH.
--- NOTE | 2022-02-26 00:20 | NUR ---
PT AWAKE IN BED. REPORTS BACK PAIN IMPROVED AFTER PRN ADMIN. NO NEEDS AT THIS TIME.
--- NOTE | 2022-02-26 01:45 | NUR ---
CALL LIGHT ANSWERED. PT INCONTINENT OF SMALL BM WHILE USING URINAL. ASSISTED WITH NIXON CARE. LINENS AND GOWN CHANGED. ASSISTED TO REPOSITION IN BED. HOB ELEVATED. NO FURTHER NEEDS. CALL LIGHT IN REACH.
--- NOTE | 2022-02-26 04:32 | NUR ---
PT RESTING IN BED WITH EYES CLOSED. RESPIRATIONS EVEN. HOB ELEVATED. CALL LIGHT IN REACH.
--- NOTE | 2022-02-26 05:39 | NUR ---
VS AND I&O COMPLETE. PT DENIES PAIN OR NAUSEA. REPORTS THROAT IRRITATION FROM NGT. NGT PATENT WITH BROWN DRAINAGE. PT NPO. IVF INFUSING PER ORDER. SCD IN PLACE. PT DENIES NEEDS AT THIS TIME. CALL LIGHT IN REACH.
--- NOTE | 2022-02-26 07:00 | NUR ---
REPORT RECEIVED FROM TISHA BARCLAY. PT LAYING IN BED WITH EYES CLOSED. RR EVEN AND UNLABORED. NO NEEDS IDENTIFIED AT THIS TIME.
--- NOTE | 2022-02-26 07:39 | NUR ---
PT RESTING IN BED. BS TAKEN. NO NEEDS. CALL LIGHT WITHIN REACH.
--- NOTE | 2022-02-26 08:04 | NUR ---
IN ROOM TO ADMINISTER MEDICATION. IV ABX STARTED, SEE MAR. PT SITTING UP IN BED. PT TOLERATES SUB-Q INJECTION WELL. ASSESSMENT COMPLETE. PT REPORTING HEADACHE AND BACK PAIN, ICE PACK APPLIED. PT DROWSY THIS MORNING, BUT AWAKENS WHEN ADDRESSED. BOWEL TONES HYPOACTIVE IN LUQ AND LLQ. NO OTHER NEEDS AT THIS TIME. CALL LIGHT IN REACH.
--- NOTE | 2022-02-26 09:01 | NUR ---
PT IN BED. VITALS AND IS AND OS COMPLETE. NO NEEDS. CALL LIGHT WITHIN REACH.
--- NOTE | 2022-02-26 10:08 | NUR ---
IN ROOM TO ADMINISTER MEDICATION, SEE MAR. ORDERS TO DC NG TUBE. TISHA SCHNEIDER IN ROOM TO SUPERVISE. NG TUBE DC'd AT THIS TIME. PT SITTING UP IN BED WITH TELEVISION ON. NO OTHER NEEDS AT THIS TIME. CALL LIGHT IN REACH.
--- NOTE | 2022-02-26 11:15 | NUR ---
IN TO ANSWER CALL LIGHT. PT SITTING UP IN BED. IV PUMP ALARMING. IV PUMP ALARM FIXED. PT REQUESTING MORE JELLO. SUGAR FREE JELLO PROVIDED. RIYA, STUDENT NURSE IN ROOM TO ASSIST PT WITH TOILETING. NO OHER NEEDS FROM THIS RN AT THIS TIME.
--- NOTE | 2022-02-26 12:50 | NUR ---
IN ROOM TO ROUND ON PT. STUDENT NURSE IN ROOM EMPTYING HAT IN TOILET. PT SITTING UP IN BED. MEAL TRAY SET IN FRONT OF PT. NO OTHER NEEDS AT THIS TIME. CALL LIGHT IN REACH.
--- NOTE | 2022-02-26 13:00 | NUR ---
Spoke with Bharat. He plans on resection tomorrow. Denies needs. Family in to visit.
--- NOTE | 2022-02-26 13:03 | NUR ---
IN ROOM TO ANSWER CALL LIGHT. CASE MANAGEMENT IN ROOM. PT SITTING UP IN BED. IV PUMP ALARMING, FIXED. FAMILY IN ROOM VISITING. MEAL TRAY REMOVED. NO OTHER NEEDS AT THIS TIME. CALL LIGHT IN REACH.
--- NOTE | 2022-02-26 13:30 | NUR ---
IN ROOM DUE TO IV PUMP ALARMING. RESET IV PUMP. PT REQUESTING AN GHANAIAN ICE CUP, GHANAIAN ICE CUP PROVIDED. NO OTHER NEEDS AT THIS TIME. CALL LIGHT IN REACH.
--- NOTE | 2022-02-26 13:41 | NUR ---
IN TO ANSWER CALL LIGHT. IV PUMP ALARMING, RESET IV PUMP. FAMILY IN THE ROOM. PT SITTING UP IN BED. NO OTHER NEEDS AT THIS TIME. CALL LIGHT IN REACH.
--- NOTE | 2022-02-26 13:47 | NUR ---
PT IN BED RESTING. VITALS AND IS AND OS COMPLETE. NO NEEDS. CALL LIGHT WITHIN REACH.
--- NOTE | 2022-02-26 13:57 | NUR ---
LEAD CLINICAL RESEARCH COORDINATOR NOTIFIED TISHA SCHNEIDER AND THIS RN THAT THE PT WAS COMPLAINING OF PAIN IN THE IV SITE ON HIS LEFT AC. TISHA SCHNEIDER AND THIS RN IN ROOM. IV FLUIDS IN LEFT AC HOOKED UP TO Y SITE ON RIGHT AC. LEFT AC IV FLUSHED WITH NS AND SL. PT REPORTS NO PAIN WHEN FLUSHING LEFT AC IV WITH SALINE. PT REQUESTING BEEF BROTH. BEEF BROTH PROVIDED. NO OTHER NEEDS AT THIS TIME. CALL LIGHT IN REACH.
--- NOTE | 2022-02-26 14:20 | NUR ---
IN ROOM TO ANSWER CALL LIGHT. IV PUMP ALARMING, RESOLVED. PT REQUESTING TO USE COMMODE. PT ABLE TO STAND AND PIVOT FROM BED TO COMMODE WITH STANDBY ASSIST. PT REQUESTING SOME TIME FOR PRIVACY. CALL LIGHT IN REACH. PT VERBALIZES UNDERSTANDING TO USE CALL LIGHT WHEN READY TO GO BACK TO BED.
--- NOTE | 2022-02-26 15:10 | NUR ---
Pt IV pump alarming, resolved. Pt requests hot broth, provided. No further needs at this time, family at bedside.
--- NOTE | 2022-02-26 15:47 | NUR ---
IN ROOM TO ROUND ON PT. PT SITTING UP IN BED EATING JELLO. ASSESSMENT COMPLETE. BOWEL TONES ACTIVE IN ALL QUADRANTS. PT DENIES ANY PAIN. IV INFUSING IN RIGHT AC. PHYSICAL THERAPY IN ROOM TO WORK WITH PT. NO OTHER NEEDS FROM THIS RN AT THIS TIME.
--- NOTE | 2022-02-26 16:00 | NUR ---
IN ROOM TO ANSWER CALL LIGHT. PHYSICAL THERAPY IN ROOM. IV PUMP ALARMING. IV FLUIDS COMPLETE. NEW BAG OF IV FLUIDS STARTED. NO OTHER NEEDS FROM THIS RN AT THIS TIME.
--- NOTE | 2022-02-26 17:26 | NUR ---
ROUNDING ON PT. PT RESTING IN BED WITH EYES CLOSED, TELEVISION ON AND LIGHTS IN ROOM OFF. RR EVEN AND UNLABORED. NO NEEDS IDENTIFIED AT THIS TIME. CALL LIGHT IN REACH.
--- NOTE | 2022-02-26 17:35 | NUR ---
PT CALL LIGHT ANSWERED. PT IN BED AND NEEDING URINAL EMPTIED. URINAL EMPTIED. NO NEEDS. CALL LIGHT WITHIN REACH.
--- NOTE | 2022-02-26 17:55 | NUR ---
IN ROOM TO CLEAR INFUSED VOLUME ON PUMP. PT REQUESTING MORE BEEF BROTH, BEEF BROTH PROVIDED. NO OTHER NEEDS AT THIS TIME. CALL LIGHT IN REACH. NEY ALEXANDRA IN ROOM.
--- NOTE | 2022-02-26 18:49 | NUR ---
PT TOLERATING COPIOUS AMOUNTS OF CLEAR LIQUIDS. NG TUBE DC'd. CHRONIC PAIN TO BACK AND NECK. NO C/O ABD PAIN. NO N/V. PT HAD A LARGE AMOUNT OF LIQUID BM. LEFT AC IV SL, RIGHT AC IV INFUSING AT 75ML/HR WITH LR. VSS, QS OUTPUT THIS SHIFT.
--- NOTE | 2022-02-26 21:10 | NUR ---
EVENING ASSESSMENT COMPLETE. SCHEDULED MEDS ADMIN PER EMAR. PT DENIES PAIN OR NAUSEA. ABD DISTENDED. BOWEL TONES ACTIVE. PT CONTINUES WITH LOOSE BM. PT HAVING CHICKEN BROTH. UNDERSTANDS NPO AFTER MN. SCD IN PLACE. PT DENIES QUESTIONS OR CONCERNS. CALL LIGHT IN REACH.
--- NOTE | 2022-02-26 22:46 | NUR ---
PT REQUESTED AND RECEIVED ICE. NO OTHER NEEDS.
--- NOTE | 2022-02-26 23:25 | NUR ---
PT REPORTS BACK PAIN 8/10 AND PAIN IN RIGHT ARM WITH POTASSIUM INFUSION. INFUSION SLOWED AND RUNNING CONCURENTLY WITH MAINTENANCE FLUIDS. PRN FOR PAIN ADMIN PER EMAR. NO FURTHER NEEDS.
--- NOTE | 2022-02-27 00:37 | NUR ---
THIS RN RECEIVED REPORT FROM TISHA BARCLAY AND WILL BE TAKING OVER PATIENT'S CARE AT THIS TIME. URINAL EMPTIED FOR PATIENT AND PATIENT SAYS HIS PAIN IS CONTROLLED AT THIS TIME. PATIENT WAS MADE NPO AT MIDNIGHT. PATIENT DENIES ANY OTHER CARE NEEDS AT THIS TIME. CALL LIGHT IS IN REACH.
--- NOTE | 2022-02-27 02:30 | NUR ---
THIS RN IN TO SEE PATIENT. 0200 EDVE=[id number] AND NO INSULIN COVERAGE NEEDED. EARLY AM ASSESSMENT COMPLETE. PATIENT DENIES THE NEED FOR ANY PAIN MEDICATION AND DENIES NAUSEA AT THIS TIME. NEW URINAL GIVEN TO COLLECT AN AM UA. NIXON-WIPES AT BEDSIDE. PATIENT INFORMED A NE URINE SAMPLE IS NEEDED AND THIS RN ASKED PATIENT TO CALL THE NEXT TIME HE VOIDS. PATIENT VERBALIZED UNDERSTANDING. CALL LIGHT IN REACH. PATIENT'S OLD URINAL EMPTIED AND RECORDED. PATIENT HAS NO OTHER CARE NEEDS AT THIS TIME.
--- NOTE | 2022-02-27 03:15 | NUR ---
PATIENT AWAKE AND GAVE A NEW URINE SAMPLE AND THIS RN COLLECTED IT AND SENT IT TO THE LAB. PATIENT HAD NO OTHER CARE NEEDS AT THIS TIME. CALL LIGHT IS IN REACH.
--- NOTE | 2022-02-27 04:06 | NUR ---
THIS RN DOING ROUNDS. PATIENT RESTING QUIETLY SUPINE IN BED, EYES CLOSED, RESPIRATIONS ARE REGULAR AND EVEN, AND CALL LIGHT IN REACH. NO CARE NEEDS NOTED AT THIS TIME.
--- NOTE | 2022-02-27 05:45 | NUR ---
THIS RN IN TO ASSIST WEB OPERATIONS LEAD'S WHO HAVE ALREADY DONE A COMPLETE BED CHANGE DO TO INCONTINENCE OF STOOL AND NOW PATIENT NEEDS TO HAVE A BM AGAIN AND UP ON THE BEDSIDE COMMODE WITH AYLIN MAA'S HELP. VS AND I+O RECORDED. PATIENT IS THIRSTY BUT REMAINS NPO FOR PROCEDURE TODAY. ORAL LEMON SWABS GIVEN AND THIS RN ASSITED PATIENT BACK TO BED. CALL LIGHT IN REACH AND BED IN LOW POSITION.
--- NOTE | 2022-02-27 06:39 | NUR ---
LR ON STRAIGHT TUBING WITH EXTENSION HNG IN ROOM FOR PROCEDURE. NEW LR BAG ALSO HUNG FOR FLUIDS ON THE PUMP. PATIENT RESTING QUIETLY SUPINE, EYES CLOSED, RESPIRATIONS ARE REGULAR AND EVEN, AND CALL LIGHT IN REACH. PATIENT HAS NO NURSE CARE NEEDS AT THIS TIME.
--- NOTE | 2022-02-27 09:59 | NUR ---
In to see pt and he has gone for a colonoscopy.
--- NOTE | 2022-02-27 10:42 | NUR ---
02/27/22 Bony2 Angie Miller 1034-PATIENT ARRIVED TO PACU ON 6L MASK RR EVEN LAYING LEFT LATERAL. PATIENT REACTIVE TO VERBAL STIMULI SLIGHTLY OPENING EYES. SR. IVF INFUSING. ABDOMEN SOFT 1040-GLUCOSE 137. PATIENT AWAKE REPORTS PAIN TO RIGHT SIDE PATIENT REPOSITIONED TO BACK HOB SLIGHTLY ELEVATED. PLACED ON RA RR EVEN 99% SR. ENCOURAGE TO PASS GAS.
--- NOTE | 2022-02-27 11:29 | NUR ---
Patient back to medical floor. Patient awake, a&ox4, no distress at this time. Patient's vital signs are stable, cpox intact, sp02 98% at this time. IV fluids infusing per provider order. Patient oriented to room and call light. Patient has no needs at this time.
--- NOTE | 2022-02-27 12:39 | NUR ---
Patient awake watching tv, no distress. Vital signs are stable, sp02 96% on cpox. Patient tolerating hard candy and ice chips well. No current needs. Personal supplies and call light within reach.
--- NOTE | 2022-02-27 13:05 | NUR ---
Report from Hernan Lewis RN. Patient resting in bed, alert and oriented. Denies needs at this time. Call light in reach, bed rails up.
--- NOTE | 2022-02-27 13:14 | NUR ---
PATIENT LAYING IN BED. VITALS ANS I/O DOCUMANTED. PT HAS NO OTHER NEEDS AT THIS TIME. CALL LIGHT IS WITHIN REACH.
--- NOTE | 2022-02-27 14:24 | NUR ---
ALERT AND ORIENTED. VITALS AND GLUCOSE OBTAINED. STATES TOLERABLE PAIN IN HIS BACK. REQUESTS TO SIT IN RECLINER. ASSIST TO RECLINER.
--- NOTE | 2022-02-27 18:16 | NUR ---
PT IN CHAIR. VITALS AND I/IO DOCUMENTED. PT HAS NO OTHER NNEDS AT THIS TIME. CALL LIGHT IS WITHIN REACH.
--- NOTE | 2022-02-27 19:12 | NUR ---
ASSISTED PT BACK INTO BED FROM CHAIR. PROVIDED A WARM BLANKET. PUT BEDSIDE TABLE AT SIDE OF BED. PT HAS NO OTHER NEEDS AT THIS TIME. CALL LIGHT WITHIN REACH.
--- NOTE | 2022-02-27 19:15 | NUR ---
RECEIVED REPORT FROM ADRYAN GILES. PT IS RESTING IN ROOM W/ AT BEDSIDE. CALL LIGHT WITHIN REACH, NO NEEDS AT THIS TIME.
--- NOTE | 2022-02-27 19:45 | NUR ---
IN ROOM FOR VITALS, PLASTER MECHANIC, AND ASSESSMENT. PT IS AT BEDSIDE. PT STATES HE IS NOT EXPERIENCING ANY NAUSEA. PT REPORTS PAIN 6/10 IN BACK BUT STATES IT IS CHRONIC AND DENIES NEED FOR PRN TYLENOL, ICE PACK, WARM PACK. VSS, CPOX IN PLACE. PT PROVIDED ICE CHIPS AND HAS HARD CANDY IN LAP. PT AWARE OF NPO STATUS AT MIDNIGHT AND THAT THESE ITEMS WILL BE REMOVED. PT STATES NO N/T OR DIZZINESS. ABDOMEN IS DISTENDED BUT NO PAIN W/PALPATION. BOWEL TONES ACTIVE X4. 1 UNIT INSULIN GIVEN FOR BS OF 155. CALL LIGHT WITHIN REACH, NO FURTHER NEEDS AT THIS TIME.
--- NOTE | 2022-02-27 21:49 | NUR ---
in room to answer call light, new spo2 cpox probe in place, pt denies additional needs or concerns. call light in reach.
--- NOTE | 2022-02-27 23:50 | NUR ---
IN PT ROOM TO REMOVE ICE CHIPS AND HARD CANDY/GUM. EDUCATED PT ABOUT PRE-OP NPO STATUS AND REASON FOR REMOVAL OF ITEMS, PT STATED UNDERSTANDING. PT STATED CHRONIC BACK PAIN 12/25 AND REQUESTED PRN MED. PRN DILAUDID GIVEN (SEE EMAR). TURNED OFF TV AT PT REQUEST, PT NOW RESTING W/EYES CLOSED. CALL LIGHT WITHIN REACH, NO FURTHER NEEDS AT THIS TIME.
--- NOTE | 2022-02-28 02:01 | NUR ---
in with rn to get vs and accucheck
--- NOTE | 2022-02-28 02:06 | NUR ---
IN ROOM W/ARTS AND SCIENCES DEAN AARON FOR BS CHECK AND VS. VSS. BS 197-> 3 UNITS GIVEN. PT TOLERATED WELL. PT RESTING W/EYES CLOSED. CALL LIGHT WITHIN REACH, NO FURTHER NEEDS AT THIS TIME.
--- NOTE | 2022-02-28 05:50 | NUR ---
IN PT ROOM TO ASSIST W/PRE-PROCEDURE CHECKLIST, CLEANSE, AND BED CHANGE. PT TOLERATED CLEANSE WELL AND NEW BEDDING/GOWN/SOCK PLACED. PT REPORTS NO NAUSEA. PT REPORTS PAIN 4/10 AND DENIES NEED FOR ANY PRN PAIN MEDS, ICE PACK, WARM PACK. NO ACUTE CHANGES FROM PREVIOUS ASSESSMENT. CPOX IN PLACE W/O2 SATS IN MID 90'S. IV SITES ARE WNL. PT IS SITTING UP IN BED WATCHING TV, SCD IN PLACE ON RT LEG, NO FURTHER NEEDS AT THIS TIME.
--- NOTE | 2022-02-28 06:35 | NUR ---
SPOKE TO FINANCE PROFESSIONALTISHA AMANDA REGARDING pt'S POTASSIUM RESULT OF 3.0. TISHA AMANDA TO UPDATE DR SHARIF. CALL THEN RECEIVED FROM DR SHARIF AND HE INFORMED THIS RN THAT FINANCE PROFESSIONALTISHA AMANDA IS PLACING ORDERS FOR 40MEQ IV POTASSIUM. ORDER UNAVAILABLE UNTIL 0700 BECAUSE THAT IS WHEN PHARMACY IS AVAILABLE, TELEPHONE ORDER READ BACK RECEIVED FROM DR SHARIF FOR X1 DOSE 10MEQ IV POTASSIUM, OKAY TO ADD LIDOCAINE PER POLICY. MED SCANNED AND GIVEN AT 0700, LIDOCAINE 1% ADDED (10 MG) PER POLICY, VERIFIED WITH SECOND TISHA AMANDA. 0800 FLAGYL ALSO SCANNED AND TO BE GIVEN IN OR.
--- NOTE | 2022-02-28 07:07 | NUR ---
UNEVENTFUL NIGHT FOR PT. PT SLEPT MAJORITY OF THE NIGHT. ICE CHIPS AND HARD CANDIES/GUM PROVIDED UNTIL NPO @ MIDNIGHT, REMOVED. MOUTH SWAB UTILIZED. BS 155 (1 UNIT GIVEN) & BS 197 (3 UNITS GIVEN). PRN DILAUDID GIVEN X1 FOR CHRONIC BACK PAIN, NO NAUSEA MEDS REQUIRED. BOWEL TONES ACTIVE X4, DISTENDED, NONTENDER TO PALPATION. CPOX IN PLACE, O2 SATS MID 90'S. VSS. I/O'S SUFFICIENT. 1 PA W/FWW. PRE-OP CHECKLIST PERFORMED. DUE FOR SIGMOID RESECTION THIS AM. NO MORNING AM LABS RESULTS YET.
--- NOTE | 2022-02-28 07:12 | OR ---
[facility] [address], [place] [address] Signed DATE OF OPERATION: 02/27/2022 SURGEON: Trav Gipson MD PREOPERATIVE DIAGNOSIS: Recurrent sigmoid volvulus. POSTOPERATIVE DIAGNOSES: 1. 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 2. Long redundant colon. 3. Moderate internal hemorrhoids. PROCEDURE: Colonoscopy without biopsy. ESTIMATED BLOOD LOSS: None. INDICATIONS: Sanchez is a 61-year-old uncontrolled diabetic and noncompliant gentleman whom we have found out was here in our hospital in November of this year with what sounds like a urinary tract infection and/or pyelonephritis. He was discharged home on Cipro, but never filled the prescription. He no longer takes his diabetic medications apparently, glipizide and metformin. We track down his urine culture from a few days ago and he has Klebsiella pneumoniae in his urine. It is sensitive to our Rocephin. He has been on Rocephin and Flagyl since 02/24/2022. He came in the hospital with bilateral flank and abdominal pain. He was very distended and tympanitic throughout. His white count has been 11.1 with slight increase in BUN and creatinine and elevated urine specific gravity. He had white blood cells, bacteria and glucose in his urine. The repeat urine yesterday is markedly improved. His albumin was initially 3.2, it is now around 2.8. Prealbumin slightly low at 16. His laboratory work overall is better. We have been replacing the potassium every day and also some magnesium. In the emergency room, he did have a CT scan of the abdomen and pelvis, which showed the sigmoid volvulus. The sigmoid colon was dilated at 14 cm. I had decompressed him that evening with marked improvement in his abdominal distention and pain. He was passing flatus and several bowel movements. We decided to try to get him through a bowel prep with hopes of passing the scope all the way to cecum to rule out any synchronous lesions. He actually was quite aggressive with his liquids stating that he is hungry. He did produce quite a bit of flatus and stool as well. However, this morning he obviously was re-distended and tympanitic and tender. I explained to Sanchez we were going to take him down to our Electronically Signed By: TRAV GIPSON MD 02/28/22 0712 PATIENT NAME: SANCHEZ COBOS SR OPERATIVE REPORT DATE OF : 58 REPORT #: [id number] PHYSICIAN: TRAV GIPSON MD PCP: [facility] REPORT IS CONFIDENTIAL AND NOT TO BE RELEASED WITHOUT AUTHORIZATION [facility] [address], [place] [address] Signed endoscopy suite for decompression and see how far we could pass the scope. Hopefully, we can get all the way to cecum to rule out any synchronous lesions. Our plan then is to having 1st thing in the morning for his laparotomy and sigmoid resection. He is aware of colonoscopy at this point. He is aware there is complications to endoscopy including, but not limited to gas bloating, crampy abdominal pain, bleeding, perforation, requiring surgery, and missed diagnosis. He expressed understanding and wished to proceed. Given his acute setting and his uncontrolled medical issues, we asked for monitored anesthesia care with propofol. That proved to be a berg decision once again. PROCEDURE NOTE: Sanchez was taken into our endoscopy suite and placed in the left lateral decubitus position. He was obviously uncomfortable with recurrent abdominal distention. He was given monitored anesthesia care with propofol per our nurse cyber special agent. A digital rectal exam was performed and this was unremarkable. The adult colonoscope was introduced and advanced under direct visualization of the camera. We did suction out some liquid bilious fluid from the rectum. Once again, we saw the detorsion at 25 cm and we passed through that into this very dilated sigmoid colon. We suctioned out some of that area and then we passed the colonoscope up to what we believe is the splenic flexure. It took actually quite some time to get around the splenic flexure and then down through the transverse colon. He had tremendous amounts of bubbles and bile spread throughout his colon. We did use some once we got all the way the handle on our scope. Even then, we were not completely convinced we were near his cecum or ileocecal valve. It appears that we were probably in the proximal maybe at the mid right colon. We saw no evidence of any polyps throughout or tumors. There was no diverticulosis. We had rotated him into the supine position with additional abdominal compression and still we could not pass the scope any further. We moved him back into the supine position and we slowly withdrew the scope. We suctioned out the air as we went. He has a very long redundant colon. Once in the rectum, we retroflexed the scope, he does have moderate internal hemorrhoids. After this, the gas was suctioned out and the colonoscope removed. Sanchez tolerated the procedure quite well. RECOMMENDATIONS: Bryant will be returned to his room. He will be allowed ice today along with hard candy and gum. We will plan on his laparotomy with sigmoid resection in the morning. Trav Gipson MD Electronically Signed By: TRAV GIPSON MD 02/28/22 0712 PATIENT NAME: SANCHEZ COBOS SR OPERATIVE REPORT DATE OF : 58 REPORT #: [id number] PHYSICIAN: TRAV GIPSON MD PCP: [facility] REPORT IS CONFIDENTIAL AND NOT TO BE RELEASED WITHOUT AUTHORIZATION [facility] [address], [place] [address] Signed ALB/MODL /[id number] cc: [facility] Trav Gipson MD Copies: TRAV GIPSON MD ~ Electronically Signed By: TRAV GIPSON MD 02/28/22711 PATIENT NAME: SANCHEZ COBOS SR OPERATIVE REPORT DATE OF : 58 REPORT #: [id number] PHYSICIAN: TRAV GIPSON MD PCP: [facility] REPORT IS CONFIDENTIAL AND NOT TO BE RELEASED WITHOUT AUTHORIZATION
--- NOTE | 2022-02-28 07:29 | NUR ---
Patient left unit for surgery.
--- NOTE | 2022-02-28 10:20 | NUR ---
PER AM MEETING PATIENT CURRENTLY IN OR. WILL CHECK IN WITH PATIENT WHEN HE RETURNS.
--- NOTE | 2022-02-28 11:07 | NUR ---
02/28/22 1107 Arlyn Baeza 1059 PATIENT ARRIVES TO PACU RESTING WITH EYES CLOSED, GRIMACES AND REACHES FOR ABD WHEN STIMULATED, BACK TO SLEEP WHEN NOT STIMULATED. RESP EVEN AND UNLABORED, MASK AT 6 LITERS, SATS 100%. 1106 PATIENT OPENS EYES WITH VERBAL STIMULI, BACK TO SLEEP WHEN NOT STIMULATED. RESP EVEN AND UNLABORED, OXYGEN OFF.
--- NOTE | 2022-02-28 12:35 | NUR ---
Patient arrived back to the medical floor from surgery. Patient drowsy, arousable to verbal stimuli. Patient's sp02 decreased to 79%, placed pt on 2L oxygen per nc, sp02 increased to 100%. Midline abdominal dressing is CDI, ice over incision. NG to LIWS, patent with scant brown drainage in tubing. Patient oriented to room and call light. Call light within reach of pt, bed alarm intact.
--- NOTE | 2022-02-28 13:18 | NUR ---
Patient resting, eyes closed, respirations are non labored. Patient on 2L oxygen per nc, sp02 95%. Abdominal dressing unchanged, CDI. NG remains to LIWS, scant brown drainage in tubing. Call light within reach.
--- NOTE | 2022-02-28 14:24 | NUR ---
Patient sleeping in bed, no distress. VS stable, spo2 98% on 2L oxygen per nc, respirations non labored. NG intact, patent with scant brown discharge noted in ng tubing. IV patent, fluids infusing per provider order. No current needs, personal supplies and call light within reach.
--- NOTE | 2022-02-28 15:21 | NUR ---
Patient moaning out, he reports he is painful. Pt reports he had an accident in bed. Pt found to have a moderate amount of jelly like jamie red blood noted from rectum. Vital signs are stable at this time. Dr. Gipson updated regarding retal bleeding. New order obtained to continue to monitor patient.
--- NOTE | 2022-02-28 15:33 | NUR ---
PATIENT HAS BEEN NPO OR CL DIET FOR 5 DAYS. HE HAD SURGERY TODAY AND NOW HAS AN NG TUBE. NO ORDER FOR TPN THAT I CAN SEE AT THIS TIME. WILL CONTINUE TO FOLLOW.
--- NOTE | 2022-02-28 16:09 | NUR ---
AROUND 0800AM THIS MORNING ALEX DID A SURGICAL WIPE DOWN ON PATIENT.
--- NOTE | 2022-02-28 16:47 | NUR ---
Patient resting in bed, no distress, respirations non labored. Patient remains on 2L oxygen per nc, sp02 95%. NG remains on LIWS, scant brown drainage in tubing noted. Patient has no needs, personal supplies and call light within reach.
--- NOTE | 2022-02-28 18:06 | NUR ---
Patient resting well, no distress. NG intact to LIWS, drainage now light green. Iv fluids infusing per provider order. No current needs, personal supplies and call light within reach.
--- NOTE | 2022-02-28 18:45 | NUR ---
IN ROOM FOR INSULIN ADMIN FOR BG OF 200 AND PT REPORTS PAIN 7/10 IN BACK (CHRONIC BACK PAIN) AND ABDOMEN. ADMINISTERED PRN PAIN MED, PT TOLERATED WELL AND IS NOW RELAXING IN BED W/WARM BLANKET, ICE PACK ON ABDOMEN. CALL LIGHT WITHIN REACH, NO FURTHER NEEDS AT THIS TIME.
--- NOTE | 2022-02-28 19:05 | NUR ---
RECEIVED REPORT FROM JENNIFER GILES. PT IS RESTING IN BED WATCHING TV. CALL LIGHT WITHIN REACH, BED ALARM ON, NO FURTHER NEEDS AT THIS TIME.
--- NOTE | 2022-02-28 19:40 | NUR ---
IN ROOM FOR ASSESSMENT, VS, I/O'S, AND ORCHID WORKER. PT IS RESTING IN BED WATCHING TV. NG TUBE IS TO INTERM. WALL SUCTION W/MINIMAL DARK GREEN DRAINAGE. MIDLINE INCISION IS COVERED WITH GAUZE/TAPE, DRESSING IS C/D/I. VSS. CPOX IN PLACE, O2 SATS AT 92%. PT IS A&O X4. PULSES PRESENT THROUGHOUT, WEAK RADIAL PULSES. PT STATED PAIN MANEAGABLE AT 4/10 IN ABDOMEN AND DENIED NEED FOR PAIN MEDS. MOUTH SWAB PROVIDED FOR DRY MOUTH, PT STATED THIS HELPED. CALL LIGHT WITHIN REACH, NO FURTHER NEEDS AT THIS TIME.
--- NOTE | 2022-03-01 00:15 | NUR ---
call light answered, with help from learning development specialistluiz ford pt boosted in bed and repositioned. pillow under right hip. pt had small incontinent bm, bloody in color. expected per shift report. urinal also emptied. iv site wnl, fluids infusing as directed. call light in reach and room tidied.
--- NOTE | 2022-03-01 00:40 | NUR ---
pt AWAKE AND RESTING IN BED, GROANING AND FACIAL GRIMACING NOTED. PRN PAIN MEDICATION GIVEN FOR REPORTED 8/10 PAIN, CPOX REMAINS IN PLACE. pt ON RA, RR EVEN AND UNLABORED. pt DEMONSTRATED USE OF IS, REACHED 1500 MARKER. pt VERBALIZED UNDERSTANDING IN USE OF IS. IV SITE WNL, FLUIDS INFUSING DIRECTED. SCDS TO RLE. NG FLUSHED BY PRIMARY RN EL WITH APPROX 30MLS TAP WATER, IMMEDIATE RETURN OF CLEAR FLUIDS NOTED. NG TUBE REMAINS PATENT AND WNL. NG TUBE CONTENTS SCANT AND DARK GREEN IN COLOR. REMAINS TO LIWS. NO ADDITIOANL NEEDS, PILLOW UNDER RIGHT HIP FOR COMFORT. CALL LIGHT IN REACH AND BED ALARM ON FOR SAFETY.
--- NOTE | 2022-03-01 04:00 | NUR ---
ANSWERED PT CALL LIGHT DUE TO PAIN / IN ABDOMEN. DRESSING IS STILL C/D/I. ADMINISTERED PRN DILAUDID (SEE EMAR). ORAL MOUTH SWAB PROVIDED. EDUCATED PT ABOUT PILLOW BRACING DURING COUGH, PT STATED UNDERSTANDING. NEW ICE PACK IN PLACE ON MIDLINE. NO ACUTE CHANGES FROM PREVIOUS ASSESSMENT. PT O2 SATS DROPPED TO 87% ON CPOX AFTER ADMIN OF DILAUDID, USED 2 L NC AND UP TO 96%, PT NOW BACK ON RA AT 92%. NG TUBE TO LOW INTERMITTENT WALL SUCTION W/GREEN DRAINAGE. SCD IN PLACE ON RT LEG. NO PROSTHETIC AVAILABLE FOR AMBULATION. AARON DRAINING WNL TO GRAVITY.
--- NOTE | 2022-03-01 07:30 | NUR ---
IN PT ROOM FOR NG FLUSH OF 50 ML WATER. PT TOLERATED WELL. GREEN OUTPUT, TOTAL OF 145 ML FOR SHIFT AFTER DEDUCTION OF FLUSHES. HOOKED TO LOW INTERM. WALL SUCTION. PT STATES PAIN 8/10 IN ABDOMEN, PRN DILAUDID GIVEN (SEE EMAR). ASKED IF PT WOULD BE WILLING TO STAND UP AND ATTEMPT TO MOVE POST OP. PT SAID "I CAN MOVE MY LEGS IN BED, IT HURTS TO BAD TO GET UP". EDUCATED PT ON IMPORTANCE OF MOVEMENT POST OP. SCDS IN PLACE. CALL LIGHT DISHA ZHU, NO FURTHER NEEDS AT THIS TIME.
--- NOTE | 2022-03-01 07:34 | NUR ---
IN ROOM PROVIDING REPORT TO JENNIFER GILES, PT SATS REACH MID 80'S, 2L NC O2 PROVIDED, JENNIFER GILES AWARE AND WOULD LIKE THAT TO STAY MAINTAINED AT THIS TIME.
--- NOTE | 2022-03-01 09:08 | NUR ---
Patient resting in bed, a&o x4. Patient reports his stomach is painful, 6/10 at this time. Patient provided with dilaudid 0.5mg IV at this time. NG to TAMMY, green gastric drainage noted. IV fluids infusing per provider order. Updated patient with plan of care. No current needs, personal supplies and call light within reach.
--- NOTE | 2022-03-01 10:17 | NUR ---
Patient assisted to chair with staff, tolerated fair using FWW. Patient reports icreased abdominal pain with activity. Pt requesting to eat food, education and plan of care provided to patient, pt receptive. Abdominal dressing remains CDI, ice over incision. CPOX intact, sp02 97% on 1L as his sp02 decreases with pain medication. ISS encouraged, pt able to demonstrate proper use at this time. No current needs at this time, personal supplies and call light within reach.
--- NOTE | 2022-03-01 11:41 | NUR ---
TORB from Dr. Gipson to remove NG and posada catheter at this time. Also patient is ok to have ice and hard candy. Updated Dr. Gipson regrading most recent wbc, mag, phos and kcl.
--- NOTE | 2022-03-01 12:05 | NUR ---
NG removed at this time per provider order, pt tolerated well. Dilaudid 0.5mg IV admin for reports of 6/10 abd pain. Family at bedside visiting. Call light within reach.
--- NOTE | 2022-03-01 14:24 | NUR ---
Admin ibuprofen 600mg po for reports of 6/10 abd pain.
--- NOTE | 2022-03-01 14:31 | NUR ---
Bowles catheter removed per provider order. Catheter tip intact, pt tolerated well.
--- NOTE | 2022-03-01 15:58 | NUR ---
Tylenol 1000mg po admin for reports of 7/10 abdmoninal pain.
--- NOTE | 2022-03-01 17:25 | NUR ---
fish stringer assembler and myself attempted to take patient on a walk. Patient did not tolerate walking very far, he was screaming out in pain and unsteady with his upper body coordination. Patient transferred back to bed from chair at this time. Patient reports at baseline he pivots to a wheelchair only.
--- NOTE | 2022-03-01 19:05 | NUR ---
RECEIVED REPORT FROM JENNIFER GILES. PT RESTING IN BED DRINKING BROTH, TOLERATING WELL AND NO DIFFICULTY SWALLOWING. MIDLINE DRESSING APPEARS C/D/I. ICE PACK ON ABDOMEN. CALL LIGHT WITHIN REACH, NO FURTHER NEEDS AT THIST TIME.
--- NOTE | 2022-03-01 19:34 | NUR ---
PT CALLED, REQUESTED JELLO. SUGAR FREE JELLO GIVEN. NO OTHER NEEDS AT THIS TIME.
--- NOTE | 2022-03-01 20:30 | NUR ---
IN ROOM FOR PT ASSESSMENT, VS, I/O'S, BS CHECK, AND SUPERINTENDENT SYSTEM OPERATION. PT BS CHECK WAS 292, 7 UNITS ADMINISTERED (SEE EMAR). PT REPORTS ABDOMEN/BACK PAIN 7/10, PRN MOTRIN GIVEN (SEE EMAR). PT STATES NO NAUSEA, DIZZINESS, SOB. ABDOMEN APPEARS MODERATELY DISTENDED, TENDER, BOWEL SOUNDS ACTIVE X4. LUNGS ARE CLEAR THROUGHOUT AND O2 SATS MID 90'S ON RA. PT USED IS X3 AND DEMONSTRATED CORRECT USAGE. PT IS A&O X4. PROVIDED FRESH TEA AND BROTH, PT TOLERATING WELL W/NO DIFFICULTY SWALLOWING. PT ABLE TO USE BEDSIDE URINAL AND ADJUST SELF IN BED W/OUT ASSISTANCE. SCD IN PLACE ON RT LEG. CMS INTACT X3 (D/T L BKA). CALL LIGHT WITHIN REACH, NO FURTHER NEEDS AT THIS TIME.
--- NOTE | 2022-03-01 22:51 | NUR ---
ANSWERED PT CALL LIGHT REGARDING NEED FOR BED SANTO. CHUCKS HAD SMALL AMOUNT OF RED/GELATINOUS BM. NO BM, JUST GAS IN BED SANTO AFTER 5 MIN. BED SANTO REMOVED AND NIXON CARE PERFORMED W/BARRIER WIPES. PT STATES PAIN IS 8/10. D/T NOT TIME FOR TYLENOL/MOTRIN YET AND PAIN 8/10 IN ABDOMEN-> DILAUDID GIVEN (SEE EMAR). 1 SPRAY OF THROAT SPRAY USED (SEE EMAR). WARM BLANKET PROVIDED, FRESH ICE WATER PROVIDED. PT EDUCATED ABOUT AMBULATION POST OP, STATED UNDERSTANDING BUT IT "HURTS TOO BAD RIGHT NOW". CALL LIGHT WITHIN REACH, BED ALARM ON, NO FURTHER NEEDS AT THIS TIME.
--- NOTE | 2022-03-02 00:15 | NUR ---
call light answered, with help from charge handluiz ford pt boosted in bed and repositioned. pillow under right hip. pt had small incontinent bm, bloody in color. expected per shift report. urinal also emptied. iv site wnl, fluids infusing as directed. call light in reach and room tidied.
--- NOTE | 2022-03-02 03:36 | NUR ---
ANSWERED PT CALL LIGHT FOR NEED OF CUP OF ICE. REFILLED FRESH ICE WATER AND PROVIDED CUP OF ICE. PT IS A&O IN BED WATCHING TV AND PLAYING GAME ON PHONE. PAIN IS 5/10 IN ABDOMEN, PRN TYLENOL GIVEN (SEE EMAR). PT ABLE TO ADJUST SELF IN BED. ASSESSMENT PERFORMED, NO ACUTE CHANGES. MIDLINE INCISION DRESSING REMAINS C/D/I. CONTINUOUS LR INFUSING DIRECTED. PT STATES NO NAUSEA, N/T, DIZZINESS, SOB. CALL LIGHT WITHIN REACH, BED ALARM ON, NO FURTHER NEEDS AT THIS TIME.
--- NOTE | 2022-03-02 06:20 | NUR ---
IN PT ROOM FOR VS AND I/O'S. PT REPORTS 7/10 HEADACHE, PRN MOTRIN GIVEN (SEE EMAR). WARM BROTH PROVIDED AT PT REQUEST. 2 PA ASSISTANCE W/STANDING PT, PT TOLERATED FOR ~5 MIN. LRG BOWEL MVMNT IN DEPENDS, DARK GREEN AND OF GELATINOUS CONSISTENCY. NIXON CARE PERFORMED, BEDDING CHANGED, NEW DEPENDS PLACED. BEHIND CLEAR OF ANY PRESSURE WOUNDS. SUFFICIENT INTAKE AND UO. WARM BLANKETS AND ICE WATER PROVIDED. CALL LIGHT WITHIN REACH, NO FURTHER NEEDS AT THIS TIME.
--- NOTE | 2022-03-02 07:10 | NUR ---
REPORT RECEIVED FROM TISHA GALLEGOS. PT LAYING IN BED WITH EYES CLOSED. ICE PACK OVER ABD WITH A PILLOW. RR EVEN AND UNLABORED. NO NEEDS IDENTIFIED AT THIS TIME. CALL LIGHT IN REACH.
--- NOTE | 2022-03-02 07:20 | NUR ---
patient in bed this morning. am care completed, and has no other needs at this time, call light within reach.
--- NOTE | 2022-03-02 07:31 | NUR ---
RAC IV DC'ED D/T CAUSING PT ITCHING AND IRRITATION. NO SIGNS OF INFLAMMATION AT IV SITE. 2 OTHER PATENT IV'S PRESENT. CATHETER WNL UPON REMOVAL.
--- NOTE | 2022-03-02 08:14 | NUR ---
IN ROOM TO ADMINISTER MEDICATAION. PT TAKES PO MEDICATION WITH NO ISSUES AND TOLERATES SUB-Q INJECTION WELL. NO INSULIN GIVEN DUE TO BG WITHIN PARAMATERS. ASSESSMENT COMPLETE. PT REPORTS PAIN 5/10 IN ABD, "DULL" PT DENIES ANY PAIN MEDICATION. RIGHT HAND IV CONTINUOUS INFUSION, SEE MAR. LEFT AC IV SL. MODERATE ABD DISTENTION NOTED. MEAL TRAY DELIVERED. PT REQUESTING COFFEE, COFFEE PROVIDED. NO OTHER NEEDS AT THIS TIME. CALL LIGHT IN REACH.
--- NOTE | 2022-03-02 09:30 | NUR ---
Patient rounding complete. Pt requests to use bedpan, assisted. Room tidied, new ice water and broth provided. Pt has no further needs.
--- NOTE | 2022-03-02 09:56 | NUR ---
PATIENT IN BED AFTER MEAL WATCHING TV. VITALS AND I/O'S COMPLETED. PT HAS NO NEEDS AT THIS TIME. CALL LIGHT WITHIN REACH.
--- NOTE | 2022-03-02 10:55 | NUR ---
IN TO ROUND ON PT. PHYSICAL THERAPY IN ROOM ASSISTING PT WITH TOILETING. THIS RN ASSISTED PHYSICAL THERAPIST WITH NIXON CARE. NO OTHER NEEDS FROM THIS RN AT THIS TIME. PHYSICAL THERAPIST IN THE ROOM.
--- NOTE | 2022-03-02 11:30 | NUR ---
IN ROOM TO ANSWER CALL LIGHT. PT SITTING UP IN CHAIR. IV ALARMING, RESOLVED. NEW BAG OF LR WITH NEW TUBING RUNNING AT 75ML/HR. NO OTHER NEEDS AT THIS TIME. CALL LIGHT IN REACH.
--- NOTE | 2022-03-02 13:04 | NUR ---
IN TO ADMINISTER MEDICATION, SEE MAR. FLUIDS DCd PER MD ORDERS. PT SITTING UP IN CHAIR FINISHED WITH MEAL TRAY. CALL LIGHT IN REACH. NO OTHER NEEDS AT THIS TIME. PT SL IN RIGHT HAND IV.
--- NOTE | 2022-03-02 13:39 | NUR ---
PATIENT IN CHAIR AFTER MEAL. VITALS AND I/O'S COMPLETED. PT HAS NO OTHER NEEDS AT THIS TIME. CALL LIGHT WITHIN REACH.
--- NOTE | 2022-03-02 13:46 | NUR ---
IN ROOM TO SET PT UP FOR SHAVING. PT BEGINS TO COUGH AND HAS PAIN IN ABD WITH COUGH. PT REQUESTING SPRAY FOR THROAT. PRN SPRAY ADMINISTERED, SEE MAR. PT SHAVES SELF WITH NO ISSUES. PT SITTINF UP IN CHAIR WITH LEGS ELEVATED ON RECLINER. NO OTHER NEEDS AT THIS TIME. CALL LIGHT IN REACH.
--- NOTE | 2022-03-02 14:06 | NUR ---
IN ROOM TO ANSWER CALL LIGHT. PT FINISHED WITH SHAVING. PT REQUESTING SUGAR FREE ICE CREAM. THIS RN CALLED DIETARY. DIETARY WILL BRING SOME SUGAR FREE ICE CREAM UP. NO OTHER NEEDS AT THIS TIME. CALL LIGHT IN REACH.
--- NOTE | 2022-03-02 15:24 | NUR ---
IN ROOM TO ADMINISTER MEDICATION, SEE MAR. ASSESSMENT COMPLETE. BOWEL TONES ACTIVE IN ALL QUADRANTS. LUNG SOUNDS CLEAR. PT REPORTS PAIN 0/10. MIDLINE ABD DRESSING C/D/I. PT IS SL IN BOTH IVs. NO OTHER CHANGES FROM PREVIOUS ASSESSMENT. PT SITTING UP IN CHAIR WITH TELEVISION ON. PT REQUESTS SHADE TO BE DRAWN. SHADE DRAWN. PT STATES "I AM GOING TO TAKE A NAP." NO OTHER NEEDS ATH THIS TIME. CALL LIGHT IN REACH.
--- NOTE | 2022-03-02 15:56 | NUR ---
IN TO ANSWER CALL LIGHT. PT SITTING IN CHAIR WITH LEGS ELEVATED. PT MOVING IN CHAIR DUE TO PAIN. PT REPORTS PAIN 9/10 IN ABD, PT STATES "I COUGHED AND IT HURTS SO BAD." PRN PAIN MEDICATIONS GIVEN, SEE MAR. WYATT RN IN ROOM. ICE PACK APPLIED TO ABD. PT TAKES PO MEDICATIONS WITH NO ISSUES. PT RECLINED BACK IN RECLINER AND PRACTICING SLOW STEADY BREATHING. PT EDUCATED ON BRACING SITE WHEN HE NEEDS TO COUGH TO HELP WITH PAIN. COOL RAG APPLIED TO FOREHEAD. CALL LIGHT IN REACH. NO OTHER NEEDS AT THIS TIME.
--- NOTE | 2022-03-02 16:57 | NUR ---
IN ROOM TO ADMINISTER MEDICATIONS, SEE MAR. PT LAYING IN CHAIR RECLINED. TELEVISION ON. PT REPORTING PAIN 8/10 IN ABD. PT REQUESTING NIXON CARE. NEY RASCON IN TO ASSIST WITH 2PA WITH FWW TO PERFORM NIXON CARE. PT SITS BACK IN CHAIR. NEW ICE PACK APPLIED, WARM BLANKETS APPLIED. NO OTHER NEEDS AT THIS TIME. CALL LIGHT IN REACH. PT RESTING IN CHAIR.
--- NOTE | 2022-03-02 17:38 | NUR ---
THIS RN CALLED DR. ESPINOSA, REGARDING PTs PAIN DUE TO COUGH. NEW ORDERS RECEIVED, READ BACK TO VERIFY.
--- NOTE | 2022-03-02 17:50 | NUR ---
IN ROOM TO ANSWER CALL LIGHT. PT REQUESTING NIXON CARE AND TO GET BACK INTO BED. PT SITTING UP IN CHAIR. TISHA SCHNEIDER IN ROOM TO ASSIST WITH NIXON CARE AND TRANSFER FROM CHAIR TO BED. WAITING FOR VERIFICATION FROM PHARMACY FOR PRN MEDICATION. PT LAYING IN BED. CALL LIGHT IN REACH. NO OTHER NEEDS AT THIS TIME.
--- NOTE | 2022-03-02 18:19 | NUR ---
Pt attends changed after loose BM in bed. Pt medicated with PRN pain meds and scheduled potassium. VSS, I/Os complete. pt has no further needs at this time
--- NOTE | 2022-03-02 18:52 | NUR ---
PT POST OP DAY 2. ADVANCED TO 60G CARB DIET. PRN TYLENOL WITH CODINE AND MOTRIN FOR PAIN CONTROL. PT A&O, VSS, IV SL. MIDLINE ABD DRESSING C/D/I. 1-2 PA WITH FWW. FREQUENT LOOSE BMs. CALLS APPROPRIATLEY.
--- NOTE | 2022-03-02 21:09 | NUR ---
V/S COMPLETED. NO OUTPUT YET. ICE PACK AND CHICKEN BROTH MADE AND PROVIDED. BLOOD SUGAR CHECK DONE AND CHARTED. PRIMARY RN NOTIFIED.
--- NOTE | 2022-03-02 21:38 | NUR ---
FULL BODY ASSESMENT DONE, HS MEDICATIONS ADMINISTERED. NO ACUTE CHANGES. COMPLAINTS OF PAIN 4/10 ON PAIN SCALE, ADMINISTERED MOTRIN PRN. PATIENT APPEARS CALM IN BED, GOOD URINE OUTPUT. ICE IN PLACE. BED ALARM ON. BROTH RELIEVED SORENSS TO BACK OF THROAT, DENIES NEED FOR CHLORASEPTIC SPRAY AT THIS TIME. REASSURED PATIENT THAT CHLORASEPTIC SPRAY AVAILBLE UPON REQUEST. NO OTHER NEEDS AT THIS TIME, CALL LIGHT WITHIN REACH.
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
--- NOTE | 2022-03-03 03:11 | NUR ---
PATIENT CALLED REQUESTING WARM BLANKET. APPEARED TO BE GRIMACING, PATIENT RATES PAIN 4/10 ON PAIN SCALE. ADMINISTERED 1 TAB TYLENOL 3. PATIENT ALERT AND OREINTED TO PERSON PLACE AND TIME, PLAYING GAMES ON TABLET. PROVIDED DIABETIC SNACK, FRESH ICE WATER, AND WARM BLANKET. DISCUSSED USE OF INCENTIVE SPIROMETER, PATIENT ABLE TO MAKE WAFER FLOAT TO 2,500 ML, PATIENT STATED " I DIDN'T REALIZE IT DECREASED THE RISK OF PNEAMONIA. I WILL USE IT MORE OFTEN" VOIDED 300 ML OF CLEAR CONCENTRATED URINE. CALL LIGHT WITHIN REACH, BED ALARM ON. NO OTHER NEEDS AT THIS TIME.
--- NOTE | 2022-03-03 04:10 | NUR ---
PATIENT USED THE CALL LIGHT. DIET SODA PROVIDED.
--- NOTE | 2022-03-03 07:41 | NUR ---
REPORT RECEIVED FROM TISHA JACKSON. PT LAYING IN BED WITH EYES CLOSED. RR EVEN AND UNLABORED. NO NEEDS IDENTIFIED AT THIS TIME. CALL LIGHT IN REACH.
--- NOTE | 2022-03-03 08:08 | NUR ---
IN TO ADMINISTER MEDICATIONS. PT LAYING IN BED WITH CELLULAR DEVICE. PT RESPONDS WHEN ASSRESSED. PT TAKES PO MEDICATIONS WITH NO ISSUES AND TOLERATES SUB-Q INJECTION WELL. IV IN LEFT AC FLUSHES WELL AND IS SL. IV IN RIGHT HAND FLUSHES WELL AND SL. MEAL TRAY DELIVERED. ASSESSMENT COMPLETE. PT REPORTING PAIN 4/10, DENIES ANY PRN PAIN MEDICATION. LUNG SOUNDS IN RLL HAVE SOME CRACKLES. MODERATE ABD DISTENTION, FIRM AND TENDER IN LLQ WITH LIGHT TOUCH PT STATES "A LITTLE TENDER." BOWEL TONES ACTIVE IN ALL QUADRANTS. MIDLINE ABD SURGICAL INCISION DRESSING C/D/I. NO OTHER NEEDS AT THIS TIME. CALL LIGHT IN REACH.
--- NOTE | 2022-03-03 09:01 | NUR ---
PT UP IN BED. I AND O AND VS CHARTED CALL LIGHT WITHIN REACH NO FURTHER TASKS AT THIS TIME
--- NOTE | 2022-03-03 09:09 | NUR ---
IN ROOM TO ADMINISTER THROAT SPRAY, SEE MAR. PT REQUESTING TO USE COMMODE. 1PA WITH FWW FROM BED TO COMMODE. LINENS ON BED CHANGED. PT REQUESTING TO SIT IN CHAIR. 1PA FROM COMMODE TO CHAIR WITH FWW. PT REQUESTS TO FACE WINDOW TO LOOK OUTSIDE. PT FACING WINDOW. PT REQUESTING JELLO, SUGAR FREE JELLO PROVIDED. NEW ICE PACK PROVIDER PER PT REQUEST. NO OTHER NEEDS AT THIS TIME. CALL LIGHT IN REACH.
--- NOTE | 2022-03-03 10:18 | NUR ---
pt used bed bath wipes to wipe self down. pt laying in bed call light within reach.
--- NOTE | 2022-03-03 10:22 | NUR ---
IN TO ANSWER CALL LIGHT. EVS IN ROOM. PT REQUESTING WARM BLANKET. WARM BLANKET PROVIDED. NO OTHER NEEDS AT THIS TIME. CALL LIGHT IN REACH.
--- NOTE | 2022-03-03 10:36 | NUR ---
PT REQUESTING ICE WATER AND SPRITE. ICE WATER AND DIET SUSIE PROVIDED. NO OTHER NEEDS AT THIS TIME. CALL LIGHT IN REACH.
--- NOTE | 2022-03-03 10:40 | NUR ---
both nares swabbed for covid-19 without complication.
--- NOTE | 2022-03-03 11:08 | NUR ---
IN TO ANSWER CALL LIGHT. PT SITTING UP IN CHAIR. DAUGHTER IN ROOM. DAUGHTER ASKING ABOUT RX FOR WHEELCHAIR FOR DIANE TO PROVIDE. THIS RN NOTIFIED TISHA ESPINOZA AND WILL TALK WITH CASE MANAGEMENT. PT REQUESTING WATER AND PUDDING, WATER AND PUDDING PROVIDED. NO OTHER NEEDS AT THIS TIME. CALL LIGHT IN REACH. CASE MANAGEMENT TOLD TISHA ESPINOZA TO ASK LOCUM PROVIDER FOR RX.
--- NOTE | 2022-03-03 11:43 | NUR ---
NEY JOHNSON NOTIFIED THIS RN THAT PT WAS FEELING PAINFUL. INTO ROOM TO ASK PT PAIN LEVEL PT STATES PAIN IS "6/10" PT REQUESTING PRN PAIN MEDICATION, PRN PAIN MEDICATION PROVIDED, SEE MAR. PT SITTING ON COMMODE. EBENEZER JONES IN ROOM TO SEE PT. THIS RN ASKED EBENEZER JONES ABOUT WHEELCHAIR RX. EBENEZER JONES STATED "PT WILL HAVE TO FOLLOW UP WITH HIS PCP FOR NEW WHEELCHAIR." THIS RN UPDATED PT ABOUT HAVING TO FOLLOW UP AND SEE HIS PCP AND TALK WITH PCP ABOUT A WHEELCHAIR. PT REQUESTING MORE TIME ON COMMODE. PT VERBALIZES UNDERSTANDING TO USE CALL LIGHT WHEN READY TO TRANSFER FROM COMMODE TO CHAIR. NO OTHER NEEDS AT THIS TIME. CALL LIGHT IN REACH.
--- NOTE | 2022-03-03 12:00 | NUR ---
IN ROOM TO ANSWER CALL LIGHT. PT REQUESTING TO GO FROM COMMODE TO CHAIR. 1PA WITH FWW FROM COMMODE TO CHAIR. MEAL TRAY DELIVERED. IVs REMOVED AND INTACT. INSULIN ADMINISTERED, SEE MAR. PT SITTING UP IN CHAIR WITH LEGS ELEVATED IN RECLINER AND MEAL TRAY OVER LAP. PT VERBALISES UNDERSTANDING TO CALL WHEN HE KNOWS WHO IS GOING TO TAKE HIM HOME. NO OTHER NEEDS AT THIS TIME. CALL LIGHT IN REACH.
[2022-03-03] MEDS ORDERED: ACETAMINOPHEN-1 EAC1 PO (12:27)
--- NOTE | 2022-03-03 12:40 | NUR ---
THIS RN AND ALEXIS, RN IN ROOM TO GO OVER DC PAPERS. PRN MEDICATIONS GIVEN, SEE MAR. PT SITITNG UP IN CHAIR. KRYSTA, PHARMACIST IN ROOM TO GO OVER RX. PT WAITING FOR PHONE CALL ABOUT GETTING A RIDE HOME. NO OTHER NEEDS AT THIS TIME. CALL LIGHT IN REACH.
--- NOTE | 2022-03-03 12:51 | NUR ---
THIS RN IN TO ASSIST TISHA DASILVA WITH DC OF PATIENT TO HOME. PATIENT JUST HAD A COUGHING FIT AND IS HAVING 7/10 ABD PAIN AFTER THE COUGHING. 2 TYLENOL #3'S GIVEN FOR PAIN. KRYSTA THE PHARMACIST IS HERE AND GIVEING INSTRUCTIONS ON HOME MEDS AND RX'S. DRESSING REINFORCED FOR [facility] HOME, BUT PATIENT CAN SHOWER PER USUAL WITH CARE NO TO TUG OR PULL ON BRITT. PATIENT INFORMED IT SHOULD BE A SHOWER NOT A BATH AND PATIENT VERBALIZED UNDERSTANDING. PATIENT AWAITING A CALL FROM HIS DAUGHTER TO TO WHEN SHE WILL ARRIVE TO GET HIM. PATIENT UP IN THE BEDSIDE ARMCHAIR AND CALL LIGHT IS IN REACH.
--- NOTE | 2022-03-03 14:44 | NUR ---
PATIENT DC'D TO HOME IN PRIVATE CAR DRIVEN BY PATIENT'S DAUGHTER. PATIENT VERBALIZED UNDERSTANDING TO ALL F/U, DC, AND MEDICATION INSTRUCTIONS AND LEFT WITH RX FOR PAIN MEDS. IV'S WERE DC'D INTACT. PATIENT TAKEN TO PRIVATE CAR VIA WHEELCHAIR.
--- NOTE | 2022-03-03 15:10 | PATH ---
[facility] [address] [place], [place] [address] Signed SPECIMEN(S): A SIGMOID COLON SPECIMEN SOURCE: A. SIGMOID COLON CLINICAL HISTORY: Sigmoid volvulus (stitch merino distal end). FINAL PATHOLOGIC DIAGNOSIS: Sigmoid colon: - Tubular adenoma (one polyp). - Hyperplastic polyps (two polyps). - Segment of benign colon. - Negative for evidence of malignancy. - See comment. COMMENT: The history of sigmoid volvulus is noted. The Adenomas are widely free of the surgical margins. JVR:[facility]:C2NR MICROSCOPIC EXAMINATION: Histologic sections of all submitted blocks are examined by light microscopy. These findings, together with the gross examination, support the pathologic diagnosis. GROSS DESCRIPTION: The specimen, labeled "TD," is received in formalin and consists of previously completely opened, unoriented segment of colon with attached mesentery that measures 65 cm in length and 17 cm in width, wall thickness is 0.3 cm. The serosal surface is pink, smooth, glistening and serosa is diffusely flattened, pink, slightly folded. Focal possible polyps identified ranging from 0.2-0.3 cm. The indirect sales representative sections are submitted in cassettes (A1-A4). A1. Margin A2. Possible polyps A3-A4. Wall full-thickness KV (under the direct supervision of a pathologist) The Gross Description was prepared using a voice recognition system. The report was reviewed for accuracy; however, sound-alike word errors, addition and/or deletions may occur. If there is any PATIENT NAME: SANCHEZ COBOS SR PATHOLOGY DATE OF : 58 REPORT #: [id number] PHYSICIAN: MARIANA RIGGINS PCP: [facility] REPORT IS CONFIDENTIAL AND NOT TO BE RELEASED WITHOUT AUTHORIZATION [facility] [address], [place] [address] Signed question about this report, please contact Client Services. PERFORMING LABORATORY: The technical component was performed by [facility], [address] [place] [address] (CLIA# [id number]). Professional interpretation was performed by [facility] [address] [address] (CLIA#: [id number]). Diagnostician: Kimani Allen MD Pathologist Electronically Signed 03/03/2022 Copies: ~ PATIENT NAME: SANCHEZ COBOS SR PATHOLOGY DATE OF : 58 REPORT #: [id number] PHYSICIAN: MARIANA RIGGINS PCP: [facility] REPORT IS CONFIDENTIAL AND NOT TO BE RELEASED WITHOUT AUTHORIZATION
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
--- NOTE | 2022-03-08 08:25 | OR ---
[facility] [address], [place] [address] Signed DATE OF OPERATION: 02/28/2022 SURGEON: Trav Sharif MD PREOPERATIVE DIAGNOSIS: Sigmoid volvulus. POSTOPERATIVE DIAGNOSIS: Sigmoid volvulus. PROCEDURE: Sigmoidectomy with Mccormick side-to-end colorectal anastomosis, hand-sewn in two layers. ESTIMATED BLOOD LOSS: 25 mL. 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 He had chronic dilation of the entire colon all the way back to his cecum. His appendix is retrocecal and has been left in place. We could not specifically palpate any tumors in his cecum or right colon or transverse colon. We did palpate the NG tube in his upper stomach at the end of our surgery. INDICATIONS: Sanchez is a 61-year-old noncompliant diabetic gentleman, who came to our hospital back in November of this year. He was treated for what looked like pyelonephritis, particularly with respect to the left kidney. He received cefepime in the hospital and was sent home with Cipro. He never filled the prescription for the Cipro. He came back with recurrent bilateral flank pain, abdominal pain and distention. We found out later from his girlfriend that he has had several months now of significant abdominal distention, generalized crampy abdominal pain, and basically overflow fecal incontinence particular at night. She was having to change the bed sheets every morning. He had not sought out medical care, which is consistent with his prior behavior. He finally ended up in our emergency room when he was in significant abdominal pain. White count was borderline at 11. He was dehydrated with increase in his BUN, creatinine, his urine specific gravity. He also had 4+ bacteria in his urine. That has proven to be Klebsiella pneumoniae. It has been sensitive to the Rocephin. He has also been on Flagyl. I have been asked to admit him as a general surgeon on-call. He had an NG tube and we had decompressed him at night with the colonoscope. He was sitting on a toilet passing some gas and had three bowel movements. We decided we go ahead and bowel prep him to see if we could Electronically Signed By: TRAV SHARIF MD 03/08/22 0825 PATIENT NAME: SANCHEZ COBOS SR OPERATIVE REPORT DATE OF : 58 REPORT #: [id number] PHYSICIAN: TRAV SHARIF MD PCP: [facility] REPORT IS CONFIDENTIAL AND NOT TO BE RELEASED WITHOUT AUTHORIZATION [facility] [address], [place] [address] Signed evaluate the full length of the colon to rule out any synchronous lesions. Overall, he actually did well, but once again he has significant abdominal distention the following morning after his bowel prep. We took him down and again we passed the colonoscope in and then decompressed the colon. The CT scan shows his colon at least 14 cm in diameter. We passed the scope to a dilated very long redundant colon. We think we made it out into the right colon, but we are not completely sure. We never did see the ileocecal valve or his appendiceal orifice. He certainly had bile in the colon, was passing air down through his colon. We have also had to replace mainly his potassium, but also some of his magnesium as well. We had our Internal Medicine service see him in consultation. He has been on a sliding scale regular insulin for his blood sugars which are now down below 200. Of course, his hemoglobin A1c is elevated over 9. His albumin dropped to below 3. Unfortunately, Sanchez was not very forthcoming with his history. I actually got most of this from his girlfriend, Zee. He finally gave me his girlfriend's phone number yesterday. The phone number for his daughter Dalia has been disconnected. I explained to Sanchez from my first visit with him in the emergency room and each and every visit thereafter that he was going to require surgery for the sigmoid volvulus. We described it in detail with a midline laparotomy incision and resection of the colon to straighten the colon out. He understands there is risk to the surgery including, but not limited to bleeding, infection, scarring, change in contour of the skin, damage to bowel, damage to the ureter, anastomotic leaks, incisional hernias and other unforeseen comorbidities. He has expressed understanding and would like to proceed. PROCEDURE IN DETAIL: I met with Sanchez again this morning. We reviewed all this together before filling out the consent form. He was then taken into the operating room and placed in the supine position under general endotracheal tube anesthesia. He was on Rocephin and Flagyl as well as Lovenox already. He had an SCD on his right leg. He has a left [id number] amputation, that was appropriately padded. A Bowles catheter was inserted with return of clear yellow urine without difficulty. He was then prepped and draped in the usual sterile fashion. We utilized a standard periumbilical midline incision into the abdomen without difficulty. As it is common with sigmoid volvulus, we were able to grasp the sigmoid colon and bring it up and out of the abdomen. We made a small hole in his distal colon, we evacuated enormous amounts of air. After this, his abdomen was actually mildly scaphoid. We then used our linear VARGHESE stapler to divide the sigmoid colon somewhat proximally. The mesocolon was divided between Pean clamps and 0 Vicryl ties down to the top of the rectum. We divided the top of the rectum with a TA stapler. We then proceeded to close his mesenteric rent. We then brought the sigmoid colon down without tension to the top of his rectum and performed a Mccormick side-to-end colorectal anastomosis hand-sewn in two layers with silk and Vicryl sutures. Because the top of the rectum was a bit dilated, that anastomosis is probably 4 cm in length. There was just a little bit of opening to the mesentery at that point, we closed that with some Electronically Signed By: TRAV SHARIF MD 03/08/22 0825 PATIENT NAME: SANCHEZ COBOS SR OPERATIVE REPORT DATE OF : 58 REPORT #: [id number] PHYSICIAN: TRAV SHARIF MD PCP: [facility] REPORT IS CONFIDENTIAL AND NOT TO BE RELEASED WITHOUT AUTHORIZATION [facility] [address], [place] [address] Signed additional 0 Vicryl suture. We then irrigated the abdomen and suctioned out until clear. I then could palpate the NG tube in his upper half of the stomach. We looked at the cecum and he does have his appendix in place in the retrocecal position. He has chronically dilated cecum all the way around the rest of the colon. After this, we closed the midline fascia with interrupted #1 [id number] PDS sutures. The wound was irrigated and suctioned out until clear. We brought the dermis back together with interrupted 3-0 subcuticular Monocryl sutures. The skin edges were reapproximated with arlin. We then applied dry gauze and tape. Our nurse boom operator then performed her bilateral ultrasound-guided TAP blocks. We then left his Bowles catheter and NG tube in place. He was awakened from his anesthesia, extubated in the OR, and taken to recovery room in stable condition. Trav Sharif MD ALB/MODL /[id number] cc: [facility] Trav Sharif MD Copies: [facility] TRAV SHARIF MD ~ Electronically Signed By: TRAV SHARIF MD 03/08/22 0825 PATIENT NAME: CHANDRIKASANCHEZ LUCINDA MCKEON OPERATIVE REPORT DATE OF : 58 REPORT #: [id number] PHYSICIAN: TRAV SHARIF MD PCP: [facility] REPORT IS CONFIDENTIAL AND NOT TO BE RELEASED WITHOUT AUTHORIZATION
== END 2022-03-03 14:25 | disposition home or self-care (01) | DRG 345 ==
LOC: ED 12:45 → DS 17:39 → MS 17:39 → DSVR 17:39 → MS 19:50 → DS 19:51 → MS 19:52
PROVIDERS: ADMIT Colon & Rectal Surgery; ATTEND Colon & Rectal Surgery
PROC: 0D9E8ZZ Drainage of Large Intestine, Via Natural or Artificial Opening Endoscopic (ICD-10-PCS; principal; 2022-02-24 18:13)
PROC: 0DBNFZZ Excision of Sigmoid Colon, Via Natural or Artificial Opening With Percutaneous Endoscopic Assistance (ICD-10-PCS; 2022-02-27)
PROC: 0DJD8ZZ Inspection of Lower Intestinal Tract, Via Natural or Artificial Opening Endoscopic (ICD-10-PCS; 2022-02-28)
DX: K56.2 Volvulus (principal); N39.0 Urinary tract infection, site not specified; Q43.8 Other specified congenital malformations of intestine; J84.10 Pulmonary fibrosis, unspecified; K64.8 Other hemorrhoids; B96.1 Klebsiella pneumoniae [K. pneumoniae] as the cause of diseases classified elsewhere; E11.65 Type 2 diabetes mellitus with hyperglycemia; F10.10 Alcohol abuse, uncomplicated; E87.6 Hypokalemia; F15.90 Other stimulant use, unspecified, uncomplicated; Z88.0 Allergy status to penicillin; Z89.512 Acquired absence of left leg below knee; Z98.818 Other dental procedure status
CPT/HCPCS: 36415; 71045; 74177; 76942; 80048; 80053; 81001; 83036; 83735; 84100; 84134; 85025; 85610; 87077; 87088; 87186; 88309; 93005; 93010; 94760; 94762; 96375; 97110; 97161; 99285-25; A9270; C9113; C9803; J0131; J0696; J1100; J1170; J1650; J1815; J1885; J2001; J2250; J2370; J2405; J2704; J2795; J3010; J3475; J3480; J7030; J7060; J7121; Q9967; U0003

== ENCOUNTER 2022-03-09 13:40 | Inpatient (IN) | payer MEDICARE, OTHER ==
[~2022-03-09] VITALS: Ht 177.8 cm; Wt 87.3 kg
[~2022-03-09 13:40] MED LIST changes: +ACETAMINOPHEN-1 EAC1 PO
--- OUTSIDE RECORDS SUMMARY | 2022-03-09 13:42 | XMS ---
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 Physician Net Development Manager Current PHONE: Unknown JULIUS ARDON [facility] Current PHONE: [phone] DIANE [facility] 11/21/2020-[facility] PHONE: [phone] Doris has no Care Guidelines for this patient. Care History Medical/Surgical 01/08/2021 [facility] - PATIENT IS DIANE ELIGIBLE, \T\middot;\T\nbsp; PLEASE REFER PATIENT TO [facility] FOR NON EMERGENT MEDICAL NEEDS. \T\middot;\T\nbsp; [facility] CAN SEE PATIENTS SAME DAY FOR APTS IF PATIENT CALLS FIRST THING IN THE MORNING. E.D. VISIT COUNT (12 MO.) 3 [facility]. TOTAL 3 NOTE: Visits indicate total known visits. ED/UCC VISIT TRACKING (12 MO.) 03/09/2022 13:40 [facility] TYPE: Emergency COMPLAINT: - ABDOMINAL PAIN 02/24/2022 12:46 [facility] TYPE: Emergency COMPLAINT: - FLANK PAIN,ABD PAIN 12/12/2021 07:14 [facility] TYPE: Emergency COMPLAINT: - DIFFICULTY BREATHING INPATIENT VISIT TRACKING (12 MO.) 02/24/2022 19:52 [facility] TYPE: Medical Surgical COMPLAINT: - SIGMOID VOLVULUS 12/12/2021 14:00 [facility] TYPE: Medical Surgical COMPLAINT: - SEPSIS DIAGNOSES: - Personal history of nicotine dependence - Chronic kidney disease, unspecified - Hypokalemia - Acidosis - Acidosis - Emphysema, unspecified - Contact with and (suspected) exposure to COVID-19 - Chronic kidney disease, unspecified - Personal history of nicotine dependence - detention (current) use of oral hypoglycemic drugs - Contact with and (suspected) exposure to COVID-19 - Severe sepsis without septic shock - Other dental procedure status - Acute kidney failure, unspecified - Other exterminator (current) drug therapy - Type 2 diabetes mellitus with diabetic chronic kidney disease - Allergy status to penicillin - roasterman (current) use of oral hypoglycemic drugs - Other specified postprocedural states - Acquired absence of left leg below knee - Tubulo-interstitial nephritis, not specified as acute or chronic - Other exterminator (current) drug therapy - Emphysema, unspecified - Hypokalemia - Acute kidney failure, unspecified - Acquired absence of left leg below knee - Allergy status to penicillin - Sepsis, unspecified organism - Type 2 diabetes mellitus with diabetic chronic kidney disease - Tubulo-interstitial nephritis, not specified as acute or chronic - Other specified postprocedural states - Severe sepsis without septic shock - Other dental procedure status [email or web address]
--- NOTE | 2022-03-09 21:18 | EKG ---
[facility] [address] [facility] [place] [address] Signed Normal sinus rhythm Left axis deviation Abnormal ECG When compared with ECG of 24-FEB-2022 16:31, premature ventricular complexes are no longer present Confirmed by Yamila Muller MD () on 03/09/2022 9:17:54 PM Electronically Signed By: YAMILA MULLER MD 03/09/222117 PATIENT NAME: SANCHEZ COBOS Electrocardiogram DATE OF : 58 PHYSICIAN: YAMILA MULLER MD REPORT #: [id number] REPORT IS CONFIDENTIAL AND NOT TO BE RELEASED WITHOUT AUTHORIZATION
--- NOTE | 2022-03-09 21:19 | NUR ---
03/09/222118 Angie Miller 2102-PATIENT ARRIVED TO PACU ON 6L MASK REACTIVE TO VERBAL STIMULI GLUCOSE 136.. PATIENT WINCING LAYING ON LEFT SIDE ENCOURAGED TO PASS GAS. SR. IVF INFUSING. 2109-PATIENT REPOSTIONED TO BACK AND SLEEPING PLACED ON RA RR EVEN. 2110-BP RETAKEN LOWER. PATIENT SLEEPING AROUSES TO VERBAL STIMULI. PATIENT APNEIC AROUSES TO VERBAL STIMULI AND TAKES BREATHES. PLACED ON 2L NC O2 SAT DECREASED TO 87%. INCREASED TO 92% 2117-PATIENT SLEEPING 2L NC RR EVEN 95%
--- NOTE | 2022-03-09 22:05 | NUR ---
PATIENT ARRIVED TO THE FLOOR VIA STRETCHER. PATIENT INCONT OF STOOL. PATIENT CLEANED AND ATTEND PUT IN PLACE. PATIENT HAS NOTED RED SCROTUM. PATIENT ABLE TO MOVE FROM STRETCHER TO HOSPITAL BED WITH MINIMAL ASSISTANCE. PATIENTS VITALS TAKEN AND RECORDED. ADMISSION COMPLETED. PATIENT IS ON 2L NC. CPOX IN PLACE. DENY ALVARZE RN PRESENT SURING ADMISSION. PATIENT GIVEN ICE WATER PER ORDER. PATIENTS IV INFUSING PER ORDER. NO NEEDS NOTED. CALL LIGHT IN REACH.
--- NOTE | 2022-03-09 22:09 | NUR ---
ADMISSION ASSESSMENT COMPLETE. PT DROWSY. ALERT AND ORIENTED. PT REPORTS PAIN IS TOLERABLE 3/10. DENIES NAUSEA. MIDLINE INCISION FROM PREVIOUS SURGERY WELL APPROXIMATED WITH BRITT INTACT. NO REDNESS OR DRAINAGE NOTED. BOWEL TONES HYPOACTIVE. ABD SOFT AND DISTENDED. PT TOLERATING WATER. DENIES QUESTIONS OR CONCERNS. PT ORIENTED TO ROOM AND NURSE CALL LIGHT. BED ALARM FOR SAFETY.
--- NOTE | 2022-03-09 22:43 | NUR ---
PT RESTING WITH EYES CLOSED. AWAKENS FOR POST OP VS. NEW BAG IV POTASSIUM INFUSING WNL. ICE WATER PROVIDED. NO FURTHER NEEDS.
--- NOTE | 2022-03-10 00:03 | NUR ---
CALL LIGHT ANSWERED. IV PUMP ALARMING. NEW BAG POTASSIUM INFUSING WNL. CHICKEN BROTH PROVIDED PER REQUEST. NO FURTHER NEEDS.
--- NOTE | 2022-03-10 00:35 | NUR ---
POST OP VS WNL. JELLO PROVIDED PER REQUEST. PT DENIES PAIN OR NAUSEA. NO NEEDS AT THIS TIME.
--- NOTE | 2022-03-10 02:48 | NUR ---
VS AND I&O COMPLETE. PT INCONTINENT OF XL AMOUNT LIQUID STOOL. NIXON CARE DONE BY STAFF. CLEAN BRIEF IN PLACE. WARM BLANKET AND CHICKEN BROTH PROVIDED. TELE PLACED PER POLICY FOR POTASSIUM 2.4. NO FURTHER NEEDS AT THIS TIME. CALL LIGHT IN REACH.
--- NOTE | 2022-03-10 03:25 | NUR ---
patient called to use the bed prasad. patient already pooped in bed. bed prasad placed. wiped and cleaned. placed fresh attends, chux and gown. warm blanket provided.
--- NOTE | 2022-03-10 05:48 | NUR ---
PT RESTING WITH EYES CLOSED. AWAKENS EASILY. VS AND I&O COMPLETE. PT ABLE TO REPOSITION SELF IN BED. CLEAR LIQUIDS PROVIDED. NO FURTHER NEEDS.
--- NOTE | 2022-03-10 06:04 | OR ---
[facility] [address], [place] [address] Signed DATE OF OPERATION: 03/09/2022 SURGEON: Trav Sharif MD PREOPERATIVE DIAGNOSES: 1. Adynamic ileus. 2. One week postop sigmoidectomy with Mccormick anastomosis for sigmoid volvulus. 3. Hypokalemia. 4. Noncompliance. POSTOPERATIVE DIAGNOSES: 1. Adynamic ileus. 2. One week postop sigmoidectomy with Mccormick anastomosis for sigmoid volvulus. 3. Hypokalemia. 4. Noncompliance. PROCEDURE: Sigmoidoscopy to 30 cm. FINDINGS: Widely patent colorectal anastomosis at about 18 cm with copious amounts of stool at about 30 cm. INDICATIONS: Sanchez is a 61-year-old noncompliant diabetic gentleman, who has been having trouble by history according to his girlfriend for over 4 months with a sigmoid volvulus of a high-grade partial large bowel obstruction. She kept asking him to have it taken care of. He had actually been in our hospital in November with what looked like pyelonephritis. He received 3 days of IV antibiotics, but never filled the ciprofloxacin when he went home. He came back and I had him for his sigmoid volvulus as well as urinary tract infection. Therefore, we had kept him on antibiotics the whole week he was here. He was hypokalemic each day and required IV replacement. We had him on a sliding scale regular insulin. He is supposed to take a couple of different diabetic pills at home. Today, after the surgery I had to be out of town for a week for continuing medical education credits. Dr. Jones watched him for 2 days and later our locum surgeon had sent him home. It sounds like he has Tylenol with Codeine for pain, which would certainly exacerbate any constipation. He told me he never went back on any pills for his diabetes or his potassium. He said he was doing fine until today when he ate breakfast and he was getting distended once again and it was painful, so he came back to the emergency room for evaluation. The white count was borderline at 11.5, but his Electronically Signed By: TRAV SHARIF MD 03/10/22 0604 PATIENT NAME: SANCHEZ COBOS OPERATIVE REPORT DATE OF : 58 REPORT #: [id number] PHYSICIAN: TRAV SHARIF MD PCP: [facility] REPORT IS CONFIDENTIAL AND NOT TO BE RELEASED WITHOUT AUTHORIZATION [facility] [address], [place] [address] Signed potassium was low at 2.4, glucose was initially 292, is down to 181. BUN and creatinine were fine with a creatinine 1.0. COVID was negative and the rest of his labs were fine except the albumin is low at 2.6. CT scan of the abdomen and pelvis showed air-fluid levels in his small bowel, large bowel, and rectum. The ER doctor talked to me just as I was leaving the ER to go do a cholecystectomy. I recommended he start with a digital rectal exam followed by probably a [employer]. Just before the digital rectal exam, he blew out large amounts of air and liquid stool a couple of times and that relieved most of his abdominal distention and his pain. After the gallbladder surgery, I came back to see him in the ER. They tried to start IV potassium, but it was burning, so that was stopped. I explained to Sanchez the above findings. I explained to him we really needed to do a sigmoidoscopy just to evaluate the anastomosis and make sure everything was healing well and there were no areas of stenosis. I can imagine that knowing that anastomosis of about 4 cm in length. He is very familiar with colonoscopy at this point. He understands there is risk including, but not limited to gas, bloating, crampy abdominal pain, bleeding, perforation requiring surgery, and missed diagnosis. He had expressed understanding wished to proceed. PROCEDURE NOTE: Sanchez was taken down to our endoscopy suite and placed in the left lateral decubitus position. He was given IV sedation with Versed and propofol per our nurse grade tamper. A digital rectal exam was performed and this was unremarkable. The adult colonoscope was introduced and we passed it up to the anastomosis, which was widely patent and healing quite nicely. No evidence of any ischemia or bleeding or ulceration and certainly no stenosis. We went up to about 30 cm where we encountered liquid stool and could not pass the scope any further. The scope was then slowly withdrawn and we withdrew the air as we went and exited the rectum. Sanchez did was then rotated into the supine position and taken into recovery room in stable condition. Trav Sharif MD ALB/MODL /[id number] cc: [facility] Trav Sharif MD Electronically Signed By: TRAV SHARIF MD 03/10/22 0604 PATIENT NAME: SANCHEZ COBOS LUCINDA MCKEON OPERATIVE REPORT DATE OF : 58 REPORT #: [id number] PHYSICIAN: TRAV SHARIF MD PCP: [facility] REPORT IS CONFIDENTIAL AND NOT TO BE RELEASED WITHOUT AUTHORIZATION [address] [place] [address] Signed Copies: [facility] TRAV SHARIF MD ~ Electronically Signed By: TRAV SHARIF MD 03/10/22 0604 PATIENT NAME: SANCHEZ COBOS OPERATIVE REPORT DATE OF : 58 REPORT #: [id number] PHYSICIAN: TRAV SHARIF MD PCP: [facility] REPORT IS CONFIDENTIAL AND NOT TO BE RELEASED WITHOUT AUTHORIZATION
--- NOTE | 2022-03-10 06:04 | CONS ---
[facility] [address], [place] [address] Signed DATE OF CONSULTATION: 03/09/2022 CHIEF COMPLAINT: Abdominal distention and generalized abdominal pain. 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 I got him a week ago for his sigmoid volvulus. He actually came to us in November with urinary tract infection on the Internal Medicine Service. There was evidence of dilated bowel at that time. He underwent a sigmoid resection per myself with a Mccormick side-to-end colorectal anastomosis, hand-sewn in 2 layers. I had to be out of town the day after and he was covered by Dr. Jones and our locum surgeon. He was discharged to home. The nursing staff told me he had done well. He came back today with recurrent abdominal distention and pain. I was actually in the ER earlier and I just finished performing gallbladder surgery. In the meantime, he has apparently had several large bowel movements and is feeling much better. His white count was up a little bit 11.5. Potassium was low at 2.4. I had to give him potassium every day while he was in the hospital. Of course, he went home and he was noncompliant. He did not resume his potassium supplements nor any of his medication for his diabetes. Of course, he went home with Tylenol with Codeine. The CT scan showed air-fluid levels throughout the small bowel, large bowel, and the rectum. The ER doctor has since changed shift and I am down seeing the patient currently. He told me he has felt much better after several large liquid bowel movements. PAST MEDICAL HISTORY: Diabetes and sigmoid volvulus. PAST SURGICAL HISTORY: Left knee, left upper extremity, left BKA, he is edentulous and a sigmoidectomy for sigmoid volvulus about 7 days ago. SOCIAL HISTORY: Likes to smoke marijuana. He has a girlfriend and his daughter is Dalia at [phone]. He prefers the [facility] and [facility]. FAMILY HISTORY: None. REVIEW OF SYSTEMS: He had 10 systems reviewed and told me he was doing great until this morning. ALLERGIES: Electronically Signed By: TRAV SHARIF MD 03/10/22 0604 PATIENT NAME: SANCHEZ COBOS SR CONSULTATION DATE OF : 58 REPORT #: [id number] PHYSICIAN: TRAV SHARIF MD PCP: [facility] REPORT IS CONFIDENTIAL AND NOT TO BE RELEASED WITHOUT AUTHORIZATION [facility] [address], [place] [address] Signed Penicillin. MEDICATION: Tylenol No. 3, but noncompliant with his potassium replacement as well as his diabetic medications. PHYSICAL EXAMINATION: VITAL SIGNS: Blood pressure 117/77, heart rate 95, respiratory rate 18, temperature 97.2, he is 99% on room air. He is 5 feet 10 inches and 92 kg. GENERAL: Sanchez is a 61-year-old gentleman, who generally appears healthy and at his stated age. He says he is feeling much better. He does not appear to be any in horrible distress at this point. LUNGS: Clear to auscultation bilaterally. HEART: Regular rate and rhythm without murmurs. ABDOMEN: Moderately distended, but soft and nontender, which is similar to what he had postoperatively. He has a lot of liquid stool in his diaper. LABORATORY DATA: His white blood count 11.5, hemoglobin 13, potassium 2.4, BUN 17, creatinine 1.0. Glucose 181, which is down from when he got here. COVID is negative. Liver function tests negative. Albumin is low at 2.6 that was the same as on his admission last week. Lipase 35. EKG shows normal sinus rhythm. RADIOGRAPHIC STUDIES: CT scan of the abdomen and pelvis is reviewed and now the reports available and he had air-fluid levels throughout the small bowel, large bowel, and rectum. ASSESSMENT AND PLAN: Sanchez is a 61-year-old gentleman, who probably has some level of adynamic ileus from chronically dilated bowel from his sigmoid volvulus for over 4 months. That anastomosis was probably 4 cm in length and is a side-to-end anastomosis. It would be unusual that it would be stenotic. He is feeling much better now after several large liquid bowel movements. They started his potassium replacement. It was following his IV, so was stopped. At this point we are going to run him down to the endoscopy suite. We will run the camera just to the anastomosis to see if we can get by and if not, he will be admitted. We are going to go ahead and get his potassium replaced and get him on a liquid diet and some polyethylene glycol and we will get him cleaned out and hopefully he will be more compliant when we get him home. I have reviewed this with Sanchez in detail. He has expressed understanding and would like to proceed. He is very familiar with colonoscopy, now this being his 3rd one. He has expressed understanding and would like to proceed. Electronically Signed By: TRAV SHARIF MD 03/10/22 0604 PATIENT NAME: SANCHEZ COBOS LUCINDA MCKEON CONSULTATION DATE OF : 58 REPORT #: [id number] PHYSICIAN: TRAV SHARIF MD PCP: [facility] REPORT IS CONFIDENTIAL AND NOT TO BE RELEASED WITHOUT AUTHORIZATION [address] [place], [place] [address] Signed Trav Sharif MD [facility] /[id number] cc: [facility] Trav Sharif MD Copies: [facility] TRAV SHARIF MD ~ Electronically Signed By: TRAV SHARIF MD 03/10/22 0604 PATIENT NAME: SANCHEZ COBOS CONSULTATION DATE OF : 58 REPORT #: [id number] PHYSICIAN: TRAV SHARIF MD PCP: [facility] REPORT IS CONFIDENTIAL AND NOT TO BE RELEASED WITHOUT AUTHORIZATION
--- NOTE | 2022-03-10 07:37 | NUR ---
PT RESTING EYES CLOSED AT TIME OF SHIFT REPORT, LEFT UNDISTURBED. CALL LIGHT IN REACH, NEEDED ITEMS AT BEDSIDE
--- NOTE | 2022-03-10 08:19 | NUR ---
HOSPITALIST IN TO SEE PT HE IS AWAKE AND ANSWERING QUESTIONS APPROPRIATELY. PT DENIES PAIN STATES HE IS HUNGRY. JELLO TO BEDSIDE WITH PO MEDS. DR SHARIF IN EARLIER PLANS GOING FORWARD DISCUSSED AT LENGTH ALL QUESTIONS ANSWERED
--- NOTE | 2022-03-10 08:25 | NUR ---
MED REC COMPLETE
--- NOTE | 2022-03-10 10:57 | NUR ---
PT IS COOPERATIVE DOZES AWAKENS EASILY, PT DENIES PAIN AT THIS TIME AGREES IBUPROFEN WAS EFFECTIVE FOR ABDOMINAL PAIN CAUSED BY MOVEMENT EARLIER IN THE SHIFT. PT HAS HAD COPIOUS AMOUNTS OF FLUIDS NO NAUSEA OR OTHER COMPLAINTS. PT HAD A LARGE LIQUID STOOL STAFF ASSIST TO GET CLEANED UP.
--- NOTE | 2022-03-10 11:13 | NUR ---
PT CALLED APPROPRIATLY FOR ASSISTANCE AFTER AN INCONTINENT BM. THIS CNA2 PERFORMED NIXON CARE, CHANGED LINEN, INCONTINENT PAD, AND BRIEF. PT WAS ABLE TO ROLL FROM SIDE TO SIDE W/O ASSISTANCE. NO COMPLAINTS OF PAIN. REQUESTED CHICKEN BROTH THAT WAS GIVEN. NO OTHER REQUESTS AT THIS TIME. CALL LIGHT IN REACH.
--- NOTE | 2022-03-10 14:38 | NUR ---
PT SHOWERED MOSTLY INDEPENDANTLY WITH SHAMPOO/SOAP USE OF WASHCLOTHS ON SHOWER CHAIR. PT HAD INCONTINENT BM EPISODE DURING. PT DRESSED AND UP IN CHAIR W/FESH WATER AND WARM BLANKETS. CARE CONE BY THIS JONELLE/NEY ALEXANDRA.
--- NOTE | 2022-03-10 14:47 | NUR ---
PT UP IN THE CHAIR AFTER HAVING HAD A SHOWER. AGREES IT WAS REFRESHING AND STATES HE DIDN'T WANT TO GET OUT. CONTINUES DRINKING FLUIDS NO EMESIS OR C/O NAUSEA. RESTING EYES CLOSED.
--- NOTE | 2022-03-10 17:00 | NUR ---
PT DOZING IN RECLINER CHAIR APPEARS COMFORTABLE, BREATHING EVEN AND UNLABORED
--- NOTE | 2022-03-10 19:27 | NUR ---
REPORT RECEIVED FROM DAY SHIFT RN. PT SITTING IN RECLINER RESTING WITH EYES CLOSED. RESPIRATIONS EVEN. CALL LIGHT IN REACH.
--- NOTE | 2022-03-10 20:30 | NUR ---
PT SITTING IN RECLINER. INCONTINENT OF XL AMOUNT OF BROWN LIQUID BM. UP TO BSC WITH FWW TO HAVE XL LARGE AMOUNT LIQUID BM. STAFF ASSIST WITH NIXON CARE. BACK TO BED. CLEAN ATTENDS IN PLACE. PT USING URINAL BUT UNABLE TO TELL WHEN HAVING BM. BARRIER CREAM USED ON SCROTUM AND FOLDS. ABD SOFT AND DISTENDED. MIDLINE INCISION OPEN TO AIR. APPROX ONE INCH SUPERIOR TO UMBILICUS NOTED TO BE OPEN WITH SCANT AMOUNT SEROSANG DRAINAGE. PRN FOR INCISIONAL/ABD PAIN ADMIN PER EMAR. EVENING ASSESSMENT COMPLETE. IVF INFUSING WNL. PT DENIES QUESTIONS OR CONCERNS. CALL LIGHT IN REACH.
--- NOTE | 2022-03-10 22:01 | NUR ---
IV PUMP ALARMING. ISSUE RESOLVED. PT USED URINAL AND INCONTINENT OF XL AMOUND LIQUID BROWN BM. NIXON CARE DONE AND CLEAN BRIEF PLACED. BARRIER CREAM APPLIED. PT ABLE TO REPOSITION SELF IN BED. NO FURTHER NEEDS.
--- NOTE | 2022-03-11 00:15 | NUR ---
SPOT CHECK SpO2. 95% ON RA. HR 80'S. PT RESTING WITH EYES CLOSED. NEW BAG IVF INFUSING WNL.
--- NOTE | 2022-03-11 01:00 | NUR ---
THIS VARNISH MAKER AND CONTRACT ADMINISTRATOR ANDRINA CLEANED/CHANGED PATIENT'S INCONTINENT XL LIQUID BM. GOWN, CHUX AND ATTENDS CHANGED. BROTH AND ICE WATER PROVIDED PER PATIENT'S REQUEST.
--- NOTE | 2022-03-11 02:27 | NUR ---
IV PUMP BEEPING. ISSUE RESOLVED. PT DOZING ON AND OFF. ATTENDS DRY. DENIES NEEDS AT THIS TIME. CALL LIGHT IN REACH.
--- NOTE | 2022-03-11 06:04 | NUR ---
PT INCONTINENT OF LARGE AMOUNT OF LIQUID STOOL. THRESHING MACHINE OPERATOR ASSIST WITH NIXON CARE. IV PUMP ALARMING. ISSUE RESOLVED. PT DENIES PAIN OR NAUSEA, JUST "A LITTLE" INCISIONAL PAIN. ABD LESS DISTENDED THIS AM THAN LAST NOC. CHICKEN BROTH PROVIDED. NO FURTHER NEEDS. CALL LIGHT IN REACH.
--- NOTE | 2022-03-11 07:42 | NUR ---
PT UP IN RECLINER SNORING AT TIME OF SHIFT EXCHANGE. CALL LIGHT IN REACH NEEDED ITEMS AT CHAIRSIDE.
--- NOTE | 2022-03-11 08:58 | NUR ---
PT CONTINUES UP IN THE CHAIR POTASSIUM INFUSING. HE REPORTS HIS ABDOMEN DOESN'T HURT BAD TODAY WHEN HE COUGHS OR LAUGHS. BREAKFAST PROVIDED WITH A CAUTION NOT TO EAT TOO FAST, OR TOO MUCH. PT VERBALIZES UNDERSTANDING. EATS 100% THEN REQUESTS MORE COFFEE AND BROTH. DENIES NAUSEA OR INCREASED PAIN.
--- NOTE | 2022-03-11 11:04 | NUR ---
Pt provided with broth per request, IV pump alarming occluded, resolved.
--- NOTE | 2022-03-11 11:37 | NUR ---
PT CONTINUES UP IN THE CHAIR. DAUGHTER IS PRESENT, DR MULLER COMPLETES VISIT AT THIS TIME. PT DENIES PAIN, AGREES HE IS COMFORTABLE. ASKS WHEN LUNCH IS TO BE SERVED.
--- NOTE | 2022-03-11 19:38 | NUR ---
REPORT RECEIVED FROM DAY SHIFT RN. PT SITTING IN RECLINER ALERT AND ORIENTED TALKING ON THE PHONE. DENIES NEEDS. WHITE BOARD UPDATED. CALL LIGHT IN REACH.
--- NOTE | 2022-03-11 20:41 | NUR ---
PT UP TO BSC WITH FWW AND 1PA TO HAVE MIXED LIQUID BM WITH SOME UNDIGESTED FOOD. ABLE TO DO OWN NIXON CARE. BACK TO BED. EVENING ASSESSMENT COMPLETE. SCHEDULED MEDS ADMIN PER EMAR. PRN FOR BACK PAIN GIVEN PER REQUEST. ABD SOFT AND DISTENDED. MIDLINE INCISION WELL APPROXIMATED EXCEPT ONE SMALL AREA SUPERIOR TO UMBILICUS. NO REDNESS OR DRAINAGE NOTED. PT DENIES NAUSEA. PUDDING PROVIDED. SCD IN PLACE. IVF INFUSING WNL. PT DENIES QUESTIONS OR CONCERNS. CALL LIGHT IN REACH.
--- NOTE | 2022-03-11 22:39 | NUR ---
THIS IMPLEMENTATION LEAD AND PRIMARY RN DENY HELPED PATIENT BACK TO BED FROM BEDSIDE COMMODE.
--- NOTE | 2022-03-11 23:30 | NUR ---
CALL LIGHT ANSWERED. WARM BLANKET PROVIDED PER REQUEST. REPORTS PAIN IS IMPROVED. DENIES FURTHER NEEDS. CALL LIGHT IN REACH.
--- NOTE | 2022-03-12 02:48 | NUR ---
CALL LIGHT ANSWERED. PT USED URINAL AND NOTICED HE HAD AN "ACCIDENT." INCONTINENT OF LARGE AMOUNT BM. STAFF ASSIST WITH NIXON CARE. BARRIER CREAM USED. JELLO AND FRESH WATER PROVIDED. NO FURTHER NEEDS. CALL LIGHT IN REACH.
--- NOTE | 2022-03-12 05:46 | NUR ---
PT INCONTINENT OF MIXED LOOSE/UNDIGESTED FOOD BM. STAFF ASSIST WITH NIXON CARE. CLEAN BRIEF IN PLACE. VS AND I&O COMPLETE. PT DENIES PAIN OR NAUSEA. JELLO PROVIDED PER REQUEST. NO FURTHER NEEDS. CALL LIGHT IN REACH.
--- NOTE | 2022-03-12 07:10 | NUR ---
Report from Giovanna Uriarte RN. Patient resting in bed with eyes closed. Respirations even and unlabored. Allowed to rest at this time. Call light in reach.
--- NOTE | 2022-03-12 08:50 | NUR ---
PATIENT ALERT AND ORIENTED. SITTING UP IN BED, EATING BREAKFAST. REQUESTING BROTH AFTER DONE EATING BREAKFAST STATING HE IS STILL HUNGRY. ASSESSMENT COMPLETED. MEDICATIONS ADMINISTERED PRESCRIBED. SMALL OPEN AREA NOTED TO GLUTEAL FOLD, LEFT OPEN TO AIR AT THIS TIME DUE TO FREQUENT STOOL. BARRIER CREAM APPLIED.
--- NOTE | 2022-03-12 10:29 | NUR ---
Patient plans to go home with girl friend Zee [phone]. The both live in a large trailer. Has a walker, wheelchair and electric scooter. Does not like the walker and wheelchair. Bharat plans to go to [facility] to get the equipment replaced. Patient has a BKA and will need to use DME at home. Patient states he likes to hop around in is trailer. Patient encouraged to use his DME.
--- NOTE | 2022-03-12 12:21 | NUR ---
Patient up in chair. IV continues infusing potassium. Continuous fluids stopped. Patient educated on need for repeat UA. new urinal provided, request to call when he voids. Call light in reach.
--- NOTE | 2022-03-12 13:42 | NUR ---
UP IN RECLINER, ASSESSMENT COMPLETED. MIDLINE INCISION REMAINS WELL APPROXIMATED WITH MINIMAL SEROSANGUINOUS DRAINAGE NOTED. URINE COLLECTED AND SENT TO LAB. DENIES OTHER NEEDS. IV POTASSIUM COMPLETED, CONVERTED TO SL. CALL LIGHT IN REACH.
--- NOTE | 2022-03-12 17:39 | NUR ---
Patient up in chair most of today. Multiple loose stools today. PO and IV potassium administered. Sodium bicarb initiated orally today. Insulin given with lunch, not needed with breakfast or supper. Small open area to gluteal cleft, unlikely pressure related due to frequent loose stools and occasional incontinence. Left MOLD COOLER and barrier cream applied. IV fluids DC'd today. Remains on room air. Abdomen remains distended, bowels active.
--- NOTE | 2022-03-12 17:48 | NUR ---
PT IN CHAIR. VITALS AND IS AND OS COMPLETE. FAMILY IN ROOM. NO FURTHER NEEDS. CALL LIGHT WITHIN REACH.
--- NOTE | 2022-03-12 20:07 | NUR ---
Pt in bed, denies c/o pain at this time, turns and repositions self. alert and oriented. on room air. lungs clear dim at bases. SL LFA patent. abd large soft firm, HEA, had a semiliquid bm. turns and repositions self . snack and diet pop given. CBG 146 received 1 units insulin. call light and fluids at bedside. Declined stool softner and Miralax "I pup my guts out, I had too many stools today, my butt hurts from that too". using attends
--- NOTE | 2022-03-12 22:22 | NUR ---
RESTING, ON ROOM AIR, NO DISTRESS, TURNS AND REPOSITIONS SELF IN BED, NICK, TELE#[address] USES URINAL, VOIDING LARGE AMOUNTS OF CLEAR YELLOW URINE, TOLERATING LIQUIDS WELL. USES CALL LIGHT, NO C/O PAIN
--- NOTE | 2022-03-12 23:47 | NUR ---
Pt resting, tele#[address] SR at thist ochoa, eyes closed, awakes easily, pulse went up 160's non sustained, pt was awake, "I just used the urinal and pulled my arms over my head to pull myself up in the bed" sted, no c/o CP or SOB, goes back to bed, used urinal, voding clear yellow urine.
--- NOTE | 2022-03-13 01:54 | NUR ---
Pt used call light, was incontinent of large amount of semiliquid bm. Skin care, clean attends in place. cooperative.
--- NOTE | 2022-03-13 04:16 | NUR ---
PT AWAKES EASILY, ON ROOM AIR, USES URINAL, WAS INCONTINENT OF SEMILIQUID BM AGAIN, SKIN CARE DONE, LOTION TO NIXON AREA, CLEAN ATTENDS IN PLACE, HELPED, HELPED WITH REPOSITIONED IN BED. CLEAN ATTENDS IN PLACE. NICK TELE#[address] SR, PT DENIES C/O PAIN, NO SOB WITH EXERTION, TURNS SELF IN BED
--- NOTE | 2022-03-13 04:50 | NUR ---
Pt on room air. Follows instructions, uses urinal, voiding large amounts of clear urine. inc of bowel x2, skin care, attends in place, red gonzalo, lotion to area. many snacks given, CBG 146, received ss insulin. tolerating liquidsw, no emesis, no c/o pain. abd distented, midline abd incision edges well aprrox. open to air, uses call light, alarms on.
--- NOTE | 2022-03-13 07:40 | NUR ---
Dr. Gipson to my office and states concern pt returns to the hospital but does not follow up with any appts to him or to [facility]. He does not manage his diabetes, and the girlfriend states he is incontinent at night and is unsure if he can return. Discussed I will speak with Bharat.
--- NOTE | 2022-03-13 08:40 | NUR ---
Assessment done, morning meds given. BG 124, resp even and unlabored. Pt sitting up eating breakfast, asks for juice x 2 and more milk. Discussed carb countign and blood sugar control, pt given more milk for cereal and sugar free jello. Pt denies pain at this time. Abd pad applied to midline incision for moderate amount of serosanguinous drainage after shower. Incision well approximated, but dripping ss fluid from top end. No further needs at this time, call light in reach.
--- NOTE | 2022-03-13 12:53 | NUR ---
IN ROOM TO GIVE MEDICATION, CASE MANAGEMENT IN ROOM AT THIS TIME WELL. WILL PLAN TO ASSIST WITH TEACHING ADVISED RE: DIABETES, INSULIN, COMPLIANCE, INJECTIONS.
--- NOTE | 2022-03-13 14:30 | NUR ---
In and had a lengthy discussion with Bharat. Let him know about my conversation with Dr. Gipson. We then discussed why he has not followed up with [facility] or diabetes education. He did not follow up with Dr. Mora and was fired from their clinic per the pt. He has not gone ahead with his prosthesis due to this. I have made him at least 3 appts with [facility] and they put him on a call list to remind him of his appt and set up transportation for the [place]. Pt states he has just not been able to deal with everything. I asked if he thinks he is depressed as when he was awaiting his amputation he had stated he was very depressed. He states he was and he called his brother and they completed a sing. I asked if he would like me to set him up with counseling through [facility] and he states no. He does not believe in counseling or antidepressants. We then discussed why he is sabotaging his health. His beliefs are he is using his body and the creator will take care of him. What happens to his body are trials he needs to learn from. Pt does not plan on changing any behaviors at this time.
--- NOTE | 2022-03-13 14:56 | NUR ---
Education provided to pt on drawing up and injecting insulin using saline and prop. Pt has difficulty seeing the small merino but was able to draw up small unit amounts correctly and has a girlfriend at home who can help as well and his glasses are at home. Pt practiced until he stated "I feel like I could do this myself". Pt is requesting to go home today, will look into plan for d/c.
--- NOTE | 2022-03-13 15:45 | NUR ---
PER DR KOLE DICKENS POTASSIUM AND BICARB IN A.M. FOR POSSIBLE D/C TOMORROW. LABS ORDERED, PT AWARE.
--- NOTE | 2022-03-13 17:07 | NUR ---
IN ROOM TO GIVE MEDICATION. PT ADMINISTERED OWN INSULIN AND WAS ABLE TO DO A MOCK-DRAW UP OF 1 U SALINE WITH MINIMAL ASSISTANCE. FRESH ABD PAD APPLIED TO MIDLINE INCISION FOR MODERATE AMOUNT OF SS FLUID SATURATION. INSICION IS CLEAN AND DRY EXCEPT FOR SMALL DEHISCED SPOT <1 CM NEAR TOP OF INCISION WHICH IS LEAKING. PT DENIES PAIN AT THIS TIME.
--- NOTE | 2022-03-13 20:10 | NUR ---
IN TO TAKE VS AND ACCU CHECK, KODAK WILKINSON PROVIDED x1, NO FURTHER NEEDS AT THIS TIME
--- NOTE | 2022-03-13 20:20 | NUR ---
PT SITTING UP IN BED, ROOM AIR, CLEAR LUNGS, DENIES C/O CP OR SOB WITH EXERTION. REPOSITIONS SELF IN BED. LBKA , SL PATENT. MIDLINE ABD INCISION WITH SBD IN PLACE DUE T SS DRAINAGE. YENY, HAVING STOOLS, DECLINED MIRALAX AT THIST RODNEY, TOOK STOOL SOFTNER. TOLERATING SNACKS AND FLUIDS WELL. CBG 145, WILL RECEIVE 1 UNTI SS INSULIN. POOR VISION HAD SOME ISSUES WHILE TRYING TO MIMICK TO DRAW INSULIN FROM SALINE BOTTLE, REQUIRED SEVERAL CUES, UNSTEADY HANDS AND HARD TIME LOOKING AT LINES IN SYRINGE. CALL LIGHT AT HANDS REACH
--- NOTE | 2022-03-13 22:59 | NUR ---
AWAKE, WATCHING TV, TURNS AND REPOSITIONS SELF IN BED, LOW ABD DRESSING INTACT. C/O BACK AND ABD PAIN 11/24, MEDICATED WITH TYLENOL 1000MG PO. USES CALL LIGHT, TOLERATING LIQUIDS WELL, HAS HAD SEVERAL SUGAR FREE PUDIN , JELLO ,CRACKERS AND DIET POP. NO EMESIS. UP TO BR USING 1PA/FWW HAD A BM, VOIDED IN TOILET, BACK TO BED, DID OWN CARE, VERY COOPERATIVE, CALL LIGHT AT HANDS REACH
--- NOTE | 2022-03-14 00:37 | NUR ---
USES CALL LIGHT, AWAKE, WATCHING PHONE/TV. NO C/O PAIN, EXTRA PILLOW AND FRESH WATER GIVEN ON REQUESTS. TURNS AND REPOSITIONS SELF IN BED. VOIDING QS URINE USES URINAL. CALL LIHT AT HANDS REACH.
--- NOTE | 2022-03-14 02:37 | NUR ---
RESTING, EYES CLOSED, NO DISTRESS, TURNS AND REPOSITIONS SELF IN BED, ON ROOM AIR, CALL LIGHT AND FLUIDS AT BEDSIDE
--- NOTE | 2022-03-14 05:21 | NUR ---
Pt on room air, abd large low midline abd incision w scant amount of ss drainge, dressing to area. Pt has been medicated x1 with Tylenol c/o abd/back pain, effective. Pt instructed on ways to draw insulin from vial, and to follow diabetic diet lifestyle, cont to reinforce. Pt CBG 145 receive 1 unit ss Humolog Insulin. Pt had several snacks and diet pops on requests this shift, no emesis, up to br several times, inc of urine pluse used urinal and br, was incontinent of bm x2. skin care and attends in place, lotion to gonzalo area. LBKA used 1PA/walker tolerated very well, turns and repositions self in bed. uses call light. alert and oriented forgetful at times, pleasant and cooperative.
--- NOTE | 2022-03-14 05:59 | NUR ---
PT CALLING FOR BROTH, PT WANTS MORE COFFEE AND BROTH, PT HUNGERY, ENGURAGED TO TO WAIT FOR BREAKFAST, PT SAYS 'OKAY', NO FURTHER NEEDS
--- NOTE | 2022-03-14 06:27 | NUR ---
Dr Gipson in room seeing pt
--- NOTE | 2022-03-14 07:58 | NUR ---
PATIENT UP IN CHAIR THIS MORNING FOR MEAL, ACU CHECKS AND AM CARE COMPLETED, PT HAS NO OTHER NEEDS AT THIS TIME. CALL LIGHT WITHIN REACH.
--- NOTE | 2022-03-14 08:25 | NUR ---
ASSESSMENT DONE, MORNING MEDS GIVEN. PT SITTING UP IN CHAIR WATCHING TV. RESP EVEN AND UNLABORED. PT EXPRESSES DESIRE TO GO HOME, COMPLAINS ABOUT BEING TOLD THE SAME THING BY THE DOCTOR EACH DAY. RESASSURANCE AND EDUCATION ON CONDITION, LAB RESULTS GIVEN. PT EXPRESSES UNDERSTANDING. MIRALAX AND COLACE HELD FOR SEVERAL LIQ BM'S YESTERDAY AND 2 SINCE MIDNIGHT TODAY. PT DENIES PAIN, ABD PAD ON MIDLINE INCISION CHANGED IT HAD FALLEN OFF. MODERATE AMOUNT OF SS DRAINAGE ON GOWN, NEW GOWN GIVEN. PT LEFT TO EAT BREAKFAST WITH CALL LIGHT AND PERSONAL ITEMS IN REACH.
--- NOTE | 2022-03-14 09:26 | NUR ---
PATIENT UP IN CHAIR AFTER MEAL. VITALS AND I/O'S COMPLETED AND DOCUMENTED. PT HAS NO OTHER NEEDS AT THIS TIME. CALL LIGHT WITHIN REACH.
--- NOTE | 2022-03-14 10:00 | NUR ---
In and spoke with pt. He is ready for discharge. Asks I call his daughter as she will pick him up. He states he wants a systems planner wc, discussed transfer wcs. Pt does not want an additional transfer chair. Pt already has a wc at home.
--- NOTE | 2022-03-14 11:00 | NUR ---
Called and spoke with pts daughter. She states she will pick pt up on discharge. She will take pt to his girlfriends home on discharge. She also states she does not know the address. Updated I cannot send HH in if we do not have an address.She agrees to take him to his appts and to pharmacy to sweet pickled fruit maker meds. She is aware he has not followed up with past appts with multiple
--- NOTE | 2022-03-14 11:15 | NUR ---
Received RX from Dr. Zavala. Faxed to [facility]. Spoke with pt and updated to medications and Diabetes supplies on the RX.
--- NOTE | 2022-03-14 11:56 | NUR ---
Called [facility] and clarified dose for potassium citrate tab 1 po TID. Dose will be [address] Zavala. Faxed updated RX to [facility] and called and left a message for Leonor the pharmacist.
[2022-03-14] MEDS ORDERED: ONETOUCH VERIO1 EAC2 VI (12:01)
[2022-03-14] MEDS ORDERED: LANCETS1 EACH MISC (12:01)
[2022-03-14] MEDS ORDERED: ALCOH-WIPE1 EACH MISC (12:02)
[2022-03-14] MEDS ORDERED: GLYBURIDE2.5 MG PO (12:03)
[2022-03-14] MEDS ORDERED: ONE TOUCH VERI1 EACH MISC (12:03)
[2022-03-14] MEDS ORDERED: UROCIT-K10 MEQ PO (12:05)
[2022-03-14] MEDS ORDERED: COLACE100 MG PO ×2 (12:05→12:07)
[2022-03-14] MEDS ORDERED: MIRALAX119 GM PO (12:06)
--- NOTE | 2022-03-17 15:05 | NUR ---
PATIENT CALLED FOR POST DISCHARGE F/U. DID NOT ANSWER, VOICEMAIL STATED HE DOES NOT ACCEPT MESSAGES AND TRY AGAIN. CALLED [facility]. SPOKE WITH ALHAJI IN PHARMACY. PATIENT WAS ABLE TO DIRECTOR OF LOGISTICS ALL MEDS ORDERED.
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
== END 2022-03-14 13:20 | disposition home or self-care (01) | DRG 389 ==
LOC: ED 13:40 → MS 13:41
PROVIDERS: ADMIT Colon & Rectal Surgery; ATTEND Colon & Rectal Surgery
PROC: 0DJD8ZZ Inspection of Lower Intestinal Tract, Via Natural or Artificial Opening Endoscopic (ICD-10-PCS; principal; 2022-03-11)
DX: K56.0 Paralytic ileus (principal); E87.20 Acidosis, unspecified; Z20.822 Contact with and (suspected) exposure to COVID-19; E11.9 Type 2 diabetes mellitus without complications; E87.6 Hypokalemia; R31.9 Hematuria, unspecified; E83.51 Hypocalcemia; Z90.49 Acquired absence of other specified parts of digestive tract; Z91.14 Patient's other noncompliance with medication regimen; Z87.891 Personal history of nicotine dependence; Z98.818 Other dental procedure status; Z98.890 Other specified postprocedural states; Z88.0 Allergy status to penicillin
CPT/HCPCS: 00811; 36415; 36600; 74177; 80048; 80053; 81001; 82803; 83036; 83690; 83735; 84100; 84134; 85025; 86140; 93005; 93010; 97161; A9270; C9803; J1650; J1815; J2250; J2704; J3480; J7060; J7121; Q9967; U0003

== ENCOUNTER 2022-04-23 00:23 | Inpatient (IN) | payer MEDICARE, OTHER ==
[~2022-04-23] VITALS: Ht 177.8 cm; Wt 90.1 kg
[~2022-04-23 00:23] MED LIST changes: +ALCOH-WIPE1 EACH MISC; +COLACE100 MG PO; +GLYBURIDE2.5 MG PO; +LANCETS1 EACH MISC; +MIRALAX119 GM PO; +ONE TOUCH VERI1 EACH MISC; +ONETOUCH VERIO1 EAC2 VI; +UROCIT-K10 MEQ PO
--- OUTSIDE RECORDS SUMMARY | 2022-04-23 00:30 | XMS ---
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 Physician Roll Out Manager Current PHONE: Unknown JULIUS ARDON Family [facility] Current PHONE: [phone] DIANE Nicholson/Pennock 11/21/2020-[facility] PHONE: [phone] Doris has no Care Guidelines for this patient. Care History Medical/Surgical 01/08/2021 [facility] - PATIENT IS DIANE FERRELL, \T\middot;\T\nbsp; PLEASE REFER PATIENT TO [facility] FOR NON EMERGENT MEDICAL NEEDS. \T\middot;\T\nbsp; [facility] CAN SEE PATIENTS SAME DAY FOR APTS IF PATIENT CALLS FIRST THING IN THE MORNING. E.D. VISIT COUNT (12 MO.) 4 [facility] H. TOTAL 4 NOTE: Visits indicate total known visits. ED/UCC VISIT TRACKING (12 MO.) 04/23/2022 00:23 [facility] [place] TYPE: Emergency COMPLAINT: - ABD PAIN 03/09/2022 13:40 [facility] [place] TYPE: Emergency COMPLAINT: - ABDOMINAL PAIN 02/24/2022 12:46 [facility] [place] TYPE: Emergency COMPLAINT: - FLANK PAIN,ABD PAIN 12/12/2021 07:14 [facility] [place] TYPE: Emergency COMPLAINT: - DIFFICULTY BREATHING INPATIENT VISIT TRACKING (12 MO.) 03/11/2022 14:08 [facility] [place] TYPE: Medical Surgical COMPLAINT: - ILEUS DIAGNOSES: - Type 2 diabetes mellitus without complications - Other dental procedure status - Other dental procedure status - Hematuria, unspecified - Hypocalcemia - Allergy status to penicillin - Personal history of nicotine dependence - Hypokalemia - Patient's other noncompliance with medication regimen - Patient's other noncompliance with medication regimen - Hypocalcemia - Hematuria, unspecified - Contact with and (suspected) exposure to COVID-19 - Type 2 diabetes mellitus without complications - Paralytic ileus - Paralytic ileus - Acidosis, unspecified - Acidosis, unspecified - Other specified postprocedural states - Ileus, unspecified - Other specified postprocedural states - Hypokalemia - Acquired absence of other specified parts of digestive tract - Acquired absence of other specified parts of digestive tract - Personal history of nicotine dependence - Contact with and (suspected) exposure to COVID-19 - Allergy status to penicillin 02/24/2022 19:52 [facility] TYPE: Medical Surgical COMPLAINT: - SIGMOID VOLVULUS DIAGNOSES: - Alcohol abuse, uncomplicated - Other specified congenital malformations of intestine - Type 2 diabetes mellitus with hyperglycemia - Type 2 diabetes mellitus without complications - Other specified congenital malformations of intestine - Other hemorrhoids - Other stimulant use, unspecified, uncomplicated - Klebsiella pneumoniae [K. pneumoniae] as the cause of diseases classified elsewhere - Alcohol abuse, uncomplicated - Pulmonary fibrosis, unspecified - Type 2 diabetes mellitus with hyperglycemia - Other hemorrhoids - Allergy status to penicillin - Other dental procedure status - Hypokalemia - Volvulus - Acquired absence of left leg below knee - Klebsiella pneumoniae [K. pneumoniae] as the cause of diseases classified elsewhere - Pulmonary fibrosis, unspecified - Urinary tract infection, site not specified - Other stimulant use, unspecified, uncomplicated - Hypokalemia - Acquired absence of left leg below knee - Urinary tract infection, site not specified - Other dental procedure status - Allergy status to penicillin 12/12/2021 14:00 [facility] [place] TYPE: Medical [...] - Personal history of nicotine dependence - correction (current) use of oral hypoglycemic drugs - Contact with and (suspected) exposure to COVID-19 - Severe sepsis without septic shock - Other dental procedure status - Acute kidney failure, unspecified - Other wood preparation supervisor (current) drug therapy - Type 2 diabetes mellitus with diabetic chronic kidney disease - Allergy status to penicillin - guest 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
--- NOTE | 2022-04-23 07:22 | NUR ---
PT ARRIVED TO FLOOR VIA STRETCHER. 3L NC IN PLACE. PT IS LETHARGIC. WAKES TO VERBAL AND PHYSICAL STIMULI. PT ABLE TO ANSWER QUESTIONS. NO DENTURES IN PLACE SO UNDERSTANDING THE PT IS SOMEWHAT DIFFICULT. PT IS ORIENTED X4. UPPER AIRWAY IS CONGESTED. PT WOUGHING UP LARGE AMOUNTS OF BROWN SPUTUM. NG TUBE PLACED TO LIWS. PT UNABLE TO ANSWER SOME ADMISSION QUESTIONS HE IS TIRED AND NOT WANTING TO WAKE UP FOR ALL ADMISSION QUESTIONS. BOWEL TONES HYPOACTIVE. ABDOMEN IS DISTENDED. PT REPORTS MORE PAIN IN RIGHT SHOULDER THEN ABDOMEN. ASSESSMENT COMPLETED. PT HAS L BKA. OLD MIDLINE ADMONINAL INCISION MOSTLY HEALED WITH SMALL SCAB PRESENT. IV FLUIDS INFUSING PER ORDER. MEDICAITONS ADMINSTERED.
--- NOTE | 2022-04-23 10:31 | NUR ---
TELEMETRY PLACED PER PROTOCAL OF POTASSIUM AT 2.3.
--- NOTE | 2022-04-23 10:32 | NUR ---
DR MULLER UPDATE ON POTASSIUM OF 2.6, U/O OF 300, HR SUSTAINED AT 120. DR ENAMORADO ROUND ON PT THIS MORNING.
--- NOTE | 2022-04-23 11:18 | NUR ---
UPDATE PROVIDED TO BROTHER LYNETTE WITH PATIENT CONCENT.
--- NOTE | 2022-04-23 12:25 | NUR ---
TO BEDSIDE FOR BREATHING TREATMENT PT MORE AWAKE THIS AFTERNOON. MORE RESPONSIVE. DR MULLER UPDATE ON PT RIGHT SHOULDER PAIN. TO PLACE ORDERS.
--- NOTE | 2022-04-23 12:46 | NUR ---
SCD PLACED TL RLE PER ORDER. TEMPURATURE REASSESSED AND IS 100.1.
--- NOTE | 2022-04-23 13:36 | NUR ---
bolus and potassium started. lab in to draw blood. ice chips provided. new iv placed in right forearm. pt tolerted well.
--- NOTE | 2022-04-23 14:03 | NUR ---
WANTING TO SLEEP AND NOT ANSWER QUESTIONS.PLAN OF CARE IS TO GO HOME WITH LIFE PARTNER WHEN DISCHARGED PER PATIENT.
--- NOTE | 2022-04-23 14:40 | NUR ---
PATIENT IN BED RESTING WITH EYES CLOSED. VITALS AND I&O'S CHARTED. TEMP. HIGH, RN NOTIFIED. CALL LIGHT IN REACH. NO FURTHER NEEDS AT THIS TIME,
--- NOTE | 2022-04-23 15:00 | NUR ---
PT DEVELOPED FEVER OF 102.5. DR MULLER NOTIFIED. PUTTING IN ORDERS NOW. CALL ALSO MADE TO DR SHARIF WHO WAS IN SURGERY AND DEFEREDTO DR MULLER. DR SHARIF TO CALL BACK TO FLOOR ONCE DONE.
--- NOTE | 2022-04-23 15:02 | NUR ---
LAB IN ROOM DRAWING BLOOD CULTURES.
--- NOTE | 2022-04-23 15:35 | NUR ---
TYLENOL ADMISNTERED. PT REPOSITIONED IN BED. MORE ICE CHIPS PROVIDED AND ICE PACK FOR RIGHT SHOULDER PAIN. PT REPORTING 10/10 PAIN WITH MOVEMENT. 0.5MG DILAUDID ADMINSTERED. LAB DONE DRAWING. NS AT 200ML/HR STARTED.
--- NOTE | 2022-04-23 17:00 | NUR ---
CALL MADE TO DR MULLER REGAURDING INCREASE IN FEVER TO 102.7, HR STILL SUSTAINED AT 130. UPDATED ON URINE OUTPUT AND DECREASING BLOOD PRESSURE. ORDER RECEIVED TO ADMINSTER ANOTHER NS BOLUS. [id number] 20K AND START 200ML NS /HR AFTER BOLUS COMPLETES. ORDERS PLACED. DR MULLER TO BEDSIDE TO ASSESS PT WELL.
--- NOTE | 2022-04-23 17:16 | NUR ---
DR SHARIF CALLED AND UPDATED ON FEVER, PLAN OF CARE AND FLUID/MED CAHNGES. ORDER RECIEVED TO GIVE 650MG ASPRIN, PULL NG TUBE AND PLACE ON CLEARS.
--- NOTE | 2022-04-23 17:30 | NUR ---
NG TUBE DC'D AND ASPRIN ADMINISTERED. ROCEPHINE STARTED.
--- NOTE | 2022-04-23 18:00 | NUR ---
BOLUS COMPLETED. NS INFUSING AT 200ML/HR.
--- NOTE | 2022-04-23 18:27 | NUR ---
PATIENT IN BED RESTING. VITALS AND I&O'S CHARTED. TEMP. LOWER THAN LAST VITALS BUT STILL HIGH, RN NOTIFIED. CALL LIGHT IN REACH. NO FURTHER NEEDS AT THIS TIME.
--- NOTE | 2022-04-23 19:40 | NUR ---
report from jovon rn, pt resting in bed with call light in reach , posada chronic to gravity, left bk amp chronic, tele with hr 120's, pt denies need, cough noted. ngt not present - abd firm. denies pain.
--- NOTE | 2022-04-23 19:55 | NUR ---
FEVER REASSESSED AND IS 99.5.
--- NOTE | 2022-04-23 20:53 | NUR ---
PRRIMARY RN NOTIFIED RE BLOOD SUGAR 78.
--- NOTE | 2022-04-23 21:08 | NUR ---
pt bs was 73, apple ensure provided and 15 min recheck was 83. will cont. to recheck in another 15 min. rn providing pt with neb tx, lungs wet/noisey with productive cough and velásquez sputum, pt awakens and drinks well but goes back to sleep - hr increased, pt notes right shoulder is painful,
--- NOTE | 2022-04-23 21:39 | NUR ---
THIS MANAGER SOCIAL MEDIA AND MANAGER SOCIAL MEDIASade ALEXANDRA CHANGED PATIENT'S INCONTINENT BM. AARON CARE DONE. CHANGED SOILED GOWN.
--- NOTE | 2022-04-23 23:01 | NUR ---
dr becerra updated on phone, watch fluids closely with bp and hr. check with rt about cpt vest.
--- NOTE | 2022-04-23 23:36 | NUR ---
this rn talked with RT about pt and sputum production, dr asking about a vest? RT advised that he reccomends and is starting vapotherm.
--- NOTE | 2022-04-24 00:37 | NUR ---
TALKED WITH DR MULLER - MARIBEL BRAVO FOR TYLENOL PO.
--- NOTE | 2022-04-24 00:46 | NUR ---
pt reports pain in back with cough- reports missing a disk in back? iv and po meds provided for comfort.
--- NOTE | 2022-04-24 01:37 | NUR ---
PT COUGHING AND RESTLESS IN BED CO PAIN WELL. PT VITALS AND IS AND OS TAKEN, RN NOTIFIED TO COME IN ROOM DUE TO ELEVATED TEMP, HR, AND RR. PT BRIEF CHECKED AND OK. AARON EMPTIED. NO FURTHER NEEDS. CALL LIGHT WITHIN REACH
--- NOTE | 2022-04-24 02:21 | NUR ---
call to dr becerra, re low bp, increase hr, increase resp rate - 22-25, vapotherm on, is on way to see pt on the unit. swetha put out 650 ml urine - sediment noted.
--- NOTE | 2022-04-24 02:38 | NUR ---
DR MULLER HERE TO SEE PT, STAT CXR ORDERED, AND IV FLUIDS STOPPED.
--- NOTE | 2022-04-24 04:05 | NUR ---
PT TRSF TO CCU - REPORT TO HERMILA GILES- AFEBRILE - LEVAPHED DRIP TO START FOR LOW PRESSURES.
--- NOTE | 2022-04-24 04:27 | NUR ---
PATIENT TOLERATING VAPOTHERM 35L 31% Fi02. RR 20. HR 100-105. BP IMPROVED WITH LEVOPHED 4 MCG/MIN. MAP >65. PATIENT REPORTS FEELING TIRED AND HAVING PAIN IN HIS BACKSIDE. PATIENT ASSISTED TO POSITION FOR COMFORT. SCDs IN PLACE. IV ABX PER ORDER, SITE WNL X2. LUNG SOUNDS ARE COARSE AND CRACKLES NOTED IN SPIKE BASES. PATIENT IS AFEBRILE. ORIENTED. DENIES ANY FURTHER NEEDS.
--- NOTE | 2022-04-24 04:45 | NUR ---
ATTEMPT TO CALL HOSPITALIST X2. AWAITING RETURN CALL TO DISCUSS LABS.
--- NOTE | 2022-04-24 04:58 | NUR ---
PRN DILAUDID PROVIDED FOR SHOULDER AND ABD PAIN. PATIENT DENIED NAUSEA. TOLERATING CLEAR LIQUIDS. AAOX4. DENIES FEELING SOB. HR [address] VAPOTHERM 35L 31% Fi02. ENCOURAGED PATIENT TO KEEP HIS MOUTH CLOSED MUCH POSSIBLE TO ALLOW POSITIVE PRESSURE FROM VAPOTHERM TO BUILD. PATIENT VERBALIZED UNDERSTANDING.
--- NOTE | 2022-04-24 05:31 | NUR ---
DISCUSSED PATIENT'S LABS WITH . ORDERS FOR MAG AND K+ REPLACEMENT RECEIVED.
--- NOTE | 2022-04-24 05:43 | CONS ---
[facility] [address], [place] [address] Signed DATE OF CONSULTATION: 04/23/2022 CHIEF COMPLAINT: Cough and back pain. HISTORY OF PRESENT ILLNESS: Sanchez is a 61-year-old noncompliant diabetic, who initially came to us in November of this year. He had uncontrolled diabetes and a Klebsiella UTI and profound hypokalemia. 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 Mora. He yet to seek out a prosthesis. There was some concern about sigmoid volvulus back in November, although the followup study seemed to be better. I got him back in February of this year before the sigmoid volvulus. Again, we had decompressed him and we treated his Klebsiella UTI mainly with the Rocephin, but we kept Flagyl on-board as well. We decompressed him twice, while we corrected his diabetes and his hypokalemia. I did his open sigmoid resection on 02/28/2022 with a colorectal anastomosis hand-sewn in two layers side-to-end. I was gone out of state, Dr. Jones covered a couple of days and then our local surgeon covered after that and send him home with Tylenol with codeine. He came back with adynamic ileus again with uncontrolled diabetes and hypokalemia. These were two of the leading causes for adynamic ileus. Again, it took 3-4 days to resolve that, he did well and decompressed nicely and was tolerating diet, was sent back home. We had [facility] involved and he is supposed to be taking his glyburide 2.5 mg p.o. daily along with his potassium citrate 20 mEq p.o. t.i.d. He actually came back to the office for followup and he looked and felt much better. He always has a moderately protuberant abdomen, but it is soft. Unfortunately, he started having trouble with the cough and some respiratory issues and significant back pain. His girlfriend had brought him into the emergency room last night. In fact, he does have influenza A, but COVID is negative. Once again, he has bacteria in his urine and the urine culture is pending. I suspect that to be recurrent Klebsiella. He is supposed to go see the urologist via referral to his [facility]. Once again, he has profound hypokalemia below 3. His albumin is low at 2.5. Chest x-ray was done, he has increased markings in his lungs. An NG tube in the stomach with some gas in the large and small bowel. CT scan was done because he always complains of lower abdominal pain, when he is coughing and moving around. It is always in the suprapubic area. It showed bronchial thickening with no obvious bowel obstruction, but the colon still dilated around 8 cm with air-fluid levels. As expected, he still has a few inflammatory changes around his anastomosis. I had decompressed that previously after his surgery and found that the anastomosis is widely pain healing very nicely without any granulation tissue or ulcerations and so forth. He was kept in the ER overnight because we had a lack of nurses. He has received saline and potassium. I was asked to admit him as his general surgeon. We do have our hospitalist service see him as well. He has been started on his insulin and his potassium replacement. He had an NG tube placed in the ER, but nothing is come out of that, and he has a Bowles catheter placed for close urine output. I just met with him here and he is a little tired, but overall says he is feeling Electronically Signed By: TRAV SHARIF MD 04/24/22 0543 PATIENT NAME: SANCHEZ COBOS CONSULTATION DATE OF : 58 REPORT #: [id number] PHYSICIAN: TRAV SHARIF MD PCP: [facility] REPORT IS CONFIDENTIAL AND NOT TO BE RELEASED WITHOUT AUTHORIZATION [facility] [address], [place] [address] Signed better. PAST MEDICAL HISTORY: Sigmoid volvulus, uncontrolled diabetes, Klebsiella urinary tract infection, hypokalemia, and internal hemorrhoids. PAST SURGICAL HISTORY: Includes left knee arthroscopy and [place] B[place] [address] Mora, left upper extremity surgery, left lower extremity surgery in 1982, teeth extractions, and an open sigmoid resection for volvulus on 02/28/[address] Sharif and a colonoscopy in February. He has had three colonoscopy since February 2022. SOCIAL HISTORY: He likes marijuana. His girlfriend is Zee at [phone] and Zee's daughter happens to be Dalia at [phone]. He prefers [facility]. He uses [facility]. FAMILY HISTORY: None. REVIEW OF SYSTEMS: He had 10 systems reviewed and there is nothing new. ALLERGIES: Penicillin. MEDICATIONS: 1. Glyburide 2.5 mg p.o. daily. 2. Potassium citrate 20 mEq p.o. t.i.d. PHYSICAL EXAMINATION: VITAL SIGNS: His blood pressure is 128/75, heart rate 114, respiratory rate 23, temperature is 97.8, he is 99% on room air. He is 5 feet 10 inches, at 91 kg, body mass index 28. GENERAL: Sanchez is a 61-year-old gentleman, who is lying supine semi-recumbent in his hospital bed. Our nurse is at the bedside. He frequently sleeps and keeps his eyes closed, but he is easily awakened and interactive. He said his main complaint is his back pain. He always has a little bit of pain in the lower abdomen. He said it is from all the coughing. I asked him about his bowel movements. He said they were fine. There is nothing in the NG tube. He has a Bowles catheter in place. LUNGS: Coarse breath sounds bilaterally. HEART: Tachycardic. ABDOMEN: Moderately protuberant at his baseline, but it is soft and nontender. His midline incision is healing very well. Electronically Signed By: TRAV SHARIF MD 04/24/22 0543 PATIENT NAME: SANCHEZ COBOS CONSULTATION DATE OF : 58 REPORT #: [id number] PHYSICIAN: TRAV SHARIF MD PCP: [facility] REPORT IS CONFIDENTIAL AND NOT TO BE RELEASED WITHOUT AUTHORIZATION [facility] [address], [place] [address] Signed LABORATORY DATA: His white blood count 13.6, hemoglobin 12, neutrophils 76, potassium 2.6, BUN 52, creatinine 3.3, glucose 81. Liver function tests negative. BNP is 981. Albumin 2.5, lipase 40. Influenza A is positive. COVID is negative. Urine shows the protein, blood, and bacteria, and the urine culture is pending. RADIOGRAPHIC STUDIES: Chest x-ray shows increased markings in the lung. The NG tubes in the stomach and there is gas in the large and small bowel. CT scan of abdomen and pelvis shows bronchial wall thickening along with no obvious bowel obstruction, the colon is a little dilated to 8 cm consistent with his adynamic ileus. ASSESSMENT/PLAN: Sanchez is a 61-year-old gentleman, who comes in with respiratory issues, cough, and he is positive for influenza A, which is going around the community. Once again he has profound hypokalemia and uncontrolled diabetes. It looks like his Klebsiella urinary tract infection has returned and he is having back pain. He has mentioned something about his shoulder, so they are going to x-ray his shoulder. He is completely deconditioned, having undergone a left BKA last year. He really would benefit from some physical therapy and some attention from nursing staff at the time of discharge until he can get back on track. In the meantime, we are going to hydrate him and replace his potassium. We will allow him a few ice chips at this point. He did receive some Levaquin in the ER. I reviewed this with Sanchez and Dr. Limon as well as the nurse. Trav Sharif MD ALB/MODL /[id number] cc: Trav Sharif MD Patient Chart [facility] Copies: TRAV SHARIF MD Electronically Signed By: TRAV SHARIF MD 04/24/22 0543 PATIENT NAME: SANCHEZ COBOS CONSULTATION DATE OF : 58 REPORT #: [id number] PHYSICIAN: TRAV SHARIF MD PCP: [facility] REPORT IS CONFIDENTIAL AND NOT TO BE RELEASED WITHOUT AUTHORIZATION [facility] [address] [place] [id number] Signed [facility] ~ Electronically Signed By: TRAV SHARIF MD 04/24/22 0543 PATIENT NAME: SANCHEZ COBOS SR CONSULTATION DATE OF : 58 REPORT #: [id number] PHYSICIAN: TRAV SHARIF MD PCP: [facility] REPORT IS CONFIDENTIAL AND NOT TO BE RELEASED WITHOUT AUTHORIZATION
--- NOTE | 2022-04-24 06:23 | NUR ---
VANCO, MAG AND POTASSIUM STARTED PER ORDER. VERIFIED COMPATABILITY AND ASSURED IV SITES ARE FUNCTIONAL X2. LEVOFED CONTINUES AT 6 MCG/MIN. PATIENT TOLERATING VAPOTHERM AND APPEARS TO BE RESTING COMFORTABLE. CALL LIGHT IN REACH.
--- NOTE | 2022-04-24 07:30 | NUR ---
REPORT RECIEVED, CARE OF PT ASSUMED AT THIS TIME.
--- NOTE | 2022-04-24 08:53 | NUR ---
LEVOPHED TITRATED OFF AT THIS TIME. PT ALERT AND ORIENTED X4. EATING CLEAR LIQUID TRAY. ONE UNIT OF INSULIN GIVEN PER SLIDING SCALE. POTASSIUM INFUSING. PT COMPLAINS OF GENERALIZED PAIN WORSE IN BACK AND ON SHOULDERS. LIDOCAINE PATCH PLACED ON RIGHT SHOULDER PER PT REQUEST. VANCOMYCIN CONTINUES TO INFUSE. DR MULLER IN ROOM AT THIS TIME. PLAN OF CARE FOR DAY ESTABLISHED. CALL LIGHT WITHIN REACH. WILL CONTINUE TO MONITOR.
--- NOTE | 2022-04-24 09:55 | NUR ---
LAST BAG OF POTASSIUM INFUSING. PT COMPLAINS OF GENERALIZED PAIN. BLOOD PRESSURES AT 87 SYSTOLICALLY BUT MAP GREAT THE 65. HR 100 AT REST. PT AFEBRILE. URINE OUTPUT ADEQUATE. SPO2 = 100% ON VAPOTHERM SETTINGS TITRATED DOWN AT THIS TIME
--- NOTE | 2022-04-24 10:42 | NUR ---
PT AT 100 PERCENT ON VAPOTHERM. PLACED ON 3 L NC AT THIST IEM. PT REPORTS GENERALIZED PAIN. PRN PAIN MEDICATION ADMINISTERED. CALL LIGHT WITHIN REACH. WILL CONTINUE TO MONITOR.
--- NOTE | 2022-04-24 11:33 | NUR ---
PER AM MEETING AND FOLLOW UP WITH LILIAM GILES, NO CHANGE IN DISCHARGE PLAN AT THIS TIME. MD ATTEMPTING TO TITRATE OFF LOPRESSOR DRIP AND RETURN PATIENT TO MED/SURG FLOOR.
--- NOTE | 2022-04-24 12:30 | NUR ---
THIS RN TOOK OVER PATIENT CARE AT THIS TIME. REPORT RECIEVED FROM ENVIRONMENTAL FIELD TECHNICIAN RN.
--- NOTE | 2022-04-24 13:30 | NUR ---
THIS RN IN TO SEE PATIENT. PATIENT VISITING WITH FAMILY. PATIENT APPEARS VERY UNCOMFORTABLE. THIS RN IN TO ASSESS PATIENT. PRN PAIN MEDICATION GIVEN TO PATIENT FOR PAIN 9/10 IN LEFT SHOULDER AND GENERALIZED PAIN. PATIENT REPOSITIONED IN BED. FAMILY AT THE BEDSIDE. WILL CONTINUE TO CLOSELY MONITOR.
--- NOTE | 2022-04-24 14:45 | NUR ---
MEDICATIONS GIVEN. SEE EMAR FOR ADMINISTRATION. PATIENT RESTING IN BED. PATIENT REPOSITIONED WITH NEY SANABRIA. PATIENTS BACK SIDE CLEANED AND NEW LINEN PLACED. PATIENT TOELRATED WELL. PATIENT NOW RESTING ON HIS SIDE AT THIS TIME. WILL CONTINUE TO CLOSELY MONITOR.
[2022-04-24] MEDS ORDERED: VITAMIN B-121000 MCG PO (15:35)
[2022-04-24] MEDS ORDERED: VITAMIN D350 MCG PO (15:36)
[2022-04-24] MEDS ORDERED: MIRALAX17 GM PO (15:38)
[2022-04-24] MEDS ORDERED: IBU-200200 MG PO (15:39)
[2022-04-24] MEDS ORDERED: VENTOLIN HFA18 GM (15:39)
[2022-04-24] MEDS ORDERED: CHLORASEPTIC177 M1 MM (15:39)
--- NOTE | 2022-04-24 15:45 | NUR ---
MED REC COMPLETE
--- NOTE | 2022-04-24 17:00 | NUR ---
PATIENT PRN PAIN MEDICATIONS GIVEN. PATIENT REPORTS GENERALIZED PAIN 8/10. WILL CONTINUE TO CLOSELY MONITOR.PATIENT FOOD PROVIDED. WILL CONTINUE TO CLOSELY MONITOR.
--- NOTE | 2022-04-24 18:00 | NUR ---
PATIENTS HR TRENDING UP AND PATIENT IS HAVING CHILLS. PATIENTS ORAL TEMP IS 98.8. PATIENT STATES "I FEEL MISERABLE". PRN TYLENOL GIVEN. WILL MONITOR PATIENTS TEMPERATURE. I&O'S DONE. ASSISTED PATIENT WITH HIS CLEAR LIQUID TRAY. PATIENT DENIES ANY OTHER NEEDS AT THIS TIME. PATIENT ON 3L NC WITH SPO2 97%. WILL CONTINUE TO CLOSELY MONITOR.
--- NOTE | 2022-04-24 21:00 | NUR ---
PATIENT PROVIDED WITH PRN PAIN MEDS AND COUGH MEDS FOR GENERAL ACHES AND PAINS IN ADDITION TO ONGOING BACK AND ABD PAIN. PATIENT REPOSITIONED IN BED AND PROVIDED WITH SOME JELLO AND ICE WATER. PATIENT TOLERATING 3L NC. BREATHING IS LABORED WITH ACTIVITY, LIKE WHEN PATIENT ASSIST WITH REPOSITIONING. LUNG SOUNDS ARE COARSE AND DIM. HE CONTINUES TO HAVE THICK ABDI SPUTUM. ABD IS MODERATELY DISTENDED, FIRM, BOWEL SOUNDS ACTIVE. PATIENT DENIES NAUSEA. VS STABLE. ORAL TEMP WNL. PATIENT RESTING IN BED WATCHING TV, SIPPING BROTH. NO OTHER NEEDS AT THIS TIME.
--- NOTE | 2022-04-24 22:00 | NUR ---
PATIENT PROVIDED A TITRATED DOSE OF PRN PAIN MEDS TO MAXIMIZE COMFORT. PATIENT CONTINUES TO COUGH AND MOAN IN PAIN. REPORTS 8/10 ABD PAIN. PATIENT IS DIAPHROETIC AND REQUIRED A FULL BED CHANGE AND PARTIAL BED BATH. LIQUID STOOL ALSO NOTED, NIXON CARE DONE AND BARRIER CREAM APPLIED. ALYVEN APPLIED TO RIGHT BUTTOCK FOR SOME BREAK DOWN AND ABRASIONS. VS STABLE. TEMP WNL. PATIENT FEELS BETTER AFTER THIS AND IS POSITIONED FOR COMFORT. TOLERATING 2L NC. LIGHTS DIMMED. CALL LIGHT IN REACH.
--- NOTE | 2022-04-25 00:57 | NUR ---
ENCOURAAGED COUGH AND DEEP BREATHING TO PATIENT. PATIENT ABLE TO GET A LARGE AMOUNT OF SPUTUM COUGHED UP. TOLERATING 1L NC. ORAL TEMP WNL. VS STABLE. DENIES FURTHER NEEDS. CALL LIGHT IN REACH.
--- NOTE | 2022-04-25 02:15 | NUR ---
ACCU CHECK AND SSI PER ORDER. PATIENT WOKE EASILY TO VOICE AND TOUCH. TOLERATING 1L NC. GOOD URINE OUTPUT. ASKING FOR SNACKS, PATIENT IS DROWSEY. ENCOURAGED PATIENT TO REST AND HE AGREES. CALL LIGHT IN REACH.
--- NOTE | 2022-04-25 07:08 | NUR ---
patient has had large amounts of urine out in his posada this shift; posada emptied. patient reports pain upon waking, provided prn pain meds. hob eleavted and jello and fresh ice water provided. patient denies gi upset. vs stable. tolerating room air.
--- NOTE | 2022-04-25 07:30 | NUR ---
PATIENT SHIFT REPMCKENNA RECIVED FROM SENIOR DATA WAREHOUSE ARCHITECT RN. PATIENT RESTING IN BED. PATIENT CALLS APPROPRIATELY. PER REPORT PATIENT ON RA. WILL CONTINUE TO CLOSELY MONITOR.
--- NOTE | 2022-04-25 09:30 | NUR ---
PATIENT RESTING IN BED. PATIENTS ASSESSMENT COMPELTED. PATIENTS BREATH SOUNDS COARSE AND DIMINISHED. PATIENT ON RA. SPO2 95%. RR- EVEN AND UNLABORED. BOWEL TONES ACTIVE. PATIENTS ABD IS DISTENDED, BUT PER PATIENT IS HIS NORMAL. PATIENT HAS A BKA. AARON CATHETER PRESENT WITH CLEAR YELLOW URINE. PATIENTS VITALS STABLE. MEDICATIONS GIVEN PER ORDERS. NO OTHER NEEDS AT THIS TIME. WILL CONTINUE TO CLOSELY MONITOR.
--- NOTE | 2022-04-25 10:15 | NUR ---
THIS RN WITH PATIENT TO X-RAY DEPARTMENT TO DO IMAGING.
--- NOTE | 2022-04-25 10:50 | NUR ---
THIS RN BACK TO THE UNIT WITH PATIENT. PATIENT TOLERATED MOVEMENT OKAY. PATIENTS BACK, ABD, AND RIGHT SHOULDER ARE ALL VERY PAINFUL. PATIENT REPOSITIONED IN BED WITH PILLOW SUPPORT. PATIENT NOW RESTING IN BED. WILL CONTINUE TO CLOSELY MONITOR.
--- NOTE | 2022-04-25 11:55 | NUR ---
MD SHARIF IN TO SEE PATIENT. REVIEWED PLAN OF CARE. PATIETNS POTASSIUM WILL CONTINUE TO BE CORRECTED. PATIENT WILL BE ADVANCED TO FULL LIQUIDS. PATIENT HAD A BM LAST NIGHT. PATIENT AGREEABLE TO PLAN OF CARE. WILL CONTINUE TO CLOSELY MONITOR.
--- NOTE | 2022-04-25 12:58 | NUR ---
PATIENT EATING HIS SOUP AT THIS TIME. PATIETN RESTING IN BED AND WATCHING TV. NO IMAGING RESULTS BACK YET AT THIS TIME. WILL CONTINUE TO CLOSELY MONITOR.
--- NOTE | 2022-04-25 13:36 | NUR ---
INTO PT'S ROOM. PT REPORTS HE DOES NOT NEED ANYTHING. CALL LIGHT WITHIN REACH.
--- NOTE | 2022-04-25 15:00 | NUR ---
PATIENT BLODO SUGAR CHECKED AND INSULIN GIVEN. PATIENT AWAKE VISITING WITH FAMILY AT THE BEDSIDE. PATIENT DENIES ANY OTHER NEEDS AT THIS TIME. PATIENT REMAINS ON RA WITH SPO2 97%. WILL CONTINUE TO CLOSELY MONITOR.
--- NOTE | 2022-04-25 17:00 | NUR ---
PATIENT RESTING IN BED SLEEPING AT THIS TIME. VITALS STABLE. RR EVEN AND UNLABORED. CALL LIGHT IN REACH. WILL CONTINUE TO CLOSELY MONITOR.
--- NOTE | 2022-04-25 17:54 | NUR ---
PATIENT HAD AN EPISODE OF HEMOPTASIS. PATIENT INITIALLY STATED "ITS JUST MY JELLO". MANAGER FIXED INCOME HERE TO GASTROCULT IT AND IT CAME BACK POSITIVE. PATIENT STATES "ITS FROM ME COUGHING". SMALL AMOUNT IS NOTED IN KIDNEY BASIN AT THE BEDSIDE. MD MCKEON IN THE UNIT AND UPDATED. NO OTHER ORDERS AT THIS TIME.
--- NOTE | 2022-04-25 20:07 | NUR ---
RN IN ROOM TO ASSESS PT - PT DYSPNIC AND COMPLAINS OF PAIN WITH COUGH. SPUTUM REMAINS BLOODY, MD AND RT AWARE. PT PROVIDED A BLANKET TO SPLINT ABD WITH WHILE COUGHING TO PREVENT STRAIN. LUNG SOUNDS DIM THROUGHOUT WITH FINE CRACKLES AT BASES POST NEB TX. PRN COUGH SUPPRESENT ADMINISTERED WELL PRN PAIN MEDICATION. PT REMAINS ON ROOM AIR AT THIS TIME.
--- NOTE | 2022-04-25 22:17 | NUR ---
RN ROUNDING ON PT - PT AWAKE IN ROOM ON CELL PHONE. PT STATES HIS PAIN IS "BETTER". RR 20 AND SP02 97% ON ROOM AIR. PT DENIES NEEDS AT THIS TIME.
--- NOTE | 2022-04-25 22:50 | NUR ---
PT REPOSISIONED TO LEFT SIDE WITH PILLOWS UNDERNEATH. PT DENIES FURTHER NEEDS. CALL LIGHT AT SIDE.
--- NOTE | 2022-04-26 01:15 | NUR ---
RN ROUNDING ON PT - PT RESTING WITH EYES CLOSED, REMAINS PROPPED ON LEFT SIDE WITH PILLOWS. RR EVEN AND UNLABORED. SP02 96% ON ROOM AIR. CALL LIGHT AT SIDE.
--- NOTE | 2022-04-26 03:19 | NUR ---
RN ROUNDING ON PT - PT RESTING IN BED WITH EYES CLOSED. VS WNL. CALL LIGHT AT SIDE.
--- NOTE | 2022-04-26 04:00 | NUR ---
RN IN ROOM TO ASSESS PT - PT INC OF LARGE LIQUID BM. FULL LINEN CHANGE COMPLETE ALONG WITH AARON CARE. PT PROVIDED PRN PAIN MEDICATION, RATES 9/10 IN ABD AND RIGHT SHOULDER AFTER TURNING IN BED FOR CLEANING. COUGH REMAINS PRODUCTIVE WITH FROTHY/BLOODY SPUTUM. SPO2 STABLE ON ROOM AIR.
--- NOTE | 2022-04-26 05:55 | NUR ---
RN ROUNDING ON PT - RESTING IN BED ON BACK WITH EYES CLOSED. RR EVEN AND UNLABORED. SP02 96% ON ROOM AIR. CALL LIGHT AT SIDE. AARON EMPTIED AND I/O RECORDED.
--- NOTE | 2022-04-26 07:30 | NUR ---
PATIENT SHIFT REPORT RECIEVED FROM REAR LOAD TRUCK DRIVER RN. PATIENT RESTING I NBED ON RA. SPO2 97%. RR- EVEN AND UNLABORED. PER REPORT PATIENT SLEPT WELL OVER NIGHT. PATIENT HAD SEVERAL OTHER EPISDOES OF HEMOPTASIS IN THE NIGHT. MD MCKEON WAS NOFITIED AGAIN. SEE NEW ORDERS IN THE NIGHT.
--- NOTE | 2022-04-26 08:30 | NUR ---
MD MCKEON AND MD SHARIF AT THE BEDSIDE. REVIEWED PLAN OF CARE. SEE NEW ORDERS. PATIENT STATES HE HAD A GOOD NIGHT. ASSESSMENT COMPELTED. PATIENTS BREATH SOUNDS REMAIN COARSE AND DIMINISHED. PATIENT ON RA WITH SPO2 97%. RR EVEN AND UNLABORED. OCCASIONAL HARSH COUGH NOTED. WILL GIVE PRN MEDICATIONS NEEDED FOR COUGH. BOWEL TONES ACTIVE. PATIENT PASSING GAS. PATIENT DISTENDED. MILD EDEMA IN BLE. AARON CATHETER PRESENT. URINE CULTURES BACK. SEE NEW ORDERS. WILL DO STOOL STUDIES TODAY. WILL CONTINUE TO CLOSELY MONITOR.
--- NOTE | 2022-04-26 09:30 | NUR ---
MEDICATIONS GIVEN. PATIENT BREAKFAST AT THE BEDIDE. PATIENT DENIES ANY OTHER NEEDS AT THIS TIME. WILL CONTINUE TO CLOSELY MONITOR.
--- NOTE | 2022-04-26 11:30 | NUR ---
PATIENT AWAKE WATCHING TV. PATIENT GIVEN FRESH WATER AND ICE CHIPS. PATIENT REPOSITIONED FOR COMFORT. WILL CONTINUE TO CLOSELY MONITOR.
--- NOTE | 2022-04-26 13:00 | NUR ---
PATIENT RESTING IN BED. PATIENT CONTINUES WITH A HARSH PAINFUL COUGH. NEW ORDERS FOR COUGH MEDICINE. SEE EMAR. LILIAM GILES IN TO GIVE PATIENT MEDICATIONS. WILL CONTINUE TO CLOSELY MONITOR.
--- NOTE | 2022-04-26 14:30 | NUR ---
PATIENT HAD AN EPISODE OF SVT IN THE 180'S FOR 20 SECONDS WHILE SLEEPING. THISRN IN TO ASSESS PATIENT. PATIENT WAS ASLEEP AND DOESNT FEEL ANY DIFFERENT. MD MCKEON NOTIFIED. NO NEW ORDERS AT THIS TIME. WILL CONTINUE TO CLOSELY MONITOR.
--- NOTE | 2022-04-26 15:00 | NUR ---
THIS RN IN WITH PATIENT AND HIS DAUGHTER AT THE BEDSIDE. PROVIDER NETWORK MANAGER PROVIDED FOR PATIENTS TABLET. MEDICATIONS GIVEN. PATIENT AWAKE AND REQUESTED JUICE. CALLED THE KITCHEN TO REQUEST. PATIENTS DAUGHTER WILL BRING IN SOME GATORADE PER PATIENTS REQUEST. PATIENT DENIES ANY OTHER NEEDS AT THIS TIME.
--- NOTE | 2022-04-26 16:14 | NUR ---
PATIENT UP IN BED VISITING WITH HIS FAMILY AT THE BEDSIDE. PATIENT ASSESSMENT REMAINS UNCHANGED. PATIENT HAS SLEPT MORE TODAY, BUT DOES WAKE EASILY. PATIENT DENIES ANY NEEDS AT THIS TIME. WILL ALLOW PATIENT TIME TO VISIT WITH FAMILY.
--- NOTE | 2022-04-26 17:55 | NUR ---
PATIENT AWAKE AND HAVING 8/10 PAIN IN ABD WORSE WITH COUGHING. PRN COUGH MEDICINE GIVEN AND PRN PAIN MEDICATION. DINNER SET UP FOR PATIENT. REPOSITIOMNED PATIENT IN BED. I/O COMPLETED. PATIENT DENIES ANY OTHER NEEDS AT THIS TIME. WILL CONTINUE TO CLOSELY MONITOR.
--- NOTE | 2022-04-26 20:00 | NUR ---
REPORT RECEIVED FROM DAY SHIFT RN. PT IS RESTING IN BED W/ HIS EYES CLOSED AND APPEARS COMFORTABLE. VSS. RESPIRATIONS EVEN AND UNLABORED. NO NOTED DISTRESS. TOLERATING IVF. CALL LIGHT AT HAND. WILL CONT TO MONITOR.
--- NOTE | 2022-04-26 22:00 | NUR ---
PT ASSESSMENT AND MEDICATION ADMINISTRATION COMPLETED. PT REQUESTED PRN FOR PAIN RELIEF- PRN ADMINISTERED PER ORDER. ACCU CHECK COMPLETED; INSULIN ADMINISTERED ORDERED. PT IS TOLERATING IVF. AARON IS DRAINING WELL W/O NOTED DIFFICULTY. VSS. NO DISTRESS NOTED. CALL LIGHT AT HAND. WILL CONT TO MONITOR.
--- NOTE | 2022-04-27 00:30 | NUR ---
PT IS RESTING IN BED W/ HIS EYES CLOSED AND APPEARS COMFORTABLE AT THIS TIME. VSS. CALL LIGHT AT HAND. NO DISTRESS NOTED. TOLERATING IVF. AARON CATHETER DRAINING. WILL CONT TO MONITOR.
--- NOTE | 2022-04-27 02:24 | NUR ---
PT MOANING OUT IN PAIN AND REQUESTING PAIN MEDICATION; PRN ADMINISTERED ORDERED. PT TOLERATING IVF. AGNIESZKA PATENT. VSS. ACCU CHECK 152- SLIDING SCALE INSULIN ADMINISTERED PER ORDER. CALL LIGHT AT HAND. WILL CONT TO MONITOR.
--- NOTE | 2022-04-27 03:48 | NUR ---
PT IS RESTING IN BED WITH HIS EYES CLOSED AT THIS TIME. TOLERATING IVF ORDERED. VSS. RESPIRATIONS EVEN AND UNLABORED. NO DISTRESS NOTED. CALL LIGHT WITHIN REACH. WILL CONT TO MONITOR.
--- NOTE | 2022-04-27 06:26 | NUR ---
PT IS RESTING IN BED AND APPEARS COMFORTABLE FOLLOWING PRN MEDICATION ADMINISTRATION. VSS. AARON PATENT W/ ADEQUATE OUTPUT. CALL LIGHT WITHIN REACH. WILL CONT TO MONITOR.
--- NOTE | 2022-04-27 11:59 | NUR ---
PT INCONTENT OF STOOL AT THIS TIME, SAMPLE SENT TO LAB AT THIS TIME FOR C-DIFF.
--- NOTE | 2022-04-27 12:36 | NUR ---
FAMILY INTO SEE PATIENT AT THIS TIME, SOME DRUMMING NOTED FOR PT.
--- NOTE | 2022-04-27 14:42 | NUR ---
PT TRANSFERED TO M/S AT THIS TIME, I&O'S COMPLETED, REPORT GIVEN TO EJ GILES. PT TRANSFERED VIA BED. DAUGHTER IS AT BEDSIDE WITH HIM. ALL PERSONAL BELONGINGS SENT WITH PT, DAUGHTER AND PT SAY HE HAD A CELL PHONE, BUT THIS AUTOGRAPHER AND THE COIL WRAPPER KAYLEY ALSO SO STATED THAT THE PT HAS NOT HAD A CELL PHONE IN HIS ROOM SINCE WE CAN ON THIS MORNING AT 7AM TODAY. DAUGHTER IS CONCEREND THAT ONE OF PT SAUL MAY HAVE TAKEN IT LAST EVENING AFTER SHE LEFT. PT IPAD IS PRESENT BUT NOT HIS CELL PHONE.
--- NOTE | 2022-04-27 14:54 | NUR ---
PT DRESSING CHANGED WITH CCU RN AT BEDSIDE. PT MOANING IN PAIN WITH ROLLING TO SIDE TO SIDE, PT DOES NOT TOLERATE LAYING FLAT AND RESP RATE INCREASED TO MOVING IN BED. PT ABLE TO HELP WITH MOVING IN BED. PT TO MED-SURG ROOM WITH DAUGHTER AT BEDSIDE. PT ASLEEP AND WAKES EASILY. CALL LIGHT WITHIN REACH AND BED IN LOW.
--- NOTE | 2022-04-27 15:11 | NUR ---
PT WOUND ON COCCYX: THREE SMALL SKIN TEAR TYPE WOUNDS. ONE LARGE ALLEVYIN REMOVED. TWO SMALL AND ONE MEDIUM ALLEVYIN PLACED WITH MEDIHONEY. DEPENDS IN PLACE.
--- NOTE | 2022-04-27 17:19 | NUR ---
HOB INCREASED AND PT MOANING IN PAIN , PT REPORTS BACK PAIN. MEDICATION GIVEN. HOB DECREASED AND PT REPORTS PAIN IS BETTER. PT EASILY FALLS BACK TO SLEEP.
--- NOTE | 2022-04-27 17:46 | NUR ---
PT DINNER AT BEDSIDE AND HOB INCREASED AND EATING FOOD. PT DENIES CONCERNS.
--- NOTE | 2022-04-27 20:00 | NUR ---
PATIENT CALLED TO REPORT THAT HE HAD LARGE BOWEL MOVEMENT IN THE BED AND REQUESTED TO BE CLEANED UP. PROVIDED NIXON CARE, CATH CARE. CHANGED ALLEVYNS TO COCCYX THAT SATURATED IN STOOL. XXL LIQUID BM. PATIENT ABLE TO TURN IN BED AND ASSIST. RATES PAIN 8/10 ON PAIN SCALE, REQUESTING IV DILAUDID. NOTIFIED DR. SALAZAR OF PATIENT REQUEST AND REPORTED PAIN FINDINGS, INCLUDING PATIENT APPEARING RESTLESS GROANING OUT IN BED. NEW ORDER FOR PO NORCO.
--- NOTE | 2022-04-27 21:30 | NUR ---
ADMINISTERED PAIN MEDICATION PER JUL. FULL BODY ASSESSMENT DONE. ADMINISTERED HS MEDICATIONS. PROVIDED ICE AND WARM BLANKETS. ABDOMEN APPEARS LESS DISTENDED, PATIENT PASSING GAS. LUNG SOUNDS COURSE THROUGHOUT. NO OTHER NEEDS AT THIS TIME.
--- NOTE | 2022-04-28 04:00 | NUR ---
PATIENT APPEARS TO BE RESTING EASY, EYES CLOSED. APPEARS CALM. NO NEEDS AT THIS TIME.
--- NOTE | 2022-04-28 06:13 | NUR ---
PATIENT REQUESTING PAIN MEDICATION, RATES PAIN 8/10 ON PAIN SCALE. REPORTS PAIN MORE GENERALIZED IN BACK AND ABDOMEN, WORSENS WITH COUGHING. ADMINISTERED NORCO PO PER JUL.
--- NOTE | 2022-04-28 07:31 | NUR ---
REPORT RECIEVED FROM TUBE MACHINE OPERATOR. PATIENT IS SLEEPING WITH REGULAR RESP.
--- NOTE | 2022-04-28 08:22 | NUR ---
MORNING ASSESSMENT IS COMPLETE. PATIENT WAS SLEEPING SOUNDLY, WOKE UP FOR BREAKFAST, RATES LOWER BACK PAIN 9/10. PATIENT SITTING UP IN BED FOR BREAKFAST. NEXT PAIN MEDICATION TIMES ARE ON THE BOARD FOR PATIENT. LIDOCAINE PATCH TO LOWER BACK.
--- NOTE | 2022-04-28 10:24 | NUR ---
PATIENT GIVEN ONE NORCO FOR 7/10 PAIN.
--- NOTE | 2022-04-28 11:35 | NUR ---
DR. SHARIF IN TO SEE PATIENT.
--- NOTE | 2022-04-28 14:00 | NUR ---
RECVD CONSULT FROM DR. SHARIF REGARDING PLACEMENT OF THE PATIENT AT DISCHARGE. DOWN TO PATIENTS ROOM TO DISCUSS. ADVISED PATIENT OF MEDICARE PAYMENT FOR PLACEMENT. ADVISED THAT [place] AND [facility] ARE THE CLOSET FACILITIES TAKING PATIENTS AT THIS TIME. PATIENT IS UNSURE IF HE WANTS TO PURSUE PLACEMENT AT THIS TIME. WILL FOLLOW UP WITH PATIENT TOMORROW TO DISCUSS FURTHER.
--- NOTE | 2022-04-28 15:53 | NUR ---
PATIENT GIVEN AFTERNOON MEDICATIONS, ONE NORCO FOR 7/10 LOWER BACK PAIN.
--- NOTE | 2022-04-28 17:56 | NUR ---
PATIENT SITTING UP IN BED TO EAT 100% OF DINNER. PATIENT GIVNE TWO TYLENOL FOR 7/10 BACK PAIN. PATIENT'S DAUGHTER IS IN THE ROOM.
--- NOTE | 2022-04-28 18:05 | NUR ---
PATIENT GIVEN WARM PACKS TO LOWER BACK.
--- NOTE | 2022-04-28 19:10 | NUR ---
REPORT RECEIVED FROM TISHA NELSON. PT RESTING IN BED RR EVEN AND UNLABORED. NO NEEDS IDENTIFIED AT THIS TIME. CALL LIGHT IN REACH.
--- NOTE | 2022-04-28 20:56 | NUR ---
IN TO ADMINISTER MEDICATIONS. PT RESTING IN BED AND AWAKENS WHEN ADDRESSED. PT TAKES PO MEDICATIONS WITH NO ISSUES, SEE MAR. ASSESSMENT COMPLETE. PT REPORTING PAIN 9/10 IN LOWER BACK, PRN PAIN MEDICATION ADMINISTERED. LUNG SOUNDS RHONCHI IN RUL, RLL. RHONCHI CLEARS WITH COUGH. EXPIRATROY WHEEZING IN ZURI AND LLL. SKIN SHEAR NOTED TO PTs BUTTOCK, NEW ALLEVYN'S PLACED. IV SL. VITALS AND I&Os COMPLETE. PT REPORTS NO OTHER NEEDS AT THIS TIME. CALL LIGHT IN REACH.
--- NOTE | 2022-04-28 23:27 | NUR ---
IN TO ROUND ON PT. PT RESTING IN BED RR EVEN AND UNLABORED. NO NEEDS IDENTIFIED AT THIS TIME. CALL LIGHT IN REACH.
--- NOTE | 2022-04-29 01:45 | NUR ---
IN TO ANSWER CALL LIGHT. PT REQUESTING WASH CLOTH FOR FACE. WASH CLOTH PROVIDED. PT INCONTINENT WITH BM. NEY MA IN ROOM TO ASSIST WITH NIXON CARE. AARON CARE PROVIDED. PT REPORTING PAIN 9/10 IN BACK, PRN PAIN MEDICATION ADMINISTERED, SEE MAR. PT REQUESTING DIET SPRITE, DIET SPRITE PROVIDED. WARM BLANKET PROVIDED. PT REPORTS NO OHTHER NEEDS AT THIS TIME. CALL LIGHT IN REACH. BED ALARM ON.
--- NOTE | 2022-04-29 04:22 | NUR ---
IN TO ADMINISTER MEDICATION. IV DRESSING CHANGED DUE TO CATHETER HUB BEING LOOSE CAUSING SOME LEAKING. IV HUB TIGHTENED AND NEW DRESSING IN PLACE. IV FLUSHES WNL. IV ABX STARTED, SEE MAR. ASSESSMENT COMPLETE. LUNG SOUNDS CLEAR IN RUL, ZURI AND LLL. CRACKLES IN RLL HEARD. PT REPORTING PAIN 8/10 IN LOWER BACK, BUT CLOSES EYES AND RESTS WITH NO DISTRESS NOTED. RR EVEN AND UNLABORED. BOWEL TONES ACTIVE. ABD FIRM AND TENDER WITH PALPATION. PT RESTING IN BED WITH EYES CLOSED. NO OTHER NEEDS IDENTIFIED AT THIS TIME. CALL LIGHT IN REACH. BED ALARM ON.
--- NOTE | 2022-04-29 07:32 | NUR ---
REPORT FROM IN HOME CAREGIVER.
--- NOTE | 2022-04-29 07:41 | NUR ---
PATIENT IS SITTING UP IN BED. AARON CATHETER IS D/C'D.
--- NOTE | 2022-04-29 09:19 | NUR ---
TALKED TO PATIENT ABOUT DISCHARGE PLAN.PATIENT WOULD LIKE LIFE PARTNER TO BE PART OF CONVERSATION. WILL DISCUSS DISCHARGE PLAN OF CARE WITH RENALDO AND SANCHEZ WHEN RENALDO COMES IN TODAY.
--- NOTE | 2022-04-29 10:23 | NUR ---
PATIENT HAS VOIDED AFTER AARON CATHETER REMOVAL. PATIENT UP TO CHAIR WITH 2PA AND FWW. PATIENT IS UNSTEADY ON FOOT.
--- NOTE | 2022-04-29 12:06 | NUR ---
PATIENT IS UP TO CHAIR FOR LUNCH. PATIENT GIVEN NOON MEDICATIONS, NO INSULIN FOR BG OF 126. PATIENT GIVEN ONE NORCO FOR 9/10 LOWER BACK PAIN. WARM PACKS PLACED TO LOWER BACK.
--- NOTE | 2022-04-29 14:02 | NUR ---
PATIENT UP TO COMMODE TO BM/VOID. BM CONTINUES TO BE LOOSE. ATTEMPT WITH 1PA AND FWW. PATIENT REQUIRES 2PERSON ASSIST. PATIENT TO HAVE PHYSICAL THERAPY.
--- NOTE | 2022-04-29 16:39 | NUR ---
PATIENT IS DOING WELL, SITTING UP TO CHAIR. PATIENT IS USING URINAL INDEPENDANTLY, SEEMS TO BE SLEEPING ALOT LESS TODAY. PAIN PILL GIVEN FOR 7/10 LOWER BACK PAIN.
--- NOTE | 2022-04-29 17:20 | NUR ---
PATIENT WITH FAMILY IN ROOM. CASE MANAGEMENT IS NOT AVAILABLE AT THIS TIME.
--- NOTE | 2022-04-29 17:37 | NUR ---
PO FLAGYL GIVEN WITH DINNER.
--- NOTE | 2022-04-29 19:00 | NUR ---
REPORT RECEIVED FROM TISHA NELSON. PT SITTING UP IN CHAIR WITH EYES CLOSED. RR EVEN AND UNLABORED. NO NEEDS IDENTIFIED AT THIS TIME. CALL LIGHT IN REACH.
--- NOTE | 2022-04-29 20:30 | NUR ---
V/S AND I&O'S TAKEN AND CHARTED. THIS MIXING MACHINE TENDER CORK ROD AND PRIMARY RN BROWN HELPED PATIENT TRANSFER FROM CHAIR TO BED. BLOOD SUGAR CHECKED AND DOCUMENTED. WARM BLANKET AND SUGAR FREE SODA PROVIDED.
--- NOTE | 2022-04-29 20:59 | NUR ---
IN TO ADMINISTER MEDICATIONS. PT SITTING UP IN CHAIR. PT TAKES PO MEDICATIONS WITH NO ISSUES. NEY MA IN TO ASSIST WITH 2PA FROM CHAIR TO BED. PT PIVOTS FROM CHAIR INTO BED WITH 2PA. ASSESSMENT COMPLETE. LUNG SOUNDS CRACKLES IN RLL. BOWEL TONES ACTIVE. PT REPORTING PAIN IN LOWER BACK 01/25, PRN PAIN MEDICATION ADMINISTERED, SEE MAR. ABD FIRM AND NON-TENDER WITH PALPATION PER PT. SCDs IN PLACE. PT REQUESTING SNACK. SNACK PROVIDED. NO OTHER NEEDS AT THIS TIME. CALL LIGHT IN REACH.
--- NOTE | 2022-04-29 23:30 | NUR ---
PATIENT CALLED stating " I NEED HELP HERE". PATIENT HAS BM INCONTINENCE. CLEANED UP AND PLACED NEW ATTENDS AND CHUX. GOWN CHANGED.
--- NOTE | 2022-04-29 23:44 | NUR ---
THIS RN NOTIFIED BY NEY MA THAT THE PT IS ASKING ABOUT PRN PAIN MEDICATION. IN TO TALK WITH PT. PT REPORTING PAIN IN BACK AND RIGHT SHOULDER. INFORMED PT THAT THE NORCO IS NOT AVAILABLE FOR ANOTHER HOUR. OFFERD PT TYLENOL. PT DENIES AND STATES "I WILL WAIT" UNTIL THE NORCO IS AVAILABLE. PT STATES "I THINK MY HEAD IS TOO HIGH" ONE PILLOW REMOVED AND PT REPORTING IT IS BETTER. PT DENIES ANY OTHER NEEDS AT THIS TIME. CALL LIGHT IN REACH.
--- NOTE | 2022-04-30 01:20 | NUR ---
IN TO ROUND ON PT. PT REPORTING PAIN 10/10 IN LOWER BACK, PRN PAIN MEDICATION ADMINISTERED, SEE MAR. ASSESSMENT COMPLETE. NO CHANGES FROM PREVIOUS ASSESSMENT. LUNG SOUND CLEAR IN RUL, LLL, AND ZURI. CRACKLES IN RLL. ABD FIRM WITH PALPATION. PT REQUESTING TO USE URINAL, URINAL PROVIDED. URINAL EMPTIED. I&Os COMPLETE. PT REQUESTING TELEVISION TO BE TURNED OFF, TELEVISION TURNED OFF. PT REPORTS NO OTHER NEEDS AT THIS TIME. CALL LIGHT IN REACH.
--- NOTE | 2022-04-30 03:59 | NUR ---
IN TO ADMINISTER MEDICATION, SEE MAR. IV FLUSHED WNL. IV ABX STARTED. PT AWAKENS WHEN ADDRESSED. PT REQUESTING SNACK, PUDDING PROVIDED. URINAL EMPTIED. PT REPORTS NO OTHER NEEDS AT THIS TIME. CALL LIGHT IN REACH.
--- NOTE | 2022-04-30 05:55 | NUR ---
NEY MA CALLED THIS RN INTO ROOM AND SHOWS PTs ATTENDS HAVE SEROSANGUINEOUS COLORING TO IT. THIS RN AND NEY MA TURN PT TO SIDE FOR THIS RN TO ASSESS. NEW ATTENS HAVE SCANT AMOUNT OF SEROSANGUINEOUS FLUID WHERE PTs SKIN DAVID ARE. ALLEVYN PLACED. NO OTHER NEEDS AT THIS TIME. CALL LIGHT IN REACH. PT IN SEMIFOWLERS POSITION.
--- NOTE | 2022-04-30 06:27 | NUR ---
PT REPORTING PAIN 10/10 IN BACK. PRN PAIN MEDICATION ADMINISTERED, SEE MAR. SCHEDULED MEDICATION ADMINISTERED, SEE MAR. PT TAKES PO MEDICATION WITH NO ISSUES. OFFERED PT ICE PACK, PT ACCEPTS ICE PACK. ICE PACK PROVIDED. PT REPORTS NO OTHER NEEDS AT THIS TIME. CALL LIGHT IN REACH.
--- NOTE | 2022-04-30 07:39 | NUR ---
CBG CHECKED, 95 DOCUMENTED. URINAL EMPTIED/DOCUMENTED, FRESH WATER GIVEN. PT COMPLAINS OF LOWER BACK PAIN. RN NOTIFIED. PT RESTING SUPINE, REFUSING TO GET UP INTO CHAIR HE IS "TOO TIRED". CALL LIGHT IN REACH.
--- NOTE | 2022-04-30 08:48 | NUR ---
ASSITED RN IN REPOSITIONING PT UP IN BED. APPLIED ICE PACK TO LOWER BACK FOR BACK PAIN, SET UP PT FOR BREAKFAST. CALL LIGHT IN REACH, NO OTHER REQUESTS.
--- NOTE | 2022-04-30 10:16 | NUR ---
[place] 7.5/325mg po admin for back pain, 02/24.
--- NOTE | 2022-04-30 12:29 | NUR ---
Called Emily at [facility] and Updated I am sending the chart for this pt. He has dc plan home with girlfriend after completing rehab. Also updated, I spoke with and they will pay secondary cost if he goes over 20 days. They would like him to apply for medicaid, they will pay if he is turned down. THis is from Hannah Estrada in insurance and eligibility. Called Bobbi Adler from [facility] and left a message this pt will need an eval.
--- NOTE | 2022-04-30 12:44 | NUR ---
OT AT BEDSIDE WITH PT. DEPENDS CHANGED WITH WINDOWS PHONE DEVELOPER AND ALLEVYN REPLACED. NO OTHER CONCERNS.
--- NOTE | 2022-04-30 13:10 | NUR ---
Faxed chart to Emily at [facility]. Updated I have spoke with and I am awaiting a call from Bobbi Adler. Emily gave me [phone] number to call medicaid to start LTC process. To pts room and called the [phone] # from pts room and received voice mail for Patti. Message left asking her to call Bharat in his room 112. Discussed my conversation with Hannah Estrada and his needs for a secondary insurance to pay in case he needs for than 30 days.
--- NOTE | 2022-04-30 14:35 | NUR ---
PATIENT IS RESTING IN CHAIR, LOOKS COMFORTABLE.
--- NOTE | 2022-04-30 15:19 | NUR ---
PT NEEED TO BE TRANSFERED TO BED FROM CHAIR W/2PA, FWW, FOR ECHO. ADJUSTED PT ON L SIDE. HE IS WATCHING TV WAITING FOR SCAN. CALL LIGHT IN REACH.
--- NOTE | 2022-04-30 16:01 | NUR ---
PATIENT GIVEN 40MEQ OF PO POTASSIUM, ONE NORCO FOR 10/10 BACK PAIN. PATIENT IS RESTING IN BED, DENIES OTHER NEEDS. FAMILY IN ROOM WITH PATIENT.
--- NOTE | 2022-04-30 18:05 | NUR ---
PT USED CALL LIGHT FOR ASSISTANCE BECAUSE HE "MADE A MESS". THIS CNA2 CAME INTO ROOM PT HAD BEEN INCONT OF STOOL/URINE. FULL LINEN CHANGE, NIXON CARE, NEW BRIEF. PT WAS ABLE TO TURN FROM SIDE TO SIDE TO HELP BUT COMPLAINED OF BACK PAIN. WILL NOTIFY RN OF PAIN. PT IS NOW RESTING SUPINE WATCHING TV. BELONGINGS ON BEDSIDE TABLES W/IN REACH. NO OTHER NEEDS AT THIS TIME. CALL LIGHT IN BED.
--- NOTE | 2022-04-30 19:15 | NUR ---
Received report from offgoing shift, hourly rounding initiated
--- NOTE | 2022-04-30 21:25 | NUR ---
In pt room for hourly rounding, pt resting on back, asking for pain medication though none available at the moment. Esplained when next pain med would be available and pt was agreeable. Pt call light in reach.
--- NOTE | 2022-04-30 22:30 | NUR ---
in to pt rm d/t incont occernce, changed pt, new chux, pt c/o pain in lower back, rn notfied, ice pack provided to pt while rn in route to rm
--- NOTE | 2022-04-30 22:33 | NUR ---
Pt complaining of pain - Pain medication given
--- NOTE | 2022-04-30 23:59 | NUR ---
In pt room for rrounding, pt resting on back, breathing even and unlabored, no indication of pain or discomfort. Pt call light in reach.
--- NOTE | 2022-05-01 01:11 | NUR ---
Pt resting on back, breathing even and unlabored, no indications of pain or discomfort. Pt call light in reach.
--- NOTE | 2022-05-01 02:41 | NUR ---
HOURLY ROUNDING COMPLETE, ASSESSMENT COMPLETE, PAIN MEDICATION ADMINISTERED
--- NOTE | 2022-05-01 04:16 | NUR ---
In pt room for rounding. Pt resting on back, groaning with involuntary movement, subsided after 3 seconds without further incident. Pt breathing even and unlabored.
--- NOTE | 2022-05-01 07:05 | NUR ---
REPORT RECEIVED FROM YOU GILES
--- NOTE | 2022-05-01 08:55 | NUR ---
PT FINISHED BREAKFAST AND MEDICATION GIVEN. PT REPORT PAIN 7/10 IN BACK. CALL LIGHT WITHIN REACH. ALL QUESTIONS ANSWERED. PT SITTING UP IN CHAIR WATCHING TV.
--- NOTE | 2022-05-01 09:12 | NUR ---
MORNING ASSESSMENT COMPLETE. PT SITTING UP IN RECLINER. ON RA, PRODUCTIVE COUGH NOTED. DENIES NEEDS AT THIS TIME. CALL LIGHT IN REACH.
--- NOTE | 2022-05-01 16:00 | NUR ---
Received a call from Dave at [facility]. He has made several attempts to complete financial eval with Bharat, but Bharat states he cannot finish. He asks if I can use my phone and call from the room with a speaker and assist the pt. In and spoke with Bharat and he is willing to complete assessment. Pt has a cough which causes his back to hurt and he moans when he coughs. Called Dave and he was able to speak with Bharat for over 40 minutes and complete the financial assessment. He asked Bharat if he would listen to a recording for 10 minutes and then give a verbal permission for a financial check and permission to contact his he is from. Pt states he can't listen for 10 min. Dave will fax consents to my office for pt to sign and we can fax back to [facility]. Dave review what the consents are for and Bharat agrees to this. Dave will fax consents tomorrow.
--- NOTE | 2022-05-01 16:50 | NUR ---
Received message from Bobbi at [facility] asking if I can take my phone to pts room, so she can complete an assessment for this pt. Called Bobbi and let her know I cannot spend this much time as I have other pts I am attempting to see. She is out of the office tomorrow and asks if I can call Thursday. Let her know this is my day off, I will check if another CM can do so. Let her know I am not sure if pt will still be here Thursday, as this is up to the Dr. Also let her know I have sent his chart to [facility] and they declined, Alyson Elizabeth and have not heard back from them, and also to [facility]. She notified me pt went AMA from [facility] last year and they probably will not accept him back. Pt may have to dc to home with girlfriend Zee, and [facility] will have to complete assessments at home.
--- NOTE | 2022-05-01 19:45 | NUR ---
Received report from offgoing shift, hourly rounding initiated
--- NOTE | 2022-05-01 22:30 | NUR ---
IN PT ROOM FOR ROUNDING. PT RESTING ON BACK, NO COMPLAINT OF PAIN AT THIS TIME. PT BREATHING EVEN AND UNLABORED, CALL LIGHT IN REACH
--- NOTE | 2022-05-01 22:50 | NUR ---
IN TO CHANGE PT, INCONT BM, URINAL EMPTIED
--- NOTE | 2022-05-02 00:12 | NUR ---
IN PT ROOM FOR ROUNDING. PT RESTING, MOANING SOME AND PRACTICING FOCUSED BREATHING TO CONTROL PAIN IN BACK. PAIN MEDICATION AVAILABLE IN 20 MINUTES, WILL ADMINISTER BLANCO.
--- NOTE | 2022-05-02 03:20 | NUR ---
IN PT ROOM FOR ROUNDING. PT RESTING WITH BREATHING EVEN AND UNLABORED. PT SHOWS NO SIGN OF PAIN OR DISCOMFORT. CALL LIGHT IN REACH.
--- NOTE | 2022-05-02 05:10 | NUR ---
IN PT ROOM FOR MEDICATION ADMINISTRATION. PT RESTING ON BACK, COMPLAINING OF 9/10 PAIN. PT PRACTICING FOCUSED BREATHING AND WATCHING TV FOR DISTRACTION. CALL LIGHT IN REACH
--- NOTE | 2022-05-02 07:30 | NUR ---
PATIENT DID NOT WANT UP AT THIS TIME. ACU CHECK COMPLETED. PT HAS NO OTHER NEEDS AT THIS TIME. CALL LIGHT WTIHIN REACH.
--- NOTE | 2022-05-02 09:15 | NUR ---
MORNING ASSESSMENT COMPLETE. ASSISTED PT FROM BED TO RECLINER, ONE PERSON ASSIST WITH FWW PIVOT ASSIST. PT C/O 01/25 BACK PAIN WITH MOVEMENT. GIVEN PRN PAIN MEDICATIONS. LUNG SOUNDS CLEAR AND DIM. ABD DISTENDED AND FIRM, PT REPORTS NO ABD PAIN OR NAUSEA AT THIS TIME. ABLE TO COMPLETE 100% BREAKFAST. PT DENIES FURTHER NEEDS AT THIS TIME. CALL LIGHT IN REACH.
--- NOTE | 2022-05-02 10:50 | NUR ---
PATIENT IN BED. VITALS AND I/O'S COMPLETED. PT HAS NO OTHER NEEDS AT THIS TIME. CALL LIGHT WITHIN REACH.
--- NOTE | 2022-05-02 14:02 | NUR ---
PATIENT IN BED AFTER MEAL. VITALS AND I/O'S COMPLETED. PT HAS NO OTHER NEEDS AT THIS TIME. CALL LIGHT WITHIN REACH.
--- NOTE | 2022-05-02 17:58 | NUR ---
PATIENT UP IN CHAIR AFTER MEAL. VITALS AND I/O'S COMPLETED. PT HAS NO OTHER NEEDS AT THIS TIME. CALL LIGHT WITHIN REACH.
--- NOTE | 2022-05-02 19:22 | NUR ---
Received report from offgoing shift, hourly rounding initiated
--- NOTE | 2022-05-02 20:00 | NUR ---
IN TO ASSIST PT TO THE BED FROM THE CHAIR, 1PA PIVOT
--- NOTE | 2022-05-02 20:33 | NUR ---
Hourly rounding - Pt given pain medication for 9/10 pain in lower back. VS completed, call light in reach.
--- NOTE | 2022-05-02 21:46 | NUR ---
IN PT ROOM FOR MEDICATION ADMINISTRATION, PT NOT SHOWING INDICATIONS OF PAIN AT THIS TIME.
--- NOTE | 2022-05-02 23:21 | NUR ---
IN PT ROOM TO CHANGE ABX. PT RESTING WITH EYES CLOSED, BREATHING EVEN AND UNLABORED, NO INDICATION OF PAIN OR DISCOMFORT.
--- NOTE | 2022-05-03 00:57 | NUR ---
IN pt room for rounding. pt breathing unlabored, even. Pt has no complaint of pain at this time, call light in reach
--- NOTE | 2022-05-03 03:59 | NUR ---
IN PT ROOM FOR MEDICATION ADMINISTRATION FOR APIN AT PT REQUEST
--- NOTE | 2022-05-03 06:15 | NUR ---
IN TO GET VS
--- NOTE | 2022-05-03 08:12 | NUR ---
PATIENT UP IN CHAIR THIS MORNING. AM CARE COMPLETED. PT HAS NO OTHER NEEDS AT THIS TIME. CALL LIGHT WITHIN REACH.
--- NOTE | 2022-05-03 09:43 | NUR ---
PATIENT IN CHAIR AFTER MEAL. VITALS AND I/O'S COMPLETED. PT HAS NO OTHER NEEDS AT THIS TIME. ICE WATER GIVEN. CALL LIGHT WITHIN REACH.
--- NOTE | 2022-05-03 11:15 | NUR ---
PT RESTING IN RECLINER WITH EYES CLOSED, RESPIRATIONS EVEN AND UNLABORED. CALL LIGHT IN REACH.
--- NOTE | 2022-05-03 13:35 | NUR ---
PT C/O 12/25 PAIN WITH MOVEMENT. GIVEN PRN OXYCODONE 10MG, SEE EMAR. PT DENIES FURTHER NEEDS AT THIS TIME. CALL LIGHT IN REACH.
--- NOTE | 2022-05-03 13:51 | NUR ---
PATIENT IN CHAIR AFTER MEAL. VITALS AND I/O'S COMPLETED. PT HAS NO OTHER NEEDS AT THIS TIME. CALL LIGHT WITHIN REACH.
--- NOTE | 2022-05-03 14:09 | NUR ---
INFORMED DR BROWN OF PT HEART RATE OF 122, BP 93/66. VERBAL ORDER FOR EKG. ORDER PLACED AND RT CALLED.
--- NOTE | 2022-05-03 17:20 | NUR ---
PT SITTING UP IN RECLINER. IV DRESSING CHANGED, PATENT IV. PT STATES PAIN IS TOLERABLE AT THIS TIME. DINNER AT BEDSIDE. DENIES FURTHER NEEDS AT THIS TIME. CALL LIGHT IN REACH.
--- NOTE | 2022-05-03 19:02 | EKG ---
[facility] [address] [place] [address] Signed Sinus tachycardia Left axis deviation Abnormal ECG When compared with ECG of 09-MAR-2022 20:33, Nonspecific T wave abnormality no longer evident in Anterior leads Confirmed by RUTHIE BROWN MD ([id number]) on 05/03/2022 7:02:40 PM Electronically Signed By: RUTHIE BROWN MD 05/03/221901 PATIENT NAME: SANCHEZ COBOS Electrocardiogram DATE OF : 58 PHYSICIAN: RUTHIE BROWN MD REPORT #: [id number] REPORT IS CONFIDENTIAL AND NOT TO BE RELEASED WITHOUT AUTHORIZATION
--- NOTE | 2022-05-03 21:32 | NUR ---
VS AND I&O COMPLETED. URINE SAMPLE SENT TO LAB. MEDICATIONS PROVIDED. RUBENG 118. PRIMARY RN IN ROOM TO PERFORM CARES AND PASS MEDS.
--- NOTE | 2022-05-03 22:51 | NUR ---
pt repositioned in , additional pillow placed under legs and wt shifted on bottom. pt watching movie - denies trsf to bed, iv x2 fusing via pumps.
--- NOTE | 2022-05-04 04:13 | NUR ---
pt eyes closed, resp even, iv fusing maintence fluid of sodium bicarb - was delayed due to iv abx that needed to fuse in the evening. first bag 1 of 2 continues to run. call light in reach.
--- NOTE | 2022-05-04 06:53 | NUR ---
PT AWAKEND FROM SLEEP AND REPOSITIONED IN , PO OXY GIVEN FOR PAIN IN BACK.
--- NOTE | 2022-05-04 07:05 | NUR ---
REPORT RECEIVED FROM AMANDA GILES, ALL QUESTIONS ANSWERED.
--- NOTE | 2022-05-04 07:35 | NUR ---
Pt was already up in chair this am, previous to this CODE ENFORCEMENT OFFICER's shift. Am care completed, pt has no other needs at this time. Call light within reach.
--- NOTE | 2022-05-04 09:18 | NUR ---
MORNING ASSESSMENT COMPLETE. PT SITTING UP IN CHAIR. PT ABD DISTENDED AND FIRM. PT REPORTS PASSING GAS. ACTIVE BOWEL TONES. PT DENIES NAUSEA AT THIS TIME. PT ASSISTED FROM CHAIR TO BED ONE PERSON ASSIST WITH FWW. PT INCONTINENT OF BOWEL AND BLADDER. BRIEF CHANGED AND NIXON CARE PROVIDED. PT STATES PAIN IS TOLERABLE AT THIS TIME AFTER REPOSITIONED IN BED. DENIES FURTHER NEEDS AT THIS TIME. CALL LIGHT IN REACH.
--- NOTE | 2022-05-04 09:30 | NUR ---
PT APPEARS UNCOMFORTABLE, STATES HE IS HAVING MUSCLE SPASMS, PROVIDED PRN FLEXERIL. PT DENIES FURTHER NEEDS AT THIS TIME. CALL LIGHT IN REACH.
--- NOTE | 2022-05-04 10:08 | NUR ---
PATIENT IN BED AFTER MEAL. VITALS AND I/O'S COMPLETED. PATIENT HAS NO OTHER NEEDS AT THIS TIME. CALL LIGHT WITHIN REACH.
--- NOTE | 2022-05-04 14:22 | NUR ---
PATIENT IN BED AFTER MEAL. VITALS AND I/O'S COMPLETED. PT HAS NO OTHER NEEDS AT THIS TIME. CALL LIGHT WITHIN REACH.
--- NOTE | 2022-05-04 15:40 | NUR ---
PT UP ONE PERSON ASSIST TO COMMODE, MEDIUM BM IN BRIEF, PASSED LARGE AMOUNT OF GAS AND ADDITIONAL BM. PT IN BED, CALL LIGHT IN REACH.
--- NOTE | 2022-05-04 18:09 | NUR ---
PT IN BED EATING DINNER. PT C/O PAIN WITH MOVEMENT, THOUGH IF NOT MOVING PAIN IS TOLERABLE. ABD DISTENDED, FIRM, PT PASSING GAS. PT DENIES FURTHER NEEDS AT THIS TIME. CALL LIGHT IN REACH.
--- NOTE | 2022-05-04 18:25 | NUR ---
PATIENT IN BED AFTER MEAL. VITALSM AND I/O'S COMPLETED. PT HAS NO OTHER NEEDS AT THIS TIME. CALL LIGHT WITHIN REACH.
--- NOTE | 2022-05-04 19:15 | NUR ---
REPORT FROM QUOC RN, PT IN BED CALL LIGHT IN REACH - HAS HAD BM MULTIPLE TODAY - FEELING BETTER IN ABD. IV FUSING R ARM.
--- NOTE | 2022-05-04 21:15 | NUR ---
MEDS GIVEN, ASSESSMENT, I/O, VITALS COMPLETED. PT HAS OCCASIONAL BACK SPASMS - ATTENDS ON CDI - USING URINAL WELL FROM BED WHERE HE IS WATCHING A MOVIE.
--- NOTE | 2022-05-05 00:05 | NUR ---
Patient spilled urinal, changed bedding and changed into a new gown. Brought patient fresh ice water and a diet soda.
--- NOTE | 2022-05-05 00:54 | NUR ---
2 PA TO BEDSIDE COMMODE. NIXON CARE ASSISTED BY NEY OQUENDO. PATIENT IS BACK IN BED. PATIENT ASKED FOR PAIN MEDS. PRIMARY RN NOTIFIED.
--- NOTE | 2022-05-05 01:09 | NUR ---
2/2 NABICARB IV STARTED. PT RESTING IN BED - PAIN MED WAS GIVEN FOR BACK PAIN. PT LIGHTS DIMMED CALL LIGHT IN REACH.
--- NOTE | 2022-05-05 01:52 | NUR ---
LIDOCAIN PATCH PLACED EARLY PER PT REQUEST FOR PAIN IN LOW BACK.
--- NOTE | 2022-05-05 03:43 | NUR ---
CALL LIGHT IN REACH, EYES CLOSED, RESP EVEN
--- NOTE | 2022-05-05 04:21 | NUR ---
pt had lg bm, loose with chunks, brown. pt abd distended and tender. painful back with turns - gonzalo care done, attends changed. skin wnl. call light in reach.
--- NOTE | 2022-05-05 04:26 | NUR ---
Assisted patient with urinal. Changed and did gonzalo care after a BM.
--- NOTE | 2022-05-05 07:30 | NUR ---
PATIENT RESTING QUIETLY IN BED WITH EYES CLOSED, RESPIRATIONS ARE REGULAR AND EVEN, CALL LIGHT IN REACH AND BED ALARM IS ON. PATIEN THAS NO CURRENT CARE NEEDS AT THIS TIME.
--- NOTE | 2022-05-05 07:47 | NUR ---
CBG TAKEN, 107, URIANL EMPTIED/DOCUMENTED, FRESH WATER. PT SLEEPING AUDIBLEY SNORING, SUPINE W/TV ON. PT STATED HE IS "JUST VERY TIRED". CALL LIGHT IN BED NEXT TO HAND.
--- NOTE | 2022-05-05 09:04 | NUR ---
PT TAKEN BREAKFAST TRAY TOLD CNArslan TUTTLE HE "MADE A MESS" INCONT OF BM. PARAG AND THIS CNA2 ASSISTED PT IN CHANGING LINEN/BRIEF IN BED. PT HELPED BY ROLLING FROM SIDE TO SIDE W/ASSISTANCE. [facility] CARE PERFORMED, NEW INCONT PAD/BRIEF DRAW SHEET. PT READJUSTED IN BED, SAT UP AT 45 DEGREES TO EAT BREAKFAST. TRAY SET UP, IPAD PLUGGED IN, PT WATCHING TV EATING. CALL LIGHT IN REACH.
--- NOTE | 2022-05-05 10:19 | NUR ---
PATIENT UP IN THE BEDSIDE ARMCHAIR TO EAT BREAKFAST. ICE PACK APPIED BETWEEN SHOULDER BLADES AND TYLENOL AND FLEXARIL GIVEN FOR 8-9/10 BACK PAIN. AM ASSESSMENT COMPLETE. LAC IV LEAKING AND DC'D INTACT AND MAIN LINE IV FLUIDS HAVE FINISHED FOR THE TIME BEING SO IV SALINE LOCKED. PATIENT NEEDED NO AM INSULIN COVERAGE. CALL LIGHT IN REACH. PATIENT TOOK HIS MIRILAX, BUT REFUSED HIS ENEMA HE HAS HAD MULTIPLE BM'S THIS AM ALREADY. CALL LIGHT IN REAC. PATIENT DENIES ANY OTHER CARE NEEDS AT THIS TIME. CALL LIGHT IN REACH AND PATIENT WATCHING TV.
--- NOTE | 2022-05-05 13:40 | NUR ---
PER RAMÍREZ AT [facility], NO AVAILABLE BEDS AT THIS TIME DUE TO STAFFING.
--- NOTE | 2022-05-05 13:54 | NUR ---
INTO PATIENT ROOM WITH PAPERWORK FROM [facility] FINANCIAL EVALUATION. PAPERWORK SIGNED BY PATIENT. PATIENT STATES HIS BACK PAIN IS THE SME DISPITE ABX AND PAIN MEDICATION. ADVISED PATIENT THAT [facility] DOES NOT HAVE BEDS AVAILABLE AT THIS TIME. ENCOURAGED PATIENT TO SPEAK WITH SO RENALDO TO INQUIRE ABOUT RETURNING HOME WHEN STABLE. PATIENT STATES "SHE HAS BEEN HERE YET, BUT I WILL WHEN SHE GETS HERE."
--- NOTE | 2022-05-05 15:25 | NUR ---
AFTERNOON ASSESSMENT COMPLETE. 1600 MEDS GIVEN. PATIENT GIVEN A COUPLE GRAM CRACKERS. PATIENT'S VANCO IS INFUSING WNL. PATIENT WATCHING TV ON HIS TABLET AN DENIES ANY OTHER NEEDS AT THIS TIME. CALL LIGHT IS IN REACH.
--- NOTE | 2022-05-05 18:27 | NUR ---
VITALS/I&O'S TAKEN & DOCUMENTED. PT WAS INCONT OF URINE/STOOL. NIXON CARE PERFORMED. PT WAS ABLE TO ROLL SIDE TO SIDE TO ASSIST IN CARES. CHANGED INCONT PAD, BREIF, PAD ADDED. PT REPOSITIONED IN BED W/2CNA ASSIST. PT LAYING SUPINE, WATCHING TV, CALL LIGHT IN LAP.
--- NOTE | 2022-05-05 21:17 | NUR ---
SCHEDULED MEDS PROVIDED. PRN PAIN MED PROVIDED. PT UP TO BSC AND BACK TO BED, BRIEFS CHANGED. WARM BLANKETS AND ICE WATER PROVIDED. PT STATES "I WANT TO GO HOME", EDUCATION PROVIDED. PT STATES HE HAS 10/10 IN LOWER BACK, ICE PACK PROVIDED. NO OTHER NEEDS. CALL LIGHT IN REACH.
--- NOTE | 2022-05-05 22:27 | NUR ---
PT ASSESSMENT COMPLETE. PT RESTING IN BED WITH EYES CLOSED. WAKES EASILY GEEK SQUAD AUTOTECH ENTERS THE ROOM. PT REPORTS ONGOING PAIN TO LOW BACK. PRN ADMINISTERED PRIOR TO ASSESSMENT. SEE EMAR. PT RATES 01/25. EDUCATION PROVIDED REGARDING PAIN MEDCIATION AVAILABILITY. PT STATES UNDERSTANDING. PT DENIES SOB OR NAUSEA. LUNG SOUNDS DIM TRHOUGHOUT. ABD DISTENDED. BOWEL TONES ACTIVE, TINKLING. IV FLUSHED WITH 10 ML NS. WNL. PT REQUESTS PUDDING AND CRACKERS. GEEK [employer] ASSISTED PT WITH CONNECTING TABLET TO INTERNET. PT DENIES FURTHER NEEDS AT THIS TIME. CALL LIGHT IN REACH.
--- NOTE | 2022-05-05 23:28 | NUR ---
ANSWERED CALL LIGHT. EMPTIED URINAL. CHANGED INCONTINENT BM. BOOSTED UP IN BED. NO OTHER CARE NEEDS AT THIS TIME. CALL LIGHT WITHIN REACH.
--- NOTE | 2022-05-06 01:11 | NUR ---
PT ROUNDING. PT RESTING IN BED WITH EYES CLOSED. RESPIRATIONS EVEN AND UNLABORED. DOES NOT WAKE WHILE METAL CASTER AT DOORWAY. CALL LIGHT IN REACH.
--- NOTE | 2022-05-06 02:08 | NUR ---
Patient was using urinal and got loose stool on his hands. Did gonzalo care and change bed pads. Applied skin barrier cream to gonzalo area. Gave a sugar free pudding and fresh ice water. Call light within reach.
--- NOTE | 2022-05-06 02:11 | NUR ---
PT ASSESSMENT COMPLETE. PT RATES PAIN 9/10 TO BACK AND R SHOULDER. PRN ADMINISTERED, SEE EMAR. PT DENIES SOB OR [place]. LUNG SOUNDS CLEAR THROUGHOUT THIS ASSESSMENT. BT'S ACTIVE, TINKLING. PT DENIES ABD TENDERNESS. PT WITH VERY LARGE AMOUNT OF LIQUID STOOL, INCONTINENT. CHANGED WITH 2PA IN BED. PT TOLERATES TURNING POORLY DUE TO BACK BACK. IV SL. PT PROVIDED WITH ICE WATER AND PUDDING. DENIES FURTHER NEEDS ATHTIS TIME. AGREES THAT HE IS TIRED. PLAYING GAME ON TABLET UNEMPLOYMENT INSPECTOR EXITS. CALL LIGHT IN REACH.
--- NOTE | 2022-05-06 04:30 | NUR ---
CIVIL ENGINEERING TEACHER TO ROOM WITH EMBEDDED SYSTEMS SOFTWARE DEVELOPER. PT HAS XL BM, LIQUID, INCONTINENT. PT CLEANED AND BED LINENS CHANGED. PT RATES PAIN 10/10 TO BACK AND SHOULDER. PRN ADMINISTERED. SEE EMAR. PT DENIES FURTHER NEEDS. CALL LIGHT IN REACH.
--- NOTE | 2022-05-06 07:30 | NUR ---
THIS RN RECEIVED SHIFT REPORT FROM TISHA GUERRERO. PATIENT RESTING QUITLIN IN LOW FOWLERS POSITION, EYES CLOSED, CALL LIGHT IN REACH. IV SL. PATIENT HAS NO NURSE CARE NEEDS FROM THIS RN AT THIS TIME.
--- NOTE | 2022-05-06 07:41 | NUR ---
CBG TAKEN/DOCUMENTED, 124. REFRESHED WATER. PT SLEEPING SUPINE IN BED NO READY TO GET UP.
--- NOTE | 2022-05-06 08:08 | NUR ---
THIS RN IN TO SEE PATIENT, PATIENT APPEARS TO BE ASLEEP, BUT AWOKE WITH GENTLE TOUCH TO THE ARM. PATIENT SAYS HIS LOW BACK PAIN IN 10/10 IS HIS RIGHT SHOULDER PAIN. LIDOCAINE PATCH APPLIED TO LOWER BACK AND NEW ICE PACK APPLIED TO RIGHT SHOULD. PATIENT HAS HAD 3 LARGE BM'S SINCE 2199 LAST NIGHT AND REFUSED MIRALAX THIS AM, THE MOTORCYCLE MECHANIC'S JUST FINISHED CLEANING UP FROM STOOL INCONTINENCE FOR 3RD TIME SINCE 2199 LAST NIGHT. IV FLUSHES WEL. LUNGS A BIT DIM AND ENCOURAGED COUGH AND DEEP BREATH WITH IS. PATIENT SAYS HE JUST WANTS TO GO BACK TO SLEEP. BOWEL TONES ARE ALL A LITTLE HYPOACTIVE TO AUSCULTATION BY THIS RN. PATIENT NEEDED NO AM INSULIN COVERAGE. CALL LIGHT IS IN REACH IS URINAL. PATIENT HAS NO OTHER NURSE CARE NEEDS AT THIS TIME.
--- NOTE | 2022-05-06 08:51 | NUR ---
Called and spoke with Bobbi at [facility]. She states they are awaiting financial info from pts ex Marcella. Discussed with Bobbi pt will more than likely be here 2 more days for IV antibiotics and then will dc to home. 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
--- NOTE | 2022-05-06 09:24 | NUR ---
PATIENT ATE 100% OF BREAKFAST. PATIENT JUST TOILETED AND SHOWERED SO NEW LOW BACK LIDOCAINE PATCH IS IN PLACE, THE OTHER ONE WASHED OFF. PATIENT REQUESTED A DIET SUSIE WITH ICE AND THIS WAS PROVIDED BY THIS RN. CALL LIGHT IN REACH. PATIENT HAS NO OTHER CARE NEEDS AT THIS TIME.
--- NOTE | 2022-05-06 11:27 | NUR ---
PATIENT RESTING QUIETLY IN BED WATCHING TV AND DENIES ANY CARE NEEDS AT THIS TIME. CALL LIGHT IN REACH. NO C/O PAIN OR NAUSEA.
--- NOTE | 2022-05-06 12:06 | NUR ---
PATINT NEEDED NO INSULIN COVERAGE FOR LUNCH. PATIENT HAS HAD ANOTHER LARGE INCONTINENT STOOL AND URINE. IBRAHIMA AND NEY BRENNER'S GETTING PATIENT UP IN THE CHAIR FOR LUNCH AND GETTING HIS BED CHANGED.
--- NOTE | 2022-05-06 14:45 | NUR ---
PATIENT CALLED ASKING FOR SOME CRACKERS AND TYLENOL FOR BACK PAIN. 5-11/24 LOW BACK PAIN WAS MEDICATED WITH TYLENOL, 1400 ANTIBIOTIC RUNNING, AND A COUPLE CRACKERS GIVEN A SNACK. PATIENT DENIED ANY OTHER NEEDS. CALL LIGHT IN REACH. AFTERNOON ASSESSMENT COMPLETE. CALL LIGHT IN REACH AND CHAIR ALARM IS ON.
--- NOTE | 2022-05-06 15:50 | NUR ---
Spoke with Bharat and followed up if he has called Zee to let her know he will be returning home. He denies and states he has not been able to reach her. 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 Pt will need to dc to home and follow up with [employer] from home. Attempted to call Zee, unable to leave a message.
--- NOTE | 2022-05-06 16:29 | NUR ---
PATIENT IS RESTING IN BED, DENIES NEEDS. PATIENT INDICATED THAT HE WOULD TAKE PAIN MEDICATION AT 1700.
--- NOTE | 2022-05-06 17:28 | NUR ---
PATIENT SPILLED WATER ALL OVER HIS ROM AND THIS RN CLEANED IT UP. ATE 100% OF DINNER AND PT IS ON THE [place] INTO THE ROOM TO WORK WITH THE PATIENT. CALL LIGHT IS IN REACH.
--- NOTE | 2022-05-06 19:50 | NUR ---
RECEIVED REPORT FROM DAY SHIFT RN. PATIENT IS RESTING IN RECLINER WITH EYES CLOSED, RR 17. CALL LIGHT IN REACH.
--- NOTE | 2022-05-06 20:00 | NUR ---
ANSWERED CALL LIGHT STATING " READY TO GO TO BED". 1 PA. PATIENT IS IN BED NOW WATCHING MOVIE. CRANBERRY JUICE PROVIDED PER PATIENT. NO OTHER CARE NEEDS AT THIS TIME.
--- NOTE | 2022-05-06 20:21 | NUR ---
PATIENT ASSESMENT COMPLETED. PATIENT IS RESTING IN RECLINER. PATIENTS VITALS TAKEN AND RECORDED. INTAKE AND OUTPUT RECORDED. PATIENTS PM MEDDS GIVEN PER ORDER. PATIENTS BS WNL, NO SS GIVEN PER ORDER. PATIENT RATES PAIN AT A 5/10 IN RIGHT SHOULDER AND BACK, PRN MEDS GIVEN PER ORDER. PATIENT PROVIDED SNACK AND FRESH ICE WATER. PATIENTS IV FLUSHED AND SL PER ORDER. PATIENT DENIES ANY FURTHER NEEDS. CALL LIGHT IN REACH.
--- NOTE | 2022-05-06 23:00 | NUR ---
CALL LIGHT ANSWERED. PATIENT USED THE URINAL VOIDED 300ML.
--- NOTE | 2022-05-06 23:03 | NUR ---
PATIENT REPORTS 5/10 PAIN IN HIS RIGHT SHOULDER AND BACK, PRN TYLENOL GIVEN PER ORDER. PATIENT DENIES ANY FURTHER NEEDS. CALL LIGHT IN REACH.
--- NOTE | 2022-05-07 00:37 | NUR ---
PATIENT INCONT URINE. PATIENTS ATTEND CHANGED AND NIXON CARE COMPLETED. NO FURTHER NEEDS NOTED. CALL LIGHT IN REACH.
--- NOTE | 2022-05-07 02:08 | NUR ---
PATIENT ASSISTED TO REPOSITION ONTO HIS LEFT SIDE. PLACED ICE PACK ON RIGHT SHOULDER. PATIENT DENIES ANY FURTHER NEEDS. CALL LIGHT IN REACH.
--- NOTE | 2022-05-07 03:17 | NUR ---
ANSWERED CALL LIGHT. MADE ICE PACK PLACED ON PATIENT'S RIGHT LOWER BACK. NO OTHER NEEDS AT THIS TIME.
--- NOTE | 2022-05-07 04:36 | NUR ---
PATIENT IS RESTING IN BED WITH EYES CLSOED, RR 17. PATIENT IS ON HIS LEFT SIDE. CALL LIGHT IN REACH.
--- NOTE | 2022-05-07 06:03 | NUR ---
PATIENTS VITALS TAKEN AND RECORDED. INTAKE AND OUTPUT RECORDED. PATIENT REPORTS 8/10 PAIN IN HIS BACK AND RIGHT SHOULDER. PATIENT GIVEN PRN MEDS. PATIENT PROVIDED WITH FRESH ICE WATER. NO FURTHER NEEDS NOTED. CALL LIGHT IN REACH.
--- NOTE | 2022-05-07 07:30 | NUR ---
THIS RN RECEIVED SHIFT REPORT FROM TISHA IQBAL. PATIENT RESTING QUIETLY UP IN THE BEDSIDE ARMCHAIR, EYES CLOSED, RESPIRATIONS ARE REGULAR AND EVEN, AND CALL LIGHT IS IN REACH. MANOLO THAS NO NURSE CARE NEEDS AT THIS TIME.
--- NOTE | 2022-05-07 08:07 | NUR ---
THIS RN IN TO SEE PATIENT. LOW BACK PAIN 4/10 AND LIDOCAINE PATCH APPLIED, TO LOW BACK. ALL AM MEDS GIVEN WITHOUT DIFFICULTY. IV FLUSHES WNL. PATIENT UP IN THE BEDSIDE ARMCHAIR. ATTENDS ARE DRY. PATIENT REQUIRED NO INSULIN FOR BREAKFAST. PATIENT AWATING BREAKFAST TO ARRIVE. MIRALAX GIVEN IN CRANBERRY JUICE. CALL LIGHT IN REACH AND CHAIR ALARM IS ON. PATIENT HAS NO OTHER CARE NEEDS AT THIS TIME.
--- NOTE | 2022-05-07 08:32 | NUR ---
THIS RN IN AND SET UP PATIENT'S BREAKFAST TRAY FOR HIM AND HE IS CURREENTLY EATING. CALL LIGHT IN REACH AND PATIENT DENIES ANY OTHER CARE NEEDS AT THIS TIME.
--- NOTE | 2022-05-07 08:54 | NUR ---
I have not been able to contact pts girlfriend, Zee. Was able to reach pts daughter, Dalia. UPdated pt is near discharge and I cannot reach Zee. She states Zee's phone is out of order. Pt may return home and Dalia will pick him up and transport, when pt ready for dc. We discussed Bharat is working with [employer] for assessment to qualify for mcc care or a caregiver. This can take 45 days. Pt will need to dc to home and follow up with [employer] from home. Dalia states understanding. She will contact Zee. I will call Dalia with an update when pt can discharge.
--- NOTE | 2022-05-07 10:29 | NUR ---
PATIENT CALLED AND ASKED FOR A A CUP OF COFFEE AND A CUP OF CRANBERRY JUICE. THIS WAS DELIVERED TO THE PATIENT BY THIS RN. PATIENT DENIED ANY OTHER CARE NEEDS AT THIS TIME. URINAL EMPTIED FOR 400MLS. CALL LIGHT IN REACH AND PATIENT DENIES ANY OTHER CARE NEEDS AT THIS TIME.
--- NOTE | 2022-05-07 11:10 | NUR ---
PATIENT CONTINUES TO SIT UP IN THE BEDSIDE ARMCHAIR DRINKING HIS COFFEE. PATIENT HAS NO C/O PAIN AT THIS TIME AND DENIES ANY CARE NEEDS. CALL LIGHT IS IN REACH AND CHAIR ALARM IS ON.
--- NOTE | 2022-05-07 11:52 | NUR ---
PATIENT GIVEN 3UNITS OF INSULIN FOR LUNCH COVERAGE. LOUISE FROM CM IN THE ROOM TALKING WITH THE PATIENT ABOUT PLACEMENT AT THIS TIME. CALL LIGHT IS IN REACH.
--- NOTE | 2022-05-07 12:41 | NUR ---
PATIENT SITTING UP IN THE BEDSIDE ARMCHAIR EATING HIS LUNCH. SERVER DEVELOPER JUST GAVE HIM ANOTHER LOW CALORIE PUDDING. PATIENT WATCHING TV AND DENIES ANY CARE NEEDS AT THIS TIME. CALL LIGHT IN REACH AND CHAIR ALARM IS ON.
--- NOTE | 2022-05-07 13:24 | NUR ---
PATIENT IS FINISHED WITH HIS LUNCH AND IS CURRENTLY USING THE URINAL INDEPENDENTLY. PATIENT DENIES ANY NURSE CARE NEEDS AT THIS TIME. CALL LIGHT IS IN REACH.
--- NOTE | 2022-05-07 14:25 | NUR ---
PATIENT'S AFTERNOON ASSESSMENT COMPLETE AND 1400 VANCO IV UP AND RUNNING WNL. PATIENT HAS MULTIPLE VISITORS IN HIS ROOM RIGHT NOW AND THEY ARE PUTTING LOTION ON PATIENT'S LEGS AND THEN THIS RN GOT PATIENT A FRESH WARM BLANKET. PATIENT DENIES ANY CARE NEEDS FROM THIS RN AT THIS TIME AND JUST WANTS TO VISIT WITH HIS FAMILY. CALL LIGHT IN REACH. FAMILY DENIED ANY CARE NEEDS WELL AND THEY WILL CALL IF THEY OR THE PATIENT NEEDS ANYTHING.
--- NOTE | 2022-05-07 14:29 | NUR ---
PT SITTING IN BED, ALERT AND PLEASANT. PT ASKED ABOUT WEATHER, THANKFUL TO NOT BE IN COLD. GAVE ENCOURAGEMENT, G.POST AND PT REQUESTED PRAYER. PT SHOOK MY HAND AND THANKED ME FOR COMING. PT OUT OF WATER, WOULD LIKE MORE. INFORMED TISHA JACKSON, SHE WILL FOLLOW AND CHECK ON PAIN LEVEL.
--- NOTE | 2022-05-07 14:43 | NUR ---
PATIENT REQUESTED AN ICE PACK FOR HIS RIGHT SHOULDER, WHICH WAS GIVEN. THIS RN ASKED FAMILY IF THEY COULD HANG AROUND FRO A FEW MINUTES AND LOUISE FROM WOULD LIKE TO SPEAK WITH THEM AND THEY SAID THYE WOULD HAPPY TO WAIT FOR LOUISE TO COME AND VISIT. CALL LIGHT IN REACH.
--- NOTE | 2022-05-07 15:11 | NUR ---
LOUISE FROM JUST INFORMED ME PATIENT WOULD BE DC'D HOME TOMORROW AT 1PM AND THAT THE PATIENT'S FAMILY HAS AGREED TO THIS PLAN.
--- NOTE | 2022-05-07 15:17 | NUR ---
Spoke with pt's family, Zee and Dalia. They are in agreement to take pt home tomorrow after lunch. They state they need time to clean his and Zee's home. They are aware they will need to follow up with Bobbi at [facility] for custodial care assessment. [facility] card given.
--- NOTE | 2022-05-07 16:35 | NUR ---
PATIENT CALLED FOR LOW BACK AND SHOULDER PAIN 01/25. PO TYLENOL REQUESTED AND GIVEN. PATIENT CURRENTLY VISITING WITH A FRIEND. PATIENT'S FSBS WAS WITHIN LIMITS SO NO INSULIN NEEDED FOR DINNER. PATIENT DENIES ANY OTHER CARE NEEDS AT THIS TIME. CALL LIGHT IS IN REACH.
--- NOTE | 2022-05-07 17:31 | NUR ---
PATIENT IS NO RESTING QUIETLY AND PAIN IS CONTROLLED. THIS RN SET PATIENT'S DINNER TRAY UP FOR HIM AND HE IS NOW GOING TO EAT DINNER. CALL LIGHT IN REACH AND PATIENT DENIES ANY OTHER NURSE CARE NEEDS AT THIS TIME.
--- NOTE | 2022-05-07 19:23 | NUR ---
BEDSIDE REPORT WITH DAYSHIFT NURSE. PATIENT RESTING IN BED, APPEARS TO BE SLEEPING WITH EYES CLOSED, OPENS EYES TO VERBAL STIMULI. DENIES ANY NEEDS AT THIS TIME. CALL LIGHT WITHIN REACH.
--- NOTE | 2022-05-07 20:42 | NUR ---
CBG 169 ADMINISTERED INSULIN PER SLIDING SCALE. PATIENT AWAKES UPON ENTERING ROOM, STATES " I AM HUNGRY AND TIRED" PROVIDED HS SNACK. ADMINISTERED HS MEDICAITONS PER MAR. FULL BODY ASSESMENT DONE. APPEARS TO BE VOIDING WELL.
--- NOTE | 2022-05-08 | NUR ---
PATIENT RESTING WITH EYES CLOSED. APPEARS CALM, BREATHING EVEN AND REGULAR. CALL LIGHT WITHIN REACH. APPPEARS TO HAVE NO NEEDS AT THIS TIME.
--- NOTE | 2022-05-08 03:01 | NUR ---
Fresh ice water and cranberry juice given. Also gave a cup of sugar free pudding as a snack.
--- NOTE | 2022-05-08 04:00 | NUR ---
INTO ROOM FOR ROUNDING, PATIENT APPEARS TO BE RESTING WITH EYES CLOSED. CALL LIGHT WITHIN REACH. PATIENT LAYING ON LEFT SIDE.
--- NOTE | 2022-05-08 04:33 | NUR ---
PATIENT REQUESTING TYLENOL PO. ADMINISTERED PER JUL. PATIENT REPORTS DULL ACHE IN BACK AND GENERALIZED ALL OVER, RATES 4/10 ON PAIN SCALE. NO OTHER NEEDS AT THIS TIME. CALL LIGHT WITHIN REACH.
--- NOTE | 2022-05-08 06:24 | NUR ---
DR. SHARIF ROUNDING ON PATIENT. PLAN TO DISCHARGE LATER THIS MORNING. PATIENT VERBALIZED UNDERSTANDING.
--- NOTE | 2022-05-08 07:50 | NUR ---
UPdated from Dr. Gipson, he has written dc orders and has prescribed medications. I will fax to [email or web address] for family to apple picker on their way home. He would like pt to have a fu appt with [facility]. I updated DrRobert sunshine is working with [facility] for custodial care benefits for either a cg in the home or placement. would like for this pt to go into an GROUP HOME or AFC. We discussed, but this will be up to the pt and [employer]. Orders faxed to [facility] and I called and left a message asking them to call if there is any problem.
[2022-05-08] MEDS ORDERED: MAGOX 400400 MG PO (08:21)
[2022-05-08] MEDS ORDERED: POTASSIUM CHLO20 ME1 PO (08:22)
[2022-05-08] MEDS ORDERED: MIRALAX17 GM PO (08:24)
--- NOTE | 2022-05-08 08:31 | DS ---
[facility] [address], [place] [address] Signed ADMISSION DATE: 04/23/2022 DISCHARGE DATE: 05/08/2022 FINAL DIAGNOSES: 1. Influenza A. 2. Recurrent urinary tract infection. 3. Uncontrolled diabetes. 4. Adynamic ileus. 5. Bacteremia. 6. Hypokalemia. 7. Hypomagnesemia. 8. Bilateral rectus sheath hematomas. 9. L2-L3 diskitis. 10. Anemia. 11. Elevated liver function test. 12. Benign prostatic hyperplasia. 13. Tachycardia. PROCEDURES: 1. CT scan of abdomen and pelvis. 2. Multiple x-rays. HISTORY OF PRESENT ILLNESS: Sanchez is a 61-year-old gentleman, who is noncompliant, has had uncontrolled diabetes and significant hypokalemia resulting in his adynamic ileus. He has been in our hospital now five or six times in the last six months or so. 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 He presented in mid February with a sigmoid volvulus that I had resected. He has a Mccormick side-to-end colorectal anastomosis hand-sewn in two layers. It is widely patent and functioning well. He has come back in the hospital due to his noncompliance mainly with his uncontrolled diabetes and hypokalemia resulting in an adynamic ileus. On this occasion, he was complaining of some back pain and a cough and ended up in the ER. He was found to have influenza A, which has been going through our community. It has been rather significant and actually we had multiple patients pass from the influenza A. He has a history of BPH and recurrent urinary tract infections. Initially it was Klebsiella earlier this year. On this admission, it was beta-hemolytic strep not only in his urine, but in his blood as well. He also has a traumatic back injury from 1984 resulting in L2-L3 bulging disk. He had come to our emergency room and then admitted to the hospital. Myself and the hospitalist service has been taking care of him. HOSPITAL COURSE: Electronically Signed By: TRAV SHARIF MD 05/08/22 0831 PATIENT NAME: SANCHEZ COBOS DISCHARGE SUMMARY DATE OF : 58 REPORT #: [id number] PHYSICIAN: TRAV SHARIF MD PCP: [facility] REPORT IS CONFIDENTIAL AND NOT TO BE RELEASED WITHOUT AUTHORIZATION [facility] [address], [place] [address] Signed Sanchez was admitted as above and it takes us about four days to correct his very low potassium levels. We also had to correct his magnesium on this occasion. He had been on Lovenox. We noticed his hemoglobin dropped and when we repeated his x-rays, we found that he had a bilateral rectus sheath hematomas more on the right than on the left. His hemoglobin has been stable in that regard. He was started on various antibiotics for the beta-hemolytic strep in his urine and his blood. However, his white count never quite returned to normal and the repeat UA was improved. He still had cough and phlegm. We switched him to Levaquin and vancomycin and that brought his white count down within just a few days. There was some Prema in the urine, most likely a contaminant. He was on a sliding scale regular insulin for the diabetes. His blood sugars are very easy to control. They came right down into the low 100s. He had been on the Tamiflu for the influenza A. We have also had him on MiraLAX once each day to help with his bowel movements. He has been tolerating a regular diet for over a week. He has had multiple bowel movements in the last five days without any complaints of his abdomen. His main complaint now really is his low back pain from that bulging disk. He had an MRI of his back and that seems to be chronic. That was reviewed with the neurosurgeon at [facility]. Our case therapist has been involved and apparently his girlfriend is now willing to take him home. We have had him to a point where he seems to be at his baseline. He did bump his LFTs in the last couple of days and that should be rechecked as an outpatient. DISCHARGE PLANS AND MEDICATIONS: Sanchez is going to be discharged to home with his girlfriend. He already has glyburide 2.5 mg one tablet p.o. daily at home. He can resume that. He has potassium citrate tablets at home and he is welcome to use those, but we did write for potassium chloride 40 mEq one tablet p.o. b.i.d. with dispense 60 tablets with three refills. He absolutely needs to control his diabetes and the potassium to keep his colon functioning. He needs to give his colon several months to resolve its ileus. He knows if it does not resolve and it is troublesome enough he might end up with his entire colon removed. He has also been written for magnesium oxide 400 mg one p.o. b.i.d. 60 tablets with three refills. We have also written for MiraLAX 17 g one packet p.o. daily and 8 to 12 ounces of clear liquid, dispense 30 packets with three refills. He will continue to follow his diabetic diet at home. He has a walker at home and he hops around because he is yet to obtain a prosthesis for his left BKA one year ago. We have encouraged him to follow up with his primary care providers at the [facility] in about a week to 10 days for repeat blood work including liver function tests. At this point, he has no symptoms in the abdomen and particularly with respect to the gallbladder. We are not sure if that is drug related or not. It will need to be followed again as an outpatient. He understands there is really no reason to follow up in my office, although he is welcome to call my office as needed if he has any questions or concerns. I reviewed this with him now multiple days in a row. I know our case management has been working with him as well. He has expressed understanding and agrees Electronically Signed By: TRAV SHARIF MD 05/08/22 0831 PATIENT NAME: SANCHEZ COBOS DISCHARGE SUMMARY DATE OF : 58 REPORT #: [id number] PHYSICIAN: TRAV SHARIF MD PCP: [facility] REPORT IS CONFIDENTIAL AND NOT TO BE RELEASED WITHOUT AUTHORIZATION [facility] [address] [place] [id number] Signed with the above plan. MD ANNE MARIE Nichols/ANDERSL /[id number] cc: [facility] Trav Sharif MD Copies: TRAV SHARIF MD ~ Electronically Signed By: TRAV SHARIF MD 05/08/22 0831 PATIENT NAME: SANCHEZ COBOS SR DISCHARGE SUMMARY DATE OF : 58 REPORT #: [id number] PHYSICIAN: TRAV SHARIF MD PCP: [facility] REPORT IS CONFIDENTIAL AND NOT TO BE RELEASED WITHOUT AUTHORIZATION
--- NOTE | 2022-05-08 09:00 | NUR ---
MORNING ASSESSMENT COMPLETE. COMPLAINS OF 8/10 PAIN IN LOWER BACK. LIDOCAINE PATCH APPLIED. PT REPOSITIONED. CALL LIGHT WITHIN REACH.
--- NOTE | 2022-05-08 09:33 | NUR ---
DID PATIENT'S BLOOD SUGAR CHECK THIS MORNING. ALSO PATIENT IS LAYING IN BED WATCHING A WESTERN MOVIE ON HIS TABLET.
--- NOTE | 2022-05-08 11:00 | NUR ---
Received a call from Alice at [facility], pt has been scheduled for May 26, but she would like to move his appt to May 20 at 11:15. Let her know I will add to pts dc instructions.
--- NOTE | 2022-05-08 11:46 | NUR ---
IN ROOM TO ASSESS PAIN LEVEL. PT STATES 9/10 PAIN IN SHOULDERS. EXPLAINED TO PATIENT THE PRN PAIN MEDICATION SCHEDULE. PT IS AWARE AND WILLING TO WAIT TILL THE NEXT DOSE. CALL LIGHT WITHIN REACH.
--- NOTE | 2022-05-08 11:48 | NUR ---
PT USED CALL LIGHT FOR ASSISTANCE UP TO COMMODE. PT WAS ABLE TO TRANSFER W/1PA FWW FROM BED TO COMMODE. PT WAS ABLE TO HAVE A BM, TRANSFERED FROM COMMODE TO SHOWER CHAIR. THIS CNA2 ASSISTED PT IN SHOWERING. HE WAS ABLE TO HELP W/APPROX 45% OF HIS CARES. NEW BRIEF, GOWN, ITEMS COLLECTED FOR D/C @ 1300. NEW LINENS FOR CHAIR. PT IN RECLINER WATCHING TV, WARM BLANKET, FOOT ELEVATED, CALL LIGHT IN REACH.
--- NOTE | 2022-05-08 12:31 | NUR ---
HELPED PATIENT ON THE BEDSIDE COMMODE. AFTER HE WAS DONE HELPED HIM BACK TO HIS CHAIR. HE NEEDED HELP ON CUTTING UP HIS TURKEY, NOW HE IS EATING HIS LUNCH AND WATCHING ANOTHER MOVIE ON HIS TABLET.
--- NOTE | 2022-05-08 14:29 | NUR ---
PUT ON PATIENT'S PAJAMA BOTTOMES. AND DAUGHTER PUT ON SWEATSHIRT. DID VITALS.
--- NOTE | 2022-05-08 14:35 | NUR ---
PT RESTING IN CHAIR, AROUSES TO THE SOUND OF MY VOICE. SAID HE IS WAITING FOR HIS DAUGHTER TO COME FOR DC. PT MENTIONED HE IS INCOMFORTABLE WITH BACK PAIN. DAUGHTER LYNN ARRIVES, GAVE BLESSING AND WILL FOLLLOW NEEDED
== END 2022-05-08 13:50 | disposition home or self-care (01) | DRG 871 ==
LOC: ED 00:23 → MS 05:26 → CCU 05:26 → MS 04-27 14:40
PROVIDERS: ADMIT Colon & Rectal Surgery; ATTEND Colon & Rectal Surgery
PROC: 3E03329 Introduction of Other Anti-infective into Peripheral Vein, Percutaneous Approach (ICD-10-PCS; principal; 2022-04-23)
PROC: 3E033XZ Introduction of Vasopressor into Peripheral Vein, Percutaneous Approach (ICD-10-PCS; 2022-04-23)
DX: A40.1 Sepsis due to streptococcus, group B (principal); R65.21 Severe sepsis with septic shock; N17.9 Acute kidney failure, unspecified; K56.0 Paralytic ileus; N39.0 Urinary tract infection, site not specified; J10.1 Influenza due to other identified influenza virus with other respiratory manifestations; Z20.822 Contact with and (suspected) exposure to COVID-19; Z91.14 Patient's other noncompliance with medication regimen; E11.65 Type 2 diabetes mellitus with hyperglycemia; E87.6 Hypokalemia; E83.42 Hypomagnesemia; M46.46 Discitis, unspecified, lumbar region; N40.0 Benign prostatic hyperplasia without lower urinary tract symptoms; M79.81 Nontraumatic hematoma of soft tissue; M25.511 Pain in right shoulder; Z98.818 Other dental procedure status; D64.9 Anemia, unspecified
CPT/HCPCS: 36415; 71045; 71046; 71250; 72070; 72158; 73030; 74176; 74177; 80048; 80053; 80202; 81001; 83036; 83605; 83690; 83735; 83880; 84100; 85007; 85025; 85060; 85651; 86140; 86850; 86900; 86901; 87040; 87045; 87077; 87088; 87186; 87493; 87502; 93005; 93010; 93306; 94640; 94668; 94760; 94799; 96375; 97110; 97162; 97166; 97530; 97535; 99285-25; A9270; A9579; C9113; C9803; J0456; J0692; J0696; J1170; J1610; J1815; J1956; J2060; J2270; J2405; J3370; J3475; J3480; J7030; J7060; J7121; Q9967; U0003